=== PATIENT | male | born 1960 | race Caucasian/White ===

== ENCOUNTER 2020-03-06 14:24 | Outpatient (CLI) | payer BC, SELFPAY ==
--- NOTE | ~2020-03-06 | XR_ITS ---
XR knee RT 3V 03/06/2020 14:40 Indication: Right knee pain Procedure: 3 views right knee Comparison: 09/11/2015 Findings: No fracture, subluxation or dislocation. Small joint effusion. There is mild osteoarthritis of the right knee. No foreign bodies. Impression: 1: Mild osteoarthritis of the right knee. 2: Small joint effusion. 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 Impression: 1: Mild osteoarthritis of the right knee. 2: Small joint effusion.
== END 2020-03-06 14:25 | disposition home or self-care (01) ==
PROVIDERS: PCP Family Medicine; Visit Provider Nurse Practitioner Family
DX: M25.569 Pain in unspecified knee (principal); M17.11 Unilateral primary osteoarthritis, right knee; M25.461 Effusion, right knee
CPT/HCPCS: 73562

== ENCOUNTER 2020-03-24 13:30 | Outpatient (CLI) | payer BC, SELFPAY ==
--- NOTE | ~2020-03-24 | MR_ITS ---
EXAMINATION: MR knee RT wo con DATE: 03/24/2020 14:27 INDICATION: Right knee pain TECHNIQUE: Magnetic resonance imaging (MRI) of the right knee was performed without intravenous contr ast. Sequences included coronal PD-weighted FSE, coronal PD-weighted FS FSE, sagittal T2-weighted FS E, sagittal PD-weighted FS FSE and axial PD weighted fat saturated FSE. COMPARISON: Right knee radiographs dated 03/16/2020 FINDINGS: Medial compartment: Complex tear of the body and posterior horn of the medial meniscus with increased signal intensity te ar planes contacting the inferior articular surface at the couple locations along the posterior horn with small radial tear resulting in truncation of the free edge at the lateral side of the posterior horn. Medial extrusion of the meniscal body the peripheral portion of which is subluxed to the inferi or gutter with diffuse amorphous increased signal of a significant portion of the meniscal tissue at the mid body likely representing secondary degenerative tearing. Diffuse partial thickness cartilage loss with chondral surface regularity along the anterior to central weightbearing medial femoral cond yle. More severe cartilage loss in place approaching full-thickness with underlying subarticular bubba a along the medial aspect of the medial tibial plateau. Small marginal osteophytes are present. Lateral compartment: Lateral meniscus is normal. 8 x 4 mm region of linear increased signal at the bone chondral interface at the central weightbearing lateral femoral condyle likely representing blisterlike chondral [place]. There is partial thickness chondral fissuring without degenerative subarticular changes at th e posterior aspect of the lateral tibial plateau underlying the posterior horn of the meniscus. Patellofemoral compartment: Partial-thickness chondral fissuring involving less than 50% the cartilage thickness at the lateral p atellar facet. And at the inferior aspect of the medial facet. Trochlear cartilage appears relatively preserved. Ligaments and tendons: Posterior cruciate ligament is normal. The anterior cruciate ligament demonstrates a normal angle rel ative to Blumenstaat's line. It appears thickened with increased intrasubstance signal surrounding in tact appearing linear fibers with a celery stalk appearance. There are multiple intrasubstance gang lion cysts, the largest bulging from the femoral side of the ligament one of which forms an approxima tely 13 x 10 x 9 mm erosion at the posterior superior femoral footplate of the ligament. There are fe w smaller ganglion cysts protruding anteriorly from the tibial insertion of the ligament. The medial collateral ligament and fibular collateral ligament complex are normal. The extensor mechanism is nor mal. The visualized medial and lateral hamstring tendons as well as the iliotibial band are normal. Fluid: Physiologic amount of fluid in the joint space. No loose osteochondral bodies identified. Osseous/other: No fracture or pathologic marrow replacing process. IMPRESSION: 1. Complex medial meniscal tear. 2. Tricompartmental osteoarthritis, moderate severity with high-grade chondral malacia in the medial compartment and mild with regions of moderate grade chondromalacia in the lateral and patellofemoral compartments. 3. Prominent mucoid degeneration of the anterior cruciate ligament without definitive tear and with m ultiple ganglion cysts one of which erodes deep to the femoral footplate. Correlate with physical exa m to assess for degree of any residual functional integrity. 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
== END 2020-03-24 13:31 | disposition home or self-care (01) ==
LOC: ANHIMG 13:39
PROVIDERS: PCP Family Medicine; Visit Provider Family Medicine
DX: G89.29 Other chronic pain (principal); M25.561 Pain in right knee; S83.231A Complex tear of medial meniscus, current injury, right knee, initial encounter; M17.11 Unilateral primary osteoarthritis, right knee; M94.261 Chondromalacia, right knee; M67.461 Ganglion, right knee
CPT/HCPCS: 73721

== ENCOUNTER 2020-06-29 09:47 | Outpatient (CLI) | payer BC, SELFPAY ==
--- NOTE | ~2020-06-29 | XR_ITS ---
EXAMINATION: XR knee LT 2V DATE: 06/29/2020 10:08 INDICATION: Left knee pain. TECHNIQUE: 3 views of left knee were obtained. COMPARISON: None. FINDINGS: Bone alignment is normal. No fracture. There is mild tricompartmental osteoarthritis. There is a small knee joint effusion. IMPRESSION: 1. Mild left knee osteoarthritis. 2. Small left knee joint effusion. 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
== END 2020-06-29 09:48 | disposition home or self-care (01) ==
PROVIDERS: PCP Family Medicine; Visit Provider Physician Assistant Medical
DX: G89.29 Other chronic pain (principal); M25.562 Pain in left knee; M17.12 Unilateral primary osteoarthritis, left knee; M25.462 Effusion, left knee
CPT/HCPCS: 73560

== ENCOUNTER 2021-08-07 13:04 | Outpatient (CLI) | payer BC, SELFPAY ==
--- NOTE | ~2021-08-07 | XR_ITS ---
EXAMINATION: XR chest 2V 08/07/2021 13:21 INDICATION: Cough PROCEDURE: 2 view chest COMPARISON: 04/18/2011 FINDINGS: The lungs are clear. The cardiomediastinal silhouette is within normal limits. There are no pleural effusions. There is no pneumothorax suspected. IMPRESSION: 1: NO ACUTE CARDIOPULMONARY DISEASE. 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
== END 2021-08-07 13:05 | disposition home or self-care (01) ==
PROVIDERS: PCP Family Medicine; Visit Provider Nurse Practitioner Family
DX: R05.9 Cough, unspecified (principal); J21.0 Acute bronchiolitis due to respiratory syncytial virus
CPT/HCPCS: 71046

== ENCOUNTER 2021-09-06 12:53 | Outpatient (CLI) | payer BC, SELFPAY | END 2021-09-06 12:54 | disposition home or self-care (01) | LOC: ANHAUDIO 12:55 | PROVIDERS: PCP Family Medicine; Visit Provider Otolaryngology | DX: H91.93 Unspecified hearing loss, bilateral (principal); H69.83 Other specified disorders of Eustachian tube, bilateral | CPT/HCPCS: 92557; 92567 ==

== ENCOUNTER 2023-12-30 10:42 | Outpatient (CLI) | payer BC, SELFPAY ==
--- NOTE | ~2023-12-30 | CT_ITS ---
CT Scan of the Chest without Contrast: Clinical Indication: Lung cancer screening, tobacco use Technique: Contiguous sections were acquired throughout the chest without intravenous contrast. Dose reduction technique was used on this scan by utilizing automated exposure control and iterative recon struction technique. The dose-length product (DLP) was 155.74 mGy-cm. Findings: There is no evidence of any significant mediastinal, hilar or axillary lymphadenopathy. There are mil d atherosclerotic calcifications of the aorta and coronary arteries. Calcified right hilar lymph node s are present. There is no evidence of pleural or pericardial effusion. Calcified right lower lobe granuloma present. There is linear scarring at the lingula. Images through the upper abdomen reveal no abnormalities. Impression: Lung RADS 2: Benign appearance. 12 month follow-up screening CT advised. Reviewed, dictated and finalized at [facility]. Impression: Lung RADS 2: Benign appearance. 12 month follow-up screening CT advised.
== END 2023-12-30 10:43 | disposition home or self-care (01) ==
PROVIDERS: PCP Registered Nurse; Visit Provider Registered Nurse
DX: Z12.2 Encounter for screening for malignant neoplasm of respiratory organs (principal); F17.210 Nicotine dependence, cigarettes, uncomplicated
CPT/HCPCS: 71271

== ENCOUNTER 2024-09-21 23:50 | Emergency (ER) | payer BC, SELFPAY ==
[2024-09-21 23:55] VITALS: BP 177/83; PULSE 85; RESP 18; TEMP 36.2; O2SAT 100
--- NOTE | 2024-09-22 01:20 | PC.NURSE ---
pt and approached triage desk stating that pt was able to have a BM while in the waiting room so they were going to head home. Pt and advised to be seen at the nearest ER if they believe it is necessary.
--- OUTSIDE RECORDS SUMMARY | 2024-09-29 02:52 | XMS_ITS | Encounter Summary ---
Author Organization [facility] - [facility] Address [address] [place] [address]. [place], [place] [id number] [place] [id number] Care Team Providers Care Surgical Garment Assembly Supervisor Name Role Phone Ruth Child Primary Care Provider [phone] Reason for Referral * (Routine) - New Request Specialty Diagnoses / Procedures Referred By Yumi sandoval Referred To Contact Procedures LACERATION REPAIR Juni Javier MD [address] [place] [address] Phone: tel: fax: Referral ID Status Reason Start Date Expiration Date V isits Requested Visits Authorized [id number] New Request 01/10/2024 01/09/2025 1 1 Reason for Visit * Reason Comments Laceration Encounter Details Date Type Department Care Team (Late st Contact Info) Description 01/09/2024 12:42 PM CDT - 01/09/2024 1:56 PM CDT Emergency [facility] Emergency Room [address] [place] [address] Juni Javier MD [address] [place] [id number] Laceration Discharge Disposition: Home or Self Care (Routine Discharge) Social History Tobacco Use Types Packs/Day Years Used Date Smoking Tobacco: Every Day Cigarettes 1 35 Smokeless 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C (98.2 ??F) 01/09/2024 1:50 PM CD T Respiratory Rate 18 01/09/2024 1:50 PM CDT Oxygen Saturation 94% 01/09/2024 1:50 PM CDT Inhaled Oxygen Concentration - - Weight 96.6 kg (213 lb) 01/09/2024 12:40 PM CDT Height 182.9 cm (6') 01/09/2024 12:40 PM CDT Body Mass Index 28.89 01/09/2024 12:40 PM CDT documented in this encounter Discharge Instructions * Attachments The following attachments cannot be sent through Care Everywhere. * Laceration Repair With Stitches ED (Vietnamese) documented in this encounter Medications at Time of Discharge glipiZIDE (GLUCOTROL) 5 MG tabletIndications:Ty pe 2 diabetes mellitus with hyperglycemia, without long-term current use of insulin ([facility] HHS/HCC),Uncontrolle d type 2 diabetes mellitus with hyperglycemia ([facility] H[facility]/HCC) Take 1 tablet (5 mg total) by mouth 2 (two) times daily before meals. 60 tablet 5 11/18/2023 4 JARDIANCE 25 MG tabletIndications:Un controlled type 2 diabetes mellitus with hyperglycemia ([facility] H[facility]/HCC) Take 1 tablet (25 mg total) by mouth daily. 90 tablet 3 07/24/2023 4 levothyroxine (SYNTHROID) 25 MCG tabletIndications:Ac quired hypothyroidism Take 1 tablet (25 mcg total) by mouth every morning. 90 tablet 3 07/24/2023 4 lisinopril (PRINIVIL) 10 MG tabletIndications:Ty pe 2 diabetes mellitus with hyperglycemia, without long-term current use of insulin ([facility] H[facility]/HCC),Uncontrolle d type 2 diabetes mellitus with hyperglycemia ([facility] H[facility]/HCC),Primary hypertension Take 1 tablet (10 mg total) by mouth daily. 30 tablet 5 11/18/2023 4 meloxicam (MOBIC) 15 MG tabletIndications:Ch ronic pain of both knees Take 1 tablet (15 mg total) by mouth daily. BID Pt states that he is taking once a day 90 tablet 1 07/24/2023 4 metFORMIN (GLUCOPHAGE) 1000 MG tabletIndications:Un controlled type 2 diabetes mellitus with hyperglycemia ([facility] H[facility]/HCC) Take 1 tablet (1,000 mg total) by mouth 2 (two) times daily with meals. Once in the morning and once in the evening. 180 tablet 3 07/24/2023 4 rosuvastatin (CRESTOR) 20 MG tabletIndications:Mi xed hyperlipidemia Patient to take #2 20mg tablets (40mg total daily) by mouth 11/25/2023 4 Semaglutide (RYBELSUS) 3 MG TabIndications:Diabe cordelia Mellitus Take 3 mg by mouth daily. Indications: Diabetes 30 tablet 11 07/24/2023 4 documented as of this encounter ED Notes * Juni Javier MD - 01/09/2024 12:47 PM CDTAssociated Order(s): Lac Repair Chief Complaint Chief Complaint Patient presents with Laceration History of Present Illness 63-year-old male presents with laceration of the left pinky finger. Patient reports that he was using a chainsaw when the blade bounced upward and caught the side of his pinky finger. There was immediate bleeding and he applied pressure. He is still able to fully extend and flex his finger. No numbness or tingling. No exposed bone. Last tetanus shot about 10 years ago. Not on anticoagulants. Medical History ALLERGIES: Review of patient's allergies indicates: No Known Allergies MEDICATIONS: Prior to Admission medications Medication Sig Start Date End Date Taking? Authorizing Provider glipiZIDE (GLUCOTROL) 5 MG tablet Take 1 tablet (5 mg total) by mouth 2 (two) times daily before meals. 11/18/23 JOSE Gross JARDIANCE 25 MG tablet Take 1 tablet (25 mg total) by mouth daily. 07/24/23 JOSE Gross levothyroxine (SYNTHROID) 25 MCG tablet Take 1 tablet (25 mcg total) by mouth every morning. 07/24/23 JOSE Gross lisinopril (PRINIVIL) 10 MG tablet Take 1 tablet (10 mg total) by mouth daily. 11/18/23 JOSE Gross meloxicam (MOBIC) 15 MG tablet Take 1 tablet (15 mg total) by mouth daily. BID Pt states that he is taking once a day Patient taking differently: Take 1 tablet (15 mg total) by mouth daily. 07/24/23 JOSE Gross metFORMIN (GLUCOPHAGE) 1000 MG tablet Take 1 tablet (1,000 mg total) by mouth 2 (two) times daily with meals. Once in the morning and once in the evening. 07/24/23 JOSE Gross rosuvastatin (CRESTOR) 20 MG tablet Patient to take #2 20mg tablets (40mg total daily) by mouth 11/25/23 JOSE Gross Semaglutide (RYBELSUS) 3 MG Tab Take 3 mg by mouth daily. Indications: Diabetes 07/24/23 JOSE Gross PAST MEDICAL HISTORY: Past Medical History: Diagnosis Date BMI 29.0-29.9,adult 08/19/2022 Cigarette nicotine dependence without complication 08/19/2022 Diabetes mellitus ([facility]) High cholesterol Hypertension Primary hypertension 08/19/2022 Type 2 diabetes mellitus with hyperglycemia, without long-term current use of insulin ([facility]) 08/19/2022 PAST SURGICAL HISTORY: Past Surgical History: Procedure Laterality Date ACNE CYST REMOVAL FAMILY HISTORY: Family History Problem Relation Name Age of Onset Hypertension Mother Cancer Father kidney cancer No Known Problems Daughter No Known Problems Daughter Diabetes Maternal Grandmother SOCIAL HISTORY: Social History Tobacco Use Smoking status: Every Day Current packs/day: 1.00 Average packs/day: 1 pack/day for 35.0 years (35.0 ttl pk-yrs) Types: Cigarettes Smokeless tobacco: Never Tobacco 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 Vaping Use Vaping status: Never Used Substance Use Topics Alcohol use: Yes Comment: once every 3 months Drug use: Never Review of Systems Review of Systems Pertinent ROS per HPI Physical Exam Filed Vitals: 01/09/24 1240 01/09/24 1350 BP: (!) 183/110 (!) 159/88 Pulse: 68 74 Resp: 18 18 Temp: 98.4 ??F (36.9 ??C) 98.2 ??F (36.8 ??C) TempSrc: Temporal Temporal SpO2: 96% 94% Weight: 96.6 kg (213 lb) Height: 1.829 m (6') Physical Exam General: well developed, well nourished, resting comfortably in bed, no acute distress HEENT: moist mucous membranes, nares normal, lids/conjunctiva normal Resp: non-labored breathing on RA, speaks in full sentences CV: well perfused GI: non-distended Extr: no gross edema bilaterally Msk: no joint swelling or gross deformity, ROM grossly normal Skin: Wide laceration with skin avulsion to the lateral aspect of the fifth digit of the left hand just distal to the MCP joint. Normal strength and range of motion with flexion and extension of the fifth digit. Brisk cap refill distal to the injury. Sensation fully intact. Neuro: A&Ox3, no gross neurologic deficits Diagnostic Studies / Procedures ELECTROCARDIOGRAMS: No results found for this visit on 01/09/24. LABORATORY STUDIES: No results found for this visit on 01/09/24. IMAGING STUDIES No orders to display Lac Repair Date/Time: 01/10/2024 5:08 PM Performed by: Juni Javier MD Authorized by: Juni Javier MD Consent: Consent obtained: Verbal Consent given by: Patient Risks discussed: Infection, pain, poor cosmetic result, poor wound healing, nerve damage, tendon damage and vascular damage Anesthesia: Anesthesia method: Local infiltration Local anesthetic: Lidocaine 1% w/o epi Laceration details: Location: Finger Finger location: L small finger Length (cm): 3.5 Pre-procedure details: Preparation: Patient was prepped and draped in usual sterile fashion Exploration: Imaging outcome: foreign body not noted Wound exploration: entire depth of wound visualized Wound extent: areolar tissue violated Wound extent: no nerve damage noted and no tendon damage noted Contaminated: yes Treatment: Area cleansed with: Chlorhexidine Amount of cleaning: Extensive Irrigation solution: Sterile saline Irrigation method: Pressure wash Visualized foreign bodies/material removed: no Debridement: Minimal Undermining: Minimal Layers/structures repaired: Deep subcutaneous Deep subcutaneous: Suture size: 4-0 Suture material: Vicryl Suture technique: Simple interrupted Number of sutures: 2 Skin repair: Repair method: Sutures Suture size: 3-0 Suture material: Nylon Suture technique: Horizontal mattress Number of sutures: 3 Approximation: Approximation: Close Repair type: Repair type: Intermediate Post-procedure details: Dressing: Antibiotic ointment, non-adherent dressing and splint for protection Procedure completion: Tolerated well, no immediate complications ED Course / Medical Decision Making Medical Decision Making 63-year-old male presents with avulsion and laceration to the left small finger following chainsaw accident. On exam, sensation as well as active flexion and extension motor function is fully intact,and there is brisk cap refill at the tip of the digit. Wound exploration under direct visualizationrevealed no retained FB. Wound irrigation and laceration repair were performed as discussed above. He received tetanus prophylaxis. Following closure, laceration was covered with bacitracin, nonadherent dressing, and a digital splint was applied. Repeat neurovascular exam was unchanged. Wound care instructions were discussed. We discussed signs of symptoms of infection including worsening pain, swelling, expanding skin redness, purulent drainage, and fever. Patient confirmed understanding. He is to return to his primary care provider, urgent care or to this ED in 7 days for suture removal. Discharged to home with home care instructions, follow-up instructions, and strict return precautions. Clinical Impression Laceration of left little finger without foreign body without damage to nail, initial encounter (Primary) Disposition: Discharge Juni Javier MD 01/10/24 1721 * Ruth Piper RN - 01/09/2024 12:42 PM CDT Patient comes to ER with complaints of a laceration to left pinky finger. He was working with the chainsaw and cut finger. Denies numbness and tingling to the finger documented in this encounter Plan of Treatment Not on file documented as of this encounter Procedures Procedure Name Priority Date/Time Associated Diagnosis Comments LACERATION REPAIR Routine 01/10/2024 5:0 8 PM CDT documented in this encounter Results * Lac Repair (01/10/2024 5:08 PM CDT) Narrative Juni Javier MD - 01/10/2024 5:08 PM CDT Juni Javier MD ? 01/10/2024 ??5:21 PM Lac Repair Date/Time: 01/10/2024 5:08 PM Performed by: Juni Javier MD Authorized by: Juni Javier MD ?? Consent: ??Consent obtained: ??Verbal ??Consent given by: ??Patient ??Risks discussed: ??Infection, pain, poor cosmetic result, poor wound healing, nerve damage, tendon damage and vascular damage Anesthesia: ??Anesthesia method: ??Local infiltration ??Local anesthetic: ??Lidocaine 1% w/o epi Laceration details: ??Location: ??Finger ??Finger location: ??L small finger ??Length (cm): ??3.5 Pre-procedure details: ??Preparation: ??Patient was prepped and draped in usual sterile fashion Exploration: ??Imaging outcome: foreign body not noted ?Wound exploration: entire depth of wound visualized ?Wound extent: areolar tissue violated ?Wound extent: no nerve damage noted and no tendon damage noted ?Contaminated: yes ?? Treatment: ??Area cleansed with: ??Chlorhexidine ??Amount of cleaning: ??Extensive ??Irrigation solution: ??Sterile saline ??Irrigation method: ??Pressure wash ??Visualized foreign bodies/material removed: no ?Debridement: ??Minimal ??Undermining: ??Minimal ??Layers/structures repaired: ??Deep subcutaneous Deep subcutaneous: ??Suture size: ??4-0 ??Suture material: ??Vicryl ??Suture technique: ??Simple interrupted ??Number of sutures: ??2 Skin repair: ??Repair method: ??Sutures ??Suture size: ??3-0 ??Suture material: ??Nylon ??Suture technique: ??Horizontal mattress ??Number of sutures: ??3 Approximation: ??Approximation: ??Close Repair type: ??Repair type: ??Intermediate Post-procedure details: ??Dressing: ??Antibiotic ointment, non-adherent dressing and splint for protection ??Procedure completion: ??Tolerated well, no immediate complications Juni Javier MD PROCEDURE/MINOR AVALOS RGICAL ORDERABLES Final Result documented in this encounter Visit Diagnoses Diagnosis Laceration of left little finger without foreign body without damage to nail, initial encounter- Primary documented in this encounter Administered Medications Inactive Administered Medications - up to 3 most recent administrations Medication Order MAR Action Action Date Dose Rate Site bacitracin ointment Topical, Once, 1 dose, On 01/09/24 at 1345 Given 01/09/2024 1:44 PM CDT lidocaine (PF) (XYLOCAINE) 1 % injection 10 mL 10 mL, Subcutaneous, Once, 1 dose, On 01/09/24 at 1300 Given by Other 01/09/2024 1:01 PM CDT 10 mLs Other documented in this encounter Active and Recently Administered Medications Times are shown in CDT. Scheduled Medication Order 01/07/2024 01/08/2024 01/09/2024 bacitracin ointment (COMPLETED) Topical, Once, 1 dose, On 01/09/24 at 1345 1344 (Given - Provid er: Ruth Piper RN) lidocaine (PF) (XYLOCAINE) 1 % injection 10 mL (COMPLETED) 10 mL, Subcutaneous, Once, 1 dose, On 01/09/24 at 1300 1301 (Given by Other - Provider: Ruth Piper RN - Comment: Left pinky; given by provider) documented in this encounter Additional Health Concerns Assessment Noted Time PHQ-9 Depression Total Score: 0 11/13/19 23 11:12 AM SURGICAL ASSISTANT CERTIFIED documented as of this encounter Care Teams Surgical Garment Assembly Supervisor Relationship Specialty Start Date End Date Ruth Child APNP [address] [place] [id number] PCP - General NURSE PRACTITIONER 08/19/22 documented as of this encounter
--- OUTSIDE RECORDS SUMMARY | 2024-09-29 02:52 | XMS_ITS | Encounter Summary ---
Author Organization [facility] - [facility] Address [address] [place] [address]. 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
--- OUTSIDE RECORDS SUMMARY | 2024-09-29 02:52 | XMS_ITS | Encounter Summary ---
Author Organization [facility] Address [address] [place] [address]. [place], [place] [id number] [place] [address] Care Team Providers Care Livestock Showman Name Role Phone Ruth Child Primary Care Provider [phone] Reason for Referral * (Routine) - New Request Specialty Diagnoses / Procedures Referred By Yumi sandoval Referred To Contact Diagnoses Visit for suture removal Procedures Suture Removal Ruth Child APNP [address] [place] [address] Phone: tel: fax: Referral ID Status Reason Start Date Expiration Date V isits Requested Visits Authorized [id number] New Request 01/20/2024 01/19/2025 1 1 Reason for Visit * Reason Comments Suture Removal Encounter Details Date Type Department Care Team (Late st Contact Info) Description 01/20/2024 9:00 AM CDT Office Visit [facility] Family & Internal Medicine [facility] [address] [place] [address] Ruth Child APNP [address] [place] [address] Suture Removal Social History Tobacco Use Types Packs/Day Years Used Date Smoking Tobacco: Every Day Cigarettes 1 35 Smokeless Tobacco: Never Comments:Provider to adolescent counselor Alcohol Use Standard Drinks/Week Comments Yes [...] Sign Reading Time Taken Comments Blood Pressure 138/68 01/20/2024 9:49 AM CDT Pulse 77 01/20/2024 9:03 AM CDT Temperature 37 ??C (98.6 ??F) 01/20/2024 9:03 AM CDT Respiratory Rate 16 01/20/2024 9:03 AM CDT Oxygen Saturation 93% 01/20/2024 9:03 AM CDT Inhaled Oxygen Concentration - - Weight 97.3 kg (214 lb 8 oz) 01/20/2024 9:03 AM CDT Height 182.9 cm (6') 01/20/2024 9:03 AM CDT Body Mass Index 29.09 01/20/2024 9:03 AM CDT documented in this encounter Patient Instructions * Attachments The following attachments cannot be sent through Care Everywhere. * Quitting smoking (Amharic) documented in this encounter Progress Notes * JOSE Gross - 01/20/2024 9:00 AM CDTAssociated Order(s): Suture Removal Post-Procedure Diagnose(s): Visit for suture removal Images from the original note were not included. [facility] FAMILY AND INTERNAL MEDICINE OFFICE VISIT Reason for Visit: Suture Removal History of Present Illness: 63 yo male here today for suture removal and diabetes follow up. Suture removal -patient here for suture removal. Patient had an accident involving a chainsaw 11 days ago. Sought care at [facility]. 2 deep subcutaneous sutures placed 3 more superficial sutures placed. Tetanus received. Patient has not noted any signs and symptoms of infection. Neurovascular check intact. T2DM - HGB A1C checked today and found to be a little improved at 9.3, from 12.9 2 months ago. At that visit we did discuss some changes he would like to make and glipizide 5 mg BID (as this was the only med he would agree to) was started. ROS: Review of Systems Constitutional: Negative for chills and fever. Respiratory: Negative for cough and shortness of breath. Cardiovascular: Negative for chest pain and palpitations. Gastrointestinal: Negative for abdominal pain, diarrhea, nausea and vomiting. Neurological: Negative for dizziness and headaches. Medications: Current Outpatient Medications: glipiZIDE (GLUCOTROL) 5 MG tablet, Take 2 tablets twice daily, Disp: 360 tablet, Rfl: 3 JARDIANCE 25 MG tablet, Take 1 tablet (25 mg total) by mouth daily., Disp: 90 tablet, Rfl: 3 levothyroxine (SYNTHROID) 25 MCG tablet, Take 1 tablet (25 mcg total) by mouth every morning., Disp: 90 tablet, Rfl: 3 lisinopril (PRINIVIL) 10 MG tablet, Take 1 tablet (10 mg total) by mouth daily., Disp: 30 tablet, Rfl: 5 meloxicam (MOBIC) 15 MG tablet, take 1 tablet by mouth daily, Disp: 90 tablet, Rfl: 1 metFORMIN (GLUCOPHAGE) 1000 MG tablet, Take 1 tablet (1,000 mg total) by mouth 2 (two) times daily with meals. Once in the morning and once in the evening., Disp: 180 tablet, Rfl: 3 rosuvastatin (CRESTOR) 20 MG tablet, Patient to take #2 20mg tablets (40mg total daily) by mouth, Disp: , Rfl: Allergies: Review of patient's allergies indicates: No Known Allergies Medical History: Past Medical History: Diagnosis Date BMI 29.0-29.9,adult 08/19/2022 Cigarette nicotine dependence without complication 08/19/2022 Diabetes mellitus ([facility]) High cholesterol Hypertension Primary hypertension 08/19/2022 Type 2 diabetes mellitus with hyperglycemia, without long-term current use of insulin ([facility]) 08/19/2022 Surgical History: Past Surgical History: Procedure Laterality Date ACNE CYST REMOVAL Social History: Social History Socioeconomic History Marital status: Tobacco Use Smoking status: Every Day Current packs/day: 1.00 Average packs/day: 1 pack/day for 35.0 years (35.0 ttl pk-yrs) Types: Cigarettes Smokeless tobacco: Never Tobacco comments: Provider to adolescent counselor Vaping Use Vaping status: Never Used Substance and Sexual Activity Alcohol use: Yes Comment: once every 3 months Drug use: Never Family History: Family History Problem Relation Name Age of Onset Hypertension Mother Cancer Father kidney cancer No Known Problems Daughter No Known Problems Daughter Diabetes Maternal Grandmother PE: Physical Exam Vitals and nursing note reviewed. HENT: Head: Normocephalic and atraumatic. Eyes: General: No scleral icterus. Conjunctiva/sclera: Conjunctivae normal. Neck: Trachea: No tracheal deviation. Cardiovascular: Rate and Rhythm: Normal rate and regular rhythm. Heart sounds: Normal heart sounds. Pulmonary: Effort: Pulmonary effort is normal. No respiratory distress. Breath sounds: Normal breath sounds. No stridor. No wheezing. Musculoskeletal: General: No deformity. Normal range of motion. Cervical back: Normal range of motion and neck supple. Skin: General: Skin is warm and dry. Findings: No erythema. Comments: Neurovascular check intact. Wound edges of left pinky finger as approximated as possible.No signs of infection noted. Patient able to move left pinky finger. Sensation intact. Neurological: Mental Status: He is alert and oriented to person, place, and time. Gait: Gait is intact. Psychiatric: Mood and Affect: Mood and affect normal. Suture Removal Date/Time: 01/20/2024 9:38 AM Performed by: JOSE Gross Authorized by: JOSE Gross Body area: upper extremity Location details: left small finger Wound Appearance: clean Sutures Removed: 3 Post-removal: dressing applied, Steri-Strips applied and antibiotic ointment applied Patient tolerance: patient tolerated the procedure well with no immediate complications Filed Vitals: 01/20/24 0903 BP: (!) 146/66 Pulse: 77 Resp: 16 Temp: 98.6 ??F (37 ??C) TempSrc: Skin SpO2: 93% Weight: 97.3 kg (214 lb 8 oz) Height: 1.829 m (6') Labs: Labs Reviewed Diagnoses/Impression: 1. Uncontrolled type 2 diabetes mellitus with hyperglycemia ([facility]) HEMOGLOBIN, GLYCOSYLATED COLLECT.CAPILLARY (FNGR,HEEL,EAR) glipiZIDE (GLUCOTROL) 5 MG tablet 2. Type 2 diabetes mellitus with hyperglycemia, without long-term current use of insulin ([facility]) glipiZIDE (GLUCOTROL) 5 MG tablet 3. Visit for suture removal Recommendations and Plan: 1. Uncontrolled type 2 diabetes mellitus with hyperglycemia ([facility]) - HEMOGLOBIN, GLYCOSYLATED - COLLECT.CAPILLARY (FNGR,HEEL,EAR) - glipiZIDE (GLUCOTROL) 5 MG tablet; Take 2 tablets twice daily Dispense: 360 tablet; Refill: 3 Hemoglobin A1c checked today and found to be better, but still elevated at 9.3. Will adjust meds--cautioned on symptomatic lows. Would like to see pt back in office in 6 weeks. 2. Type 2 diabetes mellitus with hyperglycemia, without long-term current use of insulin ([facility] HHS/HCC) - glipiZIDE (GLUCOTROL) 5 MG tablet; Take 2 tablets twice daily Dispense: 360 tablet; Refill: 3 3. Visit for suture removal 3 superficial sutures removed. Steri-Strips and dressing applied. Patient is aware of signs and symptoms of infection, let us know if develops any days Orders Placed This Encounter COLLECT.CAPILLARY (FNGR,HEEL,EAR) Suture Removal HEMOGLOBIN, GLYCOSYLATED glipiZIDE (GLUCOTROL) 5 MG tablet Cannot display discharge medications since this is not an admission. PCP: JOSE Gross 01/20/2024 documented in this encounter Plan of Treatment Not on file documented as of this encounter Procedures Procedure Name Priority Date/Time Associated Diagnosis Comments SUTURE REMOVAL Routine 01/20/2024 9:38 AM CDT Visit for suture removal COLLECT.CAPILLARY (FNGR,HEEL,EAR) Routine 01/20/2024 9:00 AM CDT Uncontrolled type 2 diabetes mellitus with hyperglycemia ([facility] HHS/HCC) HEMOGLOBIN, GLYCOSYLATED Routine 01/20/2024 Uncontrolled type 2 diabetes mellitus with hyperglycemia ([facility] HHS/HCC) documented in this encounter Results * SUTURE REMOVAL (01/20/2024 9:38 AM CDT) Narrative Ruth Child APNP - 01/20/2024 9:38 AM CDT JOSE Gross ? 01/20/2024 ??9:47 AM Suture Removal Date/Time: 01/20/2024 9:38 AM Performed by: JOSE Gross Authorized by: JOSE Gross ??Body area: upper extremity Location details: left small finger Wound Appearance: clean Sutures Removed: 3 Post-removal: dressing applied, Steri-Strips applied and antibiotic ointment applied Patient tolerance: patient tolerated the procedure well with no immediate complications Ruth GARCIA PROCEDURE/MINOR SURGICAL OR DERABLES Final Result * HEMOGLOBIN, GLYCOSYLATED (01/20/2024) HGB A1C 9.3 % [facility] 01/20/2024 Ruth GARCIA LABORATORY Final Resul t -[facility] [address] [place] [address], documented in this encounter Visit Diagnoses Diagnosis Uncontrolled type 2 diabetes mellitus with hyperglycemia ([facility])- Primary Type 2 diabetes mellitus with hyperglycemia, without long-term current use of insulin ([facility]) Visit for suture removal Encounter for removal of sutures documented in this encounter Additional Health Concerns Assessment Noted Time PHQ-9 Depression Total Score: 0 11/13/19 23 11:12 AM MEDICAL RECORD CONSULTANT documented as of this encounter Care Teams Livestock Showman Relationship Specialty Start Date End Date Ruth Child APNP [address] [place] [address] PCP - General NURSE PRACTITIONER 08/19/22 documented as of this encounter
--- OUTSIDE RECORDS SUMMARY | 2024-09-29 02:52 | XMS_ITS | Encounter Summary ---
Author Organization [facility] Address [address] [place] [address]. [place], [place] [address] [place] [address] Care Team Providers Care Nailer Hand Name Role Phone Ruth Child Primary Care Provider [phone] Reason for Referral * Consultation (Routine) - Authorized Specialty Diagnoses / Procedures Referred By Yumi sandoval Referred To Contact NEPHROLOGY Diagnoses Decreased renal function Procedures OFFICE/OUTPATIENT NEW LOW MDM 30-44 MINUTES OFFICE/OUTPT VISIT,NEW,LEVL IV OFFICE/OUTPT VISIT,NEW,LEVL V OFFICE/OUTPT VISIT,EST,LEVL III OFFICE/OUTPT VISIT,EST,LEVL IV OFFICE/OUTPT VISIT,EST,LEVL V Ruth Child APNP [address] [place] [address] Phone: tel: fax: Tati Cooney MD [address] [place] [address] Phone: tel: fax: Referral ID Status Reason Start Date Expiration Date Visits Requested Visits Authorized [id number] Authorized Specialty Services 11/25/2023 12/25/2024 100 100 CUTTER APPRENTICE * Imaging (Routine) - Closed Specialty Diagnoses / Procedures Referred By Yumi sandoval Referred To Contact RADIOLOGY Diagnoses Cigarette nicotine dependence without complication Procedures CT LUNG SCREENING Ruth Child APNP [address] [place] [address] Phone: tel: fax: Referral ID Status Reason Start Date Expiration Date Visits Re quested Visits Authorized [id number] Closed 12/01/2023 01/29/2024 1 1 CUTTER APPRENTICE Reason for Visit * Reason Onset Date Comments Other 11/20/2023 Encounter Details Date Type Department Care Team (Late st Contact Info) Description 11/20/2023 Telephone [facility] Family & Internal Medicine [facility] [address] [place] [id number] Ruth Child APNP [address] [place], [place] [phone] Other Social History Tobacco Use Types Packs/Day Years Used Date Smoking Tobacco: Every Day Cigarettes 1 35 Smokeless Tobacco: Never Comments:Provider to financial health counselor Alcohol Use Standard Drinks/Week Comments Yes [...] on file documented as of this encounter Progress Notes * Kemi Hartley RN - 11/25/2023 11:13 AM CST Patient's notified and verbalized understanding. Patient also needed a new referral to a information management officer. His last referral was canceled. Opportunity given for all questions to be answered, no further needs voiced at this time. LL-11/25/23 CUTTER APPRENTICE * JOSE Gross - 11/24/2023 12:[address] lung screening ordered CUTTER APPRENTICE * Kemi Hartley RN - 11/20/2023 1:34 PM CST ----- Message from JOSE Gross sent at 11/19/2023 8:24 PM DIE CUTTER APPRENTICE ----- Renal function worsening. Lisinopril was increased to 10 mg at his last visit with me. He is to continue Jardiance. Make appt with information management officer. Avoid NSAIDS. Increase water intake Lipids elevated---let's increase his rosuvastatin to 40 mg---would like to see his LDL closer to 70and his is 104 CUTTER APPRENTICE * Kemi Hartley RN - 11/20/2023 1:26 PM CST Called and spoke with patient . Explained medication. Patient is also wondering about a CT lungscreening and if he still needs it? LL-11/20/23 CUTTER APPRENTICE * Manuela Schulte - 11/20/2023 9:21 AM CST Pt would like to speak with someone about tests that he is suppose to have. Please give him a call. CUTTER APPRENTICE documented in this encounter Plan of Treatment Scheduled Orders Name Type Priority Associated Diagnoses Orde r Schedule CT LUNG SCREENING CT Routine Cigarette nicotine dependence without complication Expected: 11/24/2023, Expires: 11/24/2024 Scheduled Referrals Name Type Priority Associated Diagnoses Orde r Schedule Ambulatory referral to Nephrology (OTHER) Referral Routine Decreased renal function Ordered: 11/25/2023 documented as of this encounter Visit Diagnoses Diagnosis Cigarette nicotine dependence without complication- Primary Tobacco use disorder Decreased renal function Unspecified disorder of kidney and ureter documented in this encounter Additional Health Concerns Assessment Noted Time PHQ-9 Depression Total Score: 0 11/13/19 11:12 AM DIE CUTTER APPRENTICE documented as of this encounter Care Teams Nailer Hand Relationship Specialty Start Date End Date Ruth Child APNP [address] [place] [phone] PCP - General NURSE PRACTITIONER 08/19/22 documented as of this encounter
--- OUTSIDE RECORDS SUMMARY | 2024-09-29 02:52 | XMS_ITS | Encounter Summary ---
Author Organization [facility] Address [address] [place] [address]. [place], [place] [phone] [place] [id number] Care Team Providers Care Brigadier Name Role Phone Ruth Child Primary Care Provider [phone] Encounter Details Date Type Department Care Team (Latest Contact Info) Description 07/24/2023 Travel Social History Tobacco Use Types Packs/Day Years Used Date Smoking Tobacco: Every Day Cigarettes 1 35 Smokeless Tobacco: Never Comments:Provider to estate planning counselor Alcohol Use Standard Drinks/Week Comments Yes 0 (1 standard drink = 0.6 oz pur e alcohol) once every 3 months PHQ-2 Answer Date Recorded Patient Health Questionnaire-2 Score 0 11/13/2022 Sex and Gender Information Value Date Recorded [...] Total Score: 0 11/13/19 23 11:12 AM [employer] PRODUCT CONSULTANT documented as of this encounter Care Teams Brigadier Relationship Specialty Start Date End Date Ruth Child APNP [address] [place] [address] PCP - General NURSE PRACTITIONER 08/19/22 documented as of this encounter
--- OUTSIDE RECORDS SUMMARY | 2024-09-29 02:52 | XMS_ITS | Encounter Summary ---
Author Organization [facility] Address [address] [place] [address]. [place], [place] [address] [place] [address] Care Team Providers Care Otolaryngology Nurse Name Role Phone Ruth Child Primary Care Provider [phone] Encounter Details Date Type Department Care Team (Late st Contact Info) Description 11/13/2023 1:20 PM ELECTROMEDICAL EQUIPMENT TECHNICIAN Laboratory Only [facility] Family & Internal Medicine [address] [place] [address] Ruth Child APNP [facility] [place] [address] Social History Tobacco Use Types Packs/Day Years Used Date Smoking Tobacco: Every Day Cigarettes 1 35 Smokeless Tobacco: Never Comments:Provider to grief counselor Alcohol Use Standard Drinks/Week Comments Yes [...] Procedure Name Priority Date/Time Associated Diagnosis Comments COLLECTION VENOUS BLOOD VENIPUNCTURE Routine 11/13/2023 1:43 PM ELECTROMEDICAL EQUIPMENT TECHNICIAN Uncontrolled type 2 diabetes mellitus with hyperglycemia (CMS/HCC HHS/HCC) Acquired hypothyroidism Prostate cancer screening Primary hypertension Mixed hyperlipidemia PROSTATE SPECIFIC ANTIGEN,SCREENING Routine 11/13/2023 1:43 PM ELECTROMEDICAL EQUIPMENT TECHNICIAN Prostate cancer screening COMPREHENSIVE METABOLIC PANEL Routine 11/13/2023 1:43 PM ELECTROMEDICAL EQUIPMENT TECHNICIAN Primary hypertension LIPID PANEL Routine 11/13/2023 1:43 PM ELECTROMEDICAL EQUIPMENT TECHNICIAN Mixed hyperlipidemia CBC W/DIFF AUTOMATED Routine 11/13/2023 1:43 PM ELECTROMEDICAL EQUIPMENT TECHNICIAN Uncontrolled type 2 diabetes mellitus with hyperglycemia (CMS/HCC HHS/HCC) THYROXINE, FREE (FT4) Routine 11/13/2023 1:43 PM ELECTROMEDICAL EQUIPMENT TECHNICIAN Acquired hypothyroidism THYROID STIM HORMONE TSH Routine 11/13/2023 1:43 PM ELECTROMEDICAL EQUIPMENT TECHNICIAN Acquired hypothyroidism documented in this encounter Results * (ABNORMAL) LIPID PANEL (11/13/2023 1:43 PM ELECTROMEDICAL EQUIPMENT TECHNICIAN) CHOLESTEROL 216(H) <200 MG/DL 11/13/2023 8:00 PM [facility] TRIGLYCERIDES 340(H) <150 MG/DL 11/13/2023 8:00 PM [facility] HDL 44 >40 MG/DL 11/13/2023 8:00 PM [facility] LDL-C 104(H) <100 MG/DL 11/13/2023 8:00 PM [facility] VLDL CALCULATION 68(H) 5 - 28 MG/DL 11/13/2023 8:00 PM [facility] CHOL/HDL RATIO 4.9(H) 0.0 - 4.0 11/13/2023 8:00 PM [facility] LDL/HDL 2.4(H) 0.41 - 2.13 11/13/2023 8:00 PM [facility] NON HDL CHOLESTEROL 172(H) <140 MG/DL 11/13/2023 8:00 PM [facility] 11/13/2023 1:43 PM ELECTROMEDICAL EQUIPMENT TECHNICIAN Ruth H Danyell APNP LABORATORY Final Resul t [facility] [place] [address] [place] [address], * (ABNORMAL) COMPREHENSIVE METABOLIC PANEL (11/13/2023 1:43 PM ELECTROMEDICAL EQUIPMENT TECHNICIAN) SODIUM S/P/B 135(L) 136 - 145 MMOL/L 11/13/2023 8:00 PM [facility] POTASSIUM S/P/B 4.8 3.5 - 5.1 MMOL/L 11/13/2023 8:00 PM [facility] CHLORIDE S/P/B 100 98 - 107 MMOL/L 11/13/2023 8:00 PM [facility] CO2 26.9 21 - 32 MMOL/L 11/13/2023 8:00 PM [facility] GLUCOSE 197(H) 70 - 99 MG/DL 11/13/2023 8:00 PM [facility] BUN 28(H) 7 - 18 MG/DL 11/13/2023 8:00 PM [facility] CREATININE S/P/B 1.51(H) 0.70 - 1.30 MG/DL 11/13/2023 8:00 PM [facility] CALCIUM S/P/B 9.7 8.4 - 10.5 MG/DL 11/13/2023 8:00 PM [facility] BILIRUBIN TOTAL S/P/B 0.5 0.2 - 1.0 MG/DL 11/13/2023 8:00 PM [facility] ALKALINE PHOSPHATASE S/P/B 79 45 - 115 U/L 11/13/2023 8:00 PM [facility] AST 23 15 - 37 U/L 11/13/2023 8:00 PM [facility] ALT 49 16 - 63 U/L 11/13/2023 8:00 PM [facility] TOTAL PROTEIN S/P/B 6.5 6.4 - 8.2 G/DL 11/13/2023 8:00 PM [facility] ALBUMIN S/P/B 3.5 3.4 - 5.0 G/DL 11/13/2023 8:00 PM [facility] ANION GAP 8.1 5 - 15 MMOL/L 11/13/2023 8:00 PM [facility] Comment:REFERENCE RANGE NOT ESTABLISHED OSMOLALITY (CALC) 291 MOSM/KG 024 8:00 PM [facility] Comment:REFERENCE RANGE NOT ESTABLISHED GFR ESTIMATE 52(L) >90 ML/MIN/1. 73 M2 11/13/2023 8:00 PM [facility] GFR NOTES GFR REFERENCE S: 11/13/2023 8:00 PM [facility] [place] Comment: THE ESTIMATED GFR IS CALCULATED USING THE 2020 CKD-EPI EQUATION. THE FOLLOWING CATEGORIES FOR GRADING RENAL FUNCTION ARE RECOMMENDED BY THE INTERNATIONAL SOCIETY OF NEPHROLOGY (KDIGO 2012 CLINICAL PRACTICE GUIDELINE). G1,NORMAL OR HIGH: >89 ml/min/1.73 m2 G2,MILDLY DECREASED: 60-89 ml/min/1.73 m2 G3A,MILDLY TO MODERATELY DECREASED: 45-59 ml/min/1.73 m2 G3B,MODERATELY TO SEVERELY DECREASED: 30-44 ml/min/1.73 m2 G4,SEVERELY DECREASED: 15-29 ml/min/1.73 m2 G5,KIDNEY FAILURE: <15 ml/min/1.73 m2 11/13/2023 1:43 PM ELECTROMEDICAL EQUIPMENT TECHNICIAN us Ruth GARCIA LABORATORY Final Resul t [facility] [address] [facility] [place] [address], [place] [phone] * PROSTATE SPECIFIC ANTIGEN,SCREENING (11/13/2023 1:43 PM ELECTROMEDICAL EQUIPMENT TECHNICIAN) PSA 0.42 <4.00 NG/ML 11/13/2023 8:17 PM ELECTROMEDICAL EQUIPMENT TECHNICIAN [facility] Comment: ASSAY PERFORMED BY [employer] IMMUNOASSAY METHODOLOGY USING SIEMENS DIMENSION REAGENT. PATIENT RESULTS DETERMINED BY ASSAYS FROM DIFFERENT MANUFACTURERS AND/OR BY DIFFERENT METHODS MAY NOT BE COMPARABLE. 11/13/2023 1:43 PM ELECTROMEDICAL EQUIPMENT TECHNICIAN Ruth GARCIA LABORATORY Final Resul t Performing Organization Address City/[facility]/ZIP Co de Phone Number [address] [address], [place] [phone] * THYROID STIM HORMONE, TSH (11/13/2023 1:43 PM ELECTROMEDICAL EQUIPMENT TECHNICIAN) TSH 3.084 0.358 - 3.740 uIU/ML 11/13/2023 8:00 PM ELECTROMEDICAL EQUIPMENT TECHNICIAN [facility] 11/13/2023 1:43 PM ELECTROMEDICAL EQUIPMENT TECHNICIAN Ruth GARCIA LABORATORY Final Resul t Performing Organization Address [facility] Co de Phone Number [address] [address], [place] [phone] * THYROXINE, FREE (FT4) (11/13/2023 1:43 PM ELECTROMEDICAL EQUIPMENT TECHNICIAN) FREE T4 0.99 0.76 - 1.46 NG/DL 11/13/2023 8:00 PM ELECTROMEDICAL EQUIPMENT TECHNICIAN [facility] 11/13/2023 1:43 PM ELECTROMEDICAL EQUIPMENT TECHNICIAN Ruth GARCIA LABORATORY Final Resul t Performing Organization Address City/[facility] Co de Phone Number [address] [address], * (ABNORMAL) CBC W/DIFF AUTOMATED (11/13/2023 1:43 PM ELECTROMEDICAL EQUIPMENT TECHNICIAN) WBC 7.01 4.00 - 10.80 x10'3/uL 11/13/2023 7:39 PM [facility] RBC 5.77 4.50 - 6.10 x10'6/uL 11/13/2023 7:39 PM [facility] HGB 17.0 13.0 - 18.0 G/DL 11/13/2023 7:39 PM [facility] HCT 49.3 37.0 - 52.0 % 11/13/2023 7:39 PM [facility] MCV 85.4 78.0 - 100.0 FL 11/13/2023 7:39 PM [facility] MCH 29.5 27.0 - 31.0 PG 11/13/2023 7:39 PM [facility] MCHC 34.5 33.0 - 36.0 G/DL 11/13/2023 7:39 PM [facility] RDW 12.2 11.5 - 14.5 % 11/13/2023 7:39 PM [facility] PLT 214 150 - 350 x10'3/uL 11/13/2023 7:39 PM [facility] MPV 10.6(H) 7.4 - 10.4 FL 11/13/2023 7:39 PM [facility] DIFFERENTIAL TYPE AUTOMATED DIFFERENTIAL 11/13/2023 7:39 PM [facility] NEUTROPHILS % 67.4 % 11/13/2023 7:39 PM [facility] LYMPHOCYTES % 23.3 % 11/13/2023 7:39 PM [facility] MONOCYTES % 5.7 % 11/13/2023 7:39 PM [facility] EOSINOPHILS % 2.9 % 11/13/2023 7:39 PM [facility] BASOPHILS % 0.6 % 11/13/2023 7:39 PM ELECTROMEDICAL EQUIPMENT TECHNICIAN [facility] IMMATURE GRANS % 0.1 % 11/13/2023 7:39 PM ELECTROMEDICAL EQUIPMENT TECHNICIAN [facility] ABS. NEUTROPHILS 4.73 1.60 - 8.30 x10'3/uL 11/13/2023 7:39 PM ELECTROMEDICAL EQUIPMENT TECHNICIAN [facility] ABS. LYMPHOCYTES 1.63 0.80 - 4.70 x10'3/uL 11/13/2023 7:39 PM ELECTROMEDICAL EQUIPMENT TECHNICIAN [facility] ABS. MONOCYTES 0.40 0.00 - 1.50 x10'3/uL 11/13/2023 7:39 PM ELECTROMEDICAL EQUIPMENT TECHNICIAN [facility] ABS. EOSINOPHILS 0.20 0.00 - 0.40 x10'3/uL 11/13/2023 7:39 PM ELECTROMEDICAL EQUIPMENT TECHNICIAN [facility] ABS. BASOPHILS 0.04 0.00 - 0.20 x10'3/uL 11/13/2023 7:39 PM ELECTROMEDICAL EQUIPMENT TECHNICIAN [facility] ABS. IMMATURE GRANULOCYTES 0.01 0.00 - 0.03 x10'3/uL 11/13/2023 7:39 PM ELECTROMEDICAL EQUIPMENT TECHNICIAN [facility] 11/13/2023 1:43 PM ELECTROMEDICAL EQUIPMENT TECHNICIAN us Ruth GARCIA LABORATORY Final Resul t [facility] [address] [place] [address], [place] [phone] documented in this encounter Visit Diagnoses Diagnosis Uncontrolled type 2 diabetes mellitus with hyperglycemia (CMS/HCC HHS/HCC) Acquired hypothyroidism Unspecified hypothyroidism Prostate cancer screening Special screening for malignant neoplasm of prostate Primary hypertension Unspecified essential hypertension Mixed hyperlipidemia documented in this encounter Additional Health Concerns Assessment Noted Time PHQ-9 Depression Total Score: 0 11/13/19 23 11:12 AM ELECTROMEDICAL EQUIPMENT TECHNICIAN documented as of this encounter Care Teams Otolaryngology Nurse Relationship Specialty Start Date End Date Ruth Child APNP [address] [place] [address] PCP - General NURSE PRACTITIONER 08/19/22 documented as of this encounter
--- OUTSIDE RECORDS SUMMARY | 2024-09-29 02:52 | XMS_ITS | Encounter Summary ---
Author Organization [facility] Address [address] [place] [address]. [place], [place] [address] [place] [address] Care Team Providers Care Underwriting Service Representative Name Role Phone Ruth Child Primary Care Provider [phone] Reason for Visit * Reason Onset Date Comments Earache 10/13/2023 Encounter Details Date Type Department Care Team (Late st Contact Info) Description 10/13/2023 Telephone [facility] Medical Group Family & Internal Medicine [facility] [address] [place] [address] Ruth Child APNP [address], [place] [id number] Earache Social History Tobacco Use Types Packs/Day Years Used Date Smoking Tobacco: Every Day Cigarettes 1 35 Smokeless Tobacco: Never Comments:Provider to clinical mental health counselor Alcohol Use Standard Drinks/Week Comments [...] as of this encounter Progress Notes * Jenise Negron MA - 10/13/2023 9:21 AM CST Spoke with pt's regarding an appointment. She states he is sleeping currently, works nights, and can't come in for an appointment. I offered 11am today, and volunteered several available times tomorrow. Pt's states she will have him call office when he wakes up. NERS * Adriana Kolb - 10/13/2023 9:05 AM CST The patient has the following symptom(s): earache Symptom(s) Started: 2 days OTC Medications tried: no Have you been seen with-in the past 30 days for these same symptoms? If so, where? Home Covid test: Call back #: [phone] Allergies: No Known Allergies Pharmacy: [facility] NERS documented in this encounter Plan of Treatment Not on file documented as of this encounter Visit Diagnoses Not on filedocumented in this encounter Additional Health Concerns Assessment Noted Time PHQ-9 Depression Total Score: 0 11/13/19 23 11:12 AM CLEANERS documented as of this encounter Care Teams Underwriting Service Representative Relationship Specialty Start Date End Date Ruth Child APNP [address] [place] [address] PCP - General NURSE PRACTITIONER 08/19/22 documented as of this encounter
--- OUTSIDE RECORDS SUMMARY | 2024-09-29 02:52 | XMS_ITS | Clinical Summary ---
Author Organization [facility] Address [address] [place] [address]. [place], [place] [address] [place] [address] Care Team Providers Care Director Of Anesthesia Services Name Role Phone Jigar Child Primary Care Provider [phone] Allergies No known active allergies Medications glipiZIDE (GLUCOTROL) 5 MG tabletIndications: Uncontrolled type 2 diabetes mellitus with hyperglycemia (CMS/HCC HHS/HCC),Type 2 diabetes mellitus with hyperglycemia, without long-term current use of insulin (CMS/HCC HHS/HCC) Take 2 tablets twice daily 360 tablet 3 01/20/20 24 Active rosuvastatin (CRESTOR) 20 MG tabletIndications: Mixed hyperlipidemia Take 2 tablets (40 mg total) by mouth nightly at bedtime. 180 tablet 1 02/16/20 24 Active lisinopril (PRINIVIL) 10 MG tabletIndications: Type 2 diabetes mellitus with hyperglycemia, without long-term current use of insulin (CMS/HCC HHS/HCC),Uncontrol led type 2 diabetes mellitus with hyperglycemia (CMS/HCC HHS/HCC),Primary hypertension TAKE 1 TABLET(10 MG) BY MOUTH DAILY 90 tablet 1 06/22/20 24 Active levothyroxine (SYNTHROID) 25 MCG tabletIndications: Acquired hypothyroidism TAKE 1 TABLET(25 MCG) BY MOUTH EVERY MORNING 30 tablet 08/23/20 24 Active metFORMIN (GLUCOPHAGE) 1000 MG tabletIndications: Uncontrolled type 2 diabetes mellitus with hyperglycemia (CMS/HCC HHS/HCC) TAKE 1 TABLET BY MOUTH TWICE DAILY WITH MEALS 30 tablet 08/23/20 24 Active JARDIANCE 25 MG tabletIndications: Uncontrolled type 2 diabetes mellitus with hyperglycemia (CMS/HCC HHS/HCC) TAKE 1 TABLET(25 MG) BY MOUTH DAILY 30 tablet 08/23/20 Active meloxicam (MOBIC) 15 MG tabletIndications: Chronic pain of both knees TAKE 1 TABLET BY MOUTH DAILY 90 tablet 1 09/27/20 Active meloxicam (MOBIC) 15 MG tabletIndications: Chronic pain of both knees take 1 tablet by mouth daily 90 tablet 1 01/18/20 24 024 Discontinued Active Problems Problem Noted Date Diagnosed Date Microalbuminuria 12/12/2022 Type 2 diabetes mellitus wit h hyperglycemia, without long-term current use of insulin ([facility]) 08/19/2022 Mixed hyperlipidemia 08/19/2022 Primary hypertension 08/19/2022 Acquired hypothyroidism 08/19/2022 Cigarette nicotine dependence without complicati on 08/19/2022 BMI 29.0-29.9,adult 08/19/2022 Immunizations Name Administration Dates Next Due Tdap (Boostrix) 01/09/2024 Family History Medical History Relation Comments No Known Problems Daughter 1 No Known Problems Daughter 2 Cancer Father kidney cancer Diabetes Maternal Grandmother Hypertension Mother Relation Status Comments Brother 1 Alive Brother 2 Alive Brother 3 Daughter 1 Alive Daughter 2 Alive Father Maternal Grandfather Maternal Grandmother Mother Paternal Grandfather Paternal Grandmother Sister 1 Alive Sister 2 Alive Social History Tobacco Use Types Packs/Day Years Used Date Smoking Tobacco: Every Day Cigarettes 1 35 Smokeless Tobacco: Never Comments:Provider to probation counselor Alcohol Use Standard Drinks/Week Comments Yes 0 (1 standard drink = 0.6 oz pur e alcohol) once every 3 months PHQ-2 Answer Date Recorded Patient Health Questionnaire-2 Score 0 11/18/2023 Sex and Gender Information Value Date Recorded Sex Assigned at Not on file Legal Sex Male 1:04 PM CDT Gender Identity Not on file Sexual Orientation Not on file Last Filed Vital Signs Vital Sign Reading [...] Mass Index 29.09 01/20/2024 9:03 AM CDT Plan of Treatment Health Maintenance Due Date Last Done Comments Colorectal Cancer Screening Colonoscopy (10 Years) 1961 Kidney Health Evaluation 1961 Annual Physical 1964 Pneumococcal Vaccine: Pediatrics (0 to 5 Years) and At-Risk Patients (6 to 64 Years) (1 of 2 - PCV) 1967 Diabetes: Retinopathy Eye Exam 1979 Zoster Vaccines (1 of 2) 2011 Lung Cancer Screening 10/01/2023 10/01/2022 Hemoglobin A1C 04/20/2024 01/20/2024, 10/30, 07/24/2023, Additional history exists COVID-19 Vaccine ( season) 2024 03/28/2021, 03/07/2021 Influenza Adult (#1) 2024 Lipid Panel 11/13/2024 11/13/2023, 11/27, 08/19/2022 DTaP, Tdap and Td Vaccines (2 - Td or Tdap) 01/08/2034 01/09/2024 RSV Immunization or 60+ Years (1 - 1-dose 75+ series) 2036 Hepatitis C Completed 12/22/2022 Meningococcal Vaccine Aged Out No nolvia bret eligible based on patient's age to complete this topic RSV Immunizations Under 20 Months Aged Out No longer eligible based on patient's age to complete this topic Procedures Procedure Name Priority Date/Time Associated Diagnosis Comments HEMOGLOBIN, GLYCOSYLATED Routine 01/20/2024 Uncontrolled type 2 diabetes mellitus with hyperglycemia (CMS/HCC HHS/HCC) LIPID PANEL Routine 11/13/2023 1:43 PM ALTERNATIVE FINANCING SPECIALIST Mixed hyperlipidemia HEPATITIS C ANTIBODY Routine 12/22/2022 8:28 AM CDT Need for hepatitis C screening test CT LUNG SCREENING Routine 10/01/2022 8:3 5 AM ALTERNATIVE FINANCING SPECIALIST Cigarette nicotine dependence without complication from Last 3 Months or Most Recently Relevant to Health Maintenance Results * HEMOGLOBIN, GLYCOSYLATED (01/20/2024) HGB A1C 9.3 % [facility] 01/20/2024 Jigar GARCIA LABORATORY Final Resul t Performing Organization Address [facility] Co de Phone Number [facility] [address] [place] [address], * (ABNORMAL) LIPID PANEL (11/13/2023 1:43 PM ALTERNATIVE FINANCING SPECIALIST) CHOLESTEROL 216(H) <200 MG/DL 11/13/2023 8:00 PM ALTERNATIVE FINANCING SPECIALIST [facility] TRIGLYCERIDES 340(H) <150 MG/DL 11/13/2023 8:00 PM ALTERNATIVE FINANCING SPECIALIST [facility] HDL 44 >40 MG/DL 11/13/2023 8:00 PM ALTERNATIVE FINANCING SPECIALIST [facility] LDL-C 104(H) <100 MG/DL 11/13/2023 8:00 PM ALTERNATIVE FINANCING SPECIALIST [facility] VLDL CALCULATION 68(H) 5 - 28 MG/DL 11/13/2023 8:00 PM ALTERNATIVE FINANCING SPECIALIST [facility] CHOL/HDL RATIO 4.9(H) 0.0 - 4.0 11/13/2023 8:00 PM ALTERNATIVE FINANCING SPECIALIST [facility] LDL/HDL 2.4(H) 0.41 - 2.13 11/13/2023 8:00 PM ALTERNATIVE FINANCING SPECIALIST [facility] NON HDL CHOLESTEROL 172(H) <140 MG/DL 11/13/2023 8:00 PM ALTERNATIVE FINANCING SPECIALIST [facility] 11/13/2023 1:43 PM ALTERNATIVE FINANCING SPECIALIST Jigar GARCIA LABORATORY Final Resul t Performing Organization Address [facility]/ZIP Co de Phone Number [facility] [address] [place] [address], [place] [phone] * HEPATITIS C ANTIBODY ([facility]) (12/22/2022 8:28 AM CDT) HEPATITIS C AB NON-REACTI VE NON-REACT MILE 12/22/2022 10:31 PM CDT [facility] Comment: ANTIBODIES TO HCV NOT DETECTED. DOES NOT EXCLUDE THE POSSIBILITY OF EXPOSURE TO HCV. 12/22/2022 8:28 AM CDT us Jigar GARCIA LABORATORY Final Resul t [facility] [address] [place] [address], [place] [phone] * CT LUNG SCREENING (10/01/2022 8:35 AM ALTERNATIVE FINANCING SPECIALIST) Anatomical Region Laterality Modality Chest Computed Tomogra phy 10/02/2022 3:36 PM ALTERNATIVE FINANCING SPECIALIST Impressions 10/02/2022 3:41 PM ALTERNATIVE FINANCING SPECIALIST IMPRESSION: 1. ??Lung-RADS Category 2: Benign appearance or behavior. ??Nodules with a very low likelihood of becoming a clinically active cancer due to size or lack of growth. 2. LUNG-RADS category S: Negative, no new/unknown potentially significant incidental findings requiring urgent additional evaluation. 3. Other incidental findings as above. RECOMMENDATIONS: Follow-up LDCT Chest in 12 months (on or around 10/01/2023). Thank you for choosing the [facility]'s Lung Screening Program. Referred By: JIGAR CHILD Interpreted By: Raymond Richards MD, 10/02/2022 3:36 PM Narrative 10/02/2022 3:41 PM ALTERNATIVE FINANCING SPECIALIST EXAM: LUNG SCREENING LOW-DOSE CT THORAX WITHOUT CONTRAST DATE: 10/01/2022 HISTORY: Asymptomatic patient meeting NCCN high-risk criteria for lung screening. COMPARISON: None TECHNIQUE: Noncontrast, helical, low-dose CT (LDCT) chest per standard departmental protocol. Automated exposure control was utilized for dose reduction. FINDINGS: Lung Screening Specific (LUNG-RADS): Nodule ID: 1 Segment/lobe: Right upper lobe Type:Solid Axial image: 102 Status: Baseline Average diameter: 4 mm Lung-RADS category: 2 Nodule ID: 2 Segment/lobe: Right lower lobe Type:Solid Axial image: 128 Status: Baseline Average diameter: 4 mm Lung-RADS category: 2 Potentially Significant Incidentals (LUNG-RADS category S): None. Pulmonary Incidentals: Calcified granulomas. Other Incidentals: Atherosclerosis. ??Gynecomastia. ??Atherosclerosis. Procedure Note Raymond Richards MD - 10/02/2022 EXAM: LUNG SCREENING LOW-DOSE CT THORAX WITHOUT CONTRAST DATE: 10/01/2022 HISTORY: Asymptomatic patient meeting NCCN high-risk criteria for lungscreening. COMPARISON: None TECHNIQUE: Noncontrast, helical, low-dose CT (LDCT) chest per standarddepartmental protocol. Automated exposure control was utilized for dosereduction. FINDINGS: Lung Screening Specific (LUNG-RADS): Nodule ID: 1 Segment/lobe: Right upper lobe Type:Solid Axial image: 102 Status: Baseline Average diameter: 4 mm Lung-RADS category: 2 Nodule ID: 2 Segment/lobe: Right lower lobe Type:Solid Axial image: 128 Status: Baseline Average diameter: 4 mm Lung-RADS category: 2 Potentially Significant Incidentals (LUNG-RADS category S): None. Pulmonary Incidentals: Calcified granulomas. Other Incidentals: Atherosclerosis. Gynecomastia. Atherosclerosis. IMPRESSION: 1. Lung-RADS Category 2: Benign appearance or behavior. Nodules with denise low likelihood of becoming a clinically active cancer due to size orlack of growth. 2. LUNG-RADS category S: Negative, no new/unknown potentially significantincidental findings requiring urgent additional evaluation. 3. Other incidental findings as above. RECOMMENDATIONS: Follow-up LDCT Chest in 12 months (on or around10/01/2023). Thank you for choosing the [facility]'s Lung ScreeningProgram. Referred By: JGIAR H JAYLYN Interpreted By: Raymond Richards MD, 10/02/2022 3:[address] Final Resul t from Last 3 Months or Most Recently Relevant to Health Maintenance Insurance [facility] Care Teams Director Of Anesthesia Services Relationship Specialty Start Date End Date Jigar Child APNP [address] [place] [address] PCP - General NURSE PRACTITIONER 08/19/22
--- OUTSIDE RECORDS SUMMARY | 2024-09-29 02:52 | XMS_ITS | Encounter Summary ---
Author Organization [facility] Address [address] [place] [address]. [place], [place] [address] [place] [address] Care Team Providers Care Coiler Name Role Phone Ruth Child Primary Care Provider [phone] Reason for Visit * Reason Comments CT (SCAN) Encounter Details Date Type Department Care Team (Latest Contact Info) Description 12/30/2023 Scan [facility] Scanned, Doc Med Group CT (SCAN) Social History Tobacco Use Types Packs/Day Years Used Date Smoking Tobacco: Every Day Cigarettes 1 35 Smokeless Tobacco: Never Comments:Provider to field counsel Alcohol Use Standard Drinks/Week Comments Yes [...] Procedure Name Priority Date/Time Associated Diagnosis Comments CT GENERIC 12/30/2023 documented in this encounter Results * CT GENERIC (12/30/2023) Anatomical Region Laterality Modality Other 12/30/2023 us Doc Med [facility] Scanned SCANNING Final Resu lt documented in this encounter Visit Diagnoses Not on filedocumented in this encounter Additional Health Concerns Assessment Noted Time PHQ-9 Depression Total Score: 0 11/13/19 23 11:12 AM BENEFIT SPECIALIST documented as of this encounter Care Teams Coiler Relationship Specialty Start Date End Date Ruth Child APNP [facility] [place] [address] PCP - General NURSE PRACTITIONER 08/19/22 documented as of this encounter
--- OUTSIDE RECORDS SUMMARY | 2024-09-29 02:52 | XMS_ITS | Encounter Summary ---
Author Organization [facility] - [facility] Address [address] [place] [address]. [place], [place] [address] [place] [phone] Care Team Providers Care Assessment Coordinator Name Role Phone Ruth Child Primary Care Provider +1- [phone] Encounter Details Date Type Department Care Team (Latest Contact Info) Description 01/20/2024 Travel Social History Tobacco Use Types Packs/Day Years Used Date Smoking Tobacco: Every Day Cigarettes 1 35 Smokeless Tobacco: Never Comments:Provider to certified credit counselor Alcohol Use Standard Drinks/Week Comments Yes [...] Total Score: 0 11/13/19 23 11:12 AM SIGN DESIGNER documented as of this encounter Care Teams Assessment Coordinator Relationship Specialty Start Date End Date Ruth Child APNP [address] [place] [address] PCP - General NURSE PRACTITIONER 08/19/22 documented as of this encounter
--- OUTSIDE RECORDS SUMMARY | 2024-09-29 02:52 | XMS_ITS | Encounter Summary ---
Author Organization [facility] - [facility] Address [address] [place] [address]. [place], [place] [address] [place] [address] Care Team Providers Care Natural Science Curator Name Role Phone Ruth Child Primary Care Provider +1- [phone] Encounter Details Date Type Department Care Team (Latest Contact Info) Description 11/13/2023 Travel Social History Tobacco Use Types Packs/Day Years Used Date Smoking Tobacco: Every Day Cigarettes 1 35 Smokeless Tobacco: Never Comments:Provider to counselor marriage and family Alcohol Use Standard Drinks/Week Comments Yes 0 [...] Total Score: 0 11/13/19 23 11:12 AM SYSTEMS DESIGN ENGINEER documented as of this encounter Care Teams Natural Science Curator Relationship Specialty Start Date End Date Ruth Child APNP [address] [place] [address] PCP - General NURSE PRACTITIONER 08/19/22 documented as of this encounter
--- OUTSIDE RECORDS SUMMARY | 2024-09-29 02:52 | XMS_ITS | Encounter Summary ---
Author Organization [facility] Address [address] [place] [address]. [place], [place] [address] [place] [address] Care Team Providers Care Music Therapy Specialist Name Role Phone Ruth Child Primary Care Provider [phone]- [phone] Reason for Visit * Reason Onset Date Comments CT Results 01/15/[address] 12/30/23 Encounter Details Date Type Department Care Team (Late st Contact Info) Description 01/15/2024 Telephone [facility] Family & Internal Medicine [facility] [address] [place] [address] Ruth Child APNP [address] [place] [address] CT Results (Chest CT 12/30/23) Social History Tobacco Use Types Packs/Day Years Used Date Smoking Tobacco: Every Day Cigarettes 1 35 Smokeless Tobacco: Never Comments:Provider to admissions counselor Alcohol Use Standard Drinks/Week Comments Yes [...] Progress Notes * Jenise Negron MA - 01/15/2024 12:56 PM CDT Pt v/u of results. CT Chest WO Contrast: Benign appearance. 12 month follow-up screening CT advised. documented in this encounter Plan of Treatment Not on file documented as of this encounter Visit Diagnoses Not on filedocumented in this encounter Additional Health Concerns Assessment Noted Time PHQ-9 Depression Total Score: 0 11/13/19 23 11:12 AM PASTRY SUPERVISOR documented as of this encounter Care Teams Music Therapy Specialist Relationship Specialty Start Date End Date Ruth Child APNP [address] [place] [address] PCP - General NURSE PRACTITIONER 08/19/22 documented as of this encounter
--- OUTSIDE RECORDS SUMMARY | 2024-09-29 02:52 | XMS_ITS | Encounter Summary ---
Author Organization [facility] Address [address] [place] [address]. [place], [place] [address] [place] [address] Care Team Providers Care Motor Coach Chauffeur Name Role Phone Ruth Child Primary Care Provider [phone] Reason for Visit * Reason Onset Date Comments Medication Problem 05/12/2024 Glipizide Encounter Details Date Type Department Care Team (Late st Contact Info) Description 05/12/2024 Telephone [facility] Medical Group Family & Internal Medicine [facility] [address] [place] [address] Ruth Child APNP [address] [place] [address] Medication Problem (Glipizide) Social History Tobacco Use Types Packs/Day Years Used Date Smoking Tobacco: Every Day Cigarettes 1 35 Smokeless Tobacco: Never Comments:Provider to careers counsellor Alcohol Use Standard Drinks/Week Comments Yes 0 [...] as of this encounter Progress Notes * Andra Charles MA - 05/12/2024 10:24 AM CDT Patient called in stating patient has only been taking Glipizide 1 tablet twice daily and realized the instructions say to take 2 tablets twice daily before meals. Verified instructions and stated that the patient should be taking2 tablets twice daily. Will have patient start taking medicationcorrectly. landy Ennis documented in this encounter Plan of Treatment Not on file documented as of this encounter Visit Diagnoses Not on filedocumented in this encounter Additional Health Concerns Assessment Noted Time PHQ-9 Depression Total Score: 0 11/13/19 23 11:12 AM CHIN STRAP CUTTER documented as of this encounter Care Teams Motor Coach Chauffeur Relationship Specialty Start Date End Date Ruth Child APNP [address] [place] [address] PCP - General NURSE PRACTITIONER 08/19/22 documented as of this encounter
--- OUTSIDE RECORDS SUMMARY | 2024-09-29 02:52 | XMS_ITS | Encounter Summary ---
Author Organization [facility] Address [address] [place] [address]. [place], [place] [address] [place] [address] Care Team Providers Care Slice Plug Cutter Operator Helper Name Role Phone Jigar Child Primary Care Provider [phone] Reason for Visit * Reason Comments Diabetes Hypertension Hyperlipidemia Encounter Details Date Type Department Care Team (Latest Contact Info) Description 11/18/2023 9:20 AM NEUROSURGERY RESEARCH DIRECTOR Office Visit [facility] Family & Internal Medicine [place] [id number] [place] [address] Jigar Child APNP [facility] [place], [place] [id number] Diabetes; Hypertension; Hyperlipidemia Social History Tobacco Use Types Packs/Day Years Used Date Smoking Tobacco: Every Day Cigarettes 1 35 Smokeless Tobacco: Never Tobacco Cessation:Ready to Q uit: Yes; Counseling Given: Yes Comments:Provider to preparole counseling aide Alcohol Use Standard Drinks/Week Comments Yes 0 [...] Sign Reading Time Taken Comments Blood Pressure 136/64 11/18/2023 9:23 AM NEUROSURGERY RESEARCH DIRECTOR Pulse 72 11/18/2023 9:23 AM NEUROSURGERY RESEARCH DIRECTOR Temperature 36.8 ??C (98.3 ??F) 11/18/2023 9:23 AM CS T Respiratory Rate 16 11/18/2023 9:23 AM NEUROSURGERY RESEARCH DIRECTOR Oxygen Saturation 96% 11/18/2023 9:23 AM NEUROSURGERY RESEARCH DIRECTOR Inhaled Oxygen Concentration - - Weight 96.8 kg (213 lb 4.8 oz) 11/18/2023 9:23 A M NEUROSURGERY RESEARCH DIRECTOR Height 182.9 cm (6') 11/18/2023 9:23 AM NEUROSURGERY RESEARCH DIRECTOR Body Mass Index 28.93 11/18/2023 9:23 AM NEUROSURGERY RESEARCH DIRECTOR documented in this encounter Patient Instructions * Attachments The following attachments cannot be sent through Care Everywhere. * Quitting smoking (Palestinian) documented in this encounter Progress Notes * JOSE Gross - 11/18/2023 9:20 AM CST Images from the original note were not included. [facility] FAMILY AND INTERNAL MEDICINE OFFICE VISIT Reason for Visit: Diabetes, Hypertension, and Hyperlipidemia History of Present Illness: 63 yo male here today to follow up on his chronic health conditions and lab review. HTN - BP OK. He is currently on lisinopril 5 mg once daily. Tolerates well, no bothersome side effects. T2DM - currently on metformin and jardiance. Rybelsus has been sent over at 2 different visits, buthe never started taking. Does not routinely monitor his glucose at home--states meter battery .HGB A1C was done in 06/2023 and found to be quite elevated at 10.0. He admits to not eating a diabetic diet---eating a lot of bread and pasta. Not always a healthy diet. He has lost some weight. Hemoglobin A1C checked today and found to be worse at 12.9. He is drinking diet soda and sweet tea. HLD - takes rosuvastatin 20 mg, tolerates well, No myalgias. Lipids reviewed today. Microalbuminuria - nephrology referral placed in 11/2022--pt states he had an appt, but had to cancel and never rescheduled. We discussed the need to reschedule in 06/2023. He states he did not make an appt to see his supervisor carton and can supply. He has some right posterior rib pain that started a few months ago. He denies any previous trauma or injury. No CP or SOB. He notes he feels a lump on his lower posterior ribs and it hurts to lie on that side. He is due for his routine CT lung cancer screening and is agreeable to have this done. ROS: Review of Systems Constitutional: Negative for chills and fever. Respiratory: Negative for cough and shortness of breath. Cardiovascular: Negative for chest pain and palpitations. Gastrointestinal: Negative for abdominal pain, diarrhea, nausea and vomiting. Neurological: Negative for dizziness and headaches. Medications: Current Outpatient Medications: glipiZIDE (GLUCOTROL) 5 MG tablet, Take 1 tablet (5 mg total) by mouth 2 (two) times daily before meals., Disp: 60 tablet, Rfl: 5 JARDIANCE 25 MG tablet, Take 1 tablet (25 mg total) by mouth daily., Disp: 90 tablet, Rfl: 3 levothyroxine (SYNTHROID) 25 MCG tablet, Take 1 tablet (25 mcg total) by mouth every morning., Disp: 90 tablet, Rfl: 3 lisinopril (PRINIVIL) 10 MG tablet, Take 1 tablet (10 mg total) by mouth daily., Disp: 30 tablet, Rfl: 5 meloxicam (MOBIC) 15 MG tablet, Take 1 tablet (15 mg total) by mouth daily. BID Pt states that he is taking once a day (Patient taking differently: Take 1 tablet (15 mg total) by mouth daily.), Disp:90 tablet, Rfl: 1 metFORMIN (GLUCOPHAGE) 1000 MG tablet, Take 1 tablet (1,000 mg total) by mouth 2 (two) times daily with meals. Once in the morning and once in the evening., Disp: 180 tablet, Rfl: 3 rosuvastatin (CRESTOR) 20 MG tablet, Take 1 tablet (20 mg total) by mouth daily., Disp: 90 tablet, Rfl: 3 Semaglutide (RYBELSUS) 3 MG Tab, Take 3 mg by mouth daily. Indications: Diabetes, Disp: 30 tablet, Rfl: 11 Allergies: Review of patient's allergies indicates: No Known Allergies Medical History: Past Medical History: Diagnosis Date BMI 29.0-29.9,adult 08/19/2022 Cigarette nicotine dependence without complication 08/19/2022 Diabetes mellitus (HHS/HCC) ([facility]) High cholesterol Hypertension Primary hypertension 08/19/2022 Type 2 diabetes mellitus with hyperglycemia, without long-term current use of insulin (HHS/HCC) ([facility]) 08/19/2022 Surgical History: Past Surgical History: Procedure Laterality Date ACNE CYST REMOVAL Social History: Social History Socioeconomic History Marital status: Tobacco Use Smoking status: Every Day Packs/day: 1.00 Years: 35.00 Additional pack years: 0.00 Total pack years: 35.00 Types: Cigarettes Smokeless tobacco: Never Tobacco comments: Provider to preparole counseling aide Vaping Use Vaping Use: Never used Substance and Sexual Activity Alcohol use: Yes Comment: once every 3 months Drug use: Never Family History: Family History Problem Relation Name Age of Onset Hypertension Mother Cancer Father kidney cancer No Known Problems Daughter No Known Problems Daughter Diabetes Maternal Grandmother PE: Physical Exam Vitals and nursing note reviewed. HENT: Head: Normocephalic and atraumatic. Right Ear: Tympanic membrane normal. Left Ear: Tympanic membrane normal. Eyes: General: No scleral icterus. Conjunctiva/sclera: Conjunctivae normal. Neck: Trachea: No tracheal deviation. Cardiovascular: Rate and Rhythm: Normal rate and regular rhythm. Heart sounds: Normal heart sounds. No murmur heard. Pulmonary: Effort: Pulmonary effort is normal. No respiratory distress. Breath sounds: Normal breath sounds. No stridor. No wheezing. Abdominal: General: Bowel sounds are normal. There is no distension. Palpations: Abdomen is soft. There is no mass. Tenderness: There is no abdominal tenderness. There is no guarding or rebound. Musculoskeletal: General: No deformity. Normal range of motion. Cervical back: Normal range of motion and neck supple. Skin: General: Skin is warm and dry. Findings: No erythema. Comments: He does have a small palpable lump to his right lower ribs. Notes is not tender to touch today. Neurological: Mental Status: He is alert and oriented to person, place, and time. Gait: Gait is intact. Psychiatric: Mood and Affect: Mood and affect normal. Filed Vitals: 11/18/23 0923 BP: 136/64 Pulse: 72 Resp: 16 Temp: 98.3 ??F (36.8 ??C) TempSrc: Skin SpO2: 96% Weight: 96.8 kg (213 lb 4.8 oz) Height: 1.829 m (6') Labs: Labs Reviewed Diagnoses/Impression: 1. Type 2 diabetes mellitus with hyperglycemia, without long-term current use of insulin (HHS/HCC) ([facility]/HCC) glipiZIDE (GLUCOTROL) 5 MG tablet lisinopril (PRINIVIL) 10 MG tablet 2. Uncontrolled type 2 diabetes mellitus with hyperglycemia (HHS/HCC) ([facility]) HEMOGLOBIN, GLYCOSYLATED COLLECT.CAPILLARY (FNGR,HEEL,EAR) glipiZIDE (GLUCOTROL) 5 MG tablet lisinopril (PRINIVIL) 10 MG tablet 3. Mixed hyperlipidemia Chronic 4. Primary hypertension Chronic lisinopril (PRINIVIL) 10 MG tablet 5. Microalbuminuria 6. Rib pain on right side XR RIBS RT+PA CHEST Recommendations and Plan: 1. Type 2 diabetes mellitus with hyperglycemia, without long-term current use of insulin (HHS/HCC) ([facility]) - glipiZIDE (GLUCOTROL) 5 MG tablet; Take 1 tablet (5 mg total) by mouth 2 (two) times daily beforemeals. Dispense: 60 tablet; Refill: 5 - lisinopril (PRINIVIL) 10 MG tablet; Take 1 tablet (10 mg total) by mouth daily. Dispense: 30 tablet; Refill: 5 2. Uncontrolled type 2 diabetes mellitus with hyperglycemia (HHS/HCC) ([facility]) - HEMOGLOBIN, GLYCOSYLATED - COLLECT.CAPILLARY (FNGR,HEEL,EAR) - glipiZIDE (GLUCOTROL) 5 MG tablet; Take 1 tablet (5 mg total) by mouth 2 (two) times daily beforemeals. Dispense: 60 tablet; Refill: 5 - lisinopril (PRINIVIL) 10 MG tablet; Take 1 tablet (10 mg total) by mouth daily. Dispense: 30 tablet; Refill: 5 Hemoglobin A1c much worse today at 12.9. Patient states he has not been following a diabetic diet and did not start the Rybelsus as was ordered. I discussed with patient the short-term and long-term effects of uncontrolled diabetes. I suggested that he start on a low-dose basal insulin which she dec lined. Offered GLP class, again which she also declined. Will start on a low- dose sulfonylurea which I discussed with patient this would not necessarily be my first choice. Patient states he does notwant to start on any injections. He verbalized understanding of the problems that uncontrolled diabetes can cause. Would like to see patient back in 6 weeks for follow-up. 3. Mixed hyperlipidemia Stable. Continue meds Will recheck lipids in about 3 to 6 months. Would like to see his LDL closer to 70. 4. Primary hypertension - lisinopril (PRINIVIL) 10 MG tablet; Take 1 tablet (10 mg total) by mouth daily. Dispense: 30 tablet; Refill: 5 Lisinopril increased from 5 mg to 10 mg once daily 5. Microalbuminuria Patient states that he will call and schedule with nephrology as has been referred. 6. Rib pain on right side - XR RIBS RT+PA CHEST; Future More plan after x-ray results. 7. Nicotine dependence CT lung screening ordered Shared decision making Smoking cessation counseling provided Orders Placed This Encounter COLLECT.CAPILLARY (FNGR,HEEL,EAR) XR RIBS RT+PA CHEST HEMOGLOBIN, GLYCOSYLATED glipiZIDE (GLUCOTROL) 5 MG tablet lisinopril (PRINIVIL) 10 MG tablet Cannot display discharge medications since this is not an admission. PCP: JOSE Gross 11/18/2023 OSURGERY RESEARCH DIRECTOR OSURGERY RESEARCH DIRECTOR OSURGERY RESEARCH DIRECTOR OSURGERY RESEARCH DIRECTOR OSURGERY RESEARCH DIRECTOR documented in this encounter Plan of Treatment Not on file documented as of this encounter Procedures Procedure Name Priority Date/Time Associated Diagnosis Comments COLLECT.CAPILLARY (FNGR,HEEL,EAR) Routine 11/18/2023 9:10 AM NEUROSURGERY RESEARCH DIRECTOR Uncontrolled type 2 diabetes mellitus with hyperglycemia ([facility] HHS/HCC) HEMOGLOBIN, GLYCOSYLATED Routine 11/18/2023 Uncontrolled type 2 diabetes mellitus with hyperglycemia ([facility]) documented in this encounter Results * XR RIBS RT+PA CHEST (11/20/2023 11:04 AM NEUROSURGERY RESEARCH DIRECTOR) Anatomical Region Laterality Modality Chest Radiographic Teresa ging 11/20/2023 11:1 6 AM NEUROSURGERY RESEARCH DIRECTOR Impressions 11/20/2023 11:19 AM NEUROSURGERY RESEARCH DIRECTOR IMPRESSION: 1. No radiographic evidence of active chest disease. 2. No evidence of fracture or focal bone abnormality right ribs. Ordered By: JIGAR CHILD Interpreted By: Herson Pak MD, 11/20/2023 11:16 AM Narrative 11/20/2023 11:19 AM NEUROSURGERY RESEARCH DIRECTOR Examination: XR RIBS RT+PA CHEST Exam time: 11/20/2023 10:53 AM Clinical history: Posterior right rib pain Comparison: No prior exam Technique: Upright PA chest. AP and oblique views right ribs. Findings: Cardiac silhouette and pulmonary vasculature are within normal limits. Lungs appear clear. No evidence of pleural reaction or effusion. Pulmonary interstitium appears at the upper limits of normal. No evidence of fracture or focal bone abnormality right ribs. No findings suggestive of right rib destructive changes or periosteal reactions. Procedure Note Herson Pak MD - 11/20/2023 Examination: XR RIBS RT+PA CHEST Exam time: 11/20/2023 10:53 AM Clinical history: Posterior right rib pain Comparison: No prior exam Technique: Upright PA chest. AP and oblique views right ribs. Findings: Cardiac silhouette and pulmonary vasculature are within normallimits. Lungs appear clear. No evidence of pleural reaction or effusion.Pulmonary interstitium appears at the upper limits of normal. No evidence of fracture or focal bone abnormality right ribs. No findingssuggestive of right rib destructive changes or periosteal reactions. IMPRESSION: 1. No radiographic evidence of active chest disease. 2. No evidence of fracture or focal bone abnormality right ribs. Ordered By: JIGAR CHILD Interpreted By: Herson Pak MD, 11/20/2023 11:16 AM [facility] Final Resul t * HEMOGLOBIN, GLYCOSYLATED (11/18/2023) HGB A1C 12.9 % [facility] 11/18/2023 [facility] Final Resul t [facility] [address] [place] [address], documented in this encounter Visit Diagnoses Diagnosis Type 2 diabetes mellitus with hyperglycemia, without long-term current use of insulin ([facility])- Primary Uncontrolled type 2 diabetes mellitus with hyperglycemia ([facility]) Mixed hyperlipidemia Primary hypertension Unspecified essential hypertension Microalbuminuria Proteinuria Rib pain on right side Chest pain, unspecified documented in this encounter Additional Health Concerns Assessment Noted Time PHQ-9 Depression Total Score: 0 11/13/19 23 11:12 AM NEUROSURGERY RESEARCH DIRECTOR documented as of this encounter Care Teams Slice Plug Cutter Operator Helper Relationship Specialty Start Date End Date Jigar Child APNP [facility] [place] [id number] PCP - General NURSE PRACTITIONER 08/19/22 documented as of this encounter
--- OUTSIDE RECORDS SUMMARY | 2024-09-29 02:52 | XMS_ITS | Encounter Summary ---
Author Organization [facility] Address [address] [place] [address]. [place], [place] [address] [place] [address] Care Team Providers Care Intelligence Applications Name Role Phone Ruth Child Primary Care Provider [phone]- [phone] Encounter Details Date Type Department Care Team (Latest Contact Info) Description 11/18/2023 Travel Social History Tobacco Use Types Packs/Day Years Used Date Smoking Tobacco: Every Day Cigarettes 1 35 Smokeless Tobacco: Never Comments:Provider to staff counsel Alcohol Use Standard Drinks/Week Comments Yes [...] Total Score: 0 11/13/19 23 11:12 AM LENS EXAMINER documented as of this encounter Care Teams Intelligence Applications Relationship Specialty Start Date End Date Ruth Child APNP [address] [place] [address] PCP - General NURSE PRACTITIONER 08/19/22 documented as of this encounter
--- OUTSIDE RECORDS SUMMARY | 2024-09-29 02:52 | XMS_ITS | Encounter Summary ---
Author Organization [facility] - [facility] Address [address] [place] [address]. [place], [place] [address] [place] [address] Care Team Providers Care Airborne Mission Systems Superintendent Name Role Phone Ruth Child Primary Care Provider [phone]- [phone] Encounter Details Date Type Department Care Team (Latest Contact Info) Description 01/09/2024 Travel Social History Tobacco Use Types Packs/Day Years Used Date Smoking Tobacco: Every Day Cigarettes 1 35 Smokeless Tobacco: Never Comments:Provider to pet adoption counselor Alcohol Use Standard Drinks/Week Comments Yes [...] Total Score: 0 11/13/19 23 11:12 AM DIRECTOR GLOBAL SALES documented as of this encounter Care Teams Airborne [employer] Systems Superintendent Relationship Specialty Start Date End Date Ruth Child APNP [address] [place] [phone] PCP - General NURSE PRACTITIONER 08/19/22 documented as of this encounter
--- OUTSIDE RECORDS SUMMARY | 2024-09-29 02:52 | XMS_ITS | Encounter Summary ---
Author Organization [facility] Address [address] [place] [address]. [place], [place] [address] [place] [address] Care Team Providers Care Fbi Special Agent Name Role Phone Ruth Child Primary Care Provider [phone] Reason for Visit * Reason Onset Date Comments Results 11/25/2023 Xray results Encounter Details Date Type Department Care Team (Late st Contact Info) Description 11/25/2023 Telephone [facility] Family & Internal Medicine [place] [address] [place] [address] Ruth Child APNP [facility] [place] [address] Results (Xray results) Social History Tobacco Use Types Packs/Day Years [...] as of this encounter Progress Notes * Jaron Hunter MA - 11/25/2023 11:29 AM CSTAddended by: JARON HUNTER on: 11/25/2023 11:29 AM Modules accepted: Orders FIC ROUTING ENGINEER * Jaron Hunter MA - 11/25/2023 11:02 AM CST 11-25-23: Patient -demetris returned call. Informed and understands results. Patient was present for call in back ground. stated was supposed to have a lung and kidney screen. Explained lungs were seen on xray and were clear. Kidney screen was performed through blood work done on 11-13-23. Informed patient had spoke with HARJEET Mcmullen regarding results and was supposed to increase lisinopril 10mgas discussed at last office visit with Ruth, continue jardiance and make a appt with Appliance Repair Technician,avoid NSAIDS, increase water intake. Was also to increase rosuvastatin 20 40mg. stated didn't know about that. Was referred 2022 to wildlife enforcement major and never went. Call sent to HARJEET Mcmullen to discussresults again. landy Pennington FIC ROUTING ENGINEER * Jaron Hunter MA - 11/25/2023 10:46 AM CST ----- Message from JOSE Gross sent at 11/24/2023 4:47 PM TRAFFIC ROUTING ENGINEER ----- IMPRESSION: 1. No radiographic evidence of active chest disease. 2. No evidence of fracture or focal bone abnormality right ribs. 11-25-23: called patient left voice mail. Waiting for return call landy pennington FIC ROUTING ENGINEER FIC ROUTING ENGINEER documented in this encounter Plan of Treatment Not on file documented as of this encounter Visit Diagnoses Diagnosis Mixed hyperlipidemia documented in this encounter Additional Health Concerns Assessment Noted Time PHQ-9 Depression Total Score: 0 11/13/19 23 11:12 AM TRAFFIC ROUTING ENGINEER documented as of this encounter Care Teams Fbi Special Agent Relationship Specialty Start Date End Date Ruth Child APNP [address] [place] [address] PCP - General NURSE PRACTITIONER 08/19/22 documented as of this encounter
--- OUTSIDE RECORDS SUMMARY | 2024-09-29 02:53 | XMS_ITS | Encounter Summary ---
Author Organization [facility] Address [address] [place] [address]. [place] [address] [place] [address] Care Team Providers Care Maintenance Supervisor 2Nd Shift Name Role Phone Ruth Child Primary Care Provider [phone] Reason for Referral * Consultation (Routine) - Closed Specialty Diagnoses / Procedures Referred By Yumi t Referred To Contact NEPHROLOGY Diagnoses Microalbuminuria Procedures OFFICE/OUTPT VISIT,NEW,LEVL III OFFICE/OUTPT VISIT,NEW,LEVL IV OFFICE/OUTPT VISIT,NEW,LEVL V OFFICE/OUTPT VISIT,EST,LEVL III OFFICE/OUTPT VISIT,EST,LEVL IV OFFICE/OUTPT VISIT,EST,LEVL V Ruth Child APNP [address] [place] [address] Phone: tel: fax: Tati Cooney MD [address] [place] [address] Phone: tel: fax: Referral ID Status Reason Start Date Expiration Date V isits Requested Visits Authorized [id number] Closed Specialty Services 12/12/2022 01/13/2024 99 99 Reason for Visit * Reason Onset Date Comments Lab Order 12/09/2022 Encounter Details Date Type Department Care Team (Late st Contact Info) Description 12/09/2022 Telephone [facility] Family & Internal Medicine - [place] [address] [place] [phone] Ruth Child APNP [address] [place] [address] Lab Order Social History Tobacco Use Types Packs/Day Years Used Date Smoking Tobacco: Every Day Cigarettes 1 35 Smokeless Tobacco: Never 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 No / Unsure 12/08/2022 9:40 AM CDT documented as of this encounter Progress Notes * Alicia Lozano MA - 12/12/2022 1:47 PM CDT Patient's Myrtle and answered phone. She is HIPAA authorized, informed and v/u of information. Referral ordered and hepatitis C screening added to upcoming labs. Patient's informed Dr. Cooney office will contact patient for appointment. * JOSE Gross - 12/10/2022 3:05 PM CDT Marco Antonio carlos, admit nephrology. I would like for patient to see a software engineer sales regarding his kidney function. * Elissa Graham MA - 12/09/2022 3:06 PM CDT Patient notified and has never seen a urologist or had Hep C Screening * JOSE Gross - 12/09/2022 11:23 AM CDT Let pt know labs ordered I noticed his microalbumin was elevated. I have ordered to have this repeated. I need for him to see a urologist. Has he ever had a Hep C screen? If not--we need to order this , too. documented in this encounter Plan of Treatment Scheduled Referrals Name Type Priority Associated Diagnoses Orde r Schedule Ambulatory referral to Nephrology ( [place]) Referral Routine Microalbuminuria Ordered: 12/12/2022 documented as of this encounter Results * HEPATITIS C ANTIBODY ([facility] ONLY) (12/22/2022 8:28 AM CDT) [facility] HEPATITIS C AB NON-REACTI VE NON-REACT MILE 12/22/2022 10:31 PM CDT [facility] Comment: ANTIBODIES TO HCV NOT DETECTED. DOES NOT EXCLUDE THE POSSIBILITY OF EXPOSURE TO HCV. 12/22/2022 8:28 AM CDT us Ruth GARCIA LABORATORY Final Resul t [facility] [address] [place] [address], [id number] * (ABNORMAL) ALBUMIN URINE RANDOM (12/22/2022 8:28 AM CDT) Pathologist [facility] MICROALBUMIN (U) >850.0(H) <20 MG/L 12/23/19 3:17 PM CDT [facility] CREATININE RANDOM (U) 108.8 MG/DL 12/22/2022 3:17 PM CDT [facility] ALBUMIN/CREAT RATIO UNABLE TO CALCULATE <30 MG/G 12/22/2022 3:17 PM CDT [facility] URINE SPECIMEN / Unknown 12/22/2022 8:28 AM CDT Ruth GARCIA URINE ORDERABLES Final Resu lt Performing Organization Address City/[facility]/ZIP Co de Phone Number [facility] [place] [place] [address], [place] [phone] * (ABNORMAL) HEMOGLOBIN, GLYCOSYLATED (12/22/2022 8:28 AM CDT) HGB A1C 10.0(H) 4.5 - 6.2 % 12/22/2022 2:45 PM CDT [facility] ESTIMATED AVG GLUCOSE 240(H) 74 - 106 MG/DL 12/22/2022 2:45 PM CDT [facility] 12/22/2022 8:28 AM CDT Ruth GARCIA LABORATORY Final Resul t Performing Organization Address [facility] de Phone Number [address] [place] [address], [place] [phone] * (ABNORMAL) COMPREHENSIVE METABOLIC PANEL (12/22/2022 8:28 AM CDT) SODIUM S/P/B 134(L) 136 - 145 MMOL/L 12/22/2022 3:07 PM CDT [facility] POTASSIUM S/P/B 5.0 3.5 - 5.1 MMOL/L 12/22/2022 3:07 PM CDT [facility] CHLORIDE S/P/B 100 98 - 107 MMOL/L 12/22/2022 3:07 PM CDT [facility] CO2 24.2 21 - 32 MMOL/L 12/22/2022 3:07 PM CDT [facility] GLUCOSE 163(H) 70 - 99 MG/DL 12/22/2022 3:07 PM CDT [facility] BUN 37(H) 7 - 18 MG/DL 12/22/2022 3:07 PM [facility] CREATININE S/P/B 1.39(H) 0.70 - 1.30 MG/DL 12/22/2022 3:07 PM [facility] CALCIUM S/P/B 8.8 8.4 - 10.5 MG/DL 12/22/2022 3:07 PM [facility] BILIRUBIN TOTAL S/P/B 0.5 0.2 - 1.0 MG/DL 12/22/2022 3:07 PM T [facility] ALKALINE PHOSPHATASE S/P/B 78 45 - 115 U/L 12/22/2022 3:07 PM [facility] AST 31 15 - 37 U/L 12/22/2022 3:07 PM T [facility] ALT 56 16 - 63 U/L 12/22/2022 3:07 PM [facility] TOTAL PROTEIN S/P/B 6.8 6.4 - 8.2 G/DL 12/22/2022 3:07 PM [facility] ALBUMIN S/P/B 3.8 3.4 - 5.0 G/DL 12/22/2022 3:07 PM [facility] ANION GAP 9.8 5 - 15 MMOL/L 12/22/2022 3:07 PM [facility] Comment:REFERENCE RANGE NOT ESTABLISHED OSMOLALITY (CALC) 290 MOSM/KG 023 3:07 PM T [facility] Comment:REFERENCE RANGE NOT ESTABLISHED GFR ESTIMATE 58(L) >90 ML/MIN/1. 73 M2 12/22/2022 3:07 PM [facility] GFR NOTES GFR REFERENCE S: 12/22/2022 3:07 PM [facility] Comment: THE ESTIMATED GFR IS CALCULATED USING [...] ml/min/1.73 m2 G5,KIDNEY FAILURE: <15 ml/min/1.73 m2 12/22/2022 8:28 AM CDT us Ruth GARCIA LABORATORY Final Resul t [facility] [address] [place] [address], [place] [phone] * (ABNORMAL) URINALYSIS WI REFLEX TO CULTURE (12/22/2022 8:28 AM CDT) COLOR (U) YELLOW 12/22/2022 2:29 PM CDT [facility] TRANSPARENCY CLEAR CLEAR 12/22/2022 2:29 PM CDT [facility] SPECIFIC GRAVITY (U) 1.025 1.003 - 1.040 12/22/2022 2:29 PM CDT [facility] U PH 5.5 5.0 - 9.0 12/22/2022 2:29 PM CDT [facility] PROTEIN (U) 2+(A) NEGATIVE 12/22/2022 2:29 PM CDT [facility] URINE GLUCOSE 3+(A) NEGATIVE 12/22/2022 2:29 PM CDT [facility] KETONES MG/DL (U) NEGATIVE NEGATIVE 12/22/2022 2:29 PM CDT [facility] BILIRUBIN (U) NEGATIVE NEGATIVE 12/22/2022 2:29 PM CDT [facility] BLOOD (U) TRACE(A) NEGATIVE 12/22/2022 2:29 PM CDT [facility] UROBILINOGEN 0.2 0.0 - 2.0 EU/DL 12/22/2022 2:29 PM CDT [facility] NITRITES NEGATIVE NEGATIVE 12/22/2022 2:29 PM CDT [facility] LEUKOCYTES (U) NEGATIVE NEGATIVE 12/22/2022 2:29 PM CDT [facility] REFLEX URINE CULTURE: CULTURE IS NOT INDICATED 12/22/2022 2:29 PM CDT [facility] RBC/HPF 0-3 0 - 3 /HPF 12/22/2022 2:29 PM CDT [facility] WBC/HPF 0-3 0 - 3 /HPF 12/22/2022 2:29 PM CDT [facility] EPI/HPF 0-3 /HPF 12/22/2022 2:29 PM CDT [facility] BACTERIA (U) TRACE(A) NONE SEEN 12/22/2022 2:29 PM CDT [facility] URINE SPECIMEN OBTAINED BY CLEAN CATCH PROCEDURE / Unknown 12/22/2022 8:28 AM CDT us Ruth GARCIA URINE ORDERABLES Final Resu lt [facility] [address] [place] [address], * (ABNORMAL) LIPID PANEL (12/22/2022 8:28 AM CDT) CHOLESTEROL 209(H) <200 MG/DL 12/22/2022 3:07 PM CDT [facility] TRIGLYCERIDES 371(H) <150 MG/DL 12/22/2022 3:07 PM CDT [facility] HDL 39(L) >40 MG/DL 12/22/2022 3:07 PM CDT [facility] LDL-C 96 <100 MG/DL 12/22/2022 3:07 PM CDT [facility] VLDL CALCULATION 74(H) 5 - 28 MG/DL 12/22/2022 3:07 PM CDT [facility] CHOL/HDL RATIO 5.4(H) 0.0 - 4.0 12/22/2022 3:07 PM CDT [facility] LDL/HDL 2.5(H) 0.41 - 2.13 12/22/2022 3:07 PM CDT [facility] NON HDL CHOLESTEROL 170(H) <140 MG/DL 12/22/2022 3:07 PM CDT [facility] 12/22/2022 8:28 AM CDT Ruth GARCIA LABORATORY Final Resul t [facility] [address] [place] [address], documented in this encounter Visit Diagnoses Diagnosis Mixed hyperlipidemia- Primary Primary hypertension Unspecified essential hypertension Type 2 diabetes mellitus with hyperglycemia, without long-term current use of insulin (CMS/HCC HHS/HCC) Microalbuminuria Proteinuria Need for hepatitis C screening test Special screening examination for other specified viral diseases documented in this encounter Additional Health Concerns Assessment Noted Time PHQ-9 Depression Total Score: 0 11/13/19 23 11:12 AM CASINO CAGE CASHIER documented as of this encounter Care Teams Maintenance Supervisor 2Nd Shift Relationship Specialty Start Date End Date Ruth Child APNP [address] [place] [address] PCP - General NURSE PRACTITIONER 08/19/22 documented as of this encounter
--- OUTSIDE RECORDS SUMMARY | 2024-09-29 02:53 | XMS_ITS | Encounter Summary ---
Author Organization [facility] Address [address] [place] [address]. [place], [place] [id number] [place] [address] Care Team Providers Care Upholstery Repairer Name Role Phone Ruth Child Primary Care Provider [phone] Reason for Visit * Reason Onset Date Comments Other 11/18/2022 Encounter Details Date Type Department Care Team (Late st Contact Info) Description 11/18/2022 Telephone [facility] Family & Internal Medicine [facility] [address] [place] [address] Ruth Child APNP [address] [place] [address] Other Social History Tobacco Use Types Packs/Day Years Used Date Smoking Tobacco: Every Day Cigarettes 1 35 Smokeless Tobacco: Never Alcohol Use Standard Drinks/Week Comments Yes 0 [...] suspected to have Coronavirus/COVID-19? No / Unsure 11/13/2022 9:59 AM FRAUD PREVENTION ANALYST documented as of this encounter Progress Notes * Alla Ortiz MA - 11/21/2022 1:14 PM CST informed that Kemi is working on this and it will be fixed and faxed by Thursday D PREVENTION ANALYST * Saba Maher MA - 11/18/2022 1:30 PM CST This paperwork has been faxed already. Ruth already completed this paperwork. This X RAY NURSE called Myrtle to see what else they were needing. Left message to please call us back. BB 11/18/2022 D PREVENTION ANALYST * Manuela Schulte - 11/18/2022 8:57 AM CST called to speak with Ruth about the papers that need to be filled out for his job restrictions. Please give her a call back. D PREVENTION ANALYST documented in this encounter Plan of Treatment Not on file documented as of this encounter Visit Diagnoses Not on filedocumented in this encounter Additional Health Concerns Assessment Noted Time PHQ-9 Depression Total Score: 0 11/13/19 23 11:12 AM FRAUD PREVENTION ANALYST documented as of this encounter Care Teams Upholstery Repairer Relationship Specialty Start Date End Date Ruth Child APNP [address] [place] [address] PCP - General NURSE PRACTITIONER 08/19/22 documented as of this encounter
--- OUTSIDE RECORDS SUMMARY | 2024-09-29 02:53 | XMS_ITS | Encounter Summary ---
Author Organization [facility] Address [address] [place] [address]. [place], [place] [address] [place] [address] Care Team Providers Care Programming Director Name Role Phone Jigar Child Primary Care Provider [phone] Reason for Referral * Imaging (Routine) - Closed Specialty Diagnoses / Procedures Referred By Yumi t Referred To Contact RADIOLOGY Diagnoses Cigarette nicotine dependence without complication Procedures CT LUNG SCREENING Jigar Child APNP [address] [place] [address] Phone: tel: fax: Referral ID Status Reason Start Date Expiration Date Visits Re quested Visits Authorized [id number] Closed 08/25/2022 08/25/2023 1 1 ING AND JOINING SUPERVISOR Reason for Visit * Reason Comments Hypertension Diabetes Encounter Details Date Type Department Care Team (Late st Contact Info) Description 08/19/2022 8:20 AM BURLING AND JOINING SUPERVISOR Office Visit [facility] Family & Internal Medicine [facility] [address] [place] [address] Jigar Child APNP [address] [place] [address] Hypertension; Diabetes Social History Tobacco Use Types Packs/Day Years Used Date Smoking Tobacco: Every Day Cigarettes 1 35 Smokeless Tobacco: Never Tobacco Cessation:Ready to Q uit: Yes; Counseling Given: Yes Alcohol Use Standard Drinks/Week Comments Yes 0 (1 standard drink = 0.6 oz pur e alcohol) once every 3 months Sex and Gender Information Value Date Recorded Sex Assigned at Not on file Legal Sex Male 1:04 PM CDT Gender Identity Not on file Sexual Orientation Not on file COVID-19 Exposure Response Date Recorded In the last 10 days, have yo u been in contact with someone who was confirmed or suspected to have Coronavirus/COVID-19? No / Unsure 08/19/2022 8:00 AM BURLING AND JOINING SUPERVISOR documented as of this encounter Last Filed Vital Signs Vital Sign Reading Time Taken Comments Blood Pressure 127/76 08/19/2022 8:36 AM BURLING AND JOINING SUPERVISOR Pulse 74 08/19/2022 8:36 AM BURLING AND JOINING SUPERVISOR Temperature 36.7 ??C (98 ??F) 08/19/2022 8:36 AM BURLING AND JOINING SUPERVISOR Respiratory Rate 12 08/19/2022 8:36 AM BURLING AND JOINING SUPERVISOR Oxygen Saturation 97% 08/19/2022 8:36 AM BURLING AND JOINING SUPERVISOR Inhaled Oxygen Concentration - - Weight 97.1 kg (214 lb) 08/19/2022 8:36 AM BURLING AND JOINING SUPERVISOR Height 182.9 cm (6') 08/19/2022 8:36 AM BURLING AND JOINING SUPERVISOR Body Mass Index 29.02 08/19/2022 8:36 AM BURLING AND JOINING SUPERVISOR documented in this encounter Progress Notes * JOSE Gross - 08/19/2022 8:20 AM CST Images from the original note were not included. [facility]ILY [facility]NAL [facility]ICINE OFFICE VISIT Reason for Visit: Hypertension and Diabetes History of Present Illness: 62 yo male here today, accompanied by his who is also a pt of mine, to establish care as a newpt. He is a one PPD smoker, rarely drinks alcohol and denies any illicit drug use. Chronic health conditions: HTN - BP well controlled. He is currently on lisinopril 5 mg once daily. Tolerates well, no bothersome side effects. T2DM - currently on metformin and jardiance. Unsure of last HGB A1C. Does not routinely monitor hisglucose at home. HLD - takss rosuvastatin, tolerates well, No myalgias. Hypothyroidism - currently on levothyroxine 25 mcg once daily. Denies any overt hypo or hyper thyroid symptoms. Current every day smoker - one PPD smoker, not interested in quitting at this time. Shared decisionmaking regarding LDCT--pt agreeable to have done. Labs - due and can order today. Immunizations - declines flu shot this year. Due for Prevnar 20--out at office today. Colon cancer screening - pt states done at [facility] at age 61. He has a complaint today of sinus pain and pressure and discolored nasal drainage for 10+ days. Would like treatment. Has currently been treating with OTC meds. He has some ongoing issues with skin cysts/boils. He has been told in the past these are due to ingrown hairs. He states antibiotics are often needed for treatment. ROS: Review of Systems Constitutional: Negative for chills and fever. HENT: Negative for congestion. Eyes: Negative for blurred vision and double vision. Respiratory: Negative for cough and shortness of breath. Cardiovascular: Negative for chest pain and palpitations. Gastrointestinal: Negative for abdominal pain and vomiting. Genitourinary: Negative for dysuria and urgency. Skin: Negative for itching and rash. Neurological: Negative for dizziness and headaches. Psychiatric/Behavioral: Negative for depression. The patient is not nervous/anxious. Medications: Current Outpatient Medications: ??? amoxicillin-clavulanate (AUGMENTIN) 875-125 MG tablet, Take 1 tablet (875 mg total) by mouth 2 (two) times daily for 10 days., Disp: 20 tablet, Rfl: 0 ??? JARDIANCE 25 MG tablet, daily., Disp: , Rfl: ??? levothyroxine (SYNTHROID) 25 MCG tablet, every morning., Disp: , Rfl: ??? lisinopril (PRINIVIL) 5 MG tablet, Take 1 tablet (5 mg total) by mouth daily., Disp: 90 tablet,Rfl: 3 ??? meloxicam (MOBIC) 15 MG tablet, daily., Disp: , Rfl: ??? metFORMIN (GLUCOPHAGE) 1000 MG tablet, see administration instructions. Once in the morning andonce in the evening., Disp: , Rfl: ??? rosuvastatin (CRESTOR) 20 MG tablet, Take 20 mg by mouth nightly at bedtime., Disp: , Rfl: Allergies: No Known Allergies Medical History: Past Medical History: Diagnosis Date ??? BMI 29.0-29.9,adult 08/19/2022 ??? Cigarette nicotine dependence without complication 08/19/2022 ??? Diabetes mellitus (CMS/HCC) ??? High cholesterol ??? Hypertension ??? Primary hypertension 08/19/2022 ??? Type 2 diabetes mellitus with hyperglycemia, without long-term current use of insulin ([facility])08/19/2022 Surgical History: Past Surgical History: Procedure Laterality Date ??? ACNE CYST REMOVAL Social History: Social History Socioeconomic History ??? Marital status: Tobacco Use ??? Smoking status: Every Day Packs/day: 1.00 Years: 35.00 Pack years: 35.00 Types: Cigarettes ??? Smokeless tobacco: Never Vaping Use ??? Vaping Use: Never used Substance and Sexual Activity ??? Alcohol use: Yes Comment: once every 3 months Family History: Family History Problem Relation Name Age of Onset ??? Hypertension Mother ??? Cancer Father kidney cancer ??? No Known Problems Daughter ??? No Known Problems Daughter ??? Diabetes Maternal Grandmother PE: Physical Exam Vitals [...] is warm and dry. Findings: No erythema. Neurological: Mental Status: He is alert and oriented to person, place, and time. Gait: Gait is intact. Psychiatric: Mood and Affect: Mood and affect normal. Filed Vitals: 08/19/22 0836 BP: 127/76 Pulse: 74 Resp: 12 Temp: 98 ??F (36.7 ??C) SpO2: 97% Weight: 97.1 kg (214 lb) Height: 6' (1.829 m) Labs: Labs Reviewed Diagnoses/Impression: 1. Mixed hyperlipidemia Chronic LIPID PANEL CK (CPK) 2. Type 2 diabetes mellitus with hyperglycemia, without long-term current use of insulin ([facility]) Chronic URINALYSIS WI REFLEX TO CULTURE URIC ACID BLOOD COMPREHENSIVE METABOLIC PANEL HEMOGLOBIN, GLYCOSYLATED ALBUMIN URINE RANDOM lisinopril (PRINIVIL) 5 MG tablet 3. Primary hypertension Chronic URINALYSIS WI REFLEX TO CULTURE URIC ACID BLOOD COMPREHENSIVE METABOLIC PANEL lisinopril (PRINIVIL) 5 MG tablet 4. Acquired hypothyroidism Chronic THYROID STIM HORMONE, TSH THYROXINE, FREE (FT4) 5. Cigarette nicotine dependence without complication Chronic CT LUNG SCREENING 6. BMI 29.0-29.9,adult Chronic CBC W/DIFF AUTOMATED LIPID PANEL URINALYSIS WI REFLEX TO CULTURE URIC ACID BLOOD COMPREHENSIVE METABOLIC PANEL HEMOGLOBIN, GLYCOSYLATED ALBUMIN URINE RANDOM CK (CPK) PROSTATE SPECIFIC ANTIGEN,SCREENING THYROID STIM HORMONE, TSH THYROXINE, FREE (FT4) VENIPUNC ARM DRAW 7. Acute non-recurrent maxillary sinusitis amoxicillin-clavulanate (AUGMENTIN) 875-125 MG tablet Recommendations and Plan: 1. Mixed hyperlipidemia - LIPID PANEL; Future - CK (CPK); Future - CK (CPK) - LIPID PANEL Stable. Continue meds. 2. Type 2 diabetes mellitus with hyperglycemia, without long-term current use of insulin ([facility]) - URINALYSIS WI REFLEX TO CULTURE; Future - URIC ACID BLOOD; Future - COMPREHENSIVE METABOLIC PANEL; Future - HEMOGLOBIN, GLYCOSYLATED; Future - ALBUMIN URINE RANDOM; Future - ALBUMIN URINE RANDOM - HEMOGLOBIN, GLYCOSYLATED - COMPREHENSIVE METABOLIC PANEL - URIC ACID BLOOD - URINALYSIS WI REFLEX TO CULTURE - lisinopril (PRINIVIL) 5 MG tablet; Take 1 tablet (5 mg total) by mouth daily. Dispense: 90 tablet; Refill: 3 He will continue meds at ordered for now. Plan to check labs to include HGB A1C. More plan after results 3. Primary hypertension - URINALYSIS WI REFLEX TO CULTURE; Future - URIC ACID BLOOD; Future - COMPREHENSIVE METABOLIC PANEL; Future - COMPREHENSIVE METABOLIC PANEL - URIC ACID BLOOD - URINALYSIS WI REFLEX TO CULTURE - lisinopril (PRINIVIL) 5 MG tablet; Take 1 tablet (5 mg total) by mouth daily. Dispense: 90 tablet; Refill: 3 Stable. Continue meds 4. Acquired hypothyroidism - THYROID STIM HORMONE, TSH; Future - THYROXINE, FREE (FT4); Future - THYROXINE, FREE (FT4) - THYROID STIM HORMONE, TSH Stable. Continue meds 5. Cigarette nicotine dependence without complication - CT LUNG SCREENING; Future Shared decision making. Smoking cessation counseling performed for at least 3 minutes today. 6. BMI 29.0-29.9,adult - CBC W/DIFF AUTOMATED; Future - LIPID PANEL; Future - URINALYSIS WI REFLEX TO CULTURE; Future - URIC ACID BLOOD; Future - COMPREHENSIVE METABOLIC PANEL; Future - HEMOGLOBIN, GLYCOSYLATED; Future - ALBUMIN URINE RANDOM; Future - CK (CPK); Future - PROSTATE SPECIFIC ANTIGEN,SCREENING; Future - THYROID STIM HORMONE, TSH; Future - THYROXINE, FREE (FT4); Future - VENIPUNC ARM DRAW - THYROXINE, FREE (FT4) - THYROID STIM HORMONE, TSH - PROSTATE SPECIFIC ANTIGEN,SCREENING - CK (CPK) - ALBUMIN URINE RANDOM - HEMOGLOBIN, GLYCOSYLATED - COMPREHENSIVE METABOLIC PANEL - URIC ACID BLOOD - URINALYSIS WI REFLEX TO CULTURE - LIPID PANEL - CBC W/DIFF AUTOMATED 7. Acute non-recurrent maxillary sinusitis - amoxicillin-clavulanate (AUGMENTIN) 875-125 MG tablet; Take 1 tablet (875 mg total) by mouth 2 (two) times daily for 10 days. Dispense: 20 tablet; Refill: 0 He will let me know if there is no improvement in symptoms Orders Placed This Encounter ??? VENIPUNC ARM DRAW ??? CBC W/DIFF AUTOMATED ??? LIPID PANEL ??? URINALYSIS WI REFLEX TO CULTURE ??? URIC ACID BLOOD ??? COMPREHENSIVE METABOLIC PANEL ??? HEMOGLOBIN, GLYCOSYLATED ??? ALBUMIN URINE RANDOM ??? CK (CPK) ??? PROSTATE SPECIFIC ANTIGEN,SCREENING ??? THYROID STIM HORMONE, TSH ??? THYROXINE, FREE (FT4) ??? CT LUNG SCREENING ??? metFORMIN (GLUCOPHAGE) 1000 MG tablet ??? DISCONTD: rosuvastatin (CRESTOR) 10 MG tablet ??? DISCONTD: lisinopril (PRINIVIL) 5 MG tablet ??? levothyroxine (SYNTHROID) 25 MCG tablet ??? JARDIANCE 25 MG tablet ??? meloxicam (MOBIC) 15 MG tablet ??? rosuvastatin (CRESTOR) 20 MG tablet ??? amoxicillin-clavulanate (AUGMENTIN) 875-125 MG tablet ??? lisinopril (PRINIVIL) 5 MG tablet Cannot display discharge medications since this is not an admission. PCP: JOSE Gross 08/25/2022 ING AND JOINING SUPERVISOR documented in this encounter Plan of Treatment Not on file documented as of this encounter Procedures Procedure Name Priority Date/Time Associated Diagnosis Comments URINALYSIS WI REFLEX TO CULTURE Routine 08/19/2022 5:12 PM BURLING AND JOINING SUPERVISOR Type 2 diabetes mellitus with hyperglycemia, without long-term current use of insulin ([facility]) Primary hypertension BMI 29.0-29.9,adult HEMOGLOBIN, GLYCOSYLATED Routine 08/19/2022 5:12 PM BURLING AND JOINING SUPERVISOR Type 2 diabetes mellitus with hyperglycemia, without long-term current use of insulin ([facility]) BMI 29.0-29.9,adult PROSTATE SPECIFIC ANTIGEN,SCREENING Routine 08/19/2022 5:12 PM BURLING AND JOINING SUPERVISOR BMI 29.0-29.9,adult ALBUMIN URINE RANDOM W/CREATININE Routine 08/19/2022 5:12 PM BURLING AND JOINING SUPERVISOR Type 2 diabetes mellitus with hyperglycemia, without long-term current use of insulin ([facility]) BMI 29.0-29.9,adult COMPREHENSIVE METABOLIC PANEL Routine 08/19/2022 5:12 PM BURLING AND JOINING SUPERVISOR Type 2 diabetes mellitus with hyperglycemia, without long-term current use of insulin ([facility]) Primary hypertension BMI 29.0-29.9,adult LIPID PANEL Routine 08/19/2022 5:12 PM BURLING AND JOINING SUPERVISOR Mixed hyperlipidemia BMI 29.0-29.9,adult CBC W/DIFF AUTOMATED Routine 08/19/2022 5:12 PM BURLING AND JOINING SUPERVISOR BMI 29.0-29.9,adult THYROXINE, FREE (FT4) Routine 08/19/2022 5:12 PM BURLING AND JOINING SUPERVISOR Acquired hypothyroidism BMI 29.0-29.9,adult THYROID STIM HORMONE TSH Routine 08/19/2022 5:12 PM BURLING AND JOINING SUPERVISOR Acquired hypothyroidism BMI 29.0-29.9,adult CK (CPK) Routine 08/19/2022 5:12 PM BURLING AND JOINING SUPERVISOR Mixed hyperlipidemia BMI 29.0-29.9,adult URIC ACID BLOOD Routine 08/19/2022 5:12 PM BURLING AND JOINING SUPERVISOR Type 2 diabetes mellitus with hyperglycemia, without long-term current use of insulin ([facility] HHS/HCC) Primary hypertension BMI 29.0-29.9,adult COLLECTION VENOUS BLOOD VENIPUNCTURE Routine 08/19/2022 9:09 AM BURLING AND JOINING SUPERVISOR BMI 29.0-29.9,adult documented in this encounter Results * CT LUNG SCREENING (10/01/2022 8:35 AM BURLING AND JOINING SUPERVISOR) Anatomical Region Laterality Modality Chest Computed Tomogra phy 10/02/2022 3:36 PM BURLING AND JOINING SUPERVISOR Impressions 10/02/2022 3:41 PM BURLING AND JOINING SUPERVISOR IMPRESSION: 1. ??Lung-RADS Category 2: Benign appearance [...] around 10/01/2023). Thank you for choosing the [facility]'s Lung Screening Program. Referred By: JIGAR CHILD Interpreted By: Raymond Richards MD, 10/02/2022 3:36 PM Narrative 10/02/2022 3:41 PM BURLING AND JOINING SUPERVISOR EXAM: LUNG SCREENING LOW-DOSE CT THORAX WITHOUT [...] or around10/01/2023). Thank you for choosing the [facility]'s Lung ScreeningProgram. Referred By: JIGAR CHILD Interpreted By: Raymond Richards MD, 10/02/2022 3:36 PM us Jigar GARCIA CT Final Resul t * THYROXINE, FREE (FT4) (08/19/2022 5:12 PM BURLING AND JOINING SUPERVISOR) FREE T4 1.12 0.76 - 1.46 NG/DL 08/19/2022 9:55 PM BURLING AND JOINING SUPERVISOR [facility] 08/19/2022 5:12 PM BURLING AND JOINING SUPERVISOR Jigar [facility] Final Resul t Performing Organization Address City/[facility] Co de Phone Number [facility] [address] [place] [address], [place] [phone] * THYROID STIM HORMONE, TSH (08/19/2022 5:12 PM BURLING AND JOINING SUPERVISOR) TSH 2.370 0.358 - 3.740 uIU/ML 08/19/2022 9:55 PM BURLING AND JOINING SUPERVISOR [facility] 08/19/2022 5:12 PM BURLING AND JOINING SUPERVISOR Jigar Danyell [facility] Final Resul t Performing Organization Address [facility] [[email or web address]] de Phone Number [address] [address], [place] [phone] * PROSTATE SPECIFIC ANTIGEN,SCREENING (08/19/2022 5:12 PM BURLING AND JOINING SUPERVISOR) PSA 0.44 <4.00 NG/ML 08/19/2022 8:48 PM BURLING AND JOINING SUPERVISOR [facility] Comment: ASSAY PERFORMED BY [employer] IMMUNOASSAY METHODOLOGY USING SIEMENS DIMENSION REAGENT. PATIENT RESULTS DETERMINED BY ASSAYS FROM DIFFERENT MANUFACTURERS AND/OR BY DIFFERENT METHODS MAY NOT BE COMPARABLE. 08/19/2022 5:12 PM BURLING AND JOINING SUPERVISOR Jigar [facility] Final Resul t Performing Organization Address [facility] [[email or web address]] de Phone Number [facility] [address] [place] [address], * CK (CPK) (08/19/2022 5:12 PM BURLING AND JOINING SUPERVISOR) Pathologist [facility] CPK 179 39 - 308 U/L 08/19/2022 8:50 PM BURLING AND JOINING SUPERVISOR [facility] 08/19/2022 5:12 PM BURLING AND JOINING SUPERVISOR Jigar [facility] Final Resul t Performing Organization Address [facility] Co de Phone Number [facility] [address] [place] [address], * (ABNORMAL) ALBUMIN URINE RANDOM (08/19/2022 5:12 PM BURLING AND JOINING SUPERVISOR) [facility] MICROALBUMIN (U) >850.0(H) <20 MG/L 08/19/20 8:51 PM BURLING AND JOINING SUPERVISOR [facility] CREATININE RANDOM (U) 113.0 MG/DL 08/19/2022 8:51 PM BURLING AND JOINING SUPERVISOR [facility] MICROALB/CREAT UNABLE TO CALCULATE <30 MG/G 08/19/2022 8:51 PM BURLING AND JOINING SUPERVISOR [facility] URINE SPECIMEN / Unknown 08/19/2022 5:12 PM BURLING AND JOINING SUPERVISOR Jigar GARCIA URINE ORDERABLES Final Resu lt Performing Organization Address [facility] Co de Phone Number [facility] [address] [place] [address], * (ABNORMAL) HEMOGLOBIN, GLYCOSYLATED (08/19/2022 5:12 PM BURLING AND JOINING SUPERVISOR) Pathologist [facility] HGB A1C 8.8(H) 4.5 - 6.2 % 08/19/2022 9:31 PM BURLING AND JOINING SUPERVISOR [facility] ESTIMATED AVG GLUCOSE 206(H) 74 - 106 MG/DL 08/19/2022 9:31 PM BURLING AND JOINING SUPERVISOR [facility] 08/19/2022 5:12 PM BURLING AND JOINING SUPERVISOR Jigar [facility] Final Resul t -[facility] [address] [place] [address], * (ABNORMAL) COMPREHENSIVE METABOLIC PANEL (08/19/2022 5:12 PM BURLING AND JOINING SUPERVISOR) SODIUM S/P/B 140 136 - 145 MMOL/L 08/19/2022 9:55 PM BURLING AND JOINING SUPERVISOR [facility] POTASSIUM S/P/B 4.7 3.5 - 5.1 MMOL/L 08/19/2022 9:55 PM BURLING AND JOINING SUPERVISOR [facility] CHLORIDE S/P/B 106 98 - 107 MMOL/L 08/19/2022 9:55 PM BURLING AND JOINING SUPERVISOR [facility] CO2 24.1 21 - 32 MMOL/L 08/19/2022 9:55 PM BURLING AND JOINING SUPERVISOR [facility] GLUCOSE 168(H) 70 - 99 MG/DL 08/19/2022 9:55 PM BURLING AND JOINING SUPERVISOR [facility] BUN 24(H) 7 - 18 MG/DL 08/19/2022 9:55 PM BURLING AND JOINING SUPERVISOR [facility] CREATININE S/P/B 1.24 0.70 - 1.30 MG/DL 08/19/2022 9:55 PM BURLING AND JOINING SUPERVISOR [facility] CALCIUM S/P/B 8.9 8.4 - 10.5 MG/DL 08/19/2022 9:55 PM BURLING AND JOINING SUPERVISOR [facility] BILIRUBIN TOTAL S/P/B 0.5 0.2 - 1.0 MG/DL 08/19/2022 9:55 PM BURLING AND JOINING SUPERVISOR [facility] ALKALINE PHOSPHATASE S/P/B 67 45 - 115 U/L 08/19/2022 9:55 PM BURLING AND JOINING SUPERVISOR [facility] AST 32 15 - 37 U/L 08/19/2022 9:55 PM BURLING AND JOINING SUPERVISOR [facility] ALT 41 16 - 63 U/L 08/19/2022 9:55 PM BURLING AND JOINING SUPERVISOR [facility] TOTAL PROTEIN S/P/B 6.4 6.4 - 8.2 G/DL 08/19/2022 9:55 PM BURLING AND JOINING SUPERVISOR [facility] ALBUMIN S/P/B 3.6 3.4 - 5.0 G/DL 08/19/2022 9:55 PM BURLING AND JOINING SUPERVISOR [facility] ANION GAP 9.9 5 - 15 MMOL/L 08/19/2022 9:55 PM BURLING AND JOINING SUPERVISOR [facility] Comment:REFERENCE RANGE NOT ESTABLISHED OSMOLALITY (CALC) 298 MOSM/KG 022 9:55 PM [facility] Comment:REFERENCE RANGE NOT ESTABLISHED GFR ESTIMATE 66(L) >90 ML/MIN/1. 73 M2 08/19/2022 9:55 PM BURLING AND JOINING SUPERVISOR [facility] GFR NOTES GFR REFERENCE S: 08/19/2022 9:55 PM BURLING AND JOINING SUPERVISOR [facility] Comment: THE ESTIMATED GFR IS CALCULATED [...] ml/min/1.73 m2 G5,KIDNEY FAILURE: <15 ml/min/1.73 m2 08/19/2022 5:12 PM BURLING AND JOINING SUPERVISOR us Jigar [facility] Final Resul t [facility] [address] [place] [address], * URIC ACID BLOOD (08/19/2022 5:12 PM BURLING AND JOINING SUPERVISOR) URIC ACID 6.8 3.5 - 7.2 MG/DL 08/19/2022 9:31 PM BURLING AND JOINING SUPERVISOR [facility] 08/19/2022 5:12 PM BURLING AND JOINING SUPERVISOR Jigar [facility] Final Resul t [facility] [address] [place] [address], * (ABNORMAL) URINALYSIS WI REFLEX TO CULTURE (08/19/2022 5:12 PM BURLING AND JOINING SUPERVISOR) COLOR (U) YELLOW 08/19/2022 8:25 PM BURLING AND JOINING SUPERVISOR [facility] TRANSPARENCY CLEAR CLEAR 08/19/2022 8:25 PM BURLING AND JOINING SUPERVISOR [facility] SPECIFIC GRAVITY (U) >1.030 1.003 - 1.040 08/19/2022 8:25 PM BURLING AND JOINING SUPERVISOR [facility] U PH 5.5 5.0 - 9.0 08/19/2022 8:25 PM BURLING AND JOINING SUPERVISOR [facility] PROTEIN (U) 3+(A) NEGATIVE 08/19/2022 8:25 PM BURLING AND JOINING SUPERVISOR [facility] URINE GLUCOSE 3+(A) NEGATIVE 08/19/2022 8:25 PM BURLING AND JOINING SUPERVISOR [facility] KETONES MG/DL (U) NEGATIVE NEGATIVE 08/19/2022 8:25 PM BURLING AND JOINING SUPERVISOR [facility] BILIRUBIN (U) NEGATIVE NEGATIVE 08/19/2022 8:25 PM BURLING AND JOINING SUPERVISOR [facility] BLOOD (U) 1+(A) NEGATIVE 08/19/2022 8:25 PM BURLING AND JOINING SUPERVISOR [facility] UROBILINOGEN 0.2 0.0 - 2.0 EU/DL 08/19/2022 8:25 PM BURLING AND JOINING SUPERVISOR [facility] NITRITES NEGATIVE NEGATIVE 08/19/2022 8:25 PM BURLING AND JOINING SUPERVISOR [facility] LEUKOCYTES (U) NEGATIVE NEGATIVE 08/19/2022 8:25 PM BURLING AND JOINING SUPERVISOR [facility] REFLEX URINE CULTURE: CULTURE IS NOT INDICATED 08/19/2022 8:25 PM BURLING AND JOINING SUPERVISOR [facility] RBC/HPF 0-3 0 - 3 /HPF 08/19/2022 8:25 PM BURLING AND JOINING SUPERVISOR [facility] WBC/HPF 0-3 0 - 3 /HPF 08/19/2022 8:25 PM BURLING AND JOINING SUPERVISOR [facility] EPI/HPF 0-3 /HPF 08/19/2022 8:25 PM BURLING AND JOINING SUPERVISOR [facility] BACTERIA (U) NONE SEEN NONE SEEN 08/19/2022 8:25 PM BURLING AND JOINING SUPERVISOR [facility] URINE SPECIMEN OBTAINED BY CLEAN CATCH PROCEDURE / Unknown 08/19/2022 5:12 PM BURLING AND JOINING SUPERVISOR us Jigar GARCIA URINE ORDERABLES Final Resu lt [facility] [address] [place] [address], * (ABNORMAL) LIPID PANEL (08/19/2022 5:12 PM BURLING AND JOINING SUPERVISOR) CHOLESTEROL 216(H) <200 MG/DL 08/19/2022 9:55 PM BURLING AND JOINING SUPERVISOR [facility] TRIGLYCERIDES 179(H) <150 MG/DL 08/19/2022 9:55 PM BURLING AND JOINING SUPERVISOR [facility] HDL 47 >40 MG/DL 08/19/2022 9:55 PM BURLING AND JOINING SUPERVISOR [facility] LDL-C 133(H) <100 MG/DL 08/19/2022 9:55 PM BURLING AND JOINING SUPERVISOR [facility] VLDL CALCULATION 36(H) 5 - 28 MG/DL 08/19/2022 9:55 PM BURLING AND JOINING SUPERVISOR [facility] CHOL/HDL RATIO 4.6(H) 0.0 - 4.0 08/19/2022 9:55 PM BURLING AND JOINING SUPERVISOR [facility] LDL/HDL 2.8(H) 0.41 - 2.13 08/19/2022 9:55 PM BURLING AND JOINING SUPERVISOR [facility] NON HDL CHOLESTEROL 169(H) <140 MG/DL 08/19/2022 9:55 PM BURLING AND JOINING SUPERVISOR [facility] 08/19/2022 5:12 PM BURLING AND JOINING SUPERVISOR Jigar [facility] Final Resul t [facility] [address] [place] [address], * (ABNORMAL) CBC W/DIFF AUTOMATED (08/19/2022 5:12 PM BURLING AND JOINING SUPERVISOR) WBC 6.8 4.0 - 10.8 x10'3/uL 08/19/2022 8:09 PM [facility] RBC 5.24 4.50 - 6.10 x10'6/uL 08/19/2022 8:09 PM [facility] HGB 15.9 13.0 - 18.0 G/DL 08/19/2022 8:09 PM [employer]ING SUPER[employer] [facility] HCT 47.0 37.0 - 52.0 % 08/19/2022 8:09 PM [employer]PER[employer] [facility] MCV 89.7 78.0 - 100.0 FL 08/19/2022 8:09 PM [employer]PER[employer] [facility] MCH 30.3 27.0 - 31.0 PG 08/19/2022 8:09 PM [facility] MCHC 33.8 33.0 - 36.0 G/DL 08/19/2022 8:09 PM [facility] RDW 13.2 11.5 - 14.5 % 08/19/2022 8:09 PM [facility] PLT 219 150 - 350 x10'3/uL 08/19/2022 8:09 PM [facility] [facility] MPV 10.7(H) 7.4 - 10.4 [place] 08/19/2022 8:09 PM [facility] DIFFERENTIAL TYPE AUTOMATED DIFFERENTIAL 08/19/2022 8:09 PM [facility] NEUTROPHILS % 68.2 % 08/19/2022 8:09 PM [facility] LYMPHOCYTES % 21.2 % 08/19/2022 8:09 PM [facility] MONOCYTES % 5.6 % 08/19/2022 8:09 PM [facility] EOSINOPHILS % 4.0 % 08/19/2022 8:09 PM [facility] BASOPHILS % 1.0 % 08/19/2022 8:09 PM [facility] IMMATURE GRANS % 0.0 % 08/19/2022 8:09 PM [facility] ABS. NEUTROPHILS 4.62 1.60 - 8.30 x10'3/uL 08/19/2022 8:09 PM [facility] ABS. LYMPHOCYTES 1.44 0.80 - 4.70 x10'3/uL 08/19/2022 8:09 PM [facility] ABS. MONOCYTES 0.38 0.00 - 1.50 x10'3/uL 08/19/2022 8:09 PM [facility] ABS. EOSINOPHILS 0.27 0.00 - 0.40 x10'3/uL 08/19/2022 8:09 PM [facility] ABS. BASOPHILS 0.07 0.00 - 0.20 x10'3/uL 08/19/2022 8:09 PM [facility] ABS. 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 J[facility]ar [facility] Final Resul t [facility] [address] [facility] [place] [place] [address], documented in this encounter Visit Diagnoses Diagnosis Mixed hyperlipidemia- Primary Type 2 diabetes mellitus with hyperglycemia, without long-term current use of insulin ([facility]) Primary hypertension Unspecified essential hypertension Acquired hypothyroidism Unspecified hypothyroidism Cigarette nicotine dependence without complication Tobacco use disorder BMI 29.0-29.9,adult Body Mass Index 29.0-29.9, adult Acute non-recurrent maxillary sinusitis Cigarette nicotine dependence without complication Tobacco use disorder documented in this encounter Care Teams Programming Director Relationship Specialty Start Date End Date Jigar Child APNP [facility] [place] [address] PCP - General NURSE PRACTITIONER 08/19/22 documented as of this encounter
--- OUTSIDE RECORDS SUMMARY | 2024-09-29 02:53 | XMS_ITS | Encounter Summary ---
Author Organization [facility] Address [address] [place] [address]. [place], [place] [address] [place] [address] Care Team Providers Care Credit Analysis Manager Name Role Phone Jigar Child Primary Care Provider [phone] Reason for Referral * Imaging (Routine) - Closed Specialty Diagnoses / Procedures Referred By Contac t Referred To Contact RADIOLOGY Diagnoses Cigarette nicotine dependence without complication Procedures CT LUNG SCREENING Jigar Child APNP [address] [place] [address] Phone: tel: fax: Referral ID Status Reason Start Date Expiration Date Visits Re quested Visits Authorized [id number] Closed 08/25/2022 08/25/2023 1 1 SIONS TESTING TECHNICIAN Reason for Visit * Imaging (Routine) - Closed Specialty Diagnoses / Procedures Referred By Contac t Referred To Contact RADIOLOGY Diagnoses Cigarette nicotine dependence without complication Procedures CT LUNG SCREENING Jigar Child APNP [address] [place] [address] Phone: tel: fax: Referral ID Status Reason Start Date Expiration Date Visits Re quested Visits Authorized [id number] Closed 08/25/2022 08/25/2023 1 1 Encounter Details Date Type Department Care Team (Latest Contact Info) Description 10/01/2022 8:24 AM EMISSIONS TESTING TECHNICIAN - 10/01/2022 11:59 PM EMISSIONS TESTING TECHNICIAN Hospital Encounter [facility] [place] [address] Jigar Child APNP [address] [place] [address] Discharge Disposition: Home or Self Care (Routine [...] suspected to have Coronavirus/COVID-19? No / Unsure 10/01/2022 8:21 AM EMISSIONS TESTING TECHNICIAN documented as of this encounter Medications at Time of Discharge JARDIANCE 25 MG tablet daily. 2 07/24/20 levothyroxine (SYNTHROID) 25 MCG tablet every morning. 2 07/24/20 23 lisinopril (PRINIVIL) 5 MG tabletIndications :Type 2 diabetes mellitus with hyperglycemia, without long-term current use of insulin ([facility]/HCC),Primary hypertension Take 1 tablet (5 mg total) by mouth daily. 90 tablet 3 2 07/24/20 23 meloxicam (MOBIC) 15 MG tablet daily. BID Pt states that he is taking once a day 2 07/24/20 metFORMIN (GLUCOPHAGE) 1000 MG tablet see administration instructions. Once in the morning and once in the evening. 2 07/24/20 rosuvastatin (CRESTOR) 20 MG tablet Take 1 tablet (20 mg total) by mouth nightly at bedtime. 07/17/20 documented as of this encounter Plan of Treatment Not on file documented as of this encounter Procedures Procedure Name Priority Date/Time Associated Diagnosis Comments CT LUNG SCREENING Routine 10/01/2022 8:3 5 AM EMISSIONS TESTING TECHNICIAN Cigarette nicotine dependence without complication documented in this encounter Results * CT LUNG SCREENING (10/01/2022 8:35 AM EMISSIONS TESTING TECHNICIAN) Anatomical Region Laterality Modality Chest Computed Tomogra phy 10/02/2022 3:36 PM EMISSIONS TESTING TECHNICIAN Impressions 10/02/2022 3:41 PM EMISSIONS TESTING TECHNICIAN IMPRESSION: 1. ??Lung-RADS Category 2: Benign appearance [...] around 10/01/2023). Thank you for choosing the [facility] Lung Screening [facility]. Referred By: JIGAR CHILD Interpreted By: Raymond Richards MD, 10/02/2022 3:36 PM Narrative 10/02/2022 3:41 PM EMISSIONS TESTING TECHNICIAN EXAM: LUNG SCREENING LOW-DOSE CT THORAX WITHOUT [...] or around10/01/2023). Thank you for choosing the [facility] Screening[facility]. Referred By: JIGAR CHILD Interpreted By: Raymond Richards MD, 10/02/2022 3:36 PM us Jigar GARCIA CT Final Resul t documented in this encounter Visit Diagnoses Diagnosis Cigarette nicotine dependence without complication Tobacco use disorder documented in this encounter Care Teams Credit Analysis Manager Relationship Specialty Start Date End Date Jigar Child APNP [facility] [place] [address] PCP - General NURSE PRACTITIONER 08/19/22 documented as of this encounter
--- OUTSIDE RECORDS SUMMARY | 2024-09-29 02:53 | XMS_ITS | Encounter Summary ---
Author Organization [facility] Address [address] [place] [address]. [place], [place] [address] [place] [address] Care Team Providers Care Production Operations Engineer Name Role Phone Jigar Child Primary Care Provider [phone] Reason for Visit * Reason Onset Date Comments Medication Request 07/16/2023 Encounter Details Date Type Department Care Team (Late st Contact Info) Description 07/16/2023 Telephone [facility] Family & Internal Medicine [facility] [address] [place] [address] Jigar Child APNP [address], [place] [id number] Medication Request Social History Tobacco Use Types Packs/Day Years Used Date Smoking Tobacco: Every Day Cigarettes 1 35 Smokeless Tobacco: Never Comments:Provider to skilled nursing facility counselor Alcohol Use Standard Drinks/Week Comments Yes [...] as of this encounter Progress Notes * Elissa Graham MA - 07/17/2023 2:03 PM CDT Refill request received from Pharmacy Last visit with JIGAR CHILD in FAMILY PRACTICE was on: 12/08/2022 in [facility] No future appointments. [id number] - [place], [place] - [address] [facility] [address] [facility] [address] Current Outpatient Medications: JARDIANCE 25 MG tablet, daily., Disp: , Rfl: levothyroxine (SYNTHROID) 25 MCG tablet, every morning., Disp: , Rfl: lisinopril (PRINIVIL) 5 MG tablet, Take 1 tablet (5 mg total) by mouth daily., Disp: 90 tablet, Rfl: 3 meloxicam (MOBIC) 15 MG tablet, daily. BID Pt states that he is taking once a day, Disp: , Rfl: metFORMIN (GLUCOPHAGE) 1000 MG tablet, see administration instructions. Once in the morning and once in the evening., Disp: , Rfl: rosuvastatin (CRESTOR) 20 MG tablet, Take 1 tablet (20 mg total) by mouth nightly at bedtime., Disp: , Rfl: Semaglutide (RYBELSUS) 3 MG Tab, Take 1 tablet by mouth daily. (Patient not taking: Reported on 12/08/2022), Disp: 30 tablet, Rfl: 1 * Marlyn Freitas - 07/16/2023 9:10 AM CDT Refill request received from Patient Medication: rosuvastatin (CRESTOR) 20 MG tablet Pharmacy: [facility] [address] [place], [place] Last visit with JIGAR CHILD in FAMILY PRACTICE was on: 12/08/2022 in [facility] No future appointments. documented in this encounter Plan of Treatment Not on file documented as of this encounter Visit Diagnoses Diagnosis Mixed hyperlipidemia- Primary documented in this encounter Additional Health Concerns Assessment Noted Time PHQ-9 Depression Total Score: 0 11/13/19 23 11:12 AM RAILROAD CONSTRUCTION DIRECTOR documented as of this encounter Care Teams Production Operations Engineer Relationship Specialty Start Date End Date Jigar Child APNP [address] [place] [address] PCP - General NURSE PRACTITIONER 08/19/22 documented as of this encounter
--- OUTSIDE RECORDS SUMMARY | 2024-09-29 02:53 | XMS_ITS | Encounter Summary ---
Author Organization [facility] Address [address] [place] [address]. [place], [place] [id number] [place] [address] Care Team Providers Care Spine Specialist Name Role Phone Ruth Child Primary Care Provider [phone] Encounter Details Date Type Department Care Team (Latest Contact Info) Description 12/24/2021 Scan [facility] Scanned, Doc Med Group Social History Tobacco Use Types Packs/Day Years Used Date Smoking Tobacco: Never Assessed Sex and Gender Information Value Date Recorded Sex Assigned at Not on file Legal Sex Male 1:04 PM CDT Gender Identity Not on file Sexual Orientation Not on file COVID-19 Exposure Response Date Recorded In the last 10 days, have yo u been in contact with someone who was confirmed or suspected to have Coronavirus/COVID-19? No / Unsure 08/19/2022 8:00 AM CARE TRANSITION COORDINATOR documented as of this encounter Plan of Treatment Not on file documented as of this encounter Visit Diagnoses Not on filedocumented in this encounter Care Teams Spine Specialist Relationship Specialty Start Date End Date Ruth Child APNP [address] [place] [address] PCP - General NURSE PRACTITIONER 08/19/22 documented as of this encounter
--- OUTSIDE RECORDS SUMMARY | 2024-09-29 02:53 | XMS_ITS | Encounter Summary ---
Author Organization [facility] Address [address] [place] [address]. [place], [place] [address] [place] [address] Care Team Providers Care Ebd Teacher Name Role Phone Ruth Child Primary Care Provider [phone] Reason for Visit * Reason Onset Date Comments Results 12/24/2022 Encounter Details Date Type Department Care Team (Late st Contact Info) Description 12/24/2022 Telephone [facility] Medical [facility] Family & Internal Medicine [place] [address] [place] [address] Ruth Child APNP [address] [place] [address] Results Social History Tobacco Use Types Packs/Day Years Used Date Smoking Tobacco: Every Day Cigarettes 1 35 Smokeless Tobacco: Never Comments:Provider to nutrition counselor Alcohol Use Standard Drinks/Week Comments Yes [...] suspected to have Coronavirus/COVID-19? No / Unsure 12/22/2022 8:18 AM CDT documented as of this encounter Progress Notes * Michele Sims MA - 12/24/2022 8:46 AM CDT Telephoned pt. To discuss lab results, no answer left message on VM to contact office to discuss. Pt. Needs to be scheduled for appointment to discuss medication regimen for diabetes. * Michele Sims MA - 12/24/2022 8:45 AM CDT ----- Message from JOSE Gross sent at 12/23/2022 5:53 PM CDT ----- Urine microalbumin elevated--he needs to see a operations management professionals: Dx diabetic nephropathy Is he taking his lisinopril as ordered? He needs to increase his water intake. Lipids elevated---is he taking his rosuvastatin as ordered? HGB A1C elevated at 10.0---he needs to follow up as we need to discuss a new or changed medication regimen. documented in this encounter Plan of Treatment Not on file documented as of this encounter Visit Diagnoses Not on filedocumented in this encounter Additional Health Concerns Assessment Noted Time PHQ-9 Depression Total Score: 0 11/13/19 23 11:12 AM ARTIST AND REPERTOIRE MANAGER documented as of this encounter Care Teams Ebd Teacher Relationship Specialty Start Date End Date Ruth Child APNP [address] [place] [address] PCP - General NURSE PRACTITIONER 08/19/22 documented as of this encounter
--- OUTSIDE RECORDS SUMMARY | 2024-09-29 02:53 | XMS_ITS | Encounter Summary ---
Author Organization [facility] Address [address] [place] [address]. [place], [place] [id number] [place] [address] Care Team Providers Care Frame Catcher Name Role Phone Ruth Child Primary Care Provider [phone] Reason for Visit * Reason Comments Hyperlipidemia Hypertension Diabetes Encounter Details Date Type Department Care Team (Late st Contact Info) Description 07/24/2023 9:00 AM CDT Office Visit [facility] Family & Internal Medicine [address] [place] [address] Ruth Child APNP [facility] [place], [place] [id number] Hyperlipidemia; Hypertension; Diabetes Social History Tobacco Use Types Packs/Day Years Used Date Smoking Tobacco: Every Day Cigarettes 1 35 Smokeless Tobacco: Never Tobacco Cessation:Ready to Q uit: No; Counseling Given: Yes Comments:Provider to financial aid counselor Alcohol Use Standard Drinks/Week Comments Yes [...] Sign Reading Time Taken Comments Blood Pressure 126/68 07/24/2023 9:12 AM CDT Pulse 71 07/24/2023 9:12 AM CDT Temperature 36.2 ??C (97.1 ??F) 07/24/2023 9:12 AM CD T Respiratory Rate 16 07/24/2023 9:12 AM CDT Oxygen Saturation 96% 07/24/2023 9:12 AM CDT Inhaled Oxygen Concentration - - Weight 98 kg (216 lb 1.6 oz) 07/24/2023 9:12 AM CDT Height 182.9 cm (6') 07/24/2023 9:12 AM CDT Body Mass Index 29.31 07/24/2023 9:12 AM CDT documented in this encounter Progress Notes * JOSE Gross - 07/24/2023 9:00 AM CDT Images from the original note were not included. [facility] INTERNAL [facility]ICINE OFFICE VISIT Reason for Visit: Hyperlipidemia, Hypertension, and Diabetes History of Present Illness: Pt here today to follow up on his chronic health conditions. HTN - BP well controlled. He is currently on lisinopril 5 mg once daily. Tolerates well, no bothersome side effects. T2DM - currently on metformin and jardiance. Unsure of last HGB A1C. Does not routinely monitor hisglucose at home--states lost meter. HGB A1C was done in 11/2012 and found to be quite elevated at 10.0. Attempts were made to contact--but pt never followed up. He was prescribed Rybelsus, a new med,but never started taking--can't really give me a reason. He admits to not eating a diabetic diet---eating a lot of candy. HLD - takss rosuvastatin 20 mg, tolerates well, No myalgias. Will order to have lipids rechecked. Microalbuminuria - nephrology referral placed ni 11/2022--pt states he had an appt, but had to cancel and never rescheduled. ROS: Review of Systems Constitutional: Negative for chills and fever. Respiratory: Negative for cough and shortness of breath. Cardiovascular: Negative for chest pain and palpitations. Gastrointestinal: Negative for abdominal pain, diarrhea, nausea and vomiting. Neurological: Negative for dizziness and headaches. Medications: Current Outpatient Medications: JARDIANCE 25 MG tablet, Take 1 tablet (25 mg total) by mouth daily., Disp: 90 tablet, Rfl: 3 levothyroxine (SYNTHROID) 25 MCG tablet, Take 1 tablet (25 mcg total) by mouth every morning., Disp: 90 tablet, Rfl: 3 lisinopril (PRINIVIL) 5 MG tablet, Take 1 tablet (5 mg total) by mouth daily., Disp: 90 tablet, Rfl: 3 meloxicam (MOBIC) 15 MG tablet, Take 1 tablet (15 mg total) by mouth daily. BID Pt states that he is taking once a day, Disp: 90 tablet, Rfl: 1 metFORMIN (GLUCOPHAGE) [...] nicotine dependence without complication 08/19/2022 Diabetes mellitus ([facility]/HCC) ([facility]) High cholesterol Hypertension Primary hypertension 08/19/2022 Type 2 diabetes mellitus with hyperglycemia, without long-term current use of insulin ([facility]) ([facility]) 08/19/2022 Surgical History: Past Surgical History: Procedure Laterality Date ACNE CYST REMOVAL Social History: Social History Socioeconomic History Marital status: Tobacco Use Smoking status: Every Day Packs/day: 1.00 Years: 35.00 Pack years: 35.00 Types: Cigarettes Smokeless tobacco: Never Tobacco comments: Provider to financial aid counselor Vaping Use Vaping Use: Never used Substance and Sexual Activity Alcohol use: Yes Comment: once every 3 months Drug use: Never Family History: Family History Problem Relation Name Age of Onset Hypertension Mother Cancer Father kidney cancer No Known Problems Daughter No Known Problems Daughter Diabetes Maternal Grandmother PE: Physical Exam Vitals and nursing note reviewed. HENT: Head: Normocephalic and atraumatic. Mouth/Throat: Mouth: Mucous membranes are moist. Pharynx: No posterior oropharyngeal erythema. Eyes: General: No scleral icterus. Conjunctiva/sclera: Conjunctivae [...] Affect: Mood and affect normal. Filed Vitals: 07/24/23 0912 BP: 126/68 Pulse: 71 Resp: 16 Temp: 97.1 ??F (36.2 ??C) TempSrc: Skin SpO2: 96% Weight: 98 kg (216 lb 1.6 oz) Height: 1.829 m (6') Labs: Labs Reviewed Diagnoses/Impression: 1. Uncontrolled type 2 diabetes mellitus with hyperglycemia ([facility]/HCC) ([facility]) HEMOGLOBIN, GLYCOSYLATED COLLECT.CAPILLARY (FNGR,HEEL,EAR) CBC W/DIFF AUTOMATED Semaglutide (RYBELSUS) 3 MG Tab metFORMIN (GLUCOPHAGE) 1000 MG tablet JARDIANCE 25 MG tablet 2. Mixed hyperlipidemia Chronic LIPID PANEL rosuvastatin (CRESTOR) 20 MG tablet 3. Primary hypertension Chronic COMPREHENSIVE METABOLIC PANEL lisinopril (PRINIVIL) 5 MG tablet 4. Acquired hypothyroidism Chronic THYROID STIM HORMONE, TSH THYROXINE, FREE (FT4) levothyroxine (SYNTHROID) 25 MCG tablet 5. Microalbuminuria 6. Prostate cancer screening PROSTATE SPECIFIC ANTIGEN,SCREENING 7. Cigarette nicotine dependence without complication Chronic 8. Type 2 diabetes mellitus with hyperglycemia, without long-term current use of insulin (HHS/HCC) ([facility]) Chronic lisinopril (PRINIVIL) 5 MG tablet 9. Chronic pain of both knees meloxicam (MOBIC) 15 MG tablet Recommendations and Plan: 1. Uncontrolled type 2 diabetes mellitus with hyperglycemia (HHS/HCC) ([facility]) - HEMOGLOBIN, GLYCOSYLATED - COLLECT.CAPILLARY (FNGR,HEEL,EAR) - CBC W/DIFF AUTOMATED; Future - Semaglutide (RYBELSUS) 3 MG Tab; Take 3 mg by mouth daily. Indications: Diabetes Dispense: 30 tablet; Refill: 11 - metFORMIN (GLUCOPHAGE) 1000 MG tablet; Take 1 tablet (1,000 mg total) by mouth 2 (two) times daily with meals. Once in the morning and once in the evening. Dispense: 180 tablet; Refill: 3 - JARDIANCE 25 MG tablet; Take 1 tablet (25 mg total) by mouth daily. Dispense: 90 tablet; Refill: 3 Hemoglobin A1c checked today and found to be quite elevated at 10.2. Patient is not surprised stating he has not been following a diabetic diet. He is agreeable to start another medication however somewhat reluctant as he just does not like taking pills he says. Offered to send over a new glucometer which he declines. Patient agreeable to start a new medication. We will try Rybelsus again and he i s to let me know if this medication is not affordable. We discussed that there would be other options that may be more appropriate such as insulin. Patient declines. Would like to see patient back in3 months for follow-up 2. Mixed hyperlipidemia - LIPID PANEL; Future - rosuvastatin (CRESTOR) 20 MG tablet; Take 1 tablet (20 mg total) by mouth daily. Dispense: 90 tablet; Refill: 3 We will continue rosuvastatin at 20 mg. Plan to have lipids rechecked 3. Primary hypertension - COMPREHENSIVE METABOLIC PANEL; Future - lisinopril (PRINIVIL) 5 MG tablet; Take 1 tablet (5 mg total) by mouth daily. Dispense: 90 tablet; Refill: 3 Stable. Continue meds 4. Acquired hypothyroidism - THYROID STIM HORMONE, TSH; Future - THYROXINE, FREE (FT4); Future - levothyroxine (SYNTHROID) 25 MCG tablet; Take 1 tablet (25 mcg total) by mouth every morning. Dispense: 90 tablet; Refill: 3 Stable. Continue meds 5. Microalbuminuria Patient will schedule with nephrology again. 6. Prostate cancer screening - PROSTATE SPECIFIC ANTIGEN,SCREENING; Future 7. Cigarette nicotine dependence without complication Smoking cessation counseling performed today for at least 3 minutes 8. Type 2 diabetes mellitus with hyperglycemia, without long-term current use of insulin (HHS/HCC) ([facility]/HCC) - lisinopril (PRINIVIL) 5 MG tablet; Take 1 tablet (5 mg total) by mouth daily. Dispense: 90 tablet; Refill: 3 9. Chronic pain of both knees - meloxicam (MOBIC) 15 MG tablet; Take 1 tablet (15 mg total) by mouth daily. BID Pt states that he is taking once a day Dispense: 90 tablet; Refill: 1 I personally spent a total of 45 minutes on the day of the encounter. This includes [id number] and ccn-[id number]-ln-face time I provided on the day of the encounter & excludes time spent performing separately reportable services. Orders Placed This Encounter COLLECT.CAPILLARY (FNGR,HEEL,EAR) HEMOGLOBIN, GLYCOSYLATED LIPID PANEL COMPREHENSIVE METABOLIC PANEL PROSTATE SPECIFIC ANTIGEN,SCREENING THYROID STIM HORMONE, TSH THYROXINE, FREE (FT4) CBC W/DIFF AUTOMATED DISCONTD: rosuvastatin (CRESTOR) 20 MG tablet Semaglutide (RYBELSUS) 3 MG Tab rosuvastatin (CRESTOR) 20 MG tablet metFORMIN (GLUCOPHAGE) 1000 MG tablet meloxicam (MOBIC) 15 MG tablet lisinopril (PRINIVIL) 5 MG tablet levothyroxine (SYNTHROID) 25 MCG tablet JARDIANCE 25 MG tablet Cannot display discharge medications since this is not an admission. PCP: JOSE Gross 07/24/2023 documented in this encounter Plan of Treatment Not on file documented as of this encounter Procedures Procedure Name Priority Date/Time Associated Diagnosis Comments COLLECT.CAPILLARY (FNGR,HEEL,EAR) Routine 07/24/2023 9:11 AM CDT Uncontrolled type 2 diabetes mellitus with hyperglycemia ([facility] HHS/HCC) HEMOGLOBIN, GLYCOSYLATED Routine 07/24/2023 Uncontrolled type 2 diabetes mellitus with hyperglycemia ([facility] HHS/HCC) documented in this encounter Results * (ABNORMAL) CBC W/DIFF AUTOMATED (11/13/2023 1:43 PM REPTILE FARMER) WBC 7.01 4.00 - 10.80 x10'3/uL 11/13/2023 7:39 PM [facility] RBC 5.77 4.50 - 6.10 x10'6/uL 11/13/2023 7:39 PM REPTILE FARMER [facility] HGB 17.0 13.0 - 18.0 G/DL 11/13/2023 7:39 PM [facility] HCT 49.3 37.0 - 52.0 % 11/13/2023 7:39 PM [facility] MCV 85.4 78.0 - 100.0 FL 11/13/2023 7:39 PM [facility] MCH 29.5 27.0 - 31.0 PG 11/13/2023 7:39 PM [facility] MCHC 34.5 33.0 - 36.0 G/DL 11/13/2023 7:39 PM [facility] RDW 12.2 11.5 - 14.5 % 11/13/2023 7:39 PM [facility] PLT 214 150 - 350 x10'3/uL 11/13/2023 7:39 PM [facility] MPV 10.6(H) 7.4 - 10.4 FL 11/13/2023 7:39 PM [facility] DIFFERENTIAL TYPE AUTOMATED DIFFERENTIAL 11/13/2023 7:39 PM [facility] NEUTROPHILS % 67.4 % 11/13/2023 7:39 PM [facility] LYMPHOCYTES % 23.3 % 11/13/2023 7:39 PM [facility] MONOCYTES % 5.7 % 11/13/2023 7:39 PM [facility] EOSINOPHILS % 2.9 % 11/13/2023 7:39 PM [facility] BASOPHILS % 0.6 % 11/13/2023 7:39 PM [facility] IMMATURE GRANS % 0.1 % 11/13/2023 7:39 PM [facility] ABS. NEUTROPHILS 4.73 1.60 - 8.30 x10'3/uL 11/13/2023 7:39 PM [facility] ABS. LYMPHOCYTES 1.63 0.80 - 4.70 x10'3/uL 11/13/2023 7:39 PM REPTILE FARMER [facility] ABS. MONOCYTES 0.40 0.00 - 1.50 x10'3/uL 11/13/2023 7:39 PM REPTILE FARMER [facility] ABS. EOSINOPHILS 0.20 0.00 - 0.40 x10'3/uL 11/13/2023 7:39 PM REPTILE FARMER [facility] ABS. BASOPHILS 0.04 0.00 - 0.20 x10'3/uL 11/13/2023 7:39 PM REPTILE FARMER [facility] ABS. IMMATURE GRANULOCYTES 0.01 0.00 - 0.03 x10'3/uL 11/13/2023 7:39 PM REPTILE FARMER [facility] 11/13/2023 1:43 PM REPTILE FARMER Ruth [facility] Final Resul t Performing Organization Address City/[facility]/ZIP Co de Phone Number [address] [address], * THYROXINE, FREE (FT4) (11/13/2023 1:43 PM REPTILE FARMER) FREE T4 0.99 0.76 - 1.46 NG/DL 11/13/2023 8:00 PM REPTILE FARMER [facility] 11/13/2023 1:43 PM REPTILE FARMER Ruth [facility] Final Resul t [address] [address], [place] [phone] * THYROID STIM HORMONE, TSH (11/13/2023 1:43 PM REPTILE FARMER) TSH 3.084 0.358 - 3.740 uIU/ML 11/13/2023 8:00 PM REPTILE FARMER [facility] 11/13/2023 1:43 PM REPTILE FARMER Ruth Danyell [facility] Final Resul t Performing Organization Address [facility] Co de Phone Number [facility] [address] [place] [address], [place] [phone] * PROSTATE SPECIFIC ANTIGEN,SCREENING (11/13/2023 1:43 PM REPTILE FARMER) PSA 0.42 <4.00 NG/ML 11/13/2023 8:17 PM REPTILE FARMER [facility] Comment: ASSAY PERFORMED BY [employer] USING [employer]. PATIENT RESULTS DETERMINED BY ASSAYS FROM DIFFERENT MANUFACTURERS AND/OR BY DIFFERENT METHODS MAY NOT BE COMPARABLE. 11/13/2023 1:43 PM REPTILE FARMER Ruth [facility] Final Resul t Performing Organization Address [facility] Co de Phone Number [address] [place] [address], [place] [phone] * (ABNORMAL) COMPREHENSIVE METABOLIC PANEL (11/13/2023 1:43 PM REPTILE FARMER) SODIUM S/P/B 135(L) 136 - 145 MMOL/L 11/13/2023 8:00 PM REPTILE FARMER [facility] POTASSIUM S/P/B 4.8 3.5 - 5.1 MMOL/L 11/13/2023 8:00 PM REPTILE FARMER [facility] CHLORIDE S/P/B 100 98 - 107 MMOL/L 11/13/2023 8:00 PM REPTILE FARMER [facility] CO2 26.9 21 - 32 MMOL/L 11/13/2023 8:00 PM REPTILE FARMER [facility] GLUCOSE 197(H) 70 - 99 MG/DL 11/13/2023 8:00 PM [facility] BUN 28(H) 7 - 18 MG/DL 11/13/2023 8:00 PM [facility] CREATININE S/P/B 1.51(H) 0.70 - 1.30 MG/DL 11/13/2023 8:00 PM [facility] CALCIUM S/P/B 9.7 8.4 - 10.5 MG/DL 11/13/2023 8:00 PM [facility] BILIRUBIN TOTAL S/P/B 0.5 0.2 - 1.0 MG/DL 11/13/2023 8:00 PM [facility] ALKALINE PHOSPHATASE S/P/B 79 45 - 115 U/L 11/13/2023 8:00 PM [facility] AST 23 15 - 37 U/L 11/13/2023 8:00 PM [facility] ALT 49 16 - 63 U/L 11/13/2023 8:00 PM [facility] TOTAL PROTEIN S/P/B 6.5 6.4 - 8.2 G/DL 11/13/2023 8:00 PM [facility] ALBUMIN S/P/B 3.5 3.4 - 5.0 G/DL 11/13/2023 8:00 PM [facility] ANION GAP 8.1 5 - 15 MMOL/L 11/13/2023 8:00 PM [facility] Comment:REFERENCE RANGE NOT ESTABLISHED OSMOLALITY (CALC) 291 MOSM/KG 024 8:00 PM [facility] Comment:REFERENCE RANGE NOT ESTABLISHED GFR ESTIMATE 52(L) >90 ML/MIN/1. 73 M2 11/13/2023 8:00 PM [facility] GFR NOTES GFR REFERENCE S: 11/13/2023 8:00 PM [facility] Comment: THE ESTIMATED GFR IS CALCULATED USING [...] FAILURE: <15 ml/min/1.73 m2 11/13/2023 1:43 PM REPTILE FARMER us Ruth [facility] Final Resul t [facility] [address] [place] [address], * (ABNORMAL) LIPID PANEL (11/13/2023 1:43 PM REPTILE FARMER) CHOLESTEROL 216(H) <200 MG/DL 11/13/2023 8:00 PM REPTILE FARMER [facility] TRIGLYCERIDES 340(H) <150 MG/DL 11/13/2023 8:00 PM [facility] HDL 44 >40 MG/DL 11/13/2023 8:00 PM REPTILE FARMER [facility] LDL-C 104(H) <100 MG/DL 11/13/2023 8:00 PM REPTILE FARMER [facility] VLDL CALCULATION 68(H) 5 - 28 MG/DL 11/13/2023 8:00 PM REPTILE FARMER [facility] CHOL/HDL RATIO 4.9(H) 0.0 - 4.0 11/13/2023 8:00 PM [facility] LDL/HDL 2.4(H) 0.41 - 2.13 11/13/2023 8:00 PM [facility] NON HDL CHOLESTEROL 172(H) <140 MG/DL 11/13/2023 8:00 PM REPTILE FARMER [facility] 11/13/2023 1:43 PM REPTILE FARMER Ruth [facility] Final Resul t Performing Organization Address City/[facility] Co de Phone Number [facility] [place] [address] [facility] [place] [place] [address], * HEMOGLOBIN, GLYCOSYLATED (07/24/2023) HGB A1C 10.2 % [facility] 07/24/2023 Ruth [facility] Final Resul t Performing Organization Address [facility] Co de Phone Number [facility] [address] [place] [address], documented in this encounter Visit Diagnoses Diagnosis Uncontrolled type 2 diabetes mellitus with hyperglycemia ([facility] HHS/HCC)- Primary Mixed hyperlipidemia Primary hypertension Unspecified essential hypertension Acquired hypothyroidism Unspecified hypothyroidism Microalbuminuria Proteinuria Prostate cancer screening Special screening for malignant neoplasm of prostate Cigarette nicotine dependence without complication Tobacco use disorder Type 2 diabetes mellitus with hyperglycemia, without long-term current use of insulin ([facility] HHS/HCC) Chronic pain of both knees documented in this encounter Additional Health Concerns Assessment Noted Time PHQ-9 Depression Total Score: 0 11/13/19 23 11:12 AM REPTILE FARMER documented as of this encounter Care Teams Frame Catcher Relationship Specialty Start Date End Date Ruth Child APNP [address] [place] [id number] PCP - General NURSE PRACTITIONER 08/19/22 documented as of this encounter
--- OUTSIDE RECORDS SUMMARY | 2024-09-29 02:53 | XMS_ITS | Encounter Summary ---
Author Organization [facility] Address [address] [place] [address]. [place], [place] [address] [place] [address] Care Team Providers Care Postal Support Employee Name Role Phone Ruth Child Primary Care Provider [phone] Encounter Details Date Type Department Care Team (Late st Contact Info) Description 12/22/2022 8:20 AM CDT Laboratory Only [facility] Medical Group Family & Internal Medicine [address] [place] [address] Ruth Child APNP [facility] [place] [address] Social History Tobacco Use Types Packs/Day Years Used Date Smoking Tobacco: Every Day Cigarettes 1 35 Smokeless Tobacco: Never Comments:Provider to executive assistant to general counsel Alcohol Use Standard Drinks/Week Comments Yes [...] AM CDT documented as of this encounter Plan of Treatment Not on file documented as of this encounter Procedures Procedure Name Priority Date/Time Associated Diagnosis Comments COLLECTION VENOUS BLOOD VENIPUNCTURE Routine 12/22/2022 8:29 AM CDT Need for hepatitis C screening test Mixed hyperlipidemia Primary hypertension Type 2 diabetes mellitus with hyperglycemia, without long-term current use of insulin ([facility] HHS/HCC) URINALYSIS WI REFLEX TO CULTURE Routine 12/22/2022 8:28 AM CDT Primary hypertension HEMOGLOBIN, GLYCOSYLATED Routine 12/22/2022 8:28 AM CDT Type 2 diabetes mellitus with hyperglycemia, without long-term current use of insulin ([facility] HHS/HCC) ALBUMIN URINE RANDOM W/CREATININE Routine 12/22/2022 8:28 AM CDT Type 2 diabetes mellitus with hyperglycemia, without long-term current use of insulin ([facility] HHS/HCC) COMPREHENSIVE METABOLIC PANEL Routine 12/22/2022 8:28 AM CDT Mixed hyperlipidemia Primary hypertension Type 2 diabetes mellitus with hyperglycemia, without long-term current use of insulin ([facility] HHS/HCC) LIPID PANEL Routine 12/22/2022 8:28 AM CDT Mixed hyperlipidemia HEPATITIS C ANTIBODY Routine 12/22/2022 8:28 AM CDT Need for hepatitis C screening test documented in this encounter Results * (ABNORMAL) ALBUMIN URINE RANDOM (12/22/2022 8:28 AM CDT) MICROALBUMIN (U) >850.0(H) <20 MG/L 12/23/19 3:17 PM CDT [facility] CREATININE RANDOM (U) 108.8 MG/DL 12/22/2022 3:17 PM CDT [facility] ALBUMIN/CREAT RATIO UNABLE TO CALCULATE <30 MG/G 12/22/2022 3:17 PM CDT [facility] URINE SPECIMEN / Unknown 12/22/2022 8:28 AM CDT us Ruth GARCIA URINE ORDERABLES Final Resu lt [facility] [address] [place] [address], * (ABNORMAL) HEMOGLOBIN, GLYCOSYLATED (12/22/2022 8:28 AM CDT) [facility] HGB A1C 10.0(H) 4.5 - 6.2 % 12/22/2022 2:45 PM CDT [facility] ESTIMATED AVG GLUCOSE 240(H) 74 - 106 MG/DL 12/22/2022 2:45 PM CDT [facility] 12/22/2022 8:28 AM CDT Ruth GARCIA LABORATORY Final Resul t [id number] [place] [address], * (ABNORMAL) COMPREHENSIVE METABOLIC PANEL (12/22/2022 8:28 AM CDT) [facility] SODIUM S/P/B 134(L) 136 - 145 MMOL/L 12/22/2022 3:07 PM CDT [facility] POTASSIUM S/P/B 5.0 3.5 - 5.1 MMOL/L 12/22/2022 3:07 PM CDT [facility] CHLORIDE S/P/B 100 98 - 107 MMOL/L 12/22/2022 3:07 PM CDT [facility] CO2 24.2 21 - 32 MMOL/L 12/22/2022 3:07 PM CDT [facility] GLUCOSE 163(H) 70 - 99 MG/DL 12/22/2022 3:07 PM CDT [facility] BUN 37(H) 7 - 18 MG/DL 12/22/2022 3:07 PM CDT [facility] CREATININE S/P/B 1.39(H) 0.70 - 1.30 MG/DL 12/22/2022 3:07 PM T [facility] CALCIUM S/P/B 8.8 8.4 - 10.5 MG/DL 12/22/2022 3:07 PM [facility] BILIRUBIN TOTAL S/P/B 0.5 0.2 - 1.0 MG/DL 12/22/2022 3:07 PM T [facility] ALKALINE PHOSPHATASE S/P/B 78 45 - 115 U/L 12/22/2022 3:07 PM T [facility] AST 31 15 - 37 U/L 12/22/2022 3:07 PM T [facility] ALT 56 16 - 63 U/L 12/22/2022 3:07 PM [facility] TOTAL PROTEIN S/P/B 6.8 6.4 - 8.2 G/DL 12/22/2022 3:07 PM [facility] ALBUMIN S/P/B 3.8 3.4 - 5.0 G/DL 12/22/2022 3:07 PM T [facility] ANION GAP 9.8 5 - 15 MMOL/L 12/22/2022 3:07 PM [facility] Comment:REFERENCE RANGE NOT ESTABLISHED OSMOLALITY (CALC) 290 MOSM/KG 023 3:07 PM T [facility] Comment:REFERENCE RANGE NOT ESTABLISHED GFR ESTIMATE 58(L) >90 ML/MIN/1. 73 M2 12/22/2022 3:07 PM T [facility] GFR NOTES GFR REFERENCE S: 12/22/2022 3:07 PM T [facility] Comment: THE ESTIMATED GFR IS CALCULATED [...] <15 ml/min/1.73 m2 12/22/2022 8:28 AM CDT Ruth GARCIA LABORATORY Final Resul t [facility] [address] [place] [address], * (ABNORMAL) URINALYSIS WI REFLEX TO CULTURE (12/22/2022 8:28 AM CDT) COLOR (U) YELLOW 12/22/2022 2:29 PM CDT [facility] TRANSPARENCY CLEAR CLEAR 12/22/2022 2:29 PM CDT [facility] SPECIFIC GRAVITY (U) 1.025 1.003 - 1.040 12/22/2022 2:29 PM CDT [facility] U PH 5.5 5.0 - 9.0 12/22/2022 2:29 PM CDT [facility] PROTEIN (U) 2+(A) NEGATIVE 12/22/2022 2:29 PM CDT [facility] URINE GLUCOSE 3+(A) NEGATIVE 12/22/2022 2:29 PM CDT [facility] KETONES MG/DL (U) NEGATIVE NEGATIVE 12/22/2022 2:29 PM CDT [facility] BILIRUBIN (U) NEGATIVE NEGATIVE 12/22/2022 2:29 PM CDT [facility] BLOOD (U) TRACE(A) NEGATIVE 12/22/2022 2:29 PM CDT [facility] UROBILINOGEN 0.2 0.0 - 2.0 EU/DL 12/22/2022 2:29 PM CDT [facility] NITRITES NEGATIVE NEGATIVE 12/22/2022 2:29 PM CDT [facility] LEUKOCYTES (U) NEGATIVE NEGATIVE 12/22/2022 2:29 PM CDT [facility] REFLEX URINE CULTURE: CULTURE IS NOT INDICATED 12/22/2022 2:29 PM CDT [facility] RBC/HPF 0-3 0 - 3 /HPF 12/22/2022 2:29 PM CDT [facility] WBC/HPF 0-3 0 - 3 /HPF 12/22/2022 2:29 PM CDT [facility] EPI/HPF 0-3 /HPF 12/22/2022 2:29 PM CDT [facility] BACTERIA (U) TRACE(A) NONE SEEN 12/22/2022 2:29 PM CDT [facility] URINE SPECIMEN OBTAINED BY CLEAN CATCH PROCEDURE / Unknown 12/22/2022 8:28 AM CDT us Ruth GARCIA URINE ORDERABLES Final Resu lt [facility] [address] [place] [address], * (ABNORMAL) LIPID PANEL (12/22/2022 8:28 AM CDT) CHOLESTEROL 209(H) <200 MG/DL 12/22/2022 3:07 PM CDT [facility] TRIGLYCERIDES 371(H) <150 MG/DL 12/22/2022 3:07 PM CDT [facility] HDL 39(L) >40 MG/DL 12/22/2022 3:07 PM CDT [facility] LDL-C 96 <100 MG/DL 12/22/2022 3:07 PM CDT [facility] VLDL CALCULATION 74(H) 5 - 28 MG/DL 12/22/2022 3:07 PM CDT [facility] CHOL/HDL RATIO 5.4(H) 0.0 - 4.0 12/22/2022 3:07 PM CDT [facility] LDL/HDL 2.5(H) 0.41 - 2.13 12/22/2022 3:07 PM CDT [facility] NON HDL CHOLESTEROL 170(H) <140 MG/DL 12/22/2022 3:07 PM CDT [facility] 12/22/2022 8:28 AM CDT Ruth GARCIA LABORATORY Final Resul t Performing Organization Address [facility] de Phone Number [facility] [address] [place] [address], [place] [phone] * HEPATITIS C ANTIBODY ([facility] ONLY) (12/22/2022 8:28 AM CDT) HEPATITIS C AB NON-REACTI VE NON-REACT MILE 12/22/2022 10:31 PM CDT [facility] Comment: ANTIBODIES TO HCV NOT DETECTED. DOES NOT EXCLUDE THE POSSIBILITY OF EXPOSURE TO HCV. 12/22/2022 8:28 AM CDT Ruth GARCIA LABORATORY Final Resul t Performing Organization Address City/[facility] Co de Phone Number [facility] [address] [place] [address], [place] [phone] documented in this encounter Visit Diagnoses Diagnosis Need for hepatitis C screening test Special screening examination for other specified viral diseases Mixed hyperlipidemia Primary hypertension Unspecified essential hypertension Type 2 diabetes mellitus with hyperglycemia, without long-term current use of insulin (CMS/HCC HHS/HCC) documented in this encounter Additional Health Concerns Assessment Noted Time PHQ-9 Depression Total Score: 0 02/16/20 23 11:12 AM INSTRUMENT INSPECTOR documented as of this encounter Care Teams Postal Support Employee Relationship Specialty Start Date End Date Ruth Child APNP [address] [place] [address] PCP - General NURSE PRACTITIONER 08/19/22 documented as of this encounter
--- OUTSIDE RECORDS SUMMARY | 2024-09-29 02:53 | XMS_ITS | Encounter Summary ---
Author Organization [facility] Address [address] [place] [address]. [place], [place] [address] [place] [address] Care Team Providers Care Clinical Lab Technologist Name Role Phone Ruth Child Primary Care Provider [phone]- [phone] Reason for Visit * Reason Onset Date Comments Forms 12/02/2022 Encounter Details Date Type Department Care Team (Late st Contact Info) Description 12/02/2022 Telephone [facility] Medical Group Family & Internal Medicine [phone] [place] [address] Ruth Child APNP [address] [place], [place] [id number] Forms Social History Tobacco Use Types Packs/Day Years [...] Coronavirus/COVID-19? No / Unsure 11/13/2022 9:59 AM INTERPRETER FOR THE DEAF documented as of this encounter Progress Notes * Kenisha Freitas - 12/02/2022 10:11 AM CST Pt and on the phone calling about the paperwork for [employer]. She said his work is pretty strict about hos the forms have to be completed.They scheduled appt for 12/08 and are having forms faxed over for that visit. They would like us to hild on to them until appt and will help us fill them out while in office. [employer]PRETER [employer] documented in this encounter Plan of Treatment Not on file documented as of this encounter Visit Diagnoses Not on filedocumented in this encounter Additional Health Concerns Assessment Noted Time PHQ-9 Depression Total Score: 0 11/13/19 23 11:12 AM INTERPRETER FOR [employer]AF documented as of this encounter Care Teams Clinical Lab Technologist Relationship Specialty Start Date End Date Ruth Child APNP [address] [place] [address] PCP - General NURSE PRACTITIONER 08/19/22 documented as of this encounter
--- OUTSIDE RECORDS SUMMARY | 2024-09-29 02:53 | XMS_ITS | Encounter Summary ---
Author Organization [facility] Address [address] [place] [address]. [place], [place] [address] [place] [address] Care Team Providers Care Textile Scrap Salvager Name Role Phone Ruth Child Primary Care Provider +1- [phone] Reason for Visit * Reason Onset Date Comments Other 11/14/2022 Encounter Details Date Type Department Care Team (Late st Contact Info) Description 11/14/2022 Telephone [facility] Medical Group Family & Internal Medicine [facility] [address] [place] [address] Ruth Child APNP [address] [place] [address] Other Social History Tobacco Use [...] Coronavirus/COVID-19? No / Unsure 11/13/2022 9:59 AM DIRECTOR OF PRIMARY CARE documented as of this encounter Progress Notes * Saba Maher MA - 11/17/2022 9:34 AM CST Paper has been faxed. BB 11/17/2022 CTOR OF PRIMARY CARE * JOSE Gross - 11/14/2022 3:48 PM CST done CTOR OF PRIMARY CARE * Saba Maher MA - 11/14/2022 3:29 PM CST Pt had an appt 11/13/2022. Ruth is already aware and she will fill out questions. BB 11/14/2022 CTOR OF PRIMARY CARE * Manuela Schulte - 11/14/2022 8:24 AM CST Kriss @ [employer], his employer, wanting verification on his work restrictions. The form that was sent does not have a lot of information they are needing. [phone]. CTOR OF PRIMARY CARE documented in this encounter Plan of Treatment Not on file documented as of this encounter Visit Diagnoses Not on filedocumented in this encounter Additional Health Concerns Assessment Noted Time PHQ-9 Depression Total Score: 0 11/13/19 23 11:12 AM DIRECTOR OF PRIMARY CARE documented as of this encounter Care Teams Textile Scrap Salvager Relationship Specialty Start Date End Date Ruth Child APNP [address] [place] [address] PCP - General NURSE PRACTITIONER 08/19/22 documented as of this encounter
--- OUTSIDE RECORDS SUMMARY | 2024-09-29 02:53 | XMS_ITS | Encounter Summary ---
Author Organization [facility] Address [address] [place] [address]. [place], [place] [address] [place] [address] Care Team Providers Care Optimization Engineer Name Role Phone Ruth Child Primary Care Provider [phone]- [phone] Reason for Visit * Reason Comments Physical Ct results Encounter Details Date Type Department Care Team (Late st Contact Info) Description 10/07/2022 9:40 AM CARTON WAXING MACHINE OPERATOR Office Visit [facility] Medical Group Family & Internal Medicine [address] [place] [address] Ruth Child APNP [address] [place], [place] [phone] Physical (Ct results ) Social History Tobacco Use Types Packs/Day Years [...] suspected to have Coronavirus/COVID-19? No / Unsure 10/07/2022 9:24 AM CARTON WAXING MACHINE OPERATOR documented as of this encounter Last Filed Vital Signs Vital Sign Reading Time Taken Comments Blood Pressure 130/70 10/07/2022 10:18 AM CARTON WAXING MACHINE OPERATOR Pulse 62 10/07/2022 9:38 AM CARTON WAXING MACHINE OPERATOR Temperature 36.3 ??C (97.4 ??F) 10/07/2022 9:38 AM CS T Respiratory Rate 14 10/07/2022 9:38 AM CARTON WAXING MACHINE OPERATOR Oxygen Saturation 97% 10/07/2022 9:38 AM CARTON WAXING MACHINE OPERATOR Inhaled Oxygen Concentration - - Weight 98.9 kg (218 lb) 10/07/2022 9:38 AM CARTON WAXING MACHINE OPERATOR Height 182.9 cm (6') 10/07/2022 9:38 AM CARTON WAXING MACHINE OPERATOR Body Mass Index 29.57 10/07/2022 9:38 AM CARTON WAXING MACHINE OPERATOR documented in this encounter Progress Notes * JOSE Gross - 10/07/2022 9:40 AM CST Images from the original note were not included. [facility] FAMILY AND INTERNAL MEDICINE OFFICE VISIT Reason for Visit: Physical (Ct results ) History of Present Illness: 62-year-old male presents today to follow-up on his recent CT lung screening and lab work. In regards to his labs, he has lipids to include LDL and triglycerides were both found to be elevated. He is currently on rosuvastatin 40 mg once daily. He tolerates the medication well with no bothersome side effects. His HGB A1C was elevated at 8.8. He is currently on Jardiance 25 mg and metformin 1000 mg twice daily. He tolerates both of these medications well with no bothersome side effects. In regards to his diet he states I do not really eat that much however he did not necessarily specify avoiding sweets and carbohydrates. He has never been to diabetic education. He does state he has lost some weight since the holidays however since his last visit with me in July he has gained 4 pounds. We discussed treatment options today to include GLP-1 class versus intense diet and exercise. Patient opted to try GLP-1 however wishes to try Rybelsus as does not want any injections. We reviewed his recent CT lung screening which was stable. 2 identified nodules, stable in appearance. Incidental finding atherosclerosis, patient already on statin. Will initiate 81 mg aspirin once daily. Would like to find some old imaging for comparison as well. ROS: Review of Systems Constitutional: Negative for chills and fever. Respiratory: Negative for cough and shortness of breath. Cardiovascular: Negative for chest pain and palpitations. Gastrointestinal: Negative for abdominal pain, diarrhea, nausea and vomiting. Musculoskeletal: Negative for myalgias. Neurological: Negative for dizziness and headaches. Medications: Current Outpatient Medications: ??? JARDIANCE 25 MG tablet, daily., Disp: , Rfl: ??? levothyroxine (SYNTHROID) 25 MCG tablet, every morning., Disp: , Rfl: ??? lisinopril (PRINIVIL) 5 MG tablet, Take 1 tablet (5 mg total) by mouth daily., Disp: 90 tablet,Rfl: 3 ??? meloxicam (MOBIC) 15 MG tablet, daily. BID, Disp: , Rfl: ??? metFORMIN (GLUCOPHAGE) 1000 MG tablet, see administration instructions. Once in the morning andonce in the evening., Disp: , Rfl: ??? rosuvastatin (CRESTOR) 20 MG tablet, Take 20 mg by mouth nightly at bedtime., Disp: , Rfl: ??? Semaglutide (RYBELSUS) 3 MG Tab, Take 1 tablet by mouth daily., Disp: 30 tablet, Rfl: 1 Allergies: No Known Allergies Medical History: Past Medical History: Diagnosis Date ??? BMI 29.0-29.9,adult 08/19/2022 ??? Cigarette nicotine dependence without complication 08/19/2022 ??? Diabetes mellitus (CMS/HCC) ??? High cholesterol ??? Hypertension ??? Primary hypertension 08/19/2022 ??? Type 2 diabetes mellitus with hyperglycemia, without long-term current use of insulin (CMS/HCC)08/19/2022 Surgical History: Past Surgical History: Procedure Laterality [...] Affect: Mood and affect normal. Filed Vitals: 10/07/22 0938 10/07/22 1018 BP: (!) 141/78 130/70 Pulse: 62 Resp: 14 Temp: 97.4 ??F (36.3 ??C) SpO2: 97% Weight: 98.9 kg (218 lb) Height: 6' (1.829 m) Labs: Labs Reviewed Diagnoses/Impression: 1. Type 2 diabetes mellitus with hyperglycemia, without long-term current use of insulin (CMS/[facility]) Chronic Semaglutide (RYBELSUS) 3 MG Tab 2. Mixed hyperlipidemia Chronic 3. Primary hypertension Chronic Recommendations and Plan: 1. Type 2 diabetes mellitus with hyperglycemia, without long-term current use of insulin (CMS/[facility]) - Semaglutide (RYBELSUS) 3 MG Tab; Take 1 tablet by mouth daily. Dispense: 30 tablet; Refill: 1 Basic diabetic dietary education discussed today. Patient opted to start Rybelsus. Discussed risk, benefits and side effects. Would like to see patient back in the next couple of months for hemoglobin A1c recheck. We can adjust medications at that time if needed. 2. Mixed hyperlipidemia He will continue rosuvastatin 40 mg as ordered for now. I want him to work harder on his heart healthy/low-cholesterol diet with plans to recheck his lipids in 3 months. We discussed an LDL goal of 70. 3. Primary hypertension Blood pressure elevated initially, improved upon recheck. He will continue meds as ordered for now. Orders Placed This Encounter ??? Semaglutide (RYBELSUS) 3 MG Tab Cannot display discharge medications since this is not an admission. PCP: JOSE Gross 10/07/2022 ON WAXING MACHINE OPERATOR documented in this encounter Plan of Treatment Not on file documented as of this encounter Visit Diagnoses Diagnosis Type 2 diabetes mellitus with hyperglycemia, without long-term current use of insulin ([facility])- Primary Mixed hyperlipidemia Primary hypertension Unspecified essential hypertension documented in this encounter Care Teams Optimization Engineer Relationship Specialty Start Date End Date Ruth Child APNP [address] [place] [address] PCP - General NURSE PRACTITIONER 08/19/22 documented as of this encounter
--- OUTSIDE RECORDS SUMMARY | 2024-09-29 02:53 | XMS_ITS | Encounter Summary ---
Author Organization [facility] - [facility] Address [address] [place] [address]. [place], [place] [address] [place] [address] Care Team Providers Care Cotton Factor Name Role Phone Ruth Child Primary Care Provider [phone]- [phone] Encounter Details Date Type Department Care Team (Latest Contact Info) Description 11/18/2021 Scan [facility] SRVCS Scanned, Doc [...] Coronavirus/COVID-19? No / Unsure 08/19/2022 8:00 AM DOUBLE BOTTOM DRIVER documented as of this encounter Plan of Treatment Not on file documented as of this encounter Visit Diagnoses Not on filedocumented in this encounter Care Teams Cotton Factor Relationship Specialty Start Date End Date Ruth Child APNP [address] [place] [address] PCP - General NURSE PRACTITIONER 08/19/22 documented as of this encounter
--- OUTSIDE RECORDS SUMMARY | 2024-09-29 02:53 | XMS_ITS | Encounter Summary ---
Author Organization [facility] Address [address] [place] [address]. [place], [place] [phone] [place] [address] Care Team Providers Care Inspector Tool Name Role Phone Ruth Child Primary Care Provider [phone]- [phone] Encounter Details Date Type Department Care Team (Latest Contact Info) Description 08/19/2022 Travel Social History Tobacco Use Types Packs/Day [...] Coronavirus/COVID-19? No / Unsure 08/19/2022 8:00 AM ONLINE TRADER documented as of this encounter Plan of Treatment Not on file documented as of this encounter Visit Diagnoses Not on filedocumented in this encounter Care Teams Inspector Tool Relationship Specialty Start Date End Date Ruth Child APNP [address] [place] [address] PCP - General NURSE PRACTITIONER 08/19/22 documented as of this encounter
--- OUTSIDE RECORDS SUMMARY | 2024-09-29 02:53 | XMS_ITS | Encounter Summary ---
Author Organization [facility] Address [address] [place] [address]. [place], [place] [address] [place] [address] Care Team Providers Care Melter Operator Name Role Phone Ruth Child Charlene GARCIA Primary Care Provider [phone] Reason for Visit * Reason Comments CT (SCAN) Encounter Details Date Type Department Care Team (Latest Contact Info) Description 10/01/2022 Scan [facility] SRVCS Scanned, Doc [...] Coronavirus/COVID-19? No / Unsure 11/13/2022 9:59 AM COPYING MACHINE MECHANIC documented as of this encounter Plan of Treatment Not on file documented as of this encounter Procedures Procedure Name Priority Date/Time Associated Diagnosis Comments CT GENERIC 10/01/2022 documented in this encounter Results * CT GENERIC (10/01/2022) Anatomical Region Laterality Modality Other 10/01/2022 us Doc Med [facility] Scanned SCANNING Final Resu lt documented in this encounter Visit Diagnoses Not on filedocumented in this encounter Care Teams Melter Operator Relationship Specialty Start Date End Date Ruth Child APNP [address] [place], [place] [id number] PCP - General NURSE PRACTITIONER 08/19/22 documented as of this encounter
--- OUTSIDE RECORDS SUMMARY | 2024-09-29 02:53 | XMS_ITS | Encounter Summary ---
Author Organization [facility] - [facility] / [facility] Address [address] [place] [address]. [place], [place] [address] [place] [address] Care Team Providers Care Perl Programmer Name Role Phone Ruth Child Primary Care Provider [phone]- [phone] Encounter Details Date Type Department Care Team (Latest Contact Info) Description 10/01/2022 Travel Social History Tobacco Use Types Packs/Day [...] Coronavirus/COVID-19? No / Unsure 10/01/2022 8:21 AM LEATHER CARTRIDGE BELT MAKER documented as of this encounter Plan of Treatment Not on file documented as of this encounter Visit Diagnoses Not on filedocumented in this encounter Care Teams Perl Programmer Relationship Specialty Start Date End Date Ruth Child APNP [address] [place] [address] PCP - General NURSE PRACTITIONER 08/19/22 documented as of this encounter
--- OUTSIDE RECORDS SUMMARY | 2024-09-29 02:53 | XMS_ITS | Encounter Summary ---
Author Organization [facility] Address [address] [place] [address]. [place], [place] [id number] [place] [address] Care Team Providers Care Test Kitchen Home Economist Name Role Phone Ruth Child Primary Care Provider +1- [phone] Reason for Visit * Reason Comments Follow Up Finger pain Encounter Details Date Type Department Care Team (Late st Contact Info) Description 12/08/2022 9:40 AM CDT Office Visit [facility] Family & Internal Medicine [id number] [place] [address] Ruth Child APNP [facility] [place], [place] [id number] Follow Up; Finger pain Social History Tobacco Use Types Packs/Day Years Used Date Smoking Tobacco: Every Day Cigarettes 1 35 Smokeless Tobacco: Never Tobacco Cessation:Ready to Q uit: No; Counseling Given: Yes Comments:Provider to breastfeeding peer counselor Alcohol Use Standard Drinks/Week Comments Yes [...] AM CDT documented as of this encounter Last Filed Vital Signs Vital Sign Reading Time Taken Comments Blood Pressure 136/62 12/08/2022 10:46 AM CDT Pulse 85 12/08/2022 9:47 AM CDT Temperature 36.7 ??C (98 ??F) 12/08/2022 9:47 AM CDT Respiratory Rate 16 12/08/2022 9:47 AM CDT Oxygen Saturation 98% 12/08/2022 9:47 AM CDT Inhaled Oxygen Concentration - - Weight 96.9 kg (213 lb 9.6 oz) 12/08/2022 9:47 A M CDT Height 182.9 cm (6') 12/08/2022 9:47 AM CDT Body Mass Index 28.97 12/08/2022 9:47 AM CDT documented in this encounter Progress Notes * JOSE Gross - 12/08/2022 9:40 AM CDT Images from the original note were not included. [facility] FAMILY AND INTERNAL MEDICINE OFFICE VISIT Reason for Visit: Follow Up and Finger pain History of Present Illness: 62 yo male here today to follow up on some paperwork and with c/o some left middle finger pain and swelling. Paperwork - pt is requesting some paperwork be completed for FMLA. He has a torn meniscus in his knee and finds it difficult at times to work long hours and prolonged standing can be difficult. Left middle finger - pt states he pulled a piece of copper out of lateral side of his right middle finger/fingernail. He states over the last few days, his finger has started to swell and become painful. He has not really treated at home with anything. He denies any fever or chills. She is requesting an order for his Shingrix vaccination. ROS: Review of Systems Constitutional: Negative for chills, fever and malaise/fatigue. Respiratory: Negative for cough and shortness of breath. Cardiovascular: Negative for chest pain and palpitations. Gastrointestinal: Negative for abdominal pain, diarrhea, nausea and vomiting. Musculoskeletal: Positive for joint pain. Neurological: Negative for dizziness and headaches. Medications: Current Outpatient Medications: ??? JARDIANCE 25 MG tablet, daily., Disp: , Rfl: ??? levothyroxine (SYNTHROID) 25 MCG tablet, every morning., Disp: , Rfl: ??? lisinopril (PRINIVIL) 5 MG tablet, Take 1 tablet (5 mg total) by mouth daily., Disp: 90 tablet, Rfl: 3 ??? meloxicam (MOBIC) 15 MG tablet, daily. BID Pt states that he is taking once a day, Disp: , Rfl: ??? metFORMIN (GLUCOPHAGE) 1000 MG tablet, see administration instructions. Once in the morning andonce in the evening., Disp: , Rfl: ??? rosuvastatin (CRESTOR) 20 MG tablet, Take 1 tablet (20 mg total) by mouth nightly at bedtime., Disp: , Rfl: ??? sulfamethoxazole-trimethoprim (BACTRIM DS) 800-160 MG tablet, Take 1 tablet by mouth 2 (two) times daily for 10 days., Disp: 20 tablet, Rfl: 0 ??? Semaglutide (RYBELSUS) 3 MG Tab, Take 1 tablet by mouth daily. (Patient not taking: Reported on12/08/2022), Disp: 30 tablet, Rfl: 1 Allergies: No [...] 35.00 Types: Cigarettes ??? Smokeless tobacco: Never ??? Tobacco comments: Provider to breastfeeding peer counselor Vaping Use ??? Vaping Use: Never used [...] warm and dry. Findings: No erythema. Comments: Right middle finger --on lateral side of fingernail---erythematous, swollen. No drainage noted. No streaking up finger or hand noted Neurological: Mental Status: He is alert and oriented to person, place, and time. Gait: Gait is intact. Psychiatric: Mood and Affect: Mood and affect normal. Filed Vitals: 12/08/22 0947 12/08/22 1046 BP: (!) 156/72 136/62 Pulse: 85 Resp: 16 Temp: 98 ??F (36.7 ??C) SpO2: 98% Weight: 96.9 kg (213 lb 9.6 oz) Height: 6' (1.829 m) Labs: Labs Reviewed Diagnoses/Impression: 1. Finger infection sulfamethoxazole-trimethoprim (BACTRIM DS) 800-160 MG tablet 2. Need for shingles vaccine zoster vaccine (SHINGRIX) (SHINGRIX) injection DISCONTINUED: zoster vaccine (SHINGRIX) (SHINGRIX) injection DISCONTINUED: zoster vaccine (SHINGRIX) (SHINGRIX) injection DISCONTINUED: zoster vaccine (SHINGRIX) (SHINGRIX) injection 3. Chronic pain of right knee Recommendations and Plan: 1. Finger infection - sulfamethoxazole-trimethoprim (BACTRIM DS) 800-160 MG tablet; Take 1 tablet by mouth 2 (two) times daily for 10 days. Dispense: 20 tablet; Refill: 0 We discussed home treatment and antibiotics sent over. If no improvement in finger in the next few days, he is to let me know. 2. Need for shingles vaccine - zoster vaccine (SHINGRIX) (SHINGRIX) injection; Inject 0.5 mLs into the muscle once for 1 dose. Dispense: 1 each; Refill: 0 3. Chronic pain of right knee We walked through some of the paperwork that ts required per pt's place of employment to accommodate his chronic knee pain. I personally spent a total of 35 minutes on the day of the encounter. This includes knou-fw-eigp and llp-bjvr-pi-face time I provided on the day of the encounter & excludes time spent performing separately reportable services. Orders Placed This Encounter ??? DISCONTD: zoster vaccine (SHINGRIX) (SHINGRIX) injection ??? sulfamethoxazole-trimethoprim (BACTRIM DS) 800-160 MG tablet ??? DISCONTD: zoster vaccine (SHINGRIX) (SHINGRIX) injection ??? DISCONTD: zoster vaccine (SHINGRIX) (SHINGRIX) injection ??? zoster vaccine (SHINGRIX) (SHINGRIX) injection Cannot display discharge medications since this is not an admission. PCP: JOSE Gross 12/09/2022 documented in this encounter Plan of Treatment Not on file documented as of this encounter Visit Diagnoses Diagnosis Finger infection- Primary Unspecified local infection of skin and subcutaneous tissue Need for shingles vaccine Need for prophylactic vaccination and inoculation against other viral diseases Chronic pain of right knee documented in this encounter Additional Health Concerns Assessment Noted Time PHQ-9 Depression Total Score: 0 11/13/19 23 11:12 AM DIETARY AID documented as of this encounter Care Teams Test Kitchen Home Economist Relationship Specialty Start Date End Date Ruth Child APNP [address] [place] [address] PCP - General NURSE PRACTITIONER 08/19/22 documented as of this encounter
--- OUTSIDE RECORDS SUMMARY | 2024-09-29 02:53 | XMS_ITS | Encounter Summary ---
Author Organization [facility] Address [address] [place] [address]. [place], [place] [address] [place] [address] Care Team Providers Care Freight Booker Name Role Phone Ruth Child Primary Care Provider +1- [phone] Reason for Visit * Reason Onset Date Comments Annual PSA 09/09/2022 Encounter Details Date Type Department Care Team (Late st Contact Info) Description 09/09/2022 Telephone [facility] Medical Group Family & Internal Medicine [facility] [address] [place] [address] Ruth Child APNP [address] [place] [address] Annual PSA Social History Tobacco Use Types Packs/Day Years [...] Coronavirus/COVID-19? No / Unsure 08/19/2022 8:00 AM BOX SEALING MACHINE CATCHER documented as of this encounter Progress Notes * Saba Maher MA - 09/10/2022 4:34 PM CST Per provider OK to change DX to prostate cancer screening. BB 09/10/2022 SEALING MACHINE CATCHER SEALING MACHINE CATCHER * JOSE Gross - 09/09/2022 11:55 AM CST yes SEALING MACHINE CATCHER * Saba Maher MA - 09/09/2022 11:06 AM CST OK to change? (note below) Change diagnosis to prostate cancer screening This message was sent from the coding team. BB 09/09/2022 SEALING MACHINE CATCHER * Saba Maher MA - 09/09/2022 11:06 AM CST Change diagnosis to prostate cancer screening ----- Message ----- From: Selene Osorio MA Sent: 09/03/2022 ?? 9:16 AM BOX SEALING MACHINE CATCHER To: JOSE Gross Subject: FW: MR Coding Query ? Please advise on what other code could be used for PSA. ----- Message ----- From: Rosa Galan Sent: 09/01/2022 ?? 6:14 PM BOX SEALING MACHINE CATCHER To: Ruth Griffin Nurse Subject: MR Coding Query ? The PSA testing was ordered with a diagnosis, Z68.29 = BMI 20.0 - 29.9. Please provide a diagnosis that advises of the reason for this testing having been ordered. Thank you, Rosa Galan, FIRE EQUIPMENT OPERATOR, COS Remote Manager Of Compensation SEALING MACHINE CATCHER documented in this encounter Plan of Treatment Not on file documented as of this encounter Visit Diagnoses Not on filedocumented in this encounter Care Teams Freight Booker Relationship Specialty Start Date End Date Ruth Child APNP [address] [place] [address] PCP - General NURSE PRACTITIONER 08/19/22 documented as of this encounter
--- OUTSIDE RECORDS SUMMARY | 2024-09-29 02:53 | XMS_ITS | Encounter Summary ---
Author Organization [facility] Address [address] [place] [address]. [place], [place] [address] [place] [address] Care Team Providers Care Instrumentation Supervisor Name Role Phone Jigar Child Primary Care Provider +1- [phone] Reason for Visit * Reason Onset Date Comments Medication Question 07/20/2023 Encounter Details Date Type Department Care Team (Late st Contact Info) Description 07/20/2023 Telephone [facility] Medical Group Family & Internal Medicine [facility] [address] [place] [address] Jigar Child APNP [address] [place] [address] Medication Question Social History Tobacco Use Types Packs/Day Years Used Date Smoking Tobacco: Every Day Cigarettes 1 35 Smokeless Tobacco: Never Comments:Provider to automobile club travel counselor Alcohol Use Standard Drinks/Week Comments Yes [...] as of this encounter Progress Notes * JOSE Gross - 07/20/2023 4:15 PM CDTAddended by: JIGAR CHILD on: 07/20/2023 04:15 PM Modules accepted: Orders * Tayler Cabello MA - 07/20/2023 3:47 PM CDTAddended by: TAYLER CABELLO on: 07/20/2023 03:47 PM Modules accepted: Orders * Tayler Cabello MA - 07/20/2023 3:39 PM CDT Spoke to pt's . She said she was unaware of any message left. She states when he was last seen you told him to continue his meds until he ran out of fills from previous PCP so he's been taking Crestor 10mg from their office. He states all the providers that have prescribed all work at his PRIORp's office. On 07/16/23 someone here approved him having a 30 day supply but of Crestor 20mg which he has not been on. Then on 07/17/23 it looks like another request was denied. She states she will make an appointment in the morning as he works nights, and wants to know if they have can #30 of Crestor 10mg to get to appt that she will make in AM. I informed her I was not sure if 20mg dose was sent because provider wanted it to be increased or if that's just because that's the request from the pharmacy. Pt's also state they no long use the pharmacy the Crestor was sent to. * JOSE Gross - 07/20/2023 3:06 PM CDT Pt was left message in 11/2022 that he needs to see me to review his labs. Is he seeing another provider such as a granite polisher machine? Or is he seeing another PCP? Either way he needs to be seen * Meggan Martinez - 07/20/2023 11:50 AM CDT Fili's called in questioning if he's supposed to be on 10 mg of rosuvastatin or 20 mg. He wasprescribed 10 mg by a different provider in April. documented in this encounter Plan of Treatment Not on file documented as of this encounter Visit Diagnoses Diagnosis Mixed hyperlipidemia documented in this encounter Additional Health Concerns Assessment Noted Time PHQ-9 Depression Total Score: 0 11/13/19 11:12 AM PRIVATE PILOT documented as of this encounter Care Teams Instrumentation Supervisor Relationship Specialty Start Date End Date Jigar Child APNP [address] [place] [address] PCP - General NURSE PRACTITIONER 08/19/22 documented as of this encounter
--- OUTSIDE RECORDS SUMMARY | 2024-09-29 02:53 | XMS_ITS | Encounter Summary ---
Author Organization [facility] Address [address] [place] [address]. [place], [place] [address] [place] [address] Care Team Providers Care Stock Analyst Name Role Phone Ruth Child Primary Care Provider +1- [phone] Encounter Details Date Type Department Care Team (Latest Contact Info) Description 11/13/2022 Travel Social History Tobacco Use Types Packs/Day [...] Coronavirus/COVID-19? No / Unsure 11/13/2022 9:59 AM QUALITY REP documented as of this encounter Plan of Treatment Not on file documented as of this encounter Visit Diagnoses Not on filedocumented in this encounter Additional Health Concerns Assessment Noted Time PHQ-9 Depression Total Score: 0 11/13/19 23 11:12 AM QUALITY REP documented as of this encounter Care Teams Stock Analyst Relationship Specialty Start Date End Date Ruth Child APNP [address] [place] [address] PCP - General NURSE PRACTITIONER 08/19/22 documented as of this encounter
--- OUTSIDE RECORDS SUMMARY | 2024-09-29 02:53 | XMS_ITS | Encounter Summary ---
Author Organization [facility] Address [address] [place] [address]. [place], [place] [address] [place] [address] Care Team Providers Care Food Tester Name Role Phone Ruth Child Primary Care Provider +1- [phone] Encounter Details Date Type Department Care Team (Latest Contact Info) Description 12/08/2022 Travel Social History Tobacco Use Types Packs/Day Years Used Date Smoking Tobacco: Every Day Cigarettes 1 35 Smokeless Tobacco: Never Comments:Provider to genetic counselor Alcohol Use Standard Drinks/Week Comments Yes [...] Total Score: 0 11/13/19 23 11:12 AM EMBEDDED FIRMWARE DEVELOPER documented as of this encounter Care Teams Food Tester Relationship Specialty Start Date End Date Ruth Child APNP [address] [place] [address] PCP - General NURSE PRACTITIONER 08/19/22 documented as of this encounter
--- OUTSIDE RECORDS SUMMARY | 2024-09-29 02:53 | XMS_ITS | Encounter Summary ---
Author Organization [facility] Address [address] [place] [address]. [place], [place] [address] [place] [address] Care Team Providers Care Fur Trapper Name Role Phone Ruth Child Primary Care Provider +1- [phone] Reason for Visit * Reason Comments Knee Pain Encounter Details Date Type Department Care Team (Late st Contact Info) Description 11/13/2022 10:20 AM SENIOR PROCUREMENT SPECIALIST Office Visit [facility] Medical Group Family & Internal Medicine [id number] [place] [address] Ruth Child APNP [address] [place], [place] [phone] Knee Pain Social History Tobacco Use Types Packs/Day Years [...] Coronavirus/COVID-19? No / Unsure 11/13/2022 9:59 AM SENIOR PROCUREMENT SPECIALIST documented as of this encounter Last Filed Vital Signs Vital Sign Reading Time Taken Comments Blood Pressure 132/76 11/13/2022 10:22 AM SENIOR PROCUREMENT SPECIALIST Pulse 78 11/13/2022 10:22 AM SENIOR PROCUREMENT SPECIALIST Temperature 36.3 ??C (97.3 ??F) 11/13/2022 10:[address] Respiratory Rate 12 11/13/2022 10:22 AM SENIOR PROCUREMENT SPECIALIST Oxygen Saturation 98% 11/13/2022 10:22 AM SENIOR PROCUREMENT SPECIALIST Inhaled Oxygen Concentration - - Weight 98.4 kg (217 lb) 11/13/2022 10:22 AM SENIOR PROCUREMENT SPECIALIST Height 182.9 cm (6') 11/13/2022 10:22 AM SENIOR PROCUREMENT SPECIALIST Body Mass Index 29.43 11/13/2022 10:22 AM SENIOR PROCUREMENT SPECIALIST documented in this encounter Progress Notes * Ruth Chang Danyell, JOSE - 11/13/2022 10:20 AM CST Images from the original note were not included. [facility] FAMILY AND INTERNAL MEDICINE OFFICE VISIT Reason for Visit: Knee Pain History of Present Illness: 62 yo male presents today with ongoing chronic knee pain. He states he was diagnosed with a torn meniscus in 2019 after his large dog ran into him, causing him to hyperextend his knee. He did see an orthopedist but elected not to have surgery. He states he did see PT for treatment though. He is requesting some work accommodations to include no stair climbing and the ability to be able to sit for a couple of minutes and rest his knee every hour. Paperwork completed today. Pain is located in medial side of right knee. ROS: Review of Systems Constitutional: Negative for chills and fever. HENT: Negative for congestion. Respiratory: Negative for cough and shortness of breath. Cardiovascular: Negative for chest pain and palpitations. Musculoskeletal: Positive for joint pain. Neurological: Negative [...] sounds. No stridor. No wheezing. Musculoskeletal: General: Tenderness present. No swelling or deformity. Normal range of motion. Cervical back: Normal range of motion and neck supple. Comments: Some mild tenderness with palpation lf right medial knee. No anterior or computer mechanic drawer signs and no varus or valgus stress signs. No swelling, bruising or redness noted. NV check intact. Skin: General: Skin is warm and dry. Findings: No erythema. Neurological: Mental Status: He is alert and oriented to person, place, and time. Gait: Gait is intact. Psychiatric: Mood and Affect: Mood and affect normal. Filed Vitals: 11/13/22 1022 BP: 132/76 Pulse: 78 Resp: 12 Temp: 97.3 ??F (36.3 ??C) SpO2: 98% Weight: 98.4 kg (217 lb) Height: 6' (1.829 m) Labs: Labs Reviewed Diagnoses/Impression: 1. Chronic pain of right knee Recommendations and Plan: 1. Chronic pain of right knee Paperwork completed today. We will continue to monitor symptoms and if they change or worsen, will let me know or follow up with orthopedics. I personally spent a total of 25 minutes on the day of the encounter. This includes ihma-np-cuih and bbg-qyeu-iy-face time I provided on the day of the encounter & excludes time spent performing separately reportable services. No orders of the defined types were placed in this encounter. Cannot display discharge medications since this is not an admission. PCP: JOSE Gross 11/13/2022 OR PROCUREMENT SPECIALIST documented in this encounter Plan of Treatment Not on file documented as of this encounter Visit Diagnoses Diagnosis Chronic pain of right knee- Primary documented in this encounter Additional Health Concerns Assessment Noted Time PHQ-9 Depression Total Score: 0 11/13/19 11:12 AM SENIOR PROCUREMENT SPECIALIST documented as of this encounter Care Teams Fur Trapper Relationship Specialty Start Date End Date Ruth Child APNP [address] [place] [address] PCP - General NURSE PRACTITIONER 08/19/22 documented as of this encounter
--- OUTSIDE RECORDS SUMMARY | 2024-09-29 02:53 | XMS_ITS | Encounter Summary ---
Author Organization [facility] Address [address] [place] [address]. [place], [place] [address] [place] [address] Care Team Providers Care Metallographic Technician Name Role Phone Ruth Child Primary Care Provider +1 [phone] Encounter Details Date Type Department Care Team (Latest Contact Info) Description 12/08/2022 Scan [facility] INFO [facility] Scanned, Doc Med Group Social History Tobacco Use Types Packs/Day Years Used Date Smoking Tobacco: Every Day Cigarettes 1 35 Smokeless Tobacco: Never Comments:Provider to gambling counsellor Alcohol Use Standard Drinks/Week Comments Yes [...] Total Score: 0 11/13/19 23 11:12 AM MORTGAGE COUNSELOR documented as of this encounter Care Teams Metallographic Technician Relationship Specialty Start Date End Date Ruth Child APNP [address] [place] [address] PCP - General NURSE PRACTITIONER 08/19/22 documented as of this encounter
--- OUTSIDE RECORDS SUMMARY | 2024-09-29 02:53 | XMS_ITS | Encounter Summary ---
Author Organization [facility] Address [address] [place] [address]. [place], [place] [address] [place] [address] Care Team Providers Care Brake Liner Name Role Phone Ruth Child Primary Care Provider +1- [phone] Encounter Details Date Type Department Care Team (Latest Contact Info) Description 10/07/2022 Travel Social History Tobacco Use Types Packs/Day [...] Coronavirus/COVID-19? No / Unsure 10/07/2022 9:24 AM COTTON WEIGHER OPERATOR documented as of this encounter Plan of Treatment Not on file documented as of this encounter Visit Diagnoses Not on filedocumented in this encounter Care Teams Brake Liner Relationship Specialty Start Date End Date Ruth Child APNP [address] [place] [address] PCP - General NURSE PRACTITIONER 08/19/22 documented as of this encounter
--- OUTSIDE RECORDS SUMMARY | 2024-09-29 02:53 | XMS_ITS | Encounter Summary ---
Author Organization [facility] Address [address] [place] [address]. [place], [place] [id number] [place] [address] Care Team Providers Care Subcontract Manager Name Role Phone Ruth Child Primary Care Provider [phone] Reason for Visit * Reason Comments Image (SCAN) Encounter Details Date Type Department Care Team (Latest Contact Info) Description 08/07/2021 Scan [facility] INFO [facility] Scanned, Doc Med Group Image (SCAN) Social History Tobacco Use Types Packs/Day [...] Coronavirus/COVID-19? No / Unsure 08/19/2022 8:00 AM CLINICAL SECRETARY documented as of this encounter Plan of Treatment Not on file documented as of this encounter Procedures Procedure Name Priority Date/Time Associated Diagnosis Comments IMAGE GENERIC 08/07/2021 documented in this encounter Results * IMAGE GENERIC (08/07/2021) Anatomical Region Laterality Modality Other 08/07/2021 us Doc Med Group Scanned SCANNING Final Resu lt documented in this encounter Visit Diagnoses Not on filedocumented in this encounter Care Teams Subcontract Manager Relationship Specialty Start Date End Date Ruth Child APNP [address] [place] [address] PCP - General NURSE PRACTITIONER 08/19/22 documented as of this encounter
--- OUTSIDE RECORDS SUMMARY | 2024-09-29 02:53 | XMS_ITS | Encounter Summary ---
Author Organization [facility] Address [address] [place] [address]. [place], [place] [address] [place] [address] Care Team Providers Care Italian Teacher Name Role Phone Ruth Child Primary Care Provider +1- [phone] Reason for Visit * Reason Onset Date Comments Results 10/06/2022 Encounter Details Date Type Department Care Team (Late st Contact Info) Description 10/06/2022 Telephone [facility] Family [facility] Internal Medicine [facility] [address] [place] [address] Ruth Child APNP [address] [place] [address] Results Social History Tobacco Use [...] Coronavirus/COVID-19? No / Unsure 10/07/2022 9:24 AM RESERVATIONS SPECIALIST documented as of this encounter Progress Notes * Elissa Graham MA - 10/10/2022 8:17 AM CST Patient notified and v/u RVATIONS SPECIALIST * Saba Maher MA - 10/09/2022 3:01 PM CST Letter sent. BB 10/09/2022 RVATIONS SPECIALIST * Saba Maher MA - 10/09/2022 2:54 PM CST Left message to please call the office. BB 10/09/2022 RVATIONS SPECIALIST * Saba Maher MA - 10/08/2022 1:55 PM CST Left message to please call the office. BB 10/08/2022 RVATIONS SPECIALIST * Elissa Graham MA - 10/06/2022 5:17 PM CST lmtc 10/06/22 RVATIONS SPECIALIST * Elissa Graham MA - 10/06/2022 5:17 PM CST ----- Message from JOSE Gross sent at 10/06/2022 11:53 AM RESERVATIONS SPECIALIST ----- Lung-RADS Category 2: Benign appearance or behavior. Nodules with a very low likelihood of becominga clinically active cancer due to size or lack of growth. 2. LUNG-RADS category S: Negative, no new/unknown potentially significant incidental findings requiring urgent additional evaluation. Repeat in one year. RVATIONS SPECIALIST documented in this encounter Plan of Treatment Not on file documented as of this encounter Visit Diagnoses Not on filedocumented in this encounter Care Teams Italian Teacher Relationship Specialty Start Date End Date Ruth Child APNP [address] [place], [place] [phone] PCP - General NURSE PRACTITIONER 08/19/22 documented as of this encounter
--- OUTSIDE RECORDS SUMMARY | 2024-09-29 02:53 | XMS_ITS | Encounter Summary ---
Author Organization [facility] Address [address] [place] [address]. [place], [place] [address] [place] [address] Care Team Providers Care Business Office Technology Instructor Name Role Phone Ruth Child Primary Care Provider +1 [phone] Encounter Details Date Type Department Care Team (Latest Contact Info) Description 11/13/2022 Scan [facility] HE[facility] INFO SRVCS Scanned, Doc [...] Coronavirus/COVID-19? No / Unsure 11/13/2022 9:[address] ENG[address]ERING TECHNICIAN documented as of this encounter Plan of Treatment Not on file documented as of this encounter Visit Diagnoses Not on filedocumented in this encounter Additional Health Concerns Assessment Noted Time PHQ-9 Depression Total Score: 0 11/13/19 23 11:[address] ENG[address]ERING TECHNICIAN documented as of this encounter Care Teams Business Office Technology Instructor Relationship Specialty Start Date End Date Ruth Child APNP [address] [place] [address] PCP - General NURSE PRACTITIONER 08/19/22 documented as of this encounter
--- OUTSIDE RECORDS SUMMARY | 2024-09-29 02:53 | XMS_ITS | Encounter Summary ---
Author Organization [facility] Address [address] [place] [address]. [place], [place] [address] [place] [address] Care Team Providers Care Industrial Truck Driver Name Role Phone Ruth Child Primary Care Provider +1- [phone] Encounter Details Date Type Department Care Team (Latest Contact Info) Description 12/22/2022 - 12/22/2022 11:59 PM CDT Hospital Encounter [facility] [address] [place] [address] Ruth Child APNP [facility] [place] [address] Discharge Disposition: Home or Self Care (Routine Discharge) Social History Tobacco Use Types Packs/Day Years Used Date Smoking Tobacco: Every Day Cigarettes 1 35 Smokeless Tobacco: Never Comments:Provider to addiction treatment counselor Alcohol Use Standard Drinks/Week Comments Yes [...] AM CDT documented as of this encounter Medications at Time of Discharge JARDIANCE 25 MG tablet daily. 2 07/24/20 23 levothyroxine (SYNTHROID) 25 MCG tablet every morning. 2 07/24/20 lisinopril (PRINIVIL) 5 MG tabletIndications :Type 2 diabetes mellitus with hyperglycemia, without long-term current use of insulin ([facility] HHS/HCC),Primary hypertension Take 1 tablet (5 mg total) by mouth daily. 90 tablet 3 2 07/24/20 meloxicam (MOBIC) 15 MG tablet daily. BID Pt states that he is taking once a day 2 07/24/20 metFORMIN (GLUCOPHAGE) 1000 MG tablet see administration instructions. Once in the morning and once in the evening. 2 07/24/20 rosuvastatin (CRESTOR) 20 MG tablet Take 1 tablet (20 mg total) by mouth nightly at bedtime. 07/17/20 Semaglutide (RYBELSUS) 3 MG TabIndications:Ty pe 2 diabetes mellitus with hyperglycemia, without long-term current use of insulin ([facility] HHS/HCC) Take 1 tablet by mouth daily. 30 tablet 1 3 07/24/20 documented as of this encounter Plan of Treatment Not on file documented as of this encounter Visit Diagnoses Not on filedocumented in this encounter Additional Health Concerns Assessment Noted Time PHQ-9 Depression Total Score: 0 11/13/19 11:12 AM CUSTOMER AGENT documented as of this encounter Care Teams Industrial Truck Driver Relationship Specialty Start Date End Date Ruth Child APNP [address] [place] [address] PCP - General NURSE PRACTITIONER 08/19/22 documented as of this encounter
--- OUTSIDE RECORDS SUMMARY | 2024-09-29 02:53 | XMS_ITS | Encounter Summary ---
Author Organization [facility] Address [address] [place] [address]. [place], [place] [address] [place] [address] Care Team Providers Care Certified Novell Administrator Name Role Phone Ruth Child Primary Care Provider +1- [phone] Encounter Details Date Type Department Care Team (Latest Contact Info) Description 12/09/2021 Scan [facility] HE[facility] INFO SRVCS Scanned, Doc [...] Coronavirus/COVID-19? No / Unsure 08/19/2022 8:00 AM INSPECTOR GOVERNMENT PROPERTY documented as of this encounter Plan of Treatment Not on file documented as of this encounter Visit Diagnoses Not on filedocumented in this encounter Care Teams Certified Novell Administrator Relationship Specialty Start Date End Date Ruth Child APNP [address] [place] [address] PCP - General NURSE PRACTITIONER 08/19/22 documented as of this encounter
--- OUTSIDE RECORDS SUMMARY | 2024-09-29 02:53 | XMS_ITS | Encounter Summary ---
Author Organization [facility] Address [address] [place] [address]. [place], [place] [address] [place] [address] Care Team Providers Care Rod Pointer Name Role Phone Ruth Child Primary Care Provider +1- [phone] Encounter Details Date Type Department Care Team (Latest Contact Info) Description 12/22/2022 Travel Social History Tobacco Use Types Packs/Day Years Used Date Smoking Tobacco: Every Day Cigarettes 1 35 Smokeless Tobacco: Never Comments:Provider to employment counselor Alcohol Use Standard Drinks/Week Comments Yes [...] Score: 0 11/13/19 23 11:12 AM MEDICAL BILLING MANAGER documented as of this encounter Care Teams Rod Pointer Relationship Specialty Start Date End Date Ruth Child APNP [address] [place] [address] PCP - General NURSE PRACTITIONER 08/19/22 documented as of this encounter
--- OUTSIDE RECORDS SUMMARY | 2024-09-29 02:53 | XMS_ITS | Encounter Summary ---
Author Organization [facility] Address [address] [place] [address]. [place], [place] [address] [place] [address] Care Team Providers Care Senior Integration Developer Name Role Phone Ruth Child Primary Care Provider +1- [phone] Reason for Visit * Reason Onset Date Comments Results 08/27/2022 Encounter Details Date Type Department Care Team (Late st Contact Info) Description 08/27/2022 Telephone [facility] Family & Internal Medicine [facility] [address] [place] [address] Ruth Child APNP [address] [place] [address] Results Social History Tobacco Use [...] Coronavirus/COVID-19? No / Unsure 08/19/2022 8:00 AM GREEN CHAIN OFFBEARER documented as of this encounter Progress Notes * Saba Maher MA - 08/27/2022 3:17 PM CST Left message to please call the office. BB 08/27/2022 N CHAIN OFFBEARER * Saba Maher MA - 08/27/2022 3:15 PM CST ----- Message from JOSE Gross sent at 08/23/2022 6:33 PM GREEN CHAIN OFFBEARER ----- Have him to follow up to discuss as we will need to add some meds and/or make med changes. N CHAIN OFFBEARER documented in this encounter Plan of Treatment Not on file documented as of this encounter Visit Diagnoses Not on filedocumented in this encounter Care Teams Senior Integration Developer Relationship Specialty Start Date End Date Ruth Child APNP [address] [place] [address] PCP - General NURSE PRACTITIONER 08/19/22 documented as of this encounter
--- OUTSIDE RECORDS SUMMARY | 2024-09-29 02:53 | XMS_ITS | Encounter Summary ---
Author Organization [facility] Address [address] [place] [address]. [place], [place] [address] [place] [address] Care Team Providers Care Electrical Accessories I Assembler Name Role Phone Ruth Child Primary Care Provider +1- [phone] Encounter Details Date Type Department Care Team (Latest Contact Info) Description 11/05/2022 Scan [facility] HE[facility] INFO SRVCS Scanned, Doc [...] Coronavirus/COVID-19? No / Unsure 11/13/2022 9:59 AM COIL FINISHER documented as of this encounter Plan of Treatment Not on file documented as of this encounter Visit Diagnoses Not on filedocumented in this encounter Care Teams Electrical Accessories I Assembler Relationship Specialty Start Date End Date Ruth Child APNP [address] [place] [address] PCP - General NURSE PRACTITIONER 08/19/22 documented as of this encounter
--- OUTSIDE RECORDS SUMMARY | 2024-09-29 02:54 | XMS_ITS | Encounter Summary ---
Author Organization [facility] Address [address] [place] [address]. [place], [place] [address] [place] [address] Care Team Providers Care Investment Consultant Name Role Phone Ruth Child Primary Care Provider +1- [phone] Encounter Details Date Type Department Care Team (Latest Contact Info) Description 07/03/2020 Scan [facility] HE[facility] INFO SRVCS Scanned, Doc [...] Coronavirus/COVID-19? No / Unsure 08/19/2022 8:00 AM MATTRESS FILLING MACHINE TENDER documented as of this encounter Plan of Treatment Not on file documented as of this encounter Visit Diagnoses Not on filedocumented in this encounter Care Teams Investment Consultant Relationship Specialty Start Date End Date Ruth Child APNP [address] [place] [address] PCP - General NURSE PRACTITIONER 08/19/22 documented as of this encounter
--- OUTSIDE RECORDS SUMMARY | 2024-09-29 02:54 | XMS_ITS | Encounter Summary ---
Author Organization [facility] Address [address] [place] [address]. [place], [place] [address] [place] [address] Care Team Providers Care Beer Merchant Name Role Phone Ruth Child Primary Care Provider +1- [phone] Encounter Details Date Type Department Care Team (Latest Contact Info) Description 08/23/2019 Scan [facility] HEALTH INFO SRVCS Scanned, Doc [...] Coronavirus/COVID-19? No / Unsure 08/19/2022 8:00 AM HYDROGRAPHY TEACHER documented as of this encounter Plan of Treatment Not on file documented as of this encounter Visit Diagnoses Not on filedocumented in this encounter Care Teams Beer Merchant Relationship Specialty Start Date End Date Ruth Child APNP [address] [place] [address] PCP - General NURSE PRACTITIONER 08/19/22 documented as of this encounter
--- OUTSIDE RECORDS SUMMARY | 2024-09-29 02:54 | XMS_ITS | Encounter Summary ---
Author Organization [facility] Address [address] [place] [address]. [place], [place] [address] [place] [address] Care Team Providers Care Insulation Mechanic Name Role Phone Ruth Child Primary Care Provider +1- [phone] Reason for Visit * Reason Comments MRI (SCAN) Encounter Details Date Type Department Care Team (Latest Contact Info) Description 03/24/2020 Scan [facility] HE[facility] INFO SRVCS Scanned, Doc Med Group MRI (SCAN) Social History Tobacco Use Types Packs/Day [...] Coronavirus/COVID-19? No / Unsure 08/19/2022 8:00 AM WAREHOUSE ASSOCIATE DRIVER documented as of this encounter Plan of Treatment Not on file documented as of this encounter Procedures Procedure Name Priority Date/Time Associated Diagnosis Comments MRI GENERIC 03/24/2020 documented in this encounter Results * MRI GENERIC (03/24/2020) Anatomical Region Laterality Modality Other 03/24/2020 us Doc Med Group Scanned SCANNING Final Resu lt documented in this encounter Visit Diagnoses Not on filedocumented in this encounter Care Teams Insulation Mechanic Relationship Specialty Start Date End Date Ruth Child APNP [address] [place] [address] PCP - General NURSE PRACTITIONER 08/19/22 documented as of this encounter
--- OUTSIDE RECORDS SUMMARY | 2024-09-29 02:54 | XMS_ITS | Encounter Summary ---
Author Organization [facility] Address [address] [place] [address]. [place], [place] [address] [place] [address] Care Team Providers Care Work And Family Life Consultant Name Role Phone Ruth Child Primary Care Provider +1- [phone] Reason for Visit * Reason Comments Image (SCAN) Encounter Details Date Type Department Care Team (Latest Contact Info) Description 06/29/2020 Scan [facility] HEALTH INFO SRVCS Scanned, Doc [...] Coronavirus/COVID-19? No / Unsure 08/19/2022 8:00 AM BOAT BUFFER PLASTIC documented as of this encounter Plan of Treatment Not on file documented as of this encounter Procedures Procedure Name Priority Date/Time Associated Diagnosis Comments IMAGE GENERIC 06/29/2020 documented in this encounter Results * IMAGE GENERIC (06/29/2020) Anatomical Region Laterality Modality Other 06/29/2020 us Doc Med Group Scanned SCANNING Final Resu lt documented in this encounter Visit Diagnoses Not on filedocumented in this encounter Care Teams Work And Family Life Consultant Relationship Specialty Start Date End Date Ruth Child APNP [address] [place] [address] PCP - General NURSE PRACTITIONER 08/19/22 documented as of this encounter
--- OUTSIDE RECORDS SUMMARY | 2024-09-29 02:54 | XMS_ITS | Encounter Summary ---
Author Organization [facility] Address [address] [place] [address]. [place], [place] [address] [place] [address] Care Team Providers Care Furniture Reproducer Name Role Phone Ruth Child Primary Care Provider +1- [phone] Reason for Visit * Reason Comments Lab (SCAN) Encounter Details Date Type Department Care Team (Latest Contact Info) Description 12/22/2016 Scan HEALTH INFO SRVCS Scanned, Doc Med Group Lab (SCAN) Social History Tobacco Use Types Packs/Day [...] Coronavirus/COVID-19? No / Unsure 08/19/2022 8:00 AM TOLL LINE MECHANIC documented as of this encounter Plan of Treatment Not on file documented as of this encounter Procedures Procedure Name Priority Date/Time Associated Diagnosis Comments OUTSIDE LAB (SCAN ORDER) 12/22/2016 documented in this encounter Results * OUTSIDE LAB (SCAN) (12/22/2016) 12/22/2016 us Doc Med Group Scanned SCANNING Final Resu lt documented in this encounter Visit Diagnoses Not on filedocumented in this encounter Care Teams Furniture Reproducer Relationship Specialty Start Date End Date Ruth Child APNP [address] [place] [address] PCP - General NURSE PRACTITIONER 08/19/22 documented as of this encounter
--- OUTSIDE RECORDS SUMMARY | 2024-09-29 02:54 | XMS_ITS | Encounter Summary ---
Author Organization [facility] Address [address] [place] [address]. [place], [place] [address] [place] [address] Care Team Providers Care Slot Tag Inserter Name Role Phone Ruth Child Primary Care Provider +1- [phone] Reason for Visit * Reason Comments Lab (SCAN) Encounter Details Date Type Department Care Team (Latest Contact Info) Description 05/09/2019 Scan HEALTH INFO SRVCS Scanned, Doc Med [...] Coronavirus/COVID-19? No / Unsure 08/19/2022 8:00 AM VALVE FITTER documented as of this encounter Plan of Treatment Not on file documented as of this encounter Procedures Procedure Name Priority Date/Time Associated Diagnosis Comments OUTSIDE LAB (SCAN ORDER) 05/09/2019 documented in this encounter Results * OUTSIDE LAB (SCAN) (05/09/2019) 05/09/2019 us Doc Med Group Scanned SCANNING Final Resu lt documented in this encounter Visit Diagnoses Not on filedocumented in this encounter Care Teams Slot Tag Inserter Relationship Specialty Start Date End Date Ruth Child APNP [address] [place] [address] PCP - General NURSE PRACTITIONER 08/19/22 documented as of this encounter
--- OUTSIDE RECORDS SUMMARY | 2024-09-29 02:54 | XMS_ITS | Encounter Summary ---
Author Organization [facility] Address [address] [place] [address]. [place], [place] [address] [place] [address] Care Team Providers Care International Guest Coordinator Name Role Phone Danyell Ruth Charlene GARCIA Primary Care Provider +1 [phone] Reason for Visit * Reason Comments Lab (SCAN) Encounter Details Date Type Department Care Team (Latest Contact Info) Description 04/28/2019 Scan [facility] HEALTH INFO SRVCS Scanned, Doc [...] Coronavirus/COVID-19? No / Unsure 08/19/2022 8:00 AM TWINE WINDER documented as of this encounter Plan of Treatment Not on file documented as of this encounter Procedures Procedure Name Priority Date/Time Associated Diagnosis Comments OUTSIDE LAB (SCAN ORDER) 04/28/2019 OUTSIDE LAB (SCAN ORDER) 04/28/2019 documented in this encounter Results * OUTSIDE LAB (SCAN) (04/28/2019) 04/28/2019 us Doc Med Group Scanned SCANNING Final Resu lt * OUTSIDE LAB (SCAN) (04/28/2019) 04/28/2019 us Doc Med Group Scanned SCANNING Final Resu lt documented in this encounter Visit Diagnoses Not on filedocumented in this encounter Care Teams International Guest Coordinator Relationship Specialty Start Date End Date Ruth Child APNP [address] [place] [address] PCP - General NURSE PRACTITIONER 08/19/22 documented as of this encounter
--- OUTSIDE RECORDS SUMMARY | 2024-09-29 02:54 | XMS_ITS | Encounter Summary ---
Author Organization [facility] Address [address] [place] [address]. [place], [place] [address] [place] [address] Care Team Providers Care Window Installer Name Role Phone Ruth Child Primary Care Provider +1- [phone] Reason for Visit * Reason Comments Lab (SCAN) Encounter Details Date Type Department Care Team (Latest Contact Info) Description 04/27/2020 Scan [facility] HEALTH INFO SRVCS Scanned, Doc [...] Coronavirus/COVID-19? No / Unsure 08/19/2022 8:00 AM COLD ROLLER documented as of this encounter Plan of Treatment Not on file documented as of this encounter Procedures Procedure Name Priority Date/Time Associated Diagnosis Comments OUTSIDE LAB (SCAN ORDER) 04/27/2020 documented in this encounter Results * OUTSIDE LAB (SCAN) (04/27/2020) 04/27/2020 us Doc Med Group Scanned SCANNING Final Resu lt documented in this encounter Visit Diagnoses Not on filedocumented in this encounter Care Teams Window Installer Relationship Specialty Start Date End Date Ruth Child APNP [address] [place] [address] PCP - General NURSE PRACTITIONER 08/19/22 documented as of this encounter
--- OUTSIDE RECORDS SUMMARY | 2024-09-29 02:54 | XMS_ITS | Encounter Summary ---
Author Organization [facility] Address [address] [place] [address]. [place], [place] [address] [place] [address] Care Team Providers Care Lumber Estimator Name Role Phone Ruth Child Primary Care Provider +1- [phone] Encounter Details Date Type Department Care Team (Latest Contact Info) Description 01/16/2021 Scan [facility] HEALTH INFO SRVCS Scanned, Doc [...] Coronavirus/COVID-19? No / Unsure 08/19/2022 8:00 AM WATER SERVER documented as of this encounter Plan of Treatment Not on file documented as of this encounter Visit Diagnoses Not on filedocumented in this encounter Care Teams Lumber Estimator Relationship Specialty Start Date End Date Ruth Child APNP [address] [place] [address] PCP - General NURSE PRACTITIONER 08/19/22 documented as of this encounter
--- OUTSIDE RECORDS SUMMARY | 2024-09-29 02:54 | XMS_ITS | Encounter Summary ---
Author Organization [facility] Address [address] [place] [address]. [place], [place] [address] [place] [address] Care Team Providers Care Pedicurist Name Role Phone Ruth Child Primary Care Provider +1- [phone] Reason for Visit * Reason Comments Lab (SCAN) Encounter Details Date Type Department Care Team (Latest Contact Info) Description 05/08/2012 Scan HEALTH INFO SRVCS Scanned, Doc Med [...] Coronavirus/COVID-19? No / Unsure 08/19/2022 8:00 AM NETWORK CONSULTANT documented as of this encounter Plan of Treatment Not on file documented as of this encounter Procedures Procedure Name Priority Date/Time Associated Diagnosis Comments OUTSIDE LAB (SCAN ORDER) 05/08/2012 documented in this encounter Results * OUTSIDE LAB (SCAN) (05/08/2012) 05/08/2012 us Doc Med Group Scanned SCANNING Final Resu lt documented in this encounter Visit Diagnoses Not on filedocumented in this encounter Care Teams Pedicurist Relationship Specialty Start Date End Date Ruth Child APNP [address] [place] [address] PCP - General NURSE PRACTITIONER 08/19/22 documented as of this encounter
--- OUTSIDE RECORDS SUMMARY | 2024-09-29 02:54 | XMS_ITS | Encounter Summary ---
Author Organization [facility] Address [address] [place] [address]. [place], [place] [address] [place] [address] Care Team Providers Care Flight Engineer Instructor Name Role Phone Ruth Child Primary Care Provider +1- [phone] Reason for Visit * Reason Comments Lab (SCAN) Encounter Details Date Type Department Care Team (Latest Contact Info) Description 10/07/2017 Scan HEALTH INFO SRVCS Scanned, Doc Med [...] Coronavirus/COVID-19? No / Unsure 08/19/2022 8:00 AM SUPERVISOR INSPECTION documented as of this encounter Plan of Treatment Not on file documented as of this encounter Procedures Procedure Name Priority Date/Time Associated Diagnosis Comments OUTSIDE LAB (SCAN ORDER) 10/07/2017 documented in this encounter Results * OUTSIDE LAB (SCAN) (10/07/2017) 10/07/2017 us Doc Med Group Scanned SCANNING Final Resu lt documented in this encounter Visit Diagnoses Not on filedocumented in this encounter Care Teams Flight Engineer Instructor Relationship Specialty Start Date End Date Ruth Child APNP [address] [place] [address] PCP - General NURSE PRACTITIONER 08/19/22 documented as of this encounter
--- OUTSIDE RECORDS SUMMARY | 2024-09-29 02:54 | XMS_ITS | Encounter Summary ---
Author Organization [facility] System Address [address] [place] [address]. [place], [place] [address] [place] [address] Care Team Providers Care Remote Computer Terminal Operator Name Role Phone Ruth Child Primary Care Provider +1- [phone] Reason for Visit * Reason Comments Lab (SCAN) Encounter Details Date Type Department Care Team (Latest Contact Info) Description 12/30/2011 Scan HEALTH INFO SRVCS Scanned, Doc Med [...] Coronavirus/COVID-19? No / Unsure 08/19/2022 8:00 AM CONFERENCE INTERPRETER documented as of this encounter Plan of Treatment Not on file documented as of this encounter Procedures Procedure Name Priority Date/Time Associated Diagnosis Comments OUTSIDE LAB (SCAN ORDER) 12/30/2011 documented in this encounter Results * OUTSIDE LAB (SCAN) (12/30/2011) 12/30/2011 us Doc Med Group Scanned SCANNING Final Resu lt documented in this encounter Visit Diagnoses Not on filedocumented in this encounter Care Teams Remote Computer Terminal Operator Relationship Specialty Start Date End Date Ruth Child APNP [address] [place] [address] PCP - General NURSE PRACTITIONER 08/19/22 documented as of this encounter
--- OUTSIDE RECORDS SUMMARY | 2024-09-29 02:54 | XMS_ITS | Encounter Summary ---
Author Organization [facility] - [facility] System Address [address] [place] [address]. [place], [place] [address] [place] [address] Care Team Providers Care Assistant Controller Name Role Phone Ruth Child Primary Care Provider +1- [phone] Encounter Details Date Type Department Care Team (Latest Contact Info) Description 06/26/2020 Scan MG HEALTH INFO SRVCS Scanned, Doc [...] Coronavirus/COVID-19? No / Unsure 08/19/2022 8:00 AM RESEARCH ANIMAL FACILITY SUPERVISOR documented as of this encounter Plan of Treatment Not on file documented as of this encounter Visit Diagnoses Not on filedocumented in this encounter Care Teams Assistant Controller Relationship Specialty Start Date End Date Ruth Child APNP [address] [place] [address] PCP - General NURSE PRACTITIONER 08/19/22 documented as of this encounter
--- OUTSIDE RECORDS SUMMARY | 2024-09-29 02:54 | XMS_ITS | Encounter Summary ---
Author Organization [facility] System Address [address] [place] [address]. [place], [place] [address] [place] [address] Care Team Providers Care Continuous Crusher Operator Name Role Phone Ruth Child Primary Care Provider +1 [phone] Reason for Visit * Reason Comments Image (SCAN) Encounter Details Date Type Department Care Team (Latest Contact Info) Description 03/06/2020 Scan MG HEALTH INFO SRVCS Scanned, Doc [...] Coronavirus/COVID-19? No / Unsure 08/19/2022 8:00 AM DROP FORGER HELPER documented as of this encounter Plan of Treatment Not on file documented as of this encounter Procedures Procedure Name Priority Date/Time Associated Diagnosis Comments IMAGE GENERIC 03/06/2020 documented in this encounter Results * IMAGE GENERIC (03/06/2020) Anatomical Region Laterality Modality Other 03/06/2020 us Doc Med Group Scanned SCANNING Final Resu lt documented in this encounter Visit Diagnoses Not on filedocumented in this encounter Care Teams Continuous Crusher Operator Relationship Specialty Start Date End Date Ruth Child APNP [address] [place] [address] PCP - General NURSE PRACTITIONER 08/19/22 documented as of this encounter
--- OUTSIDE RECORDS SUMMARY | 2024-09-29 02:54 | XMS_ITS | Encounter Summary ---
Author Organization [facility] - [facility] Address [address] [place] [address]. [place], [place] [address] [place] [address] Care Team Providers Care Electrical Equipment Assembler Name Role Phone Ruth Child Primary Care Provider +1- [phone] Encounter Details Date Type Department Care Team (Latest Contact Info) Description 2021 Scan MG HEALTH INFO SRVCS Scanned, Doc [...] Coronavirus/COVID-19? No / Unsure 08/19/2022 8:00 AM WASTEWATER OPERATOR documented as of this encounter Plan of Treatment Not on file documented as of this encounter Visit Diagnoses Not on filedocumented in this encounter Care Teams Electrical Equipment Assembler Relationship Specialty Start Date End Date Ruth Child APNP [address] [place] [address] PCP - General NURSE PRACTITIONER 08/19/22 documented as of this encounter
--- OUTSIDE RECORDS SUMMARY | 2024-09-29 02:54 | XMS_ITS | Encounter Summary ---
Author Organization [facility] System Address [address] [place] [address]. [place], [place] [address] [place] [address] Care Team Providers Care Business Analyst Manager Name Role Phone Ruth Child Primary Care Provider +1- [phone] Reason for Visit * Reason Comments Lab (SCAN) Encounter Details Date Type Department Care Team (Latest Contact Info) Description 11/25/2019 Scan HEALTH INFO SRVCS Scanned, Doc Med [...] Coronavirus/COVID-19? No / Unsure 08/19/2022 8:00 AM PUBLIC ADDRESS SYSTEM OPERATOR documented as of this encounter Plan of Treatment Not on file documented as of this encounter Procedures Procedure Name Priority Date/Time Associated Diagnosis Comments OUTSIDE LAB (SCAN ORDER) 11/25/2019 documented in this encounter Results * OUTSIDE LAB (SCAN) (11/25/2019) 11/25/2019 us Doc Med Group Scanned SCANNING Final Resu lt documented in this encounter Visit Diagnoses Not on filedocumented in this encounter Care Teams Business Analyst Manager Relationship Specialty Start Date End Date Ruth Child APNP [address] [place] [address] PCP - General NURSE PRACTITIONER 08/19/22 documented as of this encounter
--- OUTSIDE RECORDS SUMMARY | 2024-09-29 02:54 | XMS_ITS | Encounter Summary ---
Author Organization [facility] Address [address] [place] [address]. [place], [place] [address] [place] [address] Care Team Providers Care Topographical Surveyor Name Role Phone Ruth Child Primary Care Provider +1 [phone] Reason for Visit * Reason Comments Lab (SCAN) Encounter Details Date Type Department Care Team (Latest Contact Info) Description 05/20/2021 Scan HEALTH INFO SRVCS Scanned, Doc Med [...] Coronavirus/COVID-19? No / Unsure 08/19/2022 8:00 AM GENERAL OFFICE WORKER documented as of this encounter Plan of Treatment Not on file documented as of this encounter Procedures Procedure Name Priority Date/Time Associated Diagnosis Comments OUTSIDE LAB (SCAN ORDER) 05/20/2021 documented in this encounter Results * OUTSIDE LAB (SCAN) (05/20/2021) 05/20/2021 us Doc Med Group Scanned SCANNING Final Resu lt documented in this encounter Visit Diagnoses Not on filedocumented in this encounter Care Teams Topographical Surveyor Relationship Specialty Start Date End Date Ruth Child APNP [address] [place] [address] PCP - General NURSE PRACTITIONER 08/19/22 documented as of this encounter
--- OUTSIDE RECORDS SUMMARY | 2024-09-29 02:54 | XMS_ITS | Encounter Summary ---
Author Organization [facility] - [facility] Address [address] [place] [address]. [place], [place] [address] [place] [address] Care Team Providers Care Cps Team Lead Name Role Phone Ruth Child Primary Care Provider +1- [phone] Encounter Details Date Type Department Care Team (Latest Contact Info) Description 10/16/2014 Scan MG HEALTH INFO SRVCS Scanned, Doc [...] Coronavirus/COVID-19? No / Unsure 08/19/2022 8:00 AM EDI ANALYST documented as of this encounter Plan of Treatment Not on file documented as of this encounter Visit Diagnoses Not on filedocumented in this encounter Care Teams Cps Team Lead Relationship Specialty Start Date End Date Ruth Child APNP [address] [place] [address] PCP - General NURSE PRACTITIONER 08/19/22 documented as of this encounter
--- OUTSIDE RECORDS SUMMARY | 2024-09-29 02:54 | XMS_ITS | Encounter Summary ---
Author Organization [facility] - [facility] Address [address] [place] [address]. [place], [place] [address] [place] [address] Care Team Providers Care Solid Center Winder Name Role Phone Ruth Child Primary Care Provider +1- [phone] Encounter Details Date Type Department Care Team (Latest Contact Info) Description 05/17/2019 Scan MG HEALTH INFO SRVCS Scanned, Doc [...] Coronavirus/COVID-19? No / Unsure 08/19/2022 8:00 AM PINION POLISHER documented as of this encounter Plan of Treatment Not on file documented as of this encounter Visit Diagnoses Not on filedocumented in this encounter Care Teams Solid Center Winder Relationship Specialty Start Date End Date Ruth Child APNP [address] [place] [address] PCP - General NURSE PRACTITIONER 08/19/22 documented as of this encounter
--- OUTSIDE RECORDS SUMMARY | 2024-09-29 02:54 | XMS_ITS | Encounter Summary ---
Author Organization [facility] Address [address] [place] [address]. [place], [place] [address] [place] [address] Care Team Providers Care Conduit Bender Name Role Phone Ruth Child Primary Care Provider +1 [phone] Reason for Visit * Reason Comments Lab (SCAN) Encounter Details Date Type Department Care Team (Latest Contact Info) Description 08/15/2019 Scan HEALTH INFO SRVCS Scanned, Doc Med [...] Coronavirus/COVID-19? No / Unsure 08/19/2022 8:00 AM YARN REWINDER documented as of this encounter Plan of Treatment Not on file documented as of this encounter Procedures Procedure Name Priority Date/Time Associated Diagnosis Comments OUTSIDE LAB (SCAN ORDER) 08/15/2019 documented in this encounter Results * OUTSIDE LAB (SCAN) (08/15/2019) 08/15/2019 us Doc Med Group Scanned SCANNING Final Resu lt documented in this encounter Visit Diagnoses Not on filedocumented in this encounter Care Teams Conduit Bender Relationship Specialty Start Date End Date Ruth Child APNP [address] [place] [address] PCP - General NURSE PRACTITIONER 08/19/22 documented as of this encounter
--- OUTSIDE RECORDS SUMMARY | 2024-09-29 02:54 | XMS_ITS | Encounter Summary ---
Author Organization [facility] Address [address] [place] [address]. [place], [place] [address] [place] [address] Care Team Providers Care Gas Systems Worker Name Role Phone Ruth Child Primary Care Provider +1- [phone] Reason for Visit * Reason Comments Lab (SCAN) Encounter Details Date Type Department Care Team (Latest Contact Info) Description 11/07/2014 Scan HEALTH INFO SRVCS Scanned, Doc Med [...] Coronavirus/COVID-19? No / Unsure 08/19/2022 8:00 AM BRAID CUTTER documented as of this encounter Plan of Treatment Not on file documented as of this encounter Procedures Procedure Name Priority Date/Time Associated Diagnosis Comments OUTSIDE LAB (SCAN ORDER) 11/07/2014 documented in this encounter Results * OUTSIDE LAB (SCAN) (11/07/2014) 11/07/2014 us Doc Med Group Scanned SCANNING Final Resu lt documented in this encounter Visit Diagnoses Not on filedocumented in this encounter Care Teams Gas Systems Worker Relationship Specialty Start Date End Date Ruth Child APNP [address] [place] [address] PCP - General NURSE PRACTITIONER 08/19/22 documented as of this encounter
--- OUTSIDE RECORDS SUMMARY | 2024-09-29 02:54 | XMS_ITS | Encounter Summary ---
Author Organization [facility] - [facility] Address [address] [place] [address]. [place], [place] [address] [place] [address] Care Team Providers Care Manager Software Name Role Phone Ruth Child Primary Care Provider +1- [phone] Encounter Details Date Type Department Care Team (Latest Contact Info) Description 02/04/2017 Scan MG HEALTH INFO SRVCS Scanned, Doc [...] Coronavirus/COVID-19? No / Unsure 08/19/2022 8:00 AM CLEAN ROOM OPERATOR documented as of this encounter Plan of Treatment Not on file documented as of this encounter Visit Diagnoses Not on filedocumented in this encounter Care Teams Manager Software Relationship Specialty Start Date End Date Ruth Child APNP [address] [place] [address] PCP - General NURSE PRACTITIONER 08/19/22 documented as of this encounter
--- OUTSIDE RECORDS SUMMARY | 2024-09-29 02:54 | XMS_ITS | Encounter Summary ---
Author Organization [facility] Address [address] [place] [address]. [place], [place] [address] [place] [address] Care Team Providers Care Slice Cutting Machine Operator Name Role Phone Ruth Child Primary Care Provider +1- [phone] Reason for Visit * Reason Comments Lab (SCAN) Encounter Details Date Type Department Care Team (Latest Contact Info) Description 03/16/2017 Scan HEALTH INFO SRVCS Scanned, Doc Med [...] Coronavirus/COVID-19? No / Unsure 08/19/2022 8:00 AM FIELD SUPERVISOR documented as of this encounter Plan of Treatment Not on file documented as of this encounter Procedures Procedure Name Priority Date/Time Associated Diagnosis Comments OUTSIDE LAB (SCAN ORDER) 03/16/2017 documented in this encounter Results * OUTSIDE LAB (SCAN) (03/16/2017) 03/16/2017 us Doc Med Group Scanned SCANNING Final Resu lt documented in this encounter Visit Diagnoses Not on filedocumented in this encounter Care Teams Slice Cutting Machine Operator Relationship Specialty Start Date End Date Ruth Child APNP [address] [place] [address] PCP - General NURSE PRACTITIONER 08/19/22 documented as of this encounter
--- OUTSIDE RECORDS SUMMARY | 2024-09-29 02:54 | XMS_ITS | Encounter Summary ---
Author Organization [facility] - [facility] Address [address] [place] [address]. [place], [place] [address] [place] [address] Care Team Providers Care Cognos Developer Name Role Phone Ruth Child Primary Care Provider +1- [phone] Encounter Details Date Type Department Care Team (Latest Contact Info) Description 04/13/2019 Scan MG HEALTH INFO SRVCS Scanned, Doc [...] Coronavirus/COVID-19? No / Unsure 08/19/2022 8:00 AM TIE INSPECTOR documented as of this encounter Plan of Treatment Not on file documented as of this encounter Visit Diagnoses Not on filedocumented in this encounter Care Teams Cognos Developer Relationship Specialty Start Date End Date Ruth Child APNP [address] [place] [address] PCP - General NURSE PRACTITIONER 08/19/22 documented as of this encounter
--- OUTSIDE RECORDS SUMMARY | 2024-09-29 02:54 | XMS_ITS | Encounter Summary ---
Author Organization [facility] - [facility] Address [address] [place] [address]. [place], [place] [address] [place] [address] Care Team Providers Care Poiser Name Role Phone Ruth Child Primary Care Provider +1- [phone] Encounter Details Date Type Department Care Team (Latest Contact Info) Description 03/17/2017 Scan MG HEALTH INFO SRVCS Scanned, Doc [...] Coronavirus/COVID-19? No / Unsure 08/19/2022 8:00 AM BUSINESS REPORTING DEVELOPER documented as of this encounter Plan of Treatment Not on file documented as of this encounter Visit Diagnoses Not on filedocumented in this encounter Care Teams Poiser Relationship Specialty Start Date End Date Ruth Child APNP [address] [place] [address] PCP - General NURSE PRACTITIONER 08/19/22 documented as of this encounter
--- OUTSIDE RECORDS SUMMARY | 2024-09-29 02:54 | XMS_ITS | Encounter Summary ---
Author Organization [facility] Address [address] [place] [address]. [place], [place] [address] [place] [address] Care Team Providers Care Interstate Planner Name Role Phone Danyell Ruth Charlene GARCIA Primary Care Provider +1 [phone] Reason for Visit * Reason Comments Lab (SCAN) Encounter Details Date Type Department Care Team (Latest Contact Info) Description 11/04/2011 Scan MG HEALTH INFO SRVCS Scanned, Doc [...] Coronavirus/COVID-19? No / Unsure 08/19/2022 8:00 AM PREVENTION RN documented as of this encounter Plan of Treatment Not on file documented as of this encounter Procedures Procedure Name Priority Date/Time Associated Diagnosis Comments OUTSIDE LAB (SCAN ORDER) 11/04/2011 OUTSIDE LAB (SCAN ORDER) 11/04/2011 OUTSIDE LAB (SCAN ORDER) 11/04/2011 documented in this encounter Results * OUTSIDE LAB (SCAN) (11/04/2011) 11/04/2011 us Doc Med Group Scanned SCANNING Final Resu lt * OUTSIDE LAB (SCAN) (11/04/2011) 11/04/2011 us Doc Med Group Scanned SCANNING Final Resu lt * OUTSIDE LAB (SCAN) (11/04/2011) 11/04/2011 us Doc Med Group Scanned SCANNING Final Resu lt documented in this encounter Visit Diagnoses Not on filedocumented in this encounter Care Teams Interstate Planner Relationship Specialty Start Date End Date Ruth Child APNP [address] [place] [address] PCP - General NURSE PRACTITIONER 08/19/22 documented as of this encounter
--- OUTSIDE RECORDS SUMMARY | 2024-09-29 02:54 | XMS_ITS | Encounter Summary ---
Author Organization [facility] Address [address] [place] [address]. [place], [place] [address] [place] [address] Care Team Providers Care Production Or Plant Engineer Name Role Phone Ruth Child Primary Care Provider +1- [phone] Reason for Visit * Reason Comments Image (SCAN) Encounter Details Date Type Department Care Team (Latest Contact Info) Description 09/12/2015 Scan HEALTH INFO SRVCS Scanned, Doc Med [...] Coronavirus/COVID-19? No / Unsure 08/19/2022 8:00 AM KLYSTROM TUBE TESTER documented as of this encounter Plan of Treatment Not on file documented as of this encounter Procedures Procedure Name Priority Date/Time Associated Diagnosis Comments IMAGE GENERIC 09/12/2015 documented in this encounter Results * IMAGE GENERIC (09/12/2015) Anatomical Region Laterality Modality Other 09/12/2015 us Doc Med Group Scanned SCANNING Final Resu lt documented in this encounter Visit Diagnoses Not on filedocumented in this encounter Care Teams Production Or Plant Engineer Relationship Specialty Start Date End Date Ruth Child APNP [address] [place] [address] PCP - General NURSE PRACTITIONER 08/19/22 documented as of this encounter
--- OUTSIDE RECORDS SUMMARY | 2024-09-29 02:54 | XMS_ITS | Encounter Summary ---
Author Organization [facility] - [facility] Address [address] [place] [address]. [place], [place] [address] [place] [address] Care Team Providers Care Ear Muff Assembler Name Role Phone Ruth Child Primary Care Provider +1- [phone] Encounter Details Date Type Department Care Team (Latest Contact Info) Description 09/10/2015 Scan MG HEALTH INFO SRVCS Scanned, Doc [...] Coronavirus/COVID-19? No / Unsure 08/19/2022 8:00 AM MOISTURE METER READER documented as of this encounter Plan of Treatment Not on file documented as of this encounter Visit Diagnoses Not on filedocumented in this encounter Care Teams Ear Muff Assembler Relationship Specialty Start Date End Date Ruth Child APNP [address] [place] [address] PCP - General NURSE PRACTITIONER 08/19/22 documented as of this encounter
--- OUTSIDE RECORDS SUMMARY | 2024-09-29 02:54 | XMS_ITS | Encounter Summary ---
Author Organization [facility] - [facility] System Address [address] [place] [address]. [place], [place] [address] [place] [address] Care Team Providers Care Brushing Machine Operator Name Role Phone Ruth Child Primary Care Provider +1- [phone] Encounter Details Date Type Department Care Team (Latest Contact Info) Description 11/27/2016 Scan MG HEALTH INFO SRVCS Scanned, Doc [...] No / Unsure 08/19/2022 8:00 AM FIELD UNDERWRITER documented as of this encounter Plan of Treatment Not on file documented as of this encounter Visit Diagnoses Not on filedocumented in this encounter Care Teams Brushing Machine Operator Relationship Specialty Start Date End Date Ruth Child APNP [address] [place] [address] PCP - General NURSE PRACTITIONER 08/19/22 documented as of this encounter
--- OUTSIDE RECORDS SUMMARY | 2024-09-29 02:54 | XMS_ITS | Encounter Summary ---
Author Organization [facility] - [facility] Address [address] [place] [address]. [place], [place] [address] [place] [address] Care Team Providers Care Greenkeeper Name Role Phone Ruth Child Primary Care Provider +1- [phone] Encounter Details Date Type Department Care Team (Latest Contact Info) Description 05/09/2013 Scan MG HEALTH INFO SRVCS Scanned, Doc [...] Coronavirus/COVID-19? No / Unsure 08/19/2022 8:00 AM SENIOR MEDICAL BILLING SPECIALIST documented as of this encounter Plan of Treatment Not on file documented as of this encounter Visit Diagnoses Not on filedocumented in this encounter Care Teams Greenkeeper Relationship Specialty Start Date End Date Ruth Child APNP [address] [place] [address] PCP - General NURSE PRACTITIONER 08/19/22 documented as of this encounter
--- OUTSIDE RECORDS SUMMARY | 2024-09-29 02:54 | XMS_ITS | Encounter Summary ---
Author Organization [facility] Address [address] [place] [address]. [place], [place] [address] [place] [address] Care Team Providers Care Correction Officer Name Role Phone Ruth Child Charlene GARCIA Primary Care Provider +1 [phone] Reason for Visit * Reason Comments Lab (SCAN) Encounter Details Date Type Department Care Team (Latest Contact Info) Description 02/25/2014 Scan MG HEALTH INFO SRVCS Scanned, Doc [...] No / Unsure 08/19/2022 8:00 AM INSPECTOR AIDE documented as of this encounter Plan of Treatment Not on file documented as of this encounter Procedures Procedure Name Priority Date/Time Associated Diagnosis Comments OUTSIDE LAB (SCAN ORDER) 02/25/2014 OUTSIDE LAB (SCAN ORDER) 02/25/2014 documented in this encounter Results * OUTSIDE LAB (SCAN) (02/25/2014) 02/25/2014 us Doc Med Group Scanned SCANNING Final Resu lt * OUTSIDE LAB (SCAN) (02/25/2014) 02/25/2014 us Doc Med Group Scanned SCANNING Final Resu lt documented in this encounter Visit Diagnoses Not on filedocumented in this encounter Care Teams Correction Officer Relationship Specialty Start Date End Date Ruth Child APNP [address] [place] [address] PCP - General NURSE PRACTITIONER 08/19/22 documented as of this encounter
--- OUTSIDE RECORDS SUMMARY | 2024-09-29 02:58 | XMS_ITS | Continuity of Care Document ---
Author Organization [facility] Address [address] [place] [address] [address] [place] [address] Phone Care Team Providers Care Scientist Engineer Name Role Phone Shiraz Young Unavailable Unavailable Procedures Procedure Date Visual Field Examination(s) Eye Exam, New Patient Advance Directives Directive Yes / No Effective Date File Name No Information Encounters Encounter Description Practice Location Reason(s) For Visit Diagnoses Date Provider Providers Copied on Encounter [facility], [address] [place] [address] [address], [place], [place], [id number], tel:[phone] [place] [address] No Information 9 Krishnasjil Boothehil. [address] [place] [address], [facility], [place]. tel:[phone] Referring Provider: Shiraz Young, [address] [place] [address], [facility]. tel:[phone] [facility], [address] [place] [address] [address], [place], [place], [id number], tel:[phone] [facility] No Information 200 9 Krishnasamy Shiraz. [address] [place] [address], [facility], [place]. tel:[phone] Referring Provider: Isidoro Rivera MD F, [address] [employer] [place], [address]. tel:[phone] Family History Family Member Type Diagnosis Age At Onset No Information Payers Payer name Insurance type Covered green party ID Authoriza tion(s) [place] [id number] Social History Type Description Quantity Date Captured Comments Sex Male Smoking Status No Information Chief Complaint And Reason For Visit No Information Reason For Referral Reason For Referral No Information History Of Present Illness Encounter Date Complaint History Of Prese nt Illness No Information Functional Status Date Functional Assessmen t No Information Instructions Date Instruction Additional Infor mation No Information Assessments Type Assessment Date No Information Patient Care Teams Name Effective Dates (start - stop) Status Members No Information
--- OUTSIDE RECORDS SUMMARY | 2024-09-29 02:58 | XMS_ITS | Encounter Summary ---
Author Organization [facility] Address [address] [place] [address] Care Team Providers Care Lining Presser Name Role Phone No, Physician Primary Care Provider [phone] Reason for Visit * Reason Comments COVID-19 EVALUATION Encounter Details Date Type Department Care Team (Late st Contact Info) Description 08/02/2021 7:50 PM CDT - 08/02/2021 8:07 PM CDT Emergency [address] [address] Viral syndrome (Primary Dx); Encounter for laboratory testing for COVID-19 virus Discharge Disposition: Discharge to home or self care Social History Tobacco Use Types Packs/Day Years Used Date Smoking Tobacco: Never Assessed Sex and Gender Information Value Date Recorded Sex Assigned at Not on file Legal Sex Male 1:55 AM RV DETAILER Gender Identity Not on file Sexual Orientation Not on file documented as of this encounter Last Filed Vital Signs Vital Sign Reading Time Taken Comments Blood Pressure 155/84 08/02/2021 7:36 PM CDT Pulse 87 08/02/2021 7:36 PM CDT Temperature 36.8 ??C (98.2 ??F) 08/02/2021 7:36 PM CD T Respiratory Rate 18 08/02/2021 7:36 PM CDT Oxygen Saturation 94% 08/02/2021 7:36 PM CDT Inhaled Oxygen Concentration - - Weight 98.4 kg (216 lb 14.9 oz) 08/02/2021 7:36 PM CDT Height 182.9 cm (6') 08/02/2021 7:36 PM CDT Body Mass Index 29.42 08/02/2021 7:36 PM CDT documented in this encounter Discharge Instructions * Discharge Instructions* Hung Hdez PA - 08/02/2021 7:44 PM CDT Return to ER immediately for any new or worsening symptoms. Follow-up as recommended is mandatory. You MUST follow up for further evaluation of all incidental abnormal radiographic and laboratory findings. Have your physician obtain records from this visit and address all the incidental abnormal findings. This may include final results of lab testing, cultures, final x-ray reports which may not have been available during the time of the visit. * Attachments The following attachments cannot be sent through Care Everywhere. * Viral Syndrome (AfterCare(R) Instructions(ER/ED)) (Gabonese) documented in this encounter Medications at Time of Discharge benzonatate (TESSALON) 100 mg capsuleIndicatio ns:Cough Take 1 capsule (100 mg total) by mouth every 8 (eight) hours 21 capsule 08/02/2021 fluticasone propionate (FLONASE) 50 mcg/actuation nasal spray Administer 1 spray into each nostril daily 16 g 08/02/2021 methylPREDNISolo ne (MEDROL DOSEPACK) 4 mg Dosepack Take as directed on package 1 packet 08/02/2021 1 documented as of this encounter Ordered Prescriptions Prescription Sig Dispense Quantity Refills Last Filled Start Date End Date benzonatate (TESSALON) 100 mg capsuleIndications :Cough Take 1 capsule (100 mg total) by mouth every 8 (eight) hours 21 capsule 08/02/2021 fluticasone propionate (FLONASE) 50 mcg/actuation nasal spray Administer 1 spray into each nostril daily 16 g 08/02/2021 methylPREDNISolone (MEDROL DOSEPACK) 4 mg Dosepack Take as directed on package 1 packet 08/02/2021 1 documented in this encounter Discharge Disposition Disposition Code Departure Means Destination Discharge to home or self care documented in this encounter ED Notes * Pat Camacho RN - 08/02/2021 7:39 PM CDT Pt states the he tested neg for covid but then lost his sense of smell and taste today. Other symptoms began last week, cough, fever. * Hung Hdez PA - 08/02/2021 7:39 PM CDT HPI Chief Complaint Patient presents with ??? COVID-19 EVALUATION HPI 3:40 PM Juan Miguel Ambrosio is a 61 y.o. male presenting to the ED c/o low-grade fever, cough, nasal congestion, and bilateral ear pain. Patient states he was tested for COVID-19 at 3:00 p.m. today whichwas negative. Patient developed loss of taste and smell following his test. He is requesting another COVID-19 test. Patient History: No past medical history on file. No past surgical history on file. No family history on file. Social History Tobacco Use ??? Smoking status: Not on file ??? Smokeless tobacco: Not on file Substance Use Topics ??? Alcohol use: Not on file ??? Drug use: Not on file No current facility-administered medications for this encounter. Current Outpatient Medications: ??? benzonatate (TESSALON) 100 mg capsule ??? fluticasone propionate (FLONASE) 50 mcg/actuation nasal spray ??? methylPREDNISolone (MEDROL DOSEPACK) 4 mg Dosepack Review of Systems Review of Systems Constitutional: Positive for fever. HENT: Positive for congestion and ear pain. Eyes: Negative. Respiratory: Positive for cough. Cardiovascular: Negative. Gastrointestinal: Negative. Genitourinary: Negative. Musculoskeletal: Negative. Skin: Negative. Neurological: Negative. Psychiatric/Behavioral: Negative. All systems reviewed and are neg or non contributory for this patients presentation today other than as stated in the HPI . Physical Exam ED Triage Vitals [08/02/211935] Temp Pulse Resp BP SpO2 36.8 ??C (98.2 ??F) 87 18 155/84 94 % Temp src Heart Rate Source Patient Position BP Location FiO2 (%) Oral Monitor Sitting Right arm -- Physical Exam Vitals and nursing note reviewed. Constitutional: Appearance: Normal appearance. HENT: Head: Normocephalic and atraumatic. Right Ear: Ear canal and external ear normal. A middle ear effusion is present. Tympanic membrane is not injected or erythematous. Left Ear: Ear canal and external ear normal. A middle ear effusion is present. Tympanic membrane isnot injected or erythematous. Nose: Congestion present. Eyes: Conjunctiva/sclera: Conjunctivae normal. Cardiovascular: Rate and Rhythm: Normal rate and regular rhythm. Pulses: Normal pulses. Heart sounds: Normal heart sounds. Pulmonary: Effort: Pulmonary effort is normal. Breath sounds: Normal breath sounds. Musculoskeletal: General: Normal range of motion. Cervical back: Neck supple. Skin: General: Skin is warm and dry. Neurological: Mental Status: He is alert and oriented to person, place, and time. Psychiatric: Mood and Affect: Mood normal. Behavior: Behavior normal. Procedures [facility] Labs Reviewed INFLUENZA A/B, RSV, AND COVID-19 PCR - Abnormal Result Value COVID-19 RNA Negative Influenza A RNA Negative Influenza B RNA Negative RSV RNA Positive (*) Narrative: Is the Patient experiencing symptoms consistent with COVID?->Yes Date of Symptom Onset->07/26/21 Reason for testing?->Symptomatic (not immunocompromised) Is the patient hospitalized?->No Is the patient admitted to an ICU?->No Is this the first COVID-19 test for this patient?->No Does the patient currently work in a healthcare facility with direct patient contact?->Unknown Is the patient a resident of a congregate care or living setting?->Unknown Known exposure to confirmed or suspected COVID-19 case?->No No orders to display BP 155/84 (BP Location: Right arm, Patient Position: Sitting) Pulse 87 Temp 36.8 ??C (98.2 ??F)(Oral) Resp 18 Ht 182.9 cm (6') Wt 98.4 kg (216 lb 14.9 oz) SpO2 94% BMI 29.42 kg/m?? [facility] ED Course as of 08/06/21 1540 Time: 08/02 1941 Comment: Patient in no distress. Vital signs normal. Patient not wanting to wait for results. He was instructed to follow-up with my chart. Strict ER return precautions were discussed. All questions were addressed. By: Hung Hdez PA This examination was transcribed using the [employer] voice recognition system without human timber deadener. In an effort to expedite patient care, this report has not been adjusted for typographical, grammatical, and syntax by a trained medical pathologist. Clinical Impression: Viral syndrome Encounter for laboratory testing for COVID-19 virus Hung Hdez PA 08/06/21 1540 Cosigned by Sona Payne DO at 08/07/2021 8:55 PM RV DETAILER DETAILER DETAILER documented in this encounter Plan of Treatment Not on file documented as of this encounter Procedures Procedure Name Priority Date/Time Associated Diagnosis Comments INFLUENZA A/B, RSV, AND COVID-19 PCR Routine 08/02/2021 7:46 PM CDT documented in this encounter Results * (ABNORMAL) Influenza A/B, RSV, and COVID-19 PCR Nasopharyngeal (08/02/2021 7:46 PM CDT) COVID-19 RNA Negative Negative [facility] Comment: Interpretive data: Synonyms for this test include: PCR and NAAT . ??This test is performed using the [employer] Xpert Xpress assay. This is a real-time RT-PCR test intended for the qualitative detection of nucleic acid from the SARS-CoV-2. This assay has been reviewed by the FDA for Emergency Use Authorization (EUA). The performance characteristics have been verified by the performing laboratory. Results must be considered in the clinical context and a negative result does not rule out infection. Interpretive data last revised November 01, 2020. Influenza A RNA Negative Negative [facility] Influenza B RNA Negative Negative [facility] RSV RNA Positive(A) Negative [facility] Comment: Interpretive data: This test is performed using the [employer] Xpert Assay. This is a multiplex, real- time reverse transcriptase PCR assay that detects influenza A, influenza B, and respiratory syncytial virus RNA. This assay has been cleared by the [place] Food and Drug Administration, and its performance characteristics have been verified by the performing laboratory. ?? Interpretive data last revised 2020. Nasopharyngeal 08/02/2021 7: 46 PM CDT 08/02/2021 7:55 PM CDT Narrative [facility] - 08/02/2021 8:45 PM CDT Is the Patient experiencing symptoms consistent with COVID?->Yes Date of Symptom Onset->07/26/21 Reason for testing?->Symptomatic (not immunocompromised) Is the patient hospitalized?->No Is the patient admitted to an ICU?->No Is this the first COVID-19 test for this patient?->No Does the patient currently work in a healthcare facility with direct patient contact?->Unknown Is the patient a resident of a congregate care or living setting?->Unknown Known exposure to confirmed or suspected COVID-19 case?->No [facility] MICROBIOLOGY - GENERAL O RDERABLES Final Result [facility] [id number] [facility] Department [place] [address] documented in this encounter Visit Diagnoses Diagnosis Viral syndrome- Primary Unspecified viral infection, in conditions classified elsewhere and of unspecified site Encounter for laboratory testing for COVID-19 virus documented in this encounter Additional Health Concerns Infection Onset Date Last Indicated Resolved Time COVID: Suspected 08/02/2021 08/02/2021 08/02/2021 8:46 PM CDT documented as of this encounter Care Teams Lining Presser Relationship Specialty Start Date End Date No, Physician PCP - General 08/02/21 documented as of this encounter
--- OUTSIDE RECORDS SUMMARY | 2024-09-29 02:58 | XMS_ITS | Continuity of Care Document ---
Author Organization [facility] Address [address] [place] [address] Phone Care Team Providers Care Full Service Supervisor Name Role Phone Chucky Larson MD Unavailable Unavailable Procedures Procedure Date Work/medical disability examination JAIRO X-ray exam of shoulder, complete 2009 X-ray exam of elbow, complete 0 Prolonged serv, w/o contact, 1st hr Advance Directives Directive Yes / No Effective Date File Name No Information Encounters Encounter Description Practice Location Reason(s) For Visit Diagnoses Date Provider Providers Copied on Encounter Work/medical disability examination [facility] [employer] [place], [address], [id number], [place] tel:[phone] [facility] [employer] [facility] No Information 0 Marsha Locke. [address] [address], [place], [place], [id number] , [place]. tel:[phone] Family History Family Member Type Diagnosis Age At Onset No Information Payers Payer name Insurance type Covered constitution party ID Authoriza tilamin(s) Marely [id number] Social History Type Description Quantity Date Captured [...]
--- OUTSIDE RECORDS SUMMARY | 2024-09-29 02:58 | XMS_ITS | Encounter Summary ---
Author Organization [facility] Healthcare Address [address] [place] [address] Care Team Providers Care Steam Hand Name Role Phone Unavailable Primary Care Provider Unavailabl e Encounter Details Date Type Department Care Team (Latest Contact Info) Description 07/11/2017 9:09 PM CDT - 07/16/2017 3:27 PM CDT Hospital Encounter [facility] Herbert Payne MD [address] [place] [id number] Type 2 diabetes mellitus with other specified complication (CMS/HCC); Other osteomyelitis, ankle and foot (CMS/HCC); Essential (primary) hypertension; Non-pressure chronic ulcer of other part of right foot with unspecified severity (CMS/HCC); Cellulitis of toe of right foot; Type 2 diabetes mellitus with foot ulcer (CODE) (CMS/HCC); 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); Hyperlipidemia; Cigarette nicotine dependence, uncomplicated; USP current use of oral hypoglycemic drug; Other terminal carman (current) drug therapy Social History Tobacco Use Types Packs/Day Years Used Date Smoking Tobacco: Never Assessed Sex and Gender Information Value Date Recorded Sex Assigned at Not on file Legal Sex Male 1:55 AM RN IMMUNOLOGY Gender Identity Not on file Sexual Orientation Not on file documented as of this encounter Last Filed Vital Signs Vital Sign Reading Time Taken Comments Blood Pressure 126/76 07/12/2017 11:13 AM CDT Pulse 64 07/12/2017 11:13 AM CDT Temperature 36.6 ??C (97.9 ??F) 07/12/2017 11:13 AM C DT Respiratory Rate - - Oxygen Saturation 97% 07/12/2017 11:13 AM CDT Inhaled Oxygen Concentration - - Weight 97.1 kg (214 lb 1 oz) 07/12/2017 11:13 AM CDT Height 182.9 cm (6') 07/12/2017 11:13 AM CDT Body Mass Index 29.03 07/12/2017 11:13 AM CDT documented in this encounter Plan of Treatment Not on file documented as of this encounter Procedures Procedure Name Priority Date/Time Associated Diagnosis Comments BASIC METABOLIC PANEL Routine 07/16/2017 6:36 AM CDT CBC WITH AUTO DIFFERENTIAL Routine 07/16/2017 6:35 AM CDT CBC WITH AUTO DIFFERENTIAL Routine 07/15/2017 7:38 AM CDT BASIC METABOLIC PANEL Routine 07/15/2017 7:38 AM CDT SCAN - PATHOLOGY 07/15/2017 12:0 0 AM CDT ELECTROLYTE PANEL Routine 07/14/2017 9:0 8 AM CDT PROCEDURE - RESULT 07/14/2017 12 :00 AM CDT CBC WITH AUTO DIFFERENTIAL Routine 07/13/2017 7:33 AM CDT CHOLESTEROL, LDL, DIRECT Routine 07/13/2017 7:33 AM CDT HEMOGLOBIN A1C Routine 07/13/2017 7:33 AM CDT LIPID PANEL Routine 07/13/2017 7:33 AM CDT BASIC METABOLIC PANEL Routine 07/13/2017 7:33 AM CDT MICROBIOLOGY SPECIMEN REPORT (CONVERTED) Routine 07/12/2017 9:12 AM CDT MRI LOWER EXT NON-JOINT RIGHT Routine 07/12/2017 12:00 AM CDT MICROBIOLOGY SPECIMEN REPORT (CONVERTED) Routine 07/11/2017 7:05 PM CDT LACTATE Routine 07/11/2017 7:05 PM CDT MICROBIOLOGY SPECIMEN REPORT (CONVERTED) Routine 07/11/2017 6:59 PM CDT CBC WITH AUTO DIFFERENTIAL Routine 07/11/2017 6:59 PM CDT COMPREHENSIVE METABOLIC PANEL Routine 07/11/2017 6:59 PM CDT XR TOE 2ND DIGIT RIGHT Routine 7 12:00 AM CDT documented in this encounter Results * (ABNORMAL) Basic metabolic panel (07/16/2017 6:36 AM CDT) Sodium 136 135 - 145 mmol/L 07/16/2017 7:54 AM [employer] [facility] HISTORICAL RESULTS Potassium 4.6 3.3 - 5.1 mmol/L 07/16/2017 7:54 AM [employer] [facility] HISTORICAL RESULTS Chloride 98 96 - 108 mmol/L 07/16/2017 7:54 AM T [facility] HISTORICAL RESULTS Carbon Dioxide 28 22 - 32 mmol/L 07/16/2017 7:54 AM [employer] [facility] HISTORICAL RESULTS Anion Gap 10 7 - 16 07/16/2017 7:54 AM [employer] [facility] HISTORICAL RESULTS Glucose 136(H) 70 - 100 mg/dL 07/16/2017 7:54 AM T [facility] [employer] [facility] HISTORICAL RESULTS BUN 23(H) 6 - 20 mg/dL 07/16/2017 7:54 AM [employer] [facility] HISTORICAL RESULTS Creatinine 1.1 0.5 - 1.3 mg/dL 07/16/2017 7:54 AM T [facility] HISTORICAL RESULTS Comment: NOTE: Estimated GFR (Cockroft-Gault) will NOT be calculated unless patient Height and Weight were entered. Also, Kidney Disease Stage (GFR) and Estimated GFR (Cockroft-Gault) will NOT be calculated if Creatinine result is <0.2. Kidney Disease Stage 74 mL/MIN 07/16/2017 7:54 AM [employer] [facility] HISTORICAL RESULTS Comment: NOTE; ??The GFR is an estimated value using the creatinine, sex, age, and race of the patient. THE Estimated Kidney Disease GFR is validated for AGES 18-70 YEARS STAGE ?mL/Min ?DESCRIPTION ??1 ?90 mL/min or more ?Normal or elevated GFR ??2 ? 60-89 mL/min ?Mildly decreased GFR ??3 ? 30-59 mL/min ?Moderately decreased GFR ??4 ? 15-29 mL/min ?Severely decreased GFR ??5 ? <15 mL/min ? Kidney failure or on dialysis @ Est GFR (Cockcroft-G) 91 ml/MIN 07/16/2017 7:54 AM T [facility] HISTORICAL RESULTS Comment: Estimated GFR(Cockroft-Gault)is used to calculate patient medication dosage Calcium 9.0 8.6 - 10.0 mg/dL 07/16/2017 7:54 AM T [facility] HISTORICAL RESULTS 07/16/2017 6:36 AM CDT 07/16/2017 7:27 AM CDT us Marlyn Escobar MD LAB BLOOD ORDERABLES Fin al Result [facility] [employer] HISTORICAL RESULTS * CBC with auto differential (07/16/2017 6:35 AM CDT) WBC 9.3 4.6 - 10.2 x10 3/ul 07/16/2017 7:31 AM CDT [facility] HISTORICAL RESULTS RBC 5.24 4.11 - 5.71 x10 6/ul 07/16/2017 7:31 AM T [facility] [employer] HISTORICAL RESULTS Hemoglobin 15.8 13.0 - 17.0 g/dl 07/16/2017 7:31 AM T [facility] HISTORICAL RESULTS Hct 45.9 38.2 - 48.5 % MCV 87.6 80.0 - 97.0 fl MCH 30.2 27.0 - 31.2 pg MCHC 34.4 31.8 - 35.4 g/dl 07/16/2017 7:31 AM [facility] HISTORICAL RESULTS RDW 12.2 11.6 - 14.8 % 07/16/2017 7:31 AM [facility] HISTORICAL RESULTS Plt Count 242 124 - 400 x10 3/ul 07/16/2017 7:31 AM [facility] HISTORICAL RESULTS MPV 10.0 7.4 - 10.4 fl 07/16/2017 7:31 AM [facility] HISTORICAL RESULTS Neut % 67.9 37.0 - 85.0 % 07/16/2017 7:31 AM [facility] HISTORICAL RESULTS Immature Gran % 0.4 0.0 - 3.0 % 07/16/2017 7:31 AM [facility] HISTORICAL RESULTS Lymph % 23.2 5.0 - 45.0 % 07/16/2017 7:31 AM [facility] HISTORICAL RESULTS Chelan % 6.0 3.0 - 15.0 % 07/16/2017 7:31 AM [facility] HISTORICAL RESULTS Eos % 2.1 0.0 - 7.0 % 07/16/2017 7:31 AM [facility] HISTORICAL RESULTS Baso % 0.4 0.0 - 2.0 % 07/16/2017 7:31 AM [facility] HISTORICAL RESULTS Absolute Neuts (auto) 6.3 1.7 - 8.7 x10 3/ul 07/16/2017 7:31 AM [facility] HISTORICAL RESULTS Immature Gran # 0.0 0.0 - 0.3 x10 3/ul 07/16/2017 7:31 AM [facility] HISTORICAL RESULTS Absolute Lymphs (auto) 2.2 0.2 - 4.6 x10 3/ul 07/16/2017 7:31 AM [facility] [employer] [facility] HISTORICAL RESULTS Absolute Monos (auto) 0.6 0.1 - 1.5 x10 3/ul 07/16/2017 7:31 AM CDT [facility] HISTORICAL RESULTS Absolute Eos (auto) 0.2 0.0 - 0.7 x10 3/ul 07/16/2017 7:31 AM CDT [facility] HISTORICAL RESULTS Absolute Basos (auto) 0.0 0.0 - 0.2 x10 3/ul 07/16/2017 7:31 AM CDT [facility] HISTORICAL RESULTS Nucleat RBC Rel Count 0.0 0 - 3 #/100WBC 07/16/2017 7:31 AM CDT [facility] HISTORICAL RESULTS Absolute Nucleated RBC 0.00 x10 3/ul 07/16/2017 7:31 AM CDT [facility] Absolute Neutrophils 6300 200 - 8000 /ul 07/16/2017 7:31 AM T [facility] HISTORICAL RESULTS 07/16/2017 6:35 AM CDT 07/16/2017 7:27 AM CDT Marlyn Escobar MD LAB BLOOD ORDERABLES Fin al Result [facility] HISTORICAL RESULTS * (ABNORMAL) CBC with auto differential (07/15/2017 7:38 AM CDT) Pathologist [facility] WBC 9.4 4.6 - 10.2 x10 3/ul 07/15/2017 8:32 AM T [facility] HISTORICAL RESULTS Comment:Results Reviewed RBC 4.92 4.11 - 5.71 x10 6/ul 07/15/2017 8:30 AM T [facility] HISTORICAL RESULTS Hemoglobin 14.8 13.0 - 17.0 g/dl 07/15/2017 8:30 AM CDT [facility] HISTORICAL RESULTS Hct 41.7 38.2 - 48.5 % 07/15/2017 8:30 AM CDT [facility] HISTORICAL RESULTS MCV 84.8 80.0 - 97.0 fl 07/15/2017 8:30 AM CDT [facility] HISTORICAL RESULTS MCH 30.1 27.0 - 31.2 pg 07/15/2017 8:30 AM T [facility] HISTORICAL RESULTS MCHC 35.5(H) 31.8 - 35.4 g/dl RDW 12.3 11.6 - 14.8 % Plt Count 204 124 - 400 x10 3/ul MPV 9.8 7.4 - 10.4 fl 07/15/2017 8:30 AM [facility] HISTORICAL RESULTS Neut % 69.4 37.0 - 85.0 % Immature Gran % 0.3 0.0 - 3.0 % 07/15/2017 8:30 AM [facility] HISTORICAL RESULTS Lymph % 21.1 5.0 - 45.0 % 07/15/2017 8:30 AM [facility] HISTORICAL RESULTS Chelan % 6.8 3.0 - 15.0 % 07/15/2017 8:30 AM [facility] HISTORICAL RESULTS Eos % 1.9 0.0 - 7.0 % 07/15/2017 8:30 AM [facility] HISTORICAL RESULTS Baso % 0.5 0.0 - 2.0 % 07/15/2017 8:30 AM [facility] HISTORICAL RESULTS Absolute Neuts (auto) 6.5 1.7 - 8.7 x10 3/ul Immature Gran # 0.0 0.0 - 0.3 x10 3/ul 07/15/2017 8:30 AM [facility] HISTORICAL RESULTS Absolute Lymphs (auto) 2.0 0.2 - 4.6 x10 3/ul 07/15/2017 8:30 AM [facility] HISTORICAL RESULTS Absolute Monos (auto) 0.6 0.1 - 1.5 x10 3/ul 07/15/2017 8:30 AM [facility] HISTORICAL RESULTS Absolute Eos (auto) 0.2 0.0 - 0.7 x10 3/ul 07/15/2017 8:30 AM [facility] HISTORICAL RESULTS Absolute Basos (auto) 0.1 0.0 - 0.2 x10 3/ul 07/15/2017 8:30 AM T [facility] HISTORICAL RESULTS Nucleat RBC Rel Count 0.0 0 - 3 #/100WBC 07/15/2017 8:30 AM T [facility] HISTORICAL RESULTS Absolute Nucleated RBC 0.00 x10 3/ul 07/15/2017 8:30 AM T [facility] HISTORICAL RESULTS Absolute Neutrophils 6500 200 - 8000 /ul 07/15/2017 8:30 AM T [facility] HISTORICAL RESULTS 07/15/2017 7:38 AM CDT 07/15/2017 8:13 AM CDT us Feroz Venegas MD LAB BLOOD ORDERABLES Final Result [facility] HISTORICAL RESULTS * (ABNORMAL) Basic metabolic panel (07/15/2017 7:38 AM CDT) Sodium 135 135 - 145 mmol/L Potassium 4.8 3.3 - 5.1 mmol/L Comment: MODERATELY HEMOLYZED: Hemolysis interferes with the above test. Chloride 98 96 - 108 mmol/L Carbon Dioxide 29 22 - 32 mmol/L Anion Gap 8 7 - 16 Glucose 120(H) 70 - 100 mg/dL BUN 20 6 - 20 mg/dL Creatinine 1.0 0.5 - 1.3 mg/dL Comment: NOTE: Estimated GFR (Cockroft-Gault) will NOT be calculated unless patient Height and Weight were entered. Also, Kidney Disease Stage (GFR) and Estimated GFR (Cockroft-Gault) will NOT be calculated if Creatinine result is <0.2. Kidney Disease Stage 82 mL/MIN 07/15/2017 8:45 AM CDT [facility] HISTORICAL RESULTS Comment: NOTE; ??The GFR is an estimated value using the creatinine, sex, age, and race of the patient. THE Estimated Kidney Disease GFR is validated for AGES 18-70 YEARS STAGE ?mL/Min ?DESCRIPTION ??1 ?90 mL/min or more ?Normal or elevated GFR ??2 ? 60-89 mL/min ?Mildly decreased GFR ??3 ? 30-59 mL/min ?Moderately decreased GFR ??4 ? 15-29 mL/min ?Severely decreased GFR ??5 ? <15 mL/min ? Kidney failure or on dialysis @ Est GFR (Cockcroft-G) 100 ml/MIN 07/15/2017 8:45 AM CDT [facility] HISTORICAL RESULTS Comment: Estimated GFR(Cockroft-Gault)is used to calculate patient medication dosage Calcium 8.8 8.6 - 10.0 mg/dL 07/15/2017 8:45 AM CDT [facility] HISTORICAL RESULTS 07/15/2017 7:38 AM CDT 07/15/2017 8:13 AM CDT us Feroz Venegas MD LAB BLOOD ORDERABLES Final Result [facility] HISTORICAL RESULTS * SCAN - PATHOLOGY (07/15/2017 12:00 AM CDT) Narrative 07/15/2017 12:00 AM CDT Ordered by an unspecified provider. us Historical Provider Final Res ult * Electrolyte panel (07/14/2017 9:08 AM CDT) Pathologist [facility] Sodium 137 135 - 145 mmol/L 07/14/2017 10:27 AM CDT [facility] HISTORICAL RESULTS Potassium 4.2 3.3 - 5.1 mmol/L 07/14/2017 10:27 AM CDT [facility] HISTORICAL RESULTS Chloride 98 96 - 108 mmol/L 07/14/2017 10:27 AM CDT [facility] HISTORICAL RESULTS Carbon Dioxide 27 22 - 32 mmol/L 07/14/2017 10:27 AM CDT [facility] HISTORICAL RESULTS Anion Gap 12 7 - 16 07/14/2017 10:27 AM CDT [facility] HISTORICAL RESULTS 07/14/2017 9:08 AM CDT 07/14/2017 10:01 AM CDT Chucky Serna MD LAB BLOOD ORDERABLES Final Result [facility] HISTORICAL RESULTS * PROCEDURE - RESULT (07/14/2017 12:00 AM CDT) Narrative 07/14/2017 12:00 AM CDT Ordered by an unspecified provider. us Historical Provider Final Res ult * Cholesterol, LDL, direct (07/13/2017 7:33 AM CDT) [facility] LDL Cholesterol Measurd 92 0 - 99 mg/dL 07/13/2017 8:58 AM CDT [facility] HISTORICAL RESULTS Comment: Reference Ranges: Optimal ?0 - 99 ??mg/dL Near Optimal/Above Optimal ?? 100-129 mg/dL Borderline High ?130-159 mg/dL High ? 160-189 mg/dL Very High ? >=190 ??mg/dL 07/13/2017 7:33 AM CDT 07/13/2017 7:43 AM CDT Marlyn Escobar MD LAB BLOOD ORDERABLES Fin al Result Performing Organization Address [facility] de Phone Number [facility] HISTORICAL RESULTS * (ABNORMAL) Lipid panel (07/13/2017 7:33 AM CDT) Triglycerides 279(H) 0 - 199 mg/dL 07/13/2017 8:09 AM T [facility] HISTORICAL RESULTS Comment: LDL (measured) to follow due to Triglycerides >250 mg/dL 12 hr pc highly recommended for Triglyceride Cholesterol 161 0 - 199 mg/dL 07/13/2017 8:09 AM T [facility] HISTORICAL RESULTS Comment: Borderline: ??200-239 High Risk: ?? >239 HDL Cholesterol 31(L) 40 - 60 mg/dL 07/13/2017 8:09 AM T [facility] HISTORICAL RESULTS Comment: Major Risk ?< 40 mg/dL Moderate Risk ?40-60 mg/dL Negative Risk ?? > 60 mg/dL Cholesterol/HDL Ratio 5.2 07/13/2017 8:09 AM T [facility] HISTORICAL RESULTS Comment: Cholesterol / HDL Ratio 3.5:1 or less is desirable. Cholesterol / HDL Ratio greater than 5:1 is considered higher risk for developing heart disease. 07/13/2017 7:33 AM CDT 07/13/2017 7:43 AM CDT Marlyn Escobar MD LAB BLOOD ORDERABLES Fin al Result Performing Organization Address [facility] de Phone Number [facility] HISTORICAL RESULTS * CBC with auto differential (07/13/2017 7:33 AM CDT) WBC 7.2 4.6 - 10.2 x10 3/ul 07/13/2017 7:48 AM T [facility] HISTORICAL RESULTS RBC 5.15 4.11 - 5.71 x10 6/ul 07/13/2017 7:48 AM T [facility] HISTORICAL RESULTS Hemoglobin 15.5 13.0 - 17.0 g/dl 07/13/2017 7:48 AM CDT [facility] HISTORICAL RESULTS Hct 44.4 38.2 - 48.5 % 07/13/2017 7:48 AM CDT [facility] HISTORICAL RESULTS MCV 86.2 80.0 - 97.0 fl MCH 30.1 27.0 - 31.2 pg MCHC 34.9 31.8 - 35.4 g/dl 07/13/2017 7:48 AM CDT [facility] HISTORICAL RESULTS RDW 12.6 11.6 - 14.8 % 07/13/2017 7:48 AM CDT [facility] HISTORICAL RESULTS Plt Count 188 124 - 400 x10 3/ul 07/13/2017 7:48 AM CDT [facility] HISTORICAL RESULTS MPV 10.0 7.4 - 10.4 fl 07/13/2017 7:48 AM CDT [facility] [employer] [facility] HISTORICAL RESULTS Neut % 65.5 37.0 - 85.0 % 07/13/2017 7:48 AM CDT [facility] HISTORICAL RESULTS Immature Gran % 0.3 0.0 - 3.0 % 07/13/2017 7:48 AM CDT [facility] HISTORICAL RESULTS Lymph % 23.1 5.0 - 45.0 % 07/13/2017 7:48 AM CDT [facility] HISTORICAL RESULTS Chelan % 7.3 3.0 - 15.0 % 07/13/2017 7:48 AM CDT [facility] HISTORICAL RESULTS Eos % 3.1 0.0 - 7.0 % 07/13/2017 7:48 AM CDT [facility] [employer] [facility] HISTORICAL RESULTS Baso % 0.7 0.0 - 2.0 % 07/13/2017 7:48 AM CDT [facility] [employer] [facility] HISTORICAL RESULTS Absolute Neuts (auto) 4.7 1.7 - 8.7 x10 3/ul 07/13/2017 7:48 AM CDT [facility] [employer] [facility] HISTORICAL RESULTS Immature Gran # 0.0 0.0 - 0.3 x10 3/ul 07/13/2017 7:48 AM CDT [facility] [employer] [facility] HISTORICAL RESULTS Absolute Lymphs (auto) 1.7 0.2 - 4.6 x10 3/ul 07/13/2017 7:48 AM CDT [facility] HISTORICAL RESULTS Absolute Monos (auto) 0.5 0.1 - 1.5 x10 3/ul 07/13/2017 7:48 AM CDT [facility] HISTORICAL RESULTS Absolute Eos (auto) 0.2 0.0 - 0.7 x10 3/ul 07/13/2017 7:48 AM CDT [facility] HISTORICAL RESULTS Absolute Basos (auto) 0.1 0.0 - 0.2 x10 3/ul 07/13/2017 7:48 AM CDT [facility] HISTORICAL RESULTS Nucleat RBC Rel Count 0.0 0 - 3 #/100WBC 07/13/2017 7:48 AM T [facility] HISTORICAL RESULTS Absolute Nucleated RBC 0.00 x10 3/ul 07/13/2017 7:48 AM T [facility] HISTORICAL RESULTS Absolute Neutrophils 4700 200 - 8000 /ul 07/13/2017 7:48 AM T [facility] HISTORICAL RESULTS 07/13/2017 7:33 AM CDT 07/13/2017 7:43 AM CDT us Marlyn Escobar MD LAB BLOOD ORDERABLES Fin al Result [facility] HISTORICAL RESULTS * (ABNORMAL) Basic metabolic panel (07/13/2017 7:33 AM CDT) Sodium 133(L) 135 - 145 mmol/L 07/13/2017 8:09 AM T [facility] HISTORICAL RESULTS Potassium 4.3 3.3 - 5.1 mmol/L 07/13/2017 8:09 AM T [facility] HISTORICAL RESULTS Chloride 98 96 - 108 mmol/L 07/13/2017 8:09 AM T [facility] HISTORICAL RESULTS Carbon Dioxide 26 22 - 32 mmol/L 07/13/2017 8:09 AM T [facility] HISTORICAL RESULTS Anion Gap 9 7 - 16 07/13/2017 8:09 AM T [facility] HISTORICAL RESULTS Glucose 126(H) 70 - 100 mg/dL 07/13/2017 8:09 AM T [facility] HISTORICAL RESULTS BUN 24(H) 6 - 20 mg/dL Creatinine 1.0 0.5 - 1.3 mg/dL Comment: NOTE: Estimated GFR (Cockroft-Gault) will NOT be calculated unless patient Height and Weight were entered. Also, Kidney Disease Stage (GFR) and Estimated GFR (Cockroft-Gault) will NOT be calculated if Creatinine result is <0.2. Kidney Disease Stage 82 mL/MIN Comment: NOTE; ??The GFR is an estimated value using the creatinine, sex, age, and race of the patient. THE Estimated Kidney Disease GFR is validated for AGES 18-70 YEARS STAGE ?mL/Min ?DESCRIPTION ??1 ?90 mL/min or more ?Normal or elevated GFR ??2 ? 60-89 mL/min ?Mildly decreased GFR ??3 ? 30-59 mL/min ?Moderately decreased GFR ??4 ? 15-29 mL/min ?Severely decreased GFR ??5 ? <15 mL/min ? Kidney failure or on dialysis @ Est GFR (Cockcroft-G) 100 ml/MIN Comment: Estimated GFR(Cockroft-Gault)is used to calculate patient medication dosage Calcium 9.2 8.6 - 10.0 mg/dL 07/13/2017 7:33 AM CDT 07/13/2017 7:43 AM CDT Marlyn Escobar MD LAB BLOOD ORDERABLES Fin al Result Performing Organization Address [facility] Co de Phone Number [facility] HISTORICAL RESULTS * (ABNORMAL) Hemoglobin A1c (07/13/2017 7:33 AM CDT) [facility] Signature Hemoglobin A1c % 7.0(H) 4.8 - 5.9 % 07/13/2017 8:03 AM CDT [facility] HISTORICAL RESULTS Comment: [place] [employer] recommends that the goal of therapy should be an A1C hemoglobin of <7%. Reevaluate the treatment regimen in patients with an A1C >8%. 07/13/2017 7:33 AM CDT 07/13/2017 7:43 AM CDT Marlyn Escobar MD LAB BLOOD ORDERABLES Barry abdi Result Performing Organization Address [facility] Co de Phone Number [facility] HISTORICAL RESULTS * Microbiology Specimen Report (Converted) (07/12/2017 9:12 AM CDT) 07/12/2017 9:12 AM CDT 07/12/2017 9:19 AM CDT Narrative [facility] HISTORICAL RESULTS - 07/12/2017 9:12 AM CDT Microbiology Specimen Report (Converted) SPECIMEN [id number] ?? COLLECTED: 2017-07-12 09:12:00 levar ?? REQ#: [id number] REQUESTING DR: Feroz Venegas MD ?? SOURCE: TOE R 2ND ?? SP DESC: SWAB COMMENT: Collected By levar ?? --- PROCEDURE --- ?--- RESULT --- ?? GRAM STAIN ??(Final) ??- ??Performed at [facility] ?* MANY GRAM POSITIVE COCCI ?* MANY RBC ?* MANY WBC ?* RARE GRAM POSITIVE BACILLI CULTURE WOUND ??(Final) ??- ??Performed at [facility] ?? * Organism 1 - ESCHERICHIA COLI [E COLI] ?* LIGHT GROWTH ?* SEE SUSCEPTIBILITY REPORT BELOW ?? * Organism 2 - STREPTOCOCCUS GROUP B [STREP GR B] ?* LIGHT GROWTH ? Group B Streptococci are universally susceptibile to ? ampicillin, penicillin, cefazolin, and vancomycin. Routine ? susceptibility testing is not performed. Treatment failure ? with clindamycin exists. Use of cefazolin in non-severe ? penicllin allergies or vancomycin in severe penicillin ? allergies is recommended. ? [E COLI] ? M.I.C. ?RX AMOXICILLIN/CLAVULANIC ACID ?4 ? S AMPICILLIN ? >=32 ?R AMPICILLIN/SULBACTAM ? 4 ? S CEFAZOLIN ?<=4 ? S CEFEPIME ? <=1 ? S CEFTRIAXONE ?<=1 ? S CIPROFLOXACIN ?>=4 ? R ERTAPENEM ?<=0.5 ? S GENTAMICIN ? <=1 ? S IMIPENEM ? <=0.25 ?S LEVOFLOXACIN ? >=8 ? R PIPERACILLIN/TAZOBACTAM ?<=4 ? S TRIMETHOPRIM/SULFAMETHOXAZOLE ??<=20 ?S TOBRAMYCIN ? <=1 ? S ??S=Susceptible ?? I=Intermediate ?? S=Resistant ??SDD=Susceptible Dose Dependent ?? N/R=No Report ?[facility] =[facility] - [facility] ? [address] ? [place] [address] ? Antonio Lucas MD Procedure Note 12/18/2018 Microbiology Specimen Report (Converted) SPECIMEN [id number] COLLECTED: 2017-07-12 09:12:00 levar REQ#:[id number] REQUESTING DR: Feroz Venegas MD SOURCE: TOE R 2ND SP DESC: SWAB COMMENT: Collected By levar --- PROCEDURE --- --- RESULT --- GRAM STAIN (Final) - Performed at [facility] * MANY GRAM POSITIVE COCCI * MANY RBC * MANY WBC * RARE GRAM POSITIVE BACILLI CULTURE WOUND (Final) - Performed at [facility] * Organism 1 - ESCHERICHIA COLI [E COLI] * LIGHT GROWTH * SEE SUSCEPTIBILITY REPORT BELOW * Organism 2 - STREPTOCOCCUS GROUP B [STREP GR B] * LIGHT GROWTH Group B Streptococci are universally susceptibile to ampicillin, penicillin, cefazolin, and vancomycin. Routine susceptibility testing is not performed. Treatment failure with clindamycin exists. Use of cefazolin in non-severe penicllin allergies or vancomycin in severe penicillin allergies is recommended. [E COLI] M.I.C. RX AMOXICILLIN/CLAVULANIC ACID 4 S AMPICILLIN >=32 R AMPICILLIN/SULBACTAM 4 S CEFAZOLIN <=4 S CEFEPIME <=1 S CEFTRIAXONE <=1 S CIPROFLOXACIN >=4 R ERTAPENEM <=0.5 S GENTAMICIN <=1 S IMIPENEM <=0.25 S LEVOFLOXACIN >=8 R PIPERACILLIN/TAZOBACTAM <=4 S TRIMETHOPRIM/SULFAMETHOXAZOLE <=20 S TOBRAMYCIN <=1 S S=Susceptible I=Intermediate S=Resistant SDD=Susceptible Dose Dependent N/R=No Report HALIMA =Beta Lactamase - [address] [address] Antonio Lucas MD Feroz Venegas MD LAB BLOOD ORDERABLES Final Result [facility] HISTORICAL RESULTS * MRI Lower Ext Non-Joint Right (07/12/2017 12:00 AM CDT) Anatomical Region Laterality Modality Body N/A Magnetic Resonan ce 07/12/2017 Impressions 07/12/2017 2:45 PM CDT ?? 1. ??There is skin irregularity of the distal dorsal aspect of the second toe indicative of the area of debridement described in the history and/or ulceration. ??There is surrounding inflammatory change/cellulitis extending circumferentially about the second toe extending proximally tapering along the proximal phalanx. 2. ??No underlying abscess. 3. ??There is osteomyelitis of the distal phalanx of the right second toe. 4. ??Minimal tenosynovitis flexor tendon at the level of the PIP joint of the second toe. 5. ??There is more diffuse myositis of the intrinsic musculature of the forefoot. THIS IS AN ELECTRONICALLY VERIFIED REPORT 07/12/2017 2:42 PM: ??Chucky Tolentino M.D. ?? Chucky Tolentino M.D. MJ:ailyn 02:42 PM 02:42 PM [facility] [EOD] Narrative 07/12/2017 2:45 PM CDT EXAMINATION: ??MRI right forefoot without IV contrast. HISTORY: ??Pain and swelling right second toe with worsening symptoms since July 10, 2017. ??Debridement was performed this morning. COMPARISON: ??X-rays 07/11/2017. TECHNIQUE: ??Multiplanar MRI images of the right forefoot were obtained without IV contrast. FINDINGS: ??There is abnormal irregular decreased T1 and increased T2 signal seen along the distal dorsal aspect of the second toe. ??Skin irregularity suggests ulceration/focus of debridement as described in the history today. ?? No underlying focal fluid collection to suggest a deeper abscess. ??There is surrounding inflammatory change of the soft tissues more prominent about the dorsal surface, but extending circumferentially about the distal aspect of the second toe tapering towards the more proximal aspect of the proximal phalanx. There is abnormal decreased T1 and increased T2 signal of the distal phalanx indicating osteomyelitis of the distal phalanx of the second toe. ??There is no evidence of osteomyelitis of the remainder of the phalanges of the second toe. Minimal tenosynovitis of the flexor tendon to the second toe at the level of the PIP joint.The remainder of the forefoot demonstrates normal marrow signal with no other evidence of osteomyelitis. ??There is mild osteoarthritis of the first MTP joint. there is diffuse increased T2 signal seen of the intrinsic musculature of the forefoot indicating myositis. ??No focal fluid collection otherwise. ??The flexor and extensor tendons are otherwise intact. Procedure Note Provider, MD aNsra - 02/12/2021 EXAMINATION: MRI right forefoot without IV contrast. HISTORY: Pain and swelling right second toe with worsening symptoms since July 10, 2017. Debridement was performed this morning. COMPARISON: X-rays 07/11/2017. TECHNIQUE: Multiplanar MRI images of the right forefoot were obtainedwithout IV contrast. FINDINGS: There is abnormal irregular decreased T1 and increased H0mgxlqm seen along the distal dorsal aspect of the second toe. Skin irregularity suggests ulceration/focus of debridement as described in the historytoday. No underlying focal fluid collection to suggest a deeper abscess. Thereis surrounding inflammatory change of the soft tissues more prominent aboutthe dorsal surface, but extending circumferentially about the distal aspect ofthe second toe tapering towards the more proximal aspect of the proximalphalanx. There is abnormal decreased T1 and increased T2 signal of the distalphalanx indicating osteomyelitis of the distal phalanx of the second toe. Thereis no evidence of osteomyelitis of the remainder of the phalanges of the secondtoe. Minimal tenosynovitis of the flexor tendon to the second toe at the levelof the PIP joint.The remainder of the forefoot demonstrates normal marrowsignal with no other evidence of osteomyelitis. 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 there is diffuse increased T2 signal seen of the intrinsic musculature ofthe forefoot indicating myositis. No focal fluid collection otherwise. The flexor and extensor tendons are otherwise intact. IMPRESSION: 1. There is skin irregularity of the distal dorsal aspect of the secondtoe indicative of the area of debridement described in the history and/or ulceration. There is surrounding inflammatory change/cellulitis extending circumferentially about the second toe extending proximally tapering alongthe proximal phalanx. 2. No underlying abscess. 3. There is osteomyelitis of the distal phalanx of the right secondtoe. 4. Minimal tenosynovitis flexor tendon at the level of the PIP joint ofthe second toe. 5. There is more diffuse myositis of the intrinsic musculature of the forefoot. THIS IS AN ELECTRONICALLY VERIFIED REPORT 07/12/2017 2:42 PM: Chucky Tolentino M.D. Chucky Tolentino M.D. MJ:ailyn 02:42 PM 02:42 PM [facility] [EOD] Chucky Akbar IM MRI PROCEDURES Nolvia l Result * Microbiology Specimen Report (Converted) (07/11/2017 7:05 PM CDT) 07/11/2017 7:05 PM CDT 07/11/2017 7:10 PM CDT Narrative [facility] HISTORICAL RESULTS - 07/11/2017 7:05 PM CDT Microbiology Specimen Report (Converted) SPECIMEN [id number] ?? COLLECTED: 2017-07-11 19:05:00 [id number] ?? REQ#: [id number] REQUESTING DR: Kerry Avila NP ?? SOURCE: BLOOD ?? SP DESC: --- PROCEDURE --- ?--- RESULT --- ?? CULTURE BLOOD ADULT (SET OF 2) ??(Final) ??- ??Performed at [facility] ?* NO GROWTH DAY 5 - [facility] ? [address] [place] [address] ? [place] [address] ? Antonio Lucas MD Procedure Note 12/18/2018 Microbiology Specimen Report (Converted) SPECIMEN [id number] COLLECTED: 2017-07-11 19:05:00 [id number] REQ#:[id number] REQUESTING DR: Kerry Avila NP SOURCE: BLOOD SP DESC: --- PROCEDURE --- --- RESULT --- CULTURE BLOOD ADULT (SET OF 2) (Final) - Performed at [facility] * NO GROWTH DAY 5 [place] [address] Antonio Lucas MD us Kerry Avila NP LAB BLOOD ORDERABLES Final Resu lt [facility] HISTORICAL RESULTS * Lactate (07/11/2017 7:05 PM CDT) [facility] L-Lactate 1.3 mmol/L 07/11/2017 8:10 PM CDT [facility] HISTORICAL RESULTS Comment:Lactate Reference Ra nge: 0.5 - 2.2 mmol/L 07/11/2017 7:05 PM CDT 07/11/2017 7:10 PM CDT Narrative [facility] HISTORICAL RESULTS - 07/11/2017 8:10 PM CDT us Kerry Avila NP LAB BLOOD ORDERABLES Final Resu lt Performing Organization Address [facility]/ZIP Co de Phone Number [facility] HISTORICAL RESULTS * Microbiology Specimen Report (Converted) (07/11/2017 6:59 PM CDT) 07/11/2017 6:59 PM CDT 07/11/2017 7:10 PM CDT Narrative [facility] HISTORICAL RESULTS - 07/11/2017 6:59 PM CDT Microbiology Specimen Report (Converted) SPECIMEN [id number] ?? COLLECTED: 2017-07-11 18:59:00 [id number] ?? REQ#: [id number] REQUESTING DR: Kerry Avila NP ?? SOURCE: BLOOD ?? SP DESC: --- PROCEDURE --- ?--- RESULT --- ?? CULTURE BLOOD ADULT (SET OF 2) ??(Final) ??- ??Performed at [facility] ?* NO GROWTH DAY 5 - [facility] ? [address] ? [place] [address] ? Antonio Lucas MD Procedure Note 12/18/2018 Microbiology Specimen Report (Converted) SPECIMEN [id number] COLLECTED: 2017-07-11 18:59:00 [id number] REQ#:[id number] REQUESTING DR: Kerry Avila NP SOURCE: BLOOD SP DESC: --- PROCEDURE --- --- RESULT --- CULTURE BLOOD ADULT (SET OF 2) (Final) - Performed at [facility] * NO GROWTH DAY 5 - [facility] [address] [place] [address] Antonio Lucas MD us Kerry Avila NP LAB BLOOD ORDERABLES Final Resu lt Performing Organization Address City/[facility]/ZIP Co de Phone Number [facility] HISTORICAL RESULTS * (ABNORMAL) Comprehensive metabolic panel (07/11/2017 6:59 PM CDT) Sodium 136 135 - 145 mmol/L Potassium 4.4 3.3 - 5.1 mmol/L Chloride 96 96 - 108 mmol/L Carbon Dioxide 27 22 - 32 mmol/L Anion Gap 13 7 - 16 Glucose 135(H) 70 - 100 mg/dL BUN 25(H) 6 - 20 mg/dL Creatinine 1.1 0.5 - 1.3 mg/dL Comment: NOTE: Estimated GFR (Cockroft-Gault) will NOT be calculated unless patient Height and Weight were entered. Also, Kidney Disease Stage (GFR) and Estimated GFR (Cockroft-Gault) will NOT be calculated if Creatinine result is <0.2. Kidney Disease Stage 74 mL/MIN Comment: NOTE; ??The GFR is an estimated value using the creatinine, sex, age, and race of the patient. THE Estimated Kidney Disease GFR is validated for AGES 18-70 YEARS STAGE ?mL/Min ?DESCRIPTION ??1 ?90 mL/min or more ?Normal or elevated GFR ??2 ? 60-89 mL/min ?Mildly decreased GFR ??3 ? 30-59 mL/min ?Moderately decreased GFR ??4 ? 15-29 mL/min ?Severely decreased GFR ??5 ? <15 mL/min ? Kidney failure or on dialysis @ Est GFR (Cockcroft-G) 90 ml/MIN 07/11/2017 8:10 PM T [facility] HISTORICAL RESULTS Comment: Estimated GFR(Cockroft-Gault)is used to calculate patient medication dosage Calcium 10.2(H) 8.6 - 10.0 mg/dL 07/11/2017 8:10 PM T [facility] HISTORICAL RESULTS Total Protein 7.9 6.4 - 8.3 g/dL 07/11/2017 8:10 PM T [facility] HISTORICAL RESULTS Albumin 4.3 3.5 - 5.2 g/dL 07/11/2017 8:10 PM T [facility] HISTORICAL RESULTS Globulin 3.6(H) 2.3 - 3.5 gm/dL 07/11/2017 8:10 PM T [facility] HISTORICAL RESULTS Albumin/Globulin Ratio 1.2 1.1 - 1.8 07/11/2017 8:10 PM T [facility] HISTORICAL RESULTS Total Bilirubin 0.5 0.0 - 1.2 mg/dL 07/11/2017 8:10 PM T [facility] HISTORICAL RESULTS AST 23 0 - 40 U/L 07/11/2017 8:10 PM T [facility] HISTORICAL RESULTS ALT 27 0 - 41 U/L Alkaline Phosphatase 68 40 - 129 U/L 07/11/2017 6:59 PM CDT 07/11/2017 7:10 PM CDT us Kerry Avila FLORIST'S DECORATOR LAB BLOOD ORDERABLES Final Resu lt [facility] HISTORICAL RESULTS * (ABNORMAL) CBC with auto differential (07/11/2017 6:59 PM CDT) WBC 8.8 4.6 - 10.2 x10 3/ul Comment:Results Reviewed RBC 5.80(H) 4.11 - 5.71 x10 6/ul 07/11/2017 7:39 PM CDT [facility] Hemoglobin 17.4(H) 13.0 - 17.0 g/dl 07/11/2017 7:39 PM CDT [facility] H[facility] RESULTS Hct 50.2(H) 38.2 - 48.5 % MCV 86.6 80.0 - 97.0 fl MCH 30.0 27.0 - 31.2 pg MCHC 34.7 31.8 - 35.4 g/dl RDW 12.9 11.6 - 14.8 % Plt Count 192 124 - 400 x10 3/ul MPV 10.0 7.4 - 10.4 fl 07/11/2017 7:39 PM CDT [facility] HISTORICAL RESULTS Neut % 75.4 37.0 - 85.0 % 07/11/2017 7:39 PM CDT [facility] HISTORICAL RESULTS Immature Gran % 0.3 0.0 - 3.0 % Lymph % 15.7 5.0 - 45.0 % [place] % 7.2 3.0 - 15.0 % Eos % 1.1 0.0 - 7.0 % Baso % 0.3 0.0 - 2.0 % Absolute Neuts (auto) 6.6 1.7 - 8.7 x10 3/ul 07/11/2017 7:39 PM T [facility] HISTORICAL RESULTS Immature Gran # 0.0 0.0 - 0.3 x10 3/ul Absolute Lymphs (auto) 1.4 0.2 - 4.6 x10 3/ul Absolute Monos (auto) 0.6 0.1 - 1.5 x10 3/ul Absolute Eos (auto) 0.1 0.0 - 0.7 x10 3/ul Absolute Basos (auto) 0.0 0.0 - 0.2 x10 3/ul Nucleat RBC Rel Count 0.0 0 - 3 #/100WBC Absolute Nucleated RBC 0.00 x10 3/ul Absolute Neutrophils 6600 200 - 8000 /ul 07/11/2017 6:59 PM CDT 07/11/2017 7:10 PM CDT us Kerry Avila FLORIST'S DECORATOR LAB BLOOD ORDERABLES Final Resu lt [facility] HISTORICAL RESULTS * XR Toe 2nd Digit Right Minimum 2 Views (07/11/2017 12:00 AM CDT) Anatomical Region Laterality Modality Lower Extremities, Foot, Toes Right Ra diographic Imaging 07/11/2017 Narrative 07/11/2017 7:33 PM CDT Right second toe HISTORY: ??Pain and swelling since last night FINDINGS: ??3 views were obtained. ??No comparison. There is no fracture or malalignment. ??No osseous lytic or sclerotic lesion to suggest osteomyelitis. ??There is swelling of the distal second digit along with gas seen within the soft tissues suggesting infection with gas-forming organism. Impression: ??There is no radiographic evidence of osteomyelitis. ??Cellulitis of the distal second digit. THIS IS AN ELECTRONICALLY VERIFIED REPORT 07/11/2017 7:30 PM: ??Arik Santos M.D. ?? Arik Santos M.D. DS:estuardo 07:30 PM T: :30 PM MON [EOD] Procedure Note Provider, MD Nasra - 02/12/2021 Right second toe HISTORY: Pain and swelling since last night FINDINGS: 3 views were obtained. No comparison. There is no fracture or malalignment. No osseous lytic or scleroticlesion to suggest osteomyelitis. There is swelling of the distal second digit along with gas seen within the soft tissues suggesting infection withgas-forming organism. Impression: There is no radiographic evidence of osteomyelitis.Cellulitis of the distal second digit. THIS IS AN ELECTRONICALLY VERIFIED REPORT 07/11/2017 7:30 PM: Arik Santos M.D. Arik Santos M.D. 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
--- OUTSIDE RECORDS SUMMARY | 2024-09-29 02:58 | XMS_ITS | Encounter Summary ---
Author Organization [facility] Healthcare Address [facility] [place] [address] Care Team Providers Care Loom Changeover Operator Name Role Phone No, Physician Primary Care Provider [phone] Encounter Details Date Type Department Care Team (Late st Contact Info) Description 08/12/[address] [address] Kerry Myrick, RN Social History Tobacco Use Types Packs/Day Years Used Date Smoking Tobacco: Never Assessed Sex and Gender Information Value Date Recorded Sex Assigned at Not on file Legal Sex Male 1:55 AM SHUTTLE SPOTTER Gender Identity Not on file Sexual Orientation Not on file documented as of this encounter ED Notes * Kerry Myrick RN - 08/12/2021 11:08 AM CST Poke with pt and informed him of + RSV instructed to follow up with PCP Kerry Myrick, RN 08/12/21 1110 TLE SPOTTER documented in this encounter Miscellaneous Notes * Telephone Encounter - Kerry Myrick RN - 08/12/2021 11:08 AM CST ----- Message from GILBERTO De Leon sent at 08/04/2021 4:39 PM SHUTTLE SPOTTER ----- Patient is positive for RSV, please contact patient for well check and advise of positive test results TLE SPOTTER documented in this encounter Plan of Treatment Not on file documented as of this encounter Visit Diagnoses Not on filedocumented in this encounter Care Teams Loom Changeover Operator Relationship Specialty Start Date End Date No, Physician PCP - General 08/02/21 documented as of this encounter
--- OUTSIDE RECORDS SUMMARY | 2024-09-29 02:58 | XMS_ITS | Encounter Summary ---
Author Organization [facility] Facility Care Team Providers Care Hot Dog Vendor Name Role Phone No, Physician Primary Care Provider [phone] Encounter Details Date Type Department Care Team (Latest Contact Info) Description 07/14/2017 Orders Only [facility] CLINCONV Provider, MD Nasra [address] [place], [place] [id number] Social History Tobacco Use Types Packs/Day Years Used Date Smoking Tobacco: Never Assessed Sex and Gender Information Value Date Recorded Sex Assigned at Not on file Legal Sex Male 1:55 AM TECHNICAL SPECIALIST CYTOLOGY Gender Identity Not on file Sexual Orientation Not on file documented as of this encounter Plan of Treatment Not on file documented as of this encounter Procedures Procedure Name Priority Date/Time Associated Diagnosis Comments SCAN - PATHOLOGY 07/16/2017 12:0 0 AM CDT documented in this encounter Results * SCAN - PATHOLOGY (07/16/2017 12:00 AM CDT) Narrative 07/16/2017 12:00 AM CDT Ordered by an unspecified provider. Historical Provider Final Res ult documented in this encounter Visit Diagnoses Not on filedocumented in this encounter Additional Health Concerns Infection Onset Date Last Indicated Resolved Time COVID: Suspected 08/02/2021 08/02/2021 08/02/2021 8:46 PM CDT RSV, droplet 08/02/2021 08/02/2021 08/09/2021 3:05 AM TECHNICAL SPECIALIST CYTOLOGY documented as of this encounter Care Teams Hot Dog Vendor Relationship Specialty Start Date End Date No, Physician PCP - General 08/02/21 documented as of this encounter
--- OUTSIDE RECORDS SUMMARY | 2024-09-29 02:58 | XMS_ITS | Referral Summary ---
Author Organization [facility] Address [address] [place] [address] Care Team Providers Care Template Layout Worker Name Role Phone No, Physician Primary Care Provider [phone] Allergies No known active allergies Medications fluticasone propionate (FLONASE) 50 mcg/actuation nasal spray Administer 1 spray into each nostril daily 16 g 1 Active benzonatate (TESSALON) 100 mg capsuleIndicati ons:Cough Take 1 capsule (100 mg total) by mouth every 8 (eight) hours 21 capsule 1 Active Social History Tobacco Use Types Packs/Day Years Used Date Smoking Tobacco: Never Assessed Personal Safety Answer Date Recorded Getting School Help Needed Not on file 12/12 Sex and Gender Information Value Date Recorded Sex Assigned at Not on file Legal Sex Male 1:55 AM COORDINATOR VOLUNTEER SERVICES Gender Identity Not on file Sexual Orientation [...] Mass Index 29.42 08/02/2021 7:36 PM CDT Plan of Treatment Not on file Insurance [facility] Care Teams Template Layout Worker Relationship Specialty Start Date End Date No, Physician PCP - General 08/02/21
--- OUTSIDE RECORDS SUMMARY | 2024-09-29 02:58 | XMS_ITS | Encounter Summary ---
Author Organization [facility] Address [address] [place] [address] Care Team Providers Care Slab Polisher Name Role Phone Unavailable Primary Care Provider Unavailabl e Encounter Details Date Type Department Care Team (Late st Contact Info) Description 07/09/2017 7:30 PM CDT - 07/09/2017 11:15 PM CDT Hospital Encounter [facility] Antonio Guzmán MD [address] [place] [address] Dizziness and giddiness; Type 2 diabetes mellitus without complications (CMS/HCC); care home current use of oral hypoglycemic drug; Other prison (current) drug therapy Social History Tobacco Use Types Packs/Day Years Used Date Smoking Tobacco: Never Assessed Sex and Gender Information Value Date Recorded Sex Assigned at Not on file 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 Gender Identity Not on file Sexual Orientation Not on file documented as of this encounter Last Filed Vital Signs Vital Sign Reading Time Taken Comments Blood Pressure 151/91 07/09/2017 7:45 PM CDT Pulse 85 07/09/2017 7:45 PM CDT Temperature 36.7 ??C (98 ??F) 07/09/2017 7:45 PM CDT Respiratory Rate - - Oxygen Saturation 95% 07/09/2017 7:45 PM CDT Inhaled Oxygen Concentration - - Weight 100.8 kg (222 lb 3.6 oz) 07/09/2017 7:45 PM CDT Height 182.9 cm (6') 07/09/2017 7:45 PM CDT Body Mass Index 30.14 07/09/2017 7:45 PM CDT documented in this encounter Plan of Treatment Not on file documented as of this encounter Procedures Procedure Name Priority Date/Time Associated Diagnosis Comments URINALYSIS AND REFLEX TO MICROSCOPIC AND CULTURE Routine 07/09/2017 8:02 PM CDT HEMOGRAM WITH MANUAL DIFFERENTIAL Routine 07/09/2017 7:54 PM CDT TROPONIN I Routine 07/09/2017 7:54 PM CDT APTT Routine 07/09/2017 7:54 PM CDT PROTIME-INR Routine 07/09/2017 7:54 PM CDT MAGNESIUM Routine 07/09/2017 7:54 PM CDT CREATINE KINASE (CK), TOTAL Routine 07/09/2017 7:54 PM CDT COMPREHENSIVE METABOLIC PANEL Routine 07/09/2017 7:54 PM CDT XR CHEST PA LATERAL 2 VIEWS Routine 07/09/2017 7:[address] HEAD WO CONTRAST Routine 07/09/2017 7 :43 PM CDT documented in this encounter Results * (ABNORMAL) Urinalysis reflex to microscopic and culture (07/09/2017 8:02 PM CDT) Ur Collection Type CLEAN CATCH Ur Culture Indicated? C&S NOT INDICATED Urine Color YELLOW YELLOW Urine Clarity CLEAR CLEAR Urine Glucose (UA) >=500(H) NORMAL mg/dL Urine Bilirubin NEGATIVE NEGATIVE mg/dl 07/09/2017 8:27 PM [facility] Urine Ketones 5(H) NEGATIVE mg/dL Ur Specific [place] 1.029(H) 1.005 - 1.025 Urine Blood 0.2(H) NEGATIVE mg/dl Urine pH 5.0 5.0 - 8.0 Urine Protein 100(H) NEGATIVE mg/dL Urine Urobilinogen NORMAL NORMAL mg/dL Urine Nitrite NEGATIVE NEGATIVE Ur Leukocyte Esterase NEGATIVE NEGATIVE [place]/ul Ur Microscopic Review Indicated or Ordered Urine RBC 2 0 - 2 /HPF Urine WBC 1 0 - 2 /HPF Urine Mucus RARE /LPF 07/09/2017 8:02 PM CDT 07/09/2017 8:19 PM CDT Narrative [facility] HISTORICAL RESULTS - 07/09/2017 8:27 PM CDT Indication(s) for ordering ? Pain-pelv/flank/suprapubc ?? us Marlyn Tapia BUSINESS ANALYSIS PROFESSIONAL LAB MICROBIOLOGY - GENERAL O RDERABLES Final Result [facility] HISTORICAL RESULTS * Magnesium (07/09/2017 7:54 PM CDT) Magnesium 1.6 1.6 - 2.6 mg/dL Comment:Magnesium sulfate th erapy: 3.0-9.1 mg/dL 07/09/2017 7:54 PM CDT 07/09/2017 7:58 PM CDT us Marlyn Tapia BUSINESS ANALYSIS PROFESSIONAL LAB BLOOD ORDERABLES Final R esult [facility] HISTORICAL RESULTS * (ABNORMAL) Hemogram with manual differential (07/09/2017 7:54 PM CDT) WBC 20.3(H) 4.6 - 10.2 x10 3/ul 07/09/2017 8:02 PM CDT [facility] [employer] HISTORICAL RESULTS RBC 5.33 4.11 - 5.71 x10 6/ul 07/09/2017 8:02 PM CDT [facility] [employer] HISTORICAL RESULTS Hemoglobin 16.3 13.0 - 17.0 g/dl 07/09/2017 8:02 PM CDT [facility] [employer] HISTORICAL RESULTS Hct 45.4 38.2 - 48.5 % 07/09/2017 8:02 PM CDT [facility] [employer] HISTORICAL RESULTS MCV 85.2 80.0 - 97.0 fl 07/09/2017 8:02 PM CDT [facility] [employer] HISTORICAL RESULTS MCH 30.6 27.0 - 31.2 pg 07/09/2017 8:02 PM CDT [facility] [employer] HISTORICAL RESULTS MCHC 35.9(H) 31.8 - 35.4 g/dl 07/09/2017 8:02 PM CDT [facility] [employer] HISTORICAL RESULTS RDW 12.7 11.6 - 14.8 % 07/09/2017 8:02 PM CDT [facility] [employer] HISTORICAL RESULTS Plt Count 200 124 - 400 x10 3/ul 07/09/2017 8:02 PM CDT [facility] [employer] HISTORICAL RESULTS MPV 9.7 7.4 - 10.4 fl 07/09/2017 8:02 PM CDT [facility] [employer] HISTORICAL RESULTS Neut % 89.7(H) 37.0 - 85.0 % 07/09/2017 8:02 PM CDT [facility] [employer] HISTORICAL RESULTS Immature Gran % 0.5 0.0 - 3.0 % 07/09/2017 8:02 PM CDT [facility] [employer] HISTORICAL RESULTS Lymph % 4.5(L) 5.0 - 45.0 % 07/09/2017 8:02 PM CDT [facility] [employer] HISTORICAL RESULTS [place] % 4.5 3.0 - 15.0 % Eos % 0.5 0.0 - 7.0 % Baso % 0.3 0.0 - 2.0 % Absolute Neuts (auto) 18.1(H) 1.7 - 8.7 x10 3/ul Immature Gran # 0.1 0.0 - 0.3 x10 3/ul Absolute Lymphs (auto) 0.9 0.2 - 4.6 x10 3/ul Absolute Monos (auto) 0.9 0.1 - 1.5 x10 3/ul Absolute Eos (auto) 0.1 0.0 - 0.7 x10 3/ul Absolute Basos (auto) 0.1 0.0 - 0.2 x10 3/ul Nucleat RBC Rel Count 0.0 0 - 3 #/100WBC Absolute Nucleated RBC 0.00 x10 3/ul Platelet Evaluation AGREE AGREE Comment:Slide review of plat elets correlates with instrument count. RBC Morphology NORMAL NORMAL Absolute Neutrophils 50438(H) 200 - 8000 /ul 07/09/2017 7:54 PM CDT 07/09/2017 7:58 PM T us Marlyn Tapia BUSINESS ANALYSIS PROFESSIONAL LAB BLOOD ORDERABLES Final R [facility] Performing Organization Address [facility] Co de Phone Number [facility] HISTORICAL RESULTS * Creatine kinase (CK), total (07/09/2017 7:54 PM CDT) [facility] Creatine Kinase 117 20 - 200 U/L 07/09/2017 7:54 PM CDT 07/09/2017 7:58 PM CDT Marlyn Tapia BUSINESS ANALYSIS PROFESSIONAL LAB BLOOD ORDERABLES Final R [facility] Performing Organization Address [facility] de Phone Number [facility] HISTORICAL RESULTS * Troponin I (07/09/2017 7:54 PM CDT) [facility] Troponin I < 0.300 0.000 - 0.300 ng/mL Comment: Reference using LIGIA Chemiluminescence ? Negative: Repeat in 4-6 hours as indicated. 07/09/2017 7:54 PM CDT 07/09/2017 7:58 PM CDT Marlyn Tapia BUSINESS ANALYSIS PROFESSIONAL LAB BLOOD ORDERABLES Final R [facility] Performing Organization Address [facility] de Phone Number [facility] HISTORICAL RESULTS * Protime-INR (07/09/2017 7:54 PM CDT) [facility] PT 12.1 11.8 - 14.5 SECONDS INR 0.90 0.01 - 5.99 Comment: Recommended Therapeutic range for Oral Anticoagulant Therapy No anti-coagulation therapy ? Normal Range: ?0.8-1.4 Anti-coagulation therapy ? Low intensity therapy ?2.0-3.0 ? High intensity therapy ?? 2.5-3.5 Critical Value ? Greater than or equal to 6.0 Patients should be monitored for serious bleeding. ?? 07/09/2017 7:54 PM CDT 07/09/2017 7:58 PM CDT Marlyn Tapia BUSINESS ANALYSIS PROFESSIONAL LAB BLOOD ORDERABLES Final R [facility] Performing Organization Address [facility] de Phone Number [facility] HISTORICAL RESULTS * aPTT (07/09/2017 7:54 PM CDT) APTT 27 26 - 33 SECONDS 07/09/2017 7:54 PM CDT 07/09/2017 7:58 PM CDT Marlyn Tapia BUSINESS ANALYSIS PROFESSIONAL LAB BLOOD ORDERABLES Final R [facility] Performing Organization Address [facility] de Phone Number [facility] HISTORICAL RESULTS * (ABNORMAL) Comprehensive metabolic panel (07/09/2017 7:54 PM CDT) Sodium 132(L) 135 - 145 mmol/L Potassium 4.3 3.3 - 5.1 mmol/L Chloride 95(L) 96 - 108 mmol/L Carbon Dioxide 24 22 - 32 mmol/L Anion Gap 13 7 - 16 Glucose 117(H) 70 - 100 mg/dL BUN 20 6 - 20 mg/dL Creatinine 0.9 0.5 - 1.3 mg/dL Comment: NOTE: Estimated GFR (Cockroft-Gault) will NOT be calculated unless patient Height and Weight were entered. Also, Kidney Disease Stage (GFR) and Estimated GFR (Cockroft-Gault) will NOT be calculated if Creatinine result is <0.2. Kidney Disease Stage > 90 mL/MIN Comment: NOTE; ??The GFR is an [...] or on dialysis @ Est GFR (Cockcroft-G) 113 ml/MIN Comment: Estimated GFR(Cockroft-Gault)is used to calculate patient medication dosage Calcium 9.8 8.6 - 10.0 mg/dL Total Protein 6.9 6.4 - 8.3 g/dL Albumin 4.3 3.5 - 5.2 g/dL Globulin 2.6 2.3 - 3.5 gm/dL Albumin/Globulin Ratio 1.7 1.1 - 1.8 Total Bilirubin 0.4 0.0 - 1.2 mg/dL AST 26 0 - 40 U/L ALT 29 0 - 41 U/L Alkaline Phosphatase 66 40 - 129 U/L 07/09/2017 7:54 PM CDT 07/09/2017 7:58 PM CDT us Marlyn Tapia BUSINESS ANALYSIS PROFESSIONAL LAB BLOOD ORDERABLES Final R esult [facility] HISTORICAL RESULTS * XR Chest Pa Lateral 2 Views (07/09/2017 7:44 PM CDT) Anatomical Region Laterality Modality Body, Chest N/A Radiographic Teresa ging 07/09/2017 7:44 PM CDT Impressions 07/09/2017 8:23 PM CDT No acute cardiopulmonary process identified. THIS IS AN ELECTRONICALLY VERIFIED REPORT 07/09/2017 8:20 PM: ??Antoni Fernandez M.D. ?? Antoni Fernandez M.D. JA:jamin 08:20 PM 08:20 PM BM [EOD] Narrative 07/09/2017 8:23 PM CDT RADIOLOGIC EXAMINATION(S): CR CHEST 2V CLINICAL HISTORY: ??Dizziness at work today COMPARISON: ??None available FINDINGS: PA and lateral view of the chest are reviewed. The cardiac silhouette is within normal limits. The lung reyes are clear. Soft tissues and osseous structures demonstrate no acute abnormality. Procedure Note Provider, MD Nasra - 02/12/2021 RADIOLOGIC EXAMINATION(S): CR CHEST 2V CLINICAL HISTORY: Dizziness at work today COMPARISON: None available FINDINGS: PA and lateral view of the chest are reviewed. The cardiac silhouette is within normal limits. The lung reyes are clear. Softtissues and osseous structures demonstrate no acute abnormality. IMPRESSION: No acute cardiopulmonary process identified. THIS IS AN ELECTRONICALLY VERIFIED REPORT 07/09/2017 8:20 PM: Antoni Fernandez M.D. Abraham Otero:jamin 08:20 PM 08:20 PM [facility] [EOD] us Marlyn Tapia BUSINESS ANALYSIS PROFESSIONAL IMG XR PROCEDURES Final Resu lt * CT Head WO Contrast (07/09/2017 7:43 PM CDT) Anatomical Region Laterality Modality Head and Neck N/A Computed Tomogra phy 07/09/2017 7:43 PM CDT Impressions 07/09/2017 8:50 PM CDT No acute intracranial abnormality. 1.3 x 0.5 cm calcified meningioma adjacent to the right parietal lobe. Automated exposure control was used as a dose optimization technique for this examination. THIS IS AN ELECTRONICALLY VERIFIED REPORT 07/09/2017 8:47 PM: ??Antoni Fernandez M.D. ?? Abraham Otero:jamin 08:47 PM 08:47 PM [facility] [EOD] Narrative 07/09/2017 8:50 PM CDT PROCEDURE: CT HEAD WITHOUT CONTRAST. HISTORY: Dizziness today. COMPARISON: None available TECHNIQUE: Multiple contiguous axial 5mm sections were obtained from the skull base to the vertex without intravenous contrast. FINDINGS: ?? The cortical-sulcal pattern is unremarkable. ??The ventricles, subarachnoid spaces, and basal cisterns are normal in size and appearance. ??There is no area of acute infarction or hemorrhage identified. ??No abnormal intra- or extra-axial fluid collection is appreciated, and there is no midline shift. A densely ??calcified likely extra-axial lesion is noted adjacent to the right parietal lobe likely representing a meningioma. ??This measures approximately 1.3 x 0.5 cm ??The posterior fossa is unremarkable. No significant osseous abnormalities. ??Old fracture deformity of the nasal bones is noted. ??Persistent metopic suture. ??The orbits, para-nasal sinuses and ??mastoid air cells are normal. Procedure Note Provider, MD Nasra - 02/12/2021 PROCEDURE: CT HEAD WITHOUT CONTRAST. HISTORY: Dizziness today. COMPARISON: None available TECHNIQUE: Multiple contiguous axial 5mm sections were obtained from theskull base to the vertex without intravenous contrast. FINDINGS: The cortical-sulcal pattern is unremarkable. The ventricles, subarachnoid spaces, and basal cisterns are normal in size and appearance. There is no area of acute infarction or hemorrhage identified. No abnormal intra- or extra-axial fluid collection is appreciated, and there is no midlineshift. A densely calcified likely extra-axial lesion is noted adjacent to theright parietal lobe likely representing a meningioma. This measuresapproximately 1.3 x 0.5 cm The posterior fossa is unremarkable. No significant osseous abnormalities. Old fracture deformity of the nasal bones is noted. Persistent metopic suture. The orbits, para-nasalsinuses and mastoid air cells are normal. IMPRESSION: No acute intracranial abnormality. 1.3 x 0.5 cm calcified meningioma adjacent to the right parietal lobe. Automated exposure control was used as a dose optimization technique forthis examination. THIS IS AN ELECTRONICALLY VERIFIED REPORT 07/09/2017 8:47 PM: Antoni Fernandez M.D. Antoni Fernandez M.D. JA:jamin 08:47 PM 08:47 PM [facility] [EOD] Marlyn Tapia NP IMG CT PROCEDURES Final Resu lt documented in this encounter Visit Diagnoses Diagnosis Dizziness and giddiness Type 2 diabetes mellitus without complications (CMS/HCC) (HCC) care home current use of oral hypoglycemic drug Other prison (current) drug therapy documented in this encounter
--- OUTSIDE RECORDS SUMMARY | 2024-09-29 02:58 | XMS_ITS | Clinical Summary ---
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
== END 2024-09-22 01:38 | disposition left against medical advice (07) ==
LOC: ANHED 09-22 01:30
PROVIDERS: PCP Registered Nurse
DX: K59.00 Constipation, unspecified (principal)
CPT/HCPCS: 99199

== ENCOUNTER 2025-04-26 14:15 | Outpatient (CLI) | payer BC, SELFPAY ==
--- NOTE | ~2025-04-26 | US_ITS ---
EXAMINATION: US venous doppler [facility] DATE: 04/26/2025 14:57 INDICATION: Pain and erythema with a palpable abnormality TECHNIQUE: Grayscale ultrasound images without and with compression and Doppler ultrasound images of the left lower extremity veins were obtained. COMPARISON: None. FINDINGS: The visualized portions of left common femoral vein, profunda (deep) femoral vein, femoral vein, popl iteal vein, peroneal veins, posterior tibial veins, and greater saphenous vein outflow are patent. Gr eater saphenous vein is patent and compressible along its entirety. Within the area of clinical concern (point of maximal tenderness near the ankle) is a 2 cm focus of t hrombus within the small saphenous vein, consistent with superficial thrombophlebitis. IMPRESSION: No deep venous thrombosis. Superficial thrombophlebitis within the small saphenous vein, in the area of clinical concern, within the lower calf. 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 IMPRESSION: No deep venous thrombosis. Superficial thrombophlebitis within the small saphenous vein, in the area of cl inical concern, within the lower calf.
--- OUTSIDE RECORDS SUMMARY | 2025-04-26 14:31 | XMS_ITS | Referral Summary ---
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 Gender Identity Not on file Sexual Orientation Not on file Last Filed Vital Signs Vital Sign Reading Time Taken Comments Blood Pressure 155/84 08/02/2021 7:36 PM CDT Pulse 87 08/02/2021 7:36 PM CDT Temperature 36.8 C (98.2 F) 08/02/2021 7:36 PM CDT Respiratory Rate 18 08/02/2021 7:36 PM CDT Oxygen Saturation 94% 08/02/2021 7:36 PM CDT Inhaled Oxygen Concentration - - Weight 98.4 kg (216 lb 14.9 oz) 08/02/2021 7:36 PM CDT Height 182.9 cm (6') 08/02/2021 7:36 PM CDT Body Mass Index 29.42 08/02/2021 7:36 PM CDT Plan of Treatment Not on file Insurance [facility] Care Teams Asset Protection Detective Relationship Specialty Start Date End Date No, Physician PCP - General 08/02/21
--- OUTSIDE RECORDS SUMMARY | 2025-04-26 14:31 | XMS_ITS | Encounter Summary ---
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
--- OUTSIDE RECORDS SUMMARY | 2025-04-26 14:31 | XMS_ITS | Clinical Summary ---
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
--- OUTSIDE RECORDS SUMMARY | 2025-04-26 14:31 | XMS_ITS | Continuity of Care Document ---
Author Organization [facility] Address [address] [place] [address] Phone Care Team Providers Care Program Support Assistant Name Role Phone Marsha BARTLETT MD, Chucky Unavailable Unavaila ble Procedures Procedure Date Work/medical disability examination JAIRO X-ray exam of shoulder, complete 2009 X-ray exam of elbow, complete 0 Prolonged serv, w/o contact, 1st hr Advance Directives Directive Yes / No Effective Date File Name No Information Encounters Encounter Description Practice Location Reason(s) For Visit Diagnoses Date Provider Providers Copied on Encounter Work/medical disability examination [facility], [address], [id number], [place] tel:[phone] [facility] No Information 0 Marsha Locke. [address] [address], [place], [place], [id number] , [place]. tel:[phone] Family History Family Member Type Diagnosis Age At Onset No Information Payers Payer name Insurance type Covered libertarian ID Authoriza tilamin(s) Marely [id number] Social History Type Description Quantity Date Captured [...]
--- OUTSIDE RECORDS SUMMARY | 2025-04-26 14:31 | XMS_ITS | Encounter Summary ---
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 Alcohol Use Standard Drinks/Week Comments Yes 0 (1 standard drink = 0.6 oz pur e alcohol) once every 3 months OASIS D0700: Social Isolation Answer Da te Recorded Frequency of experiencing loneliness or isolatio n Never 04/06/2025 OASIS A1250: Transportation Answer Date Recorded Lack of Transportation (Medical) No 04/06/2025 Lack of Transportation (Non-Medical) No 04/06/2025 Patient Unable or Declines to Respond No 04/06/2025 OASIS B1300: Health Literacy Answer [place]if[place] e Recorded Frequency of needing help to read materials from doctor or pharmacy Never 04/06/2025 B1300 Health Literacy Answer Date Recor ded How often do you need to hav e someone help you when you read instructions, pamphlets, or other written material from your doctor or pharmacy? Never 03/18/2025 [facility] Utilities Answer Date Recorded In the past 12 months has th e electric, gas, oil, or water company threatened to shut off services in your home? No 03/18/2025 Humiliation, Afraid, Rape, and Kick questionnair e Answer Date Recorded Within the last year, have y ou been afraid of your partner or ex-partner? No 03/18/2025 Within the last year, have y ou been humiliated or emotionally abused in other ways by your partner or ex-partner? No Within the last year, have y ou been kicked, hit, slapped, or otherwise physically hurt by your partner or ex-partner? No 03/18/2025 Within the last year, have y ou been raped or forced to have any kind of sexual activity by your partner or ex-partner? No 03/18/2025 Social Connection and Isolat ion Panel [NHANES] Answer Date Recorded In a typical week, how many times do you talk on the phone with family, friends, or neighbors? More than three times a week 03/18/2025 How often do you get togethe r with friends or relatives? More than three times a week 03/18/2025 How often do you attend [facility] or sabianism services? Patient unable to answer 03/18/2025 Do you belong to any clubs o r organizations such as evangelical groups, unions, fraternal or athletic groups, or school groups? Patient declined 03/18/2025 How often do you attend meet ings of the clubs or organizations you belong to? Patient declined 03/18/2025 Are you , , di vorced, , never , or living with a partner? Patient declined 03/18/2025 AUDIT-C Answer Date Recorded Q1: How often do you have a drink containing alc ohol? Patient declined 03/18/2025 Q2: How many drinks containi ng alcohol do you have on a typical day when you are drinking? Patient declined 03/18/2025 Q3: How often do you have si x or more drinks on one occasion? Patient declined 03/18/2025 Overall Financial Resource Strain (CARDIA) Answe r Date Recorded How hard is it for you to pa y for the very basics like food, housing, medical care, and heating? Not hard at all 03/18/2025 PHQ-2 Answer Date Recorded Patient Health Questionnaire-2 Score 0 04/05/2025 [facility] - Occupational Stress Questionnaire Answer Date Recorded Do you feel stress - tense, restless, nervous, or anxious, or unable to sleep at night because your mind is troubled all the time - these days? Not at all 03/18/2025 Exercise Vital Sign Answer Date Recorde d On average, how many days pe r week do you engage in moderate to strenuous exercise (like a brisk walk)? 5 days 03/18/2025 On average, how many minutes do you engage in exercise at this level? 30 min 03/18/2025 Hunger Vital Sign Answer Date Recorded Within the past 12 months, y ou worried that your food would run out before you got the money to buy more. Never true 03/18/20 25 Within the past 12 months, t he food you bought just didn't last and you didn't have money to get more. Never true 03/18/2025 PRAPARE - Transportation Answer Date Re corded In the past 12 months, has l ack of transportation kept you from medical appointments or from getting medications? No 02/27 In the past 12 months, has l ack of transportation kept you from meetings, work, or from getting things needed for daily living? No 03/18/2025 Housing Stability Vital Sign Answer [place]if[place] e Recorded In the last 12 months, was t here a time when you were not able to pay the mortgage or rent on time? No 03/18/2025 In the past 12 months, how m any times have you moved where you were living? 0 03/18/2025 At any time in the past [address] [facility], were you homeless or living in a nursing home (including now)? No 03/18/2025 Sex and Gender Information Value Date Recorded Sex Assigned at Male 12/07/2024 9:53 AM CDT Legal Sex Male 1:04 PM CDT Gender Identity Male 03/17/2025 7:43 PM CDT Sexual Orientation Straight 03/17/2025 7: 43 PM CDT documented as of this encounter Functional Status * Are you deaf or do you have serious difficulty hearing Answer Date of Assessment Author Status No 03/18/2025 11:06 PM CDT Dilma Evans RN Active * Are you blind or do you have serious difficulty seeing, even when wearing glasses? Answer Date of Assessment Author Status No 03/18/2025 11:06 PM CDT Dilma Evans RN Active * Do you have serious difficulty walking or climbing stairs? Answer Date of Assessment Author Status No 03/18/2025 11:06 PM Dilma Prakash RN Active * Do you have difficulty dressing or bathing? Answer Date of Assessment Author Status No 03/18/2025 11:06 PM Dilma Prakash RN Active * Because of a physical, mental, or emotional condition, do you have difficulty doing errands alone such as visiting a doctor's office or shopping? Answer Date of Assessment Author Status No 03/18/2025 11:06 PM Dilma Prakash RN Active documented as of this encounter Mental Status * Because of a physical, mental, or emotional condition, do you have serious difficulty concentrating, remembering, or making decisions? 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
--- OUTSIDE RECORDS SUMMARY | 2025-04-26 14:31 | XMS_ITS | Encounter Summary ---
Author Organization [facility] Address [address] [place] [address] Care Team Providers Care Marriage And Family Counselor Name Role Phone Ruth Child Primary Care Provider [phone] Reason for Referral * Imaging (Emergency) - Authorized Specialty Diagnoses / Procedures Referred By Contac t Referred To Contact RADIOLOGY Diagnoses Pain of left lower extremity Procedures US ROLANDO DUPLEX LOW EXT LT Ruth Child APNP [address] [place] [address] Phone: tel: fax: [place] [address] Phone: tel: fax: Referral ID Status Reason Start Date Expiration Date V isits Requested Visits Authorized [id number] Authorized 04/26/2025 05/27/2026 1 1 Reason for Visit * Reason Comments Cellulitis F/u after TCM. Pt pl ans to return to work on 05/01/25; needing clearance. Encounter Details Date Type Department Care Team (Late st Contact Info) Description 04/26/2025 11:20 AM CDT Office Visit [facility] - [place] [address] [place] [address] Ruth Child APNP [address] [place] [address] Cellulitis (F/u after TCM. 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 Never 03/18/2025 [facility] Utilities Answer Date Recorded In the past 12 months has [facility] [employer], gas, oil, or water [employer] threatened to shut off services in your [...] week 03/18/2025 How often do you attend chur or jew services? Patient unable to answer 03/18/2025 Do you belong to any clubs o r organizations such as congregational groups, unions, fraternal or athletic groups, or [...] Recorded Patient Health Questionnaire-2 Score 0 04/05/2025 [facility] - Occupational Stress Questionnaire Answer Date Recorded [...] any time in the past 12 m [facility], were you homeless or living in a [facility] (including now)? No 03/18/2025 Sex and Gender Information Value Date Recorded Sex Assigned at Male 12/07/2024 9:53 AM CDT Legal Sex Male 1:04 PM CDT Gender Identity Male 03/17/2025 7:43 PM CDT Sexual Orientation Straight 03/17/2025 7: 43 PM CDT documented as of this encounter Last Filed Vital Signs Vital Sign Reading Time Taken Comments Blood Pressure 138/80 04/26/2025 11:29 AM CDT Pulse 80 04/26/2025 11:29 AM CDT Temperature 36.6 C (97.8 F) 04/26/2025 11:29 AM CDT Respiratory Rate 16 04/26/2025 11:29 AM CDT Oxygen Saturation 95% 04/26/2025 11:29 AM CDT Inhaled Oxygen Concentration - - Weight 94.4 kg (208 lb 1.6 oz) 04/26/2025 11:29 AM CDT Height 182.9 cm (6') 04/26/2025 11:29 AM CDT Body Mass Index 28.22 04/26/2025 11:29 AM CDT documented in this encounter Functional Status * Are you deaf or do you have serious difficulty hearing Answer Date of Assessment Author Status No 03/18/2025 11:06 PM CDT Dilma Evans RN Active * Are you blind or do you have serious difficulty seeing, even when wearing glasses? Answer Date of Assessment Author Status No 03/18/2025 11:06 PM CDDilma Olea RN Active * Do you have serious [...] Prakash RN Active documented in this encounter Progress Notes * JOSE Gross - 04/26/2025 11:20 AM CDT Images from the original note were not included. [facility] OFFICE VISIT Reason for Visit: Cellulitis (F/u after TCM. Pt plans to return to work on 05/01/25; needing clearance.) History of Present Illness: 64 yo male here today to follow up on his LLE cellulitis. He has been dc/d from [employer]. He hasnot been on abx for 2 weeks. He would like to RTW on 05/01/2025. He states as of the past 2 days he has been more active on his leg, working around his leg and camper. He does elevate leg still with sitting. He states the last 2 days he has noticed more redness and pain of his left posterior leg--he notices this more after he has been standing on his leg for an extended time. 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 He is adamant he is ready to return to work. Denies any fever or chills. He states he scrubbed his leg hard cleaning off the , peeling skin and does not know if this caused the redness or not. ROS: Review of Systems Constitutional: Negative for chills and fever. Respiratory: Negative for cough and shortness of breath. Cardiovascular: Positive for leg swelling. Negative for chest pain and palpitations. Gastrointestinal: Negative for abdominal pain and vomiting. Genitourinary: Negative for dysuria and urgency. Neurological: Negative for dizziness and headaches. Medications: Current Outpatient Medications: glipiZIDE (GLUCOTROL) 5 MG tablet, Take 1 tablet (5 mg total) by mouth 2 (two) times daily before meals. Take 2 tablets twice daily, Disp: 180 tablet, Rfl: 0 HYDROcodone-acetaminophen (NORCO) 5-325 MG tablet, Take 1 tablet by mouth every 6 (six) hours as needed for Pain. Indications: Acute Pain < 7 Day Supply, Disp: 25 tablet, Rfl: 0 JARDIANCE 25 MG tablet, TAKE 1 TABLET(25 MG) BY MOUTH DAILY, Disp: 30 tablet, Rfl: 0 levothyroxine (SYNTHROID) 25 MCG tablet, TAKE 1 TABLET(25 MCG) BY MOUTH EVERY MORNING, Disp: 30 tablet, Rfl: 2 lisinopril (PRINIVIL) 10 MG tablet, TAKE 1 TABLET(10 MG) BY MOUTH DAILY, Disp: 90 tablet, Rfl: 1 meloxicam (MOBIC) 15 MG tablet, TAKE 1 TABLET BY MOUTH DAILY, Disp: 90 tablet, Rfl: 1 metFORMIN (GLUCOPHAGE) 1000 MG tablet, Take 1 tablet (1,000 mg total) by mouth 2 (two) times daily with meals., Disp: 180 tablet, Rfl: 1 rosuvastatin (CRESTOR) 20 MG tablet, TAKE 2 TABLETS(40 MG) BY MOUTH EVERY NIGHT AT BEDTIME, Disp: 180 tablet, Rfl: 1 Allergies: Review of patient's allergies indicates: No Known Allergies Medical History: Past Medical History[1] Surgical History: Past Surgical History[2] Social History: Social History[3] Family History: Family History[4] PE: Physical Exam Vitals and nursing note [...] warm and dry. Findings: No erythema. Comments: See photo Neurological: Mental Status: He is alert and oriented to person, place, and time. Gait: Gait is intact. Psychiatric: Mood and Affect: Mood and affect normal. Filed Vitals: 04/26/25 1129 BP: 138/80 Pulse: 80 Resp: 16 Temp: 97.8 ??F (36.6 ??C) TempSrc: Skin SpO2: 95% Weight: 94.4 kg (208 lb 1.6 oz) Height: 1.829 m (6') Labs: Labs Reviewed Diagnoses/Impression: 1. Pain of left lower extremity US ROLANDO DUPLEX LOW EXT LT 2. Cellulitis of left lower extremity Recommendations and Plan: 1. Pain of left lower extremity - US ROLANDO DUPLEX LOW EXT LT; Future Plans to recheck ultrasound Doppler More plan after results 2. Cellulitis of left lower extremity Mentions some worsening redness that he noticed last night however does not know if this was causedfrom his excessive scrubbing and increased activity or not. No fever chills no warmth of the area. In regards to patient returning to work. I did take a picture of his left lower extremity. We plan to reconnect in the morning regarding the redness. If redness is worse we will consider holding off on patient's released to work if redness has improved we will continue with release to work on May 01, 2025. Orders Placed This Encounter US ROLANDO DUPLEX LOW EXT LT Cannot display discharge medications since this is not an admission. PCP: JOSE Gross 04/26/2025 [1] Past Medical History: Diagnosis Date BMI 29.0-29.9,adult 08/19/2022 Cigarette nicotine dependence without complication 08/19/2022 Diabetes mellitus ([facility]) High cholesterol Hypertension Primary hypertension 08/19/2022 Type 2 diabetes mellitus with hyperglycemia, without long-term current use of insulin ([facility]) 08/19/2022 [2] Past Surgical History: Procedure Laterality Date ACNE CYST REMOVAL [3] Social History Socioeconomic History Marital status: Tobacco Use Smoking status: Every Day Current packs/day: 1.00 Average packs/day: 1 pack/day for 47.1 years (47.1 ttl pk-yrs) Types: Cigarettes Start date: 03/30/1978 Smokeless tobacco: Never 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 Vaping Use Vaping status: Never Used Substance and Sexual Activity Alcohol use: Yes Comment: once every 3 months Drug use: Never Sexual activity: Not Currently Partners: Female control/protection: Surgical Social Drivers of Health Financial Resource Strain: Low Risk (03/18/2025) Overall Financial Resource Strain (CARDIA) Difficulty of Paying Living Expenses: Not hard at all Food Insecurity: No Food Insecurity (03/18/2025) Hunger Vital Sign Worried About Running Out of Food in the Last Year: Never true Ran Out of Food in the Last Year: Never true Transportation Needs: No Transportation Needs (04/06/2025) OASIS A1250: Transportation Lack of Transportation (Medical): No Lack of Transportation (Non-Medical): No Patient Unable or Declines to Respond: No Physical Activity: Sufficiently Active (03/18/2025) Exercise Vital Sign Days of Exercise per Week: 5 days Minutes of Exercise per Session: 30 min Stress: No Stress Concern Present (03/18/2025) [employer] [place] [facility] - Occupational Stress Questionnaire Feeling of Stress : Not at all Social Connections: Feeling Socially Integrated (04/06/2025) OASIS D0700: Social Isolation Frequency of experiencing loneliness or isolation: Never Intimate Partner Violence: Not At Risk (03/18/2025) Humiliation, Afraid, Rape, and Kick questionnaire Fear of Current or Ex-Partner: No Emotionally Abused: No Physically Abused: No Sexually Abused: No Housing Stability: Low Risk (03/18/2025) Housing Stability Vital Sign Unable to Pay for Housing in the Last Year: No Number of Times Moved in the Last Year: 0 Homeless in the Last Year: No [4] Family History Problem Relation Name Age of Onset Hypertension Mother Cancer Father kidney cancer No Known Problems Daughter No Known Problems Daughter Diabetes Maternal Grandmother documented in this encounter Plan of Treatment Scheduled Orders Name Type Priority Associated Diagnoses Orde r Schedule US ROLANDO DUPLEX LOW EXT LT Ultrasound STAT Pain of left lower extremity Expected: 04/26/2025, Expires: 04/26/2026 documented as of this encounter Visit Diagnoses Diagnosis Pain of left lower extremity- Primary Cellulitis of left lower extremity Cellulitis and abscess of leg, except foot documented in this encounter Additional Health Concerns Assessment Noted Time PHQ-9 Depression Total Score: 0 11/13/19 23 11:12 AM AUTHOR documented as of this encounter Care Teams Marriage And Family Counselor Relationship Specialty Start Date End Date Ruth Child APNP [address] [place] [id number] PCP - General NURSE PRACTITIONER 08/19/22 documented as of this encounter
--- OUTSIDE RECORDS SUMMARY | 2025-04-26 14:31 | XMS_ITS | Clinical Summary ---
Author Organization [facility] Address [address] [place] [address] Care Team Providers Care Extrusion Press Operator Name Role Phone Jigar De La O Primary Care Provider [phone] Allergies No known active allergies Medications meloxicam (MOBIC) 15 MG tabletIndication s:Pain TAKE 1 TABLET BY MOUTH DAILY 90 tablet 1 024 Active rosuvastatin (CRESTOR) 20 MG tabletIndication s:Blood Cholesterol Abnormal TAKE 2 TABLETS(40 MG) BY MOUTH EVERY NIGHT AT BEDTIME 180 tablet 1 025 Active lisinopril (PRINIVIL) 10 MG tabletIndication s:Hypertension TAKE 1 TABLET(10 MG) BY MOUTH DAILY 90 tablet 1 025 Active metFORMIN (GLUCOPHAGE) 1000 MG tabletIndication s:Diabetes Mellitus Take 1 tablet (1,000 mg total) by mouth 2 (two) times daily with meals. 180 tablet 1 025 Active glipiZIDE (GLUCOTROL) 5 MG tabletIndication s:Uncontrolled type 2 diabetes mellitus with hyperglycemia ([facility] HHS/HCC),Type 2 diabetes mellitus with hyperglycemia, without long-term current use of insulin ([facility] H[facility]/HCC) Take 1 tablet (5 mg total) by mouth 2 (two) times daily before meals. Take 2 tablets twice daily 180 tablet 025 Active levothyroxine (SYNTHROID) 25 MCG tabletIndication s:Thyroid Dysfunction TAKE 1 TABLET(25 MCG) BY MOUTH EVERY MORNING 30 tablet 2 025 Active HYDROcodone-acet aminophen (NORCO) 5-325 MG tabletIndication s:Acute Pain < 7 Day Supply Take 1 tablet by mouth every 6 (six) hours as needed for Pain. Indications: Acute Pain < 7 Day Supply 25 tablet 025 Active JARDIANCE 25 MG tabletIndication s:Diabetes Mellitus TAKE 1 TABLET(25 MG) BY MOUTH DAILY 30 tablet 025 Active JARDIANCE 25 MG tabletIndication s:Diabetes Mellitus TAKE 1 TABLET(25 MG) BY MOUTH DAILY 30 tablet 2 025 2024 Discontinued sterile water SOLN 20 mL with cefTRIAXone 2 g SOLR 2 gIndications:Kathya teremia Inject 2 g into the vein daily for 5 days. Indications: Bacteria in the Blood 5 Dose 025 2024 Discontinued HYDROcodone-acet aminophen (NORCO) 5-325 MG tabletIndication s:Acute Pain < 7 Day Supply Take 1 tablet by mouth every 6 (six) hours as needed for Pain. Indications: Acute Pain < 7 Day Supply 25 tablet 025 2024 Discontinued(R eorder) amoxicillin (AMOXIL) 500 MG capsuleIndicatio ns:Cellulitis Take 1 capsule (500 mg total) by mouth every 12 (twelve) hours for 10 days. Indications: Infection Under the Skin 20 capsule 025 2024 Additional Information Patient not taking.Reported on 04/05/2025 sodium chloride, PF, 0.9 % injectionIndicat ions:Antibiotic Therapy Inject 10 mLs into the vein daily. Indications: Infection Treatment 025 2024 Discontinued Heparin Sod, Pork, Lock Flush (HEPARIN LOCK FLUSH IV)Indications:A ntibiotic Therapy Inject 5 mLs into the vein daily. Indications: Infection Treatment 025 2024 Discontinued linezolid (ZYVOX) 600 MG tabletIndication s:Cellulitis Take 1 tablet (600 mg total) by mouth 2 (two) times daily for 10 days. Indications: Infection Under the Skin 20 tablet 025 2024 Discontinued linezolid (ZYVOX) 600 MG tabletIndication s:Cellulitis Take 1 tablet (600 mg total) by mouth 2 (two) times daily. Indications: Infection Under the Skin 025 2024 Active Problems Problem Noted Date Diagnosed Date Bacteremia 03/18/2025 Microalbuminuria 12/12/2022 Type 2 diabetes mellitus wit h hyperglycemia, without long-term current use of insulin ([facility]) 08/19/2022 Mixed hyperlipidemia 08/19/2022 Primary hypertension 08/19/2022 Acquired hypothyroidism 08/19/2022 Cigarette nicotine dependence without complicati on 08/19/2022 BMI 29.0-29.9,adult 08/19/2022 Encounters Date Type Department Care Team Description 04/26/2025 11:20 AM CDT Office Visit [facility] [address] [phone] Jigar De La O APNP Cellulitis (F/u after TCM. Pt plans to return to work on 05/01/25; needing clearance.) 04/26/2025 Travel 04/06/2025 10:30 AM CDT Home Care Visit [address] [place] [address] Janki Contreras RN SN OASIS DISCHARGE/ASSESSME NT 04/05/2025 1:00 PM CDT [facility] [address] [phone] Sumeet Landis MD Bacteremia; Cellulitis (Left lower leg) 04/04/[address] [facility] [address] [phone] Jigar De La O APNP Forms 03/30/2025 1:00 PM CDT Telemedicine [facility] Internal [address] [phone] Jigar De La O APNP TCM 03/30/2025 11:00 AM CDT Home Care Visit [address] [place] [address] [place] [address] America Miles RN SN HOME VISIT 03/30/2025 Orders Only [address] [phone] Sumeet Landis MD 03/30/2025 Travel 03/27/2025 10:30 AM CDT Home Care Visit [address] [address] America Miles RN SN HOME VISIT 03/24/[address] [facility] [address] [phone] Jigar De La O APNP Information 03/24/[address] [phone] Jigar De La O APNP TCM 03/23/2025 12:40 PM CDT Telemedicine [address] [phone] Sumeet Landis MD [facility] 03/23/2025 12:00 PM CDT Home Care Visit [address] [address] Manda Sutton RN SN OASIS START OF CARE 03/23/2025 Plan of Care Documentation [address] [address] 03/21/[address] [address] Jigar De La O APNP Advise 03/18/2025 9:16 PM CDT - 03/22/2025 1:57 PM CDT Hospital Encounter [facility] Med/Surg [address] [place] [address] Agnieszka Waldrop MD Lamonica, Kandace C, MD Dodt, Darah R, JORDI Payne, Brina, MD Teresa, Chucky, MD Abnormal Lab Results (Positive blood cultures) Discharge Disposition: Home or Self Care (Routine Discharge) 03/18/2025 Travel 03/17/2025 7:34 PM CDT - 03/18/2025 1:[address] 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 Never 03/18/2025 C Utilities Answer Date Recorded In the past 12 months has [facility] electric, gas, oil, or water company threatened [...] week 03/18/2025 How often do you attend formerly [facility] or restorationism services? Patient unable to answer 03/18/2025 Do [...] Recorded Patient Health Questionnaire-2 Score 0 04/05/2025 [facility] - Occupational Stress [...] any time in the past 12 m [facility], were you homeless or living in a usp (including now)? No 03/18/2025 Sex and Gender Information Value Date Recorded Sex Assigned at Male 12/07/2024 9:53 AM CDT Legal Sex Male 1:04 PM CDT Gender Identity Male 03/17/2025 7:43 PM CDT Sexual Orientation Straight 03/17/2025 7: 43 PM CDT Last Filed Vital Signs Vital Sign Reading [...] Mass Index 28.22 04/26/2025 11:29 AM CDT Plan of Treatment Health Maintenance Due Date Last Done Comments Kidney Health Evaluation 1961 Annual Physical 1964 Diabetes: Retinopathy Eye Exam 1979 Pneumococcal Vaccine: 50+ Years (1 of 2 - PCV) 1980 Lung Cancer Screening 10/01/2023 10/01/2022 Lipid Panel 11/13/2024 11/13/2023, 11/27, 08/19/2022 Hemoglobin A1C 09/18/2025 03/19/2025, 11/26, 01/20/2024, Additional history exists COVID-19 Vaccine ( - season) 2025 03/28/2021, 03/07/2021 Postponed from 05/29/2024 (Patient Refused) Colorectal Cancer Screening Colonoscopy (10 Years) 12/07/2025 Postponed from 1961 (Patient Refused) Zoster Vaccines (1 of 2) 12/07/2025 Pos tponed from 2011 (Awaiting Documentation) DTaP, Tdap and Td Vaccines (2 - Td or Tdap) 01/08/2034 01/09/2024 RSV Immunization or 60+ Years (1 - 1-dose 75+ series) 2036 Hepatitis C Completed 03/21/2025, 12/22/2022 PHQ-2 (Physician [place]) Completed 04/05/2025 Meningococcal B Vaccine Aged Out No l onger eligible based on patient's age to complete this topic Meningococcal Vaccine Aged Out No nolvia bret eligible based on patient's age to complete this topic RSV Immunizations Under 20 Months Aged Out No longer eligible based on patient's age to complete this topic Procedures Procedure Name Priority Date/Time Associated Diagnosis Comments POCT GLUCOSE - DOCKED DEVICE Routine 03/22/2025 11:09 AM CDT US ABD LIMITED Today 03/22/2025 8:13 AM CDT POCT GLUCOSE - DOCKED DEVICE Routine 03/22/2025 7:04 AM CDT BASIC METABOLIC PANEL Routine 03/22/2025 6:18 AM CDT CBC W/DIFF AUTOMATED Routine 03/22/2025 6:18 AM CDT POCT GLUCOSE - DOCKED DEVICE Routine 03/21/2025 8:11 PM CDT HCV RNA,PCR QUANT. Routine 03/21/2025 4: 40 PM CDT HEPATITIS C ANTIBODY Routine 03/21/2025 4:40 PM CDT POCT GLUCOSE - DOCKED DEVICE Routine 03/21/2025 3:52 PM CDT POCT GLUCOSE - DOCKED DEVICE Routine 03/21/2025 11:23 AM CDT POCT GLUCOSE - DOCKED DEVICE Routine 03/21/2025 7:59 AM CDT BASIC METABOLIC PANEL Routine 03/21/2025 6:11 AM CDT CBC W/DIFF AUTOMATED Routine 03/21/2025 6:11 AM CDT VANCOMYCIN TIMED 03/21/2025 6:11 AM CDT C-REACTIVE PROTEIN Routine 03/21/2025 6: 11 AM CDT POCT GLUCOSE - DOCKED DEVICE Routine 03/20/2025 8:05 PM CDT POCT GLUCOSE - DOCKED DEVICE Routine 03/20/2025 4:49 PM CDT POCT GLUCOSE - DOCKED DEVICE Routine 03/20/2025 11:28 AM CDT USV ROLANDO DUPLEX LOW EXT LT Today 03/20/2025 8:56 AM CDT POCT GLUCOSE - DOCKED DEVICE Routine 03/20/2025 7:32 AM CDT MAGNESIUM Routine 03/20/2025 6:42 AM CDT BASIC METABOLIC PANEL Routine 03/20/2025 6:42 AM CDT C-REACTIVE PROTEIN Routine 03/20/2025 6: 42 AM CDT CBC W/DIFF AUTOMATED Routine 03/20/2025 6:42 AM CDT POCT GLUCOSE - DOCKED DEVICE Routine 03/19/2025 8:10 PM CDT POCT GLUCOSE - DOCKED DEVICE Routine 03/19/2025 4:11 PM CDT MAGNESIUM Routine 03/19/2025 7:15 AM CDT HEMOGLOBIN, GLYCOSYLATED Routine 03/19/2025 7:15 AM CDT BASIC METABOLIC PANEL Routine 03/19/2025 7:15 AM CDT C-REACTIVE PROTEIN Routine 03/19/2025 7: 15 AM CDT CBC W/DIFF AUTOMATED Routine 03/19/2025 7:15 AM CDT CULTURE, BACTERIA, BLOOD STAT 03/18/2025 10:29 PM CDT CULTURE, BACTERIA, BLOOD STAT 03/18/2025 9:54 PM CDT SED RATE, ERYTHROCYTE (ESR) STAT 03/18/2025 9:54 PM CDT C-REACTIVE PROTEIN STAT 03/18/2025 9: 54 PM CDT MAGNESIUM STAT 03/18/2025 9:54 PM CDT LACTIC ACID W REFLEX (SEPSIS) STAT 03/18/2025 9:54 PM CDT COMPREHENSIVE METABOLIC PANEL STAT 03/18/2025 9:54 PM CDT CBC W/DIFF AUTOMATED STAT 03/18/2025 9:54 PM CDT CTA CHEST PE PROTOCOL STAT 03/18/2025 12:16 AM CDT CRITICAL CARE Routine 03/17/2025 11:38 PM CDT XR TIBIA+FIBULA LT 2V STAT 03/17/2025 10:09 PM CDT URINALYSIS, AUTO, COMPLETE STAT 03/17/2025 9:48 PM CDT CULTURE, BACTERIA, BLOOD Routine 03/17/2025 9:34 PM CDT CULTURE, BACTERIA, BLOOD STAT 03/17/2025 9:19 PM CDT XR CHEST PORTABLE STAT 03/17/2025 8:3 8 PM CDT D-DIMER, QUANTITATIVE STAT 03/17/2025 8:25 PM CDT ECG 12-LEAD Routine 03/17/2025 8:24 PM CDT LACTIC ACID W REFLEX (SEPSIS) STAT 03/17/2025 8:14 PM CDT COMPREHENSIVE METABOLIC PANEL STAT 03/17/2025 8:14 PM CDT CBC W/DIFF AUTOMATED STAT 03/17/2025 8:14 PM CDT RESP SYNCYTIAL VIRUS STAT 03/17/2025 7:45 PM CDT INFLUENZA A & B STAT 03/17/2025 7:45 PM CDT CORONAVIRUS (COVID 19) STAT 03/17/2025 7:45 PM CDT LIPID PANEL Routine 11/13/2023 1:43 PM TOWER HELPER Mixed hyperlipidemia CT LUNG SCREENING Routine 10/01/2022 8:3 5 AM TOWER HELPER Cigarette nicotine dependence without complication from Last 3 Months or Most Recently Relevant to Health Maintenance Results * (ABNORMAL) POCT glucose (03/22/2025 11:09 AM CDT) Only the most recent of12 resultswithin the time period is included. GLUCOSE POC 259(H) 70 - 110 mg/dL 03/22/2025 4:23 PM CDT [facility] 03/22/2025 11:0 9 AM CDT us Chucky Teresa MD POCT ORDERABLES - DEVICE Final Result [facility] [address] [place] [address], [place] [phone] * US ABD LIMITED (03/22/2025 8:13 AM CDT) Anatomical Region Laterality Modality Abdomen Ultrasound 03/22/2025 11:2 3 AM CDT Addenda Addendum by Dony Adorno MD on 03/22/2025 3:47 PM CDT [facility] [id number] [place] [address]. [place] [address] Addendum: Findings are suggestive of a possible duplicated collecting system in the right kidney. If confirmation is needed CT examination of the abdomen with delayed contrast-enhanced images recommended. Ordered By: BRINA PAYNE Interpreted By: Dony Adorno MD, 03/22/2025 3:42 PM Impressions 03/22/2025 11:28 AM CDT IMPRESSION: 1. Hepatomegaly. 2. No cholelithiasis or cholecystitis. 3. Slight irregularity of the gallbladder wall is present. This is suspected to relate to small polyps. Ordered By: BRINA PAYNE Interpreted By: Dony Adorno MD, 03/22/2025 11:23 AM Narrative 03/22/2025 11:28 AM CDT [facility] [address] [facility] [place] [address] Procedure(s): US ABD LIMITED Date of service: 03/22/2025 7:08 AM Provided clinical information: 64 years, Male, elevated LFTs Procedure and materials: Grayscale and color Doppler images of the right upper quadrant are obtained. Comparison studies: None. Findings: Pancreas is obscured by bowel gas. There is relatively homogeneous in echotexture. No intrahepatic biliary ductal dilatation. Liver is enlarged at 19.8 cm. No focal hepatic lesions are present. Hepatic veins are patent. Portal venous flow is hepatopedal. Gallbladder is present without evidence of cholelithiasis or cholecystitis. Gallbladder wall is 2 mm. This is not thickened. There is slight irregularity of the gallbladder wall that is present. This is suspected to relate to small polyps. Right kidney measures 14.5 x 4.8 x 4.9 cm. No right hydronephrosis. No focal renal lesion. Cortex is not thinned at 1.6 cm. Common bile duct is 4 mm. This is not dilated. Procedure Note Dony Adorno MD - 03/22/2025 [facility] [address] [place] [address] Procedure(s): US ABD LIMITED Date of service: 03/22/2025 7:08 AM Provided clinical information: 64 years, Male, elevated LFTs Procedure and materials: Grayscale and color Doppler images of the rightupper quadrant are obtained. Comparison studies: None. Findings: Pancreas is obscured by bowel gas. There is relatively homogeneous inechotexture. No intrahepatic biliary ductal dilatation. Liver is enlargedat 19.8 cm. No focal hepatic lesions are present. Hepatic veins are patent. Portal venous flow is hepatopedal. Gallbladder is present without evidence of cholelithiasis orcholecystitis. Gallbladder wall is 2 mm. This is not thickened. There isslight irregularity of the gallbladder wall that is present. This issuspected to relate to small polyps. Right kidney measures 14.5 x 4.8 x 4.9 cm. No right hydronephrosis. Nofocal renal lesion. Cortex is not thinned at 1.6 cm. Common bile duct is 4 mm. This is not dilated. IMPRESSION: 1. Hepatomegaly. 2. No cholelithiasis or cholecystitis. 3. Slight irregularity of the gallbladder wall is present. This issuspected to relate to small polyps. Ordered By: BRINA PAYNE Interpreted By: Dony Adorno MD, 03/22/2025 11:23 AM us Brina Payne MD ULTRASOUND Edited Result - Final * (ABNORMAL) BASIC METABOLIC PANEL (03/22/2025 6:18 AM CDT) Only the most recent of4 resultswithin the time period is included. GLUCOSE 201(H) 70 - 99 MG/DL 03/22/2025 6:49 AM CDT [facility] BUN 15 7 - 18 MG/DL 03/22/2025 6:49 AM CDT [facility] CREATININE S/P/B 1.57(H) 0.7 - 1.3 MG/DL 03/22/2025 6:49 AM CDT [facility] SODIUM S/P/B 134(L) 136 - 145 MMOL/L 03/22/2025 6:49 AM CDT [facility] POTASSIUM S/P/B 3.8 3.5 - 5.1 MMOL/L 03/22/2025 6:49 AM CDT [facility] CHLORIDE S/P/B 98(L) 100 - 108 MMOL/L 03/22/2025 6:49 AM CDT [facility] CO2 27.1 21 - 32 MMOL/L 03/22/2025 6:49 AM CDT [facility] CALCIUM S/P/B 9.0 8.5 - 10.1 MG/DL 03/22/2025 6:49 AM CDT [facility] ANION GAP 8.9 5 - 15 MMOL/L 03/22/2025 6:49 AM CDT [facility] BUN CREATININE RATIO 9.6 6 - 26 03/22/2025 6:49 AM CDT [facility] GFR ESTIMATE 49(L) >90 ML/MIN/1.7 3 M2 03/22/2025 6:49 AM CDT [facility] Comment: NOTE: eGFR is not calculated for patients <18 years of age. This is an estimated GFR calculation using the new CKD EPI creatinine equation without race and so does not require a correction factor for race. This estimated GFR should not be used for calculating drug doses. 03/22/2025 6:18 AM CDT Brina Payne MD LABORATORY Final Result [facility] [address] [place] [address], * (ABNORMAL) CBC W/DIFF AUTOMATED (03/22/2025 6:18 AM CDT) Only the most recent of6 resultswithin the time period is included. WBC 8.55 4.4 - 11.0 x10'3/uL 03/22/2025 6:39 AM CDT [facility] RBC 5.13 4.50 - 5.90 x10'6/uL 03/22/2025 6:39 AM CDT [facility] HGB 15.4 14.0 - 17.5 G/DL 03/22/2025 6:39 AM CDT [facility] HCT 44.5 41.5 - 50.4 % 03/22/2025 6:39 AM CDT [facility] MCV 86.7 80.0 - 96.0 FL 03/22/2025 6:39 AM CDT [facility] MCH 30.0 26.5 - 31.4 PG 03/22/2025 6:39 AM CDT [facility] MCHC 34.6 31.9 - 34.8 G/DL 03/22/2025 6:39 AM CDT [facility] RDW 13.1 12.3 - 14.3 % 03/22/2025 6:39 AM T [facility] PLT 205 151 - 353 x10'3/uL 03/22/2025 6:39 AM T [facility] MPV 9.9 9.7 - 11.9 FL 03/22/2025 6:39 AM T [facility] RBC MORPHOLOGY NORMAL 03/22/2025 6:39 AM T [facility] PLT MORPH. NORMAL 03/22/2025 6:39 AM T [facility] WBC MORPHOLOGY NORMAL 03/22/2025 6:39 AM T [facility] LYMPHOCYTES % 10.6(L) 15.8 - 45.0 % 03/22/2025 6:39 AM CDT [facility] NEUTROPHILS % 77.9(H) 42.1 - 71.9 % 03/22/2025 6:39 AM CDT [facility] MONOCYTES % 7.7 5.7 - 12.5 % 03/22/2025 6:39 AM CDT [facility] EOSINOPHILS 2.9 0.0 - 5.6 % 03/22/2025 6:39 AM CDT [facility] BASOPHILS 0.5 0.0 - 1.3 % 03/22/2025 6:39 AM CDT [facility] ABS. NEUTROPHILS 6.66(H) 1.40 - 6.00 x10'3/uL 03/22/2025 6:39 AM CDT [facility] IMMATURE GRANS % 0.4 0.0 - 0.5 % 03/22/2025 6:39 AM CDT [facility] ABS. LYMPHOCYTES 0.91 0.80 - 4.70 x10'3/uL 03/22/2025 6:39 AM CDT [facility] 03/22/2025 6:18 AM CDT Brina Payne MD LABORATORY Final Result [facility] [address] [place] [address], * HCV RNA,PCR QUANT. (03/21/2025 4:40 PM CDT) HEPATITIS C RNA PCR QNT <15 IU/mL 03/25/2025 1:48 PM CDT [facility] Comment: HCV RNA Not Detected HEP C RNA PCR QNT LOG <1.18 log IU/mL 03/25/2025 1:48 PM CDT [facility] Comment: HCV RNA Not Detected Reference Range: Not Detected IU/mL Not Detected Log IU/mL For additional information please refer to http://education.Deem/faq/BJN99o6 (This link is being provided for informational/ educational purposes only.) Test Performed by Sage Guerra, [facility], [address] [place] [address] Lavon Hernandez M.D., Ph.D., Director of Laboratories , [facility] [id number] 03/21/2025 4:40 PM CDT Brina Payne MD LABORATORY Final Result [facility] [address] [place], [place] , [place] [phone] * HEPATITIS C ANTIBODY W/REFLEX (03/21/2025 4:40 PM CDT) Pathologist [facility] HEPATITIS C AB NON-REACTI VE NON-REACTI VE 03/21/2025 8:38 PM CDT [facility] 03/21/2025 4:40 PM CDT Santiago Donaldson MD LABORATORY Final Result [facility] [address] [place] [address], [place] [phone] * (ABNORMAL) C-REACTIVE PROTEIN (03/21/2025 6:11 AM CDT) Only the most recent of4 resultswithin the time period is included. Pathologist [facility] C-REACTIVE PROTEIN 7.09(H) <0.29 mg/dL 03/22/2025 11:26 AM CDT [facility] 03/21/2025 6:11 AM CDT Eleanor Smith MD LABORATORY Final Resu lt [facility] [address] [place] [address], [place] [phone] * Vancomycin Random Level (03/21/2025 6:11 AM CDT) VANCOMYCIN RANDOM 9.0 MCG/ML 03/21/2025 7:06 AM CDT [facility] Comment:NO THERAPEUTIC RANGE AVAILABLE 03/21/2025 6:11 AM CDT [facility] Final Result [facility] [address] [facility] [place] [address], * USV ROLANDO DUPLEX LOW EXT LT (03/20/2025 8:56 AM CDT) Anatomical Region Laterality Modality Ultrasound 03/20/2025 9:58 AM CDT Impressions 03/20/2025 10:01 AM CDT IMPRESSION: No evidence for deep venous thrombosis in the left lower extremity. Prominent lymph node is present in the left inguinal region. This measures 3.6 x 4.1 x 1.2 cm. This may be reactive. Clinical correlation recommended. Ordered By: ELEANOR SMITH Interpreted By: Dony Adorno MD, 03/20/2025 9:58 AM Narrative 03/20/2025 10:01 AM CDT [facility] [address] [facility]. [place] [id number] Procedure(s): USV ROLANDO DUPLEX LOW EXT LT Date of service: 03/20/2025 8:20 AM Provided clinical information: 64 years, Male, cellulitis. Left lower extremity edema, redness and pain. Procedure and materials: Standard protocol. Comparison studies: None. Observations: Standard grayscale and Doppler evaluation of the left lower extremity is performed. Deep veins of the left lower extremity demonstrate normal patency with no intraluminal filling defect and normal compressibility. There is normal directional color Doppler flow and venous waveforms. There is positive response to augmentation. In the left inguinal region there is a lymph node that is present. This measures approximately 3.6 x 4.1 x 1.2 cm. This has a fatty and normal morphology. The cortex is not thickened at approximately 2 mm. This may be reactive. Procedure Note Dony Adorno MD - 03/20/2025 [facility] [address] [place] [address] Procedure(s): USV ROLANDO DUPLEX LOW EXT LT Date of service: 03/20/2025 8:20 AM Provided clinical information: 64 years, Male, cellulitis. Left lowerextremity edema, redness and pain. Procedure and materials: Standard protocol. Comparison studies: None. Observations: Standard grayscale and Doppler evaluation of the left lower extremity isperformed. Deep veins of the left lower extremity demonstrate normalpatency with no intraluminal filling defect and normal compressibility.There is normal directional color Doppler flow and venous waveforms. Thereis positive response to augmentation. In the left inguinal region there mari lymph node that is present. This measures approximately 3.6 x 4.1 x 1.2cm. This has a fatty and normal morphology. The cortex is not thickened atapproximately 2 mm. This may be reactive. IMPRESSION: No evidence for deep venous thrombosis in the left lower extremity. Prominent lymph node is present in the left inguinal region. This measures3.6 x 4.1 x 1.2 cm. This may be reactive. Clinical correlationrecommended. Ordered By: ELEANOR SMITH Interpreted By: Dony Adorno MD, 03/20/2025 9:58 AM Eleanor Smith MD VASC Final Resu lt * MAGNESIUM (03/20/2025 6:42 AM CDT) Only the most recent of3 resultswithin the time period is included. MAGNESIUM 2.2 1.8 - 2.4 MG/DL 03/20/2025 7:25 AM CDT [facility] () [facility] 03/20/2025 6:42 AM CDT Dereje Hensley APRN LABORATORY Final Result Performing Organization Address [facility]/ZIP Co de Phone Number [facility] [address] [place] [address], [place] [phone] * (ABNORMAL) HEMOGLOBIN, GLYCATED (03/19/2025 7:15 AM CDT) HGB A1C 8.7(H) <5.7 % 03/19/2025 8:34 AM CDT [facility] Comment: INCREASED RISK OF DIABETES <5.7% NON-DIABETES 5.7-6.4% INCREASED RISK FOR FUTURE DIABETES > OR = 6.5 CONSISTENT WITH DIABETES STANDARDS OF MEDICAL CARE IN DIABETES-2009 DIABETES CARE, 33(SUPP 1): S1-S61,2009 ESTIMATED AVG GLUCOSE 203 mg/dL 03/19/2025 8:34 AM CDT [facility] 03/19/2025 7:15 AM CDT Eleanor Smith MD LABORATORY Final Resu lt Performing Organization Address [facility] Co de Phone Number [facility] [address] [place] [address], [place] [phone] * CULTURE, BACTERIA, BLOOD (03/18/2025 10:29 PM CDT) Only the most recent of4 resultswithin the time period is included. SPEC DESCRIPTION BLOOD 03/18/2025 9:45 PM CDT [facility] SPECIAL REQUESTS NO SPECIAL REQUEST 03/18/2025 9:45 PM CDT [facility] CULTURE RESULT NO GROWTH 5 DAYS 03/24/2025 12:01 PM CDT [facility] BLOOD SPECIMEN OBTAINED FOR BLOOD CULTURE / Unknown 03/18/2025 10:29 PM CDT 03/18/2025 10:41 PM CDT us Agnieszka Waldrop MD MICROBIOLOGY - GENERAL ORDERAB LES Final Result Performing Organization Address [facility]/ZIP Co de Phone Number [facility] [address] [place] [address], [place] [phone] [facility] [address] [place] [address], [place] [phone] * LACTIC ACID W REFLEX (SEPSIS) (03/18/2025 9:54 PM CDT) Only the most recent of2 resultswithin the time period is included. LACTIC ACID VENOUS 1.9 0.4 - 2.0 MMOL/L 03/18/2025 10:53 PM CDT [facility] 03/18/2025 9:54 PM CDT us Agnieszka Waldrop MD LABORATORY Final Result Performing Organization Address [facility] Co de Phone Number [facility] [address] [place] [address], [place] [phone] * (ABNORMAL) SED RATE, ERYTHROCYTE (ESR) (03/18/2025 9:54 PM CDT) ESR 43(H) 0 - 20 MM/HR 03/18/2025 10:43 PM CDT [facility] 03/18/2025 9:54 PM CDT us Agnieszka Waldrop MD LABORATORY Final Result Performing Organization Address City/[facility]/ZIP Co de Phone Number [facility] [address] [place] [address], [place] [phone] * (ABNORMAL) COMPREHENSIVE METABOLIC PANEL (03/18/2025 9:54 PM CDT) Only the most recent of2 resultswithin the time period is included. [facility] GLUCOSE 157(H) 70 - 99 MG/DL 03/18/2025 10:49 PM [facility] BUN 33(H) 7 - 18 MG/DL 03/18/2025 10:49 PM [facility] CREATININE S/P/B 1.90(H) 0.7 - 1.3 MG/DL 03/18/2025 10:49 PM [facility] SODIUM S/P/B 131(L) 136 - 145 MMOL/L 03/18/2025 10:49 PM [facility] POTASSIUM S/P/B 4.0 3.5 - 5.1 MMOL/L 03/18/2025 10:49 PM [facility] CHLORIDE S/P/B 100 100 - 108 MMOL/L 03/18/2025 10:49 PM [facility] CO2 20.0(L) 21 - 32 MMOL/L 03/18/2025 10:49 PM [facility] CALCIUM S/P/B 8.5 8.5 - 10.1 MG/DL 03/18/2025 10:49 PM [facility] BILIRUBIN TOTAL S/P/B 0.6 0.2 - 1.2 MG/DL 03/18/2025 10:49 PM [facility] TOTAL PROTEIN S/P/B 6.1(L) 6.4 - 8.2 G/DL 03/18/2025 10:49 PM [facility] ALBUMIN S/P/B 2.6(L) 3.4 - 5.0 G/DL 03/18/2025 10:49 PM [facility] AST 54(H) 15 - 37 U/L 03/18/2025 10:49 PM CDT [facility] ALT 68(H) 16 - 60 U/L 03/18/2025 10:49 PM CDT [facility] ALKALINE PHOSPHATASE S/P/B 67 50 - 136 U/L 03/18/2025 10:49 PM CDT [facility] ANION GAP 11.0 5 - 15 MMOL/L 03/18/2025 10:49 PM T [facility] BUN CREATININE RATIO 17.4 6 - 26 03/18/2025 10:49 PM T [facility] A/G RATIO 0.7(L) 1.0 - 2.0 RATIO 03/18/2025 10:49 PM T [facility] GFR ESTIMATE 39(L) >90 ML/MIN/1.7 3 M2 03/18/2025 10:49 PM T [facility] Comment: NOTE: eGFR is not calculated for patients <18 years of age. This is an estimated GFR calculation using the new CKD EPI creatinine equation without race and so does not require a correction factor for race. This estimated GFR should not be used for calculating drug doses. 03/18/2025 9:54 PM CDT us Agnieszka Waldrop MD LABORATORY Final Result Performing Organization Address City/State/[facility] Co de Phone Number [facility] [address] [place] [address], * CTA CHEST PE PROTOCOL (03/18/2025 12:16 AM CDT) Anatomical Region Laterality Modality Chest Computed Tomogra phy 03/18/2025 12:2 1 AM CDT Impressions 03/18/2025 12:28 AM CDT Impression: 1. No pulmonary embolism identified. 2. No acute chest disease. Referred By: Interpreted By: Vahid Hoffman MD, 03/18/2025 12:21 AM Narrative 03/18/2025 12:28 AM CDT [facility] [address] [place] [address] Examination: CT angiography of the chest with contrast, per pulmonary embolism protocol. Clinical Indication: Headache, fever, chills with elevated d-dimer that began yesterday. Comparison: CT 10/01/2022. Technique: Chest CT angiography with IV contrast. Standard and MIP images were reviewed. IV contrast: 75 mL of Isovue-370. Dose reduction: This CT exam was performed using one or more of the following dose-reduction techniques: Automated exposure control, adjustment of the mA and/or kV according to patient size, and/or use of iterative reconstruction technique. Findings: PULMONARY ARTERIES: Exam quality: Satisfactory. Pulmonary embolism: No acute or chronic pulmonary embolism. Central pulmonary arteries: Normal caliber. HEART: Heart: No right heart strain. Normal size. Aorta: Normal caliber. Coronary arteries: Mild calcifications. Pericardium: Normal. No effusion, thickening, or calcification. MEDIASTINUM: Support tubes and lines: None. Base of neck/thyroid: Normal. Lymph nodes: No supraclavicular, axillary, internal mammary, mediastinal, or hilar adenopathy. Granulomatous calcifications present in the right hilar region. Trachea: Normal. Esophagus: Normal. LUNGS AND PLEURA: Lungs: Dependent atelectasis. Pleura: No effusion, thickening, or calcification. UPPER ABDOMEN: Normal. BONES/SOFT TISSUES: No focal lesion. Procedure Note Vahid Hoffman MD - 03/18/2025 [facility] [address] [place] [address] Examination: CT angiography of the chest with contrast, per pulmonaryembolism protocol. Clinical Indication: Headache, fever, chills with elevated d-dimer thatbegan yesterday. Comparison: CT 10/01/2022. Technique: Chest CT angiography with IV contrast. Standard and MIP images werereviewed. IV contrast: 75 mL of Isovue-370. Dose reduction: This CT exam was performed using one or more of thefollowing dose-reduction techniques: Automated exposure control,adjustment of the mA and/or kV according to patient size, and/or use ofiterative reconstruction technique. Findings: PULMONARY ARTERIES: Exam quality: Satisfactory. Pulmonary embolism: No acute or chronic pulmonary embolism. Central pulmonary arteries: Normal caliber. HEART: Heart: No right heart strain. Normal size. Aorta: Normal caliber. Coronary arteries: Mild calcifications. Pericardium: Normal. No effusion, thickening, or calcification. MEDIASTINUM: Support tubes and lines: None. Base of neck/thyroid: Normal. Lymph nodes: No supraclavicular, axillary, internal mammary, mediastinal,or hilar adenopathy. Granulomatous calcifications present in the righthilar region. Trachea: Normal. Esophagus: Normal. LUNGS AND PLEURA: Lungs: Dependent atelectasis. Pleura: No effusion, thickening, or calcification. UPPER ABDOMEN: Normal. BONES/SOFT TISSUES: No focal lesion. Impression: 1. No pulmonary embolism identified. 2. No acute chest disease. Referred By: Interpreted By: Vahid Hoffman MD, 03/18/2025 12:21 AM Michael Bailey MD CT Final Result * Critical Care (03/17/2025 11:38 PM CDT) Michael Tomlinson MD - 03/17/2025 11:38 PM CDT Michael Bailey MD 03/18/2025 1:37 AM Critical Care Performed by: Michael Bailey MD Authorized by: Michael Bailey MD Critical care provider statement: Critical care time (minutes): 30 Critical care time was exclusive of: Separately billable procedures and treating other patients and teaching time Critical care was necessary to treat or prevent imminent or life-threatening deterioration of the following conditions: Sepsis and dehydration Critical care was time spent personally by me on the following activities: Evaluation of patient's response to treatment, development of treatment plan with patient or surrogate, examination of patient, obtaining history from patient or surrogate, ordering and performing treatments and interventions, ordering and review of laboratory studies, ordering and review of radiographic studies, pulse oximetry, re-evaluation of patient's condition and review of old charts I assumed direction of critical care for this patient from another provider in my specialty: no us Michael Bailey MD PROCEDURE/MINOR SURGICAL ORDERAB LES Final Result * XR TIBIA+FIBULA LT 2V (03/17/2025 10:09 PM CDT) Anatomical Region Laterality Modality TibFib Radiographic Teresa ging 03/17/2025 10:1 5 PM CDT Impressions 03/17/2025 10:17 PM CDT IMPRESSION: 1. No acute osseous abnormality identified. 2. Vascular calcifications. 3. Calcaneal insertional enthesophytes. Referred By: Interpreted By: Vahid Hoffman MD, 03/17/2025 10:15 PM Narrative 03/17/2025 10:17 PM CDT [address] [place] [address] EXAMINATION: XR TIBIA+FIBULA LT 2V HISTORY: left leg hit with log 2 weeks ago left lower leg redness and warm to touch. pt presents to ed w/ fever, headache, chills. hx diabetes COMPARISON: No comparison. TECHNIQUE: 2 views of the left tibia and fibula. FINDINGS: No fracture or dislocation is seen. No destructive bone lesion noted. Knee and ankle joint spaces appear preserved. Calcaneal insertional enthesophytes are present. Vascular calcifications noted. No soft tissue gas is identified. Procedure Note Vahid Hoffman MD - 03/17/2025 [facility] [address] [place] [address] EXAMINATION: XR TIBIA+FIBULA LT 2V HISTORY: left leg hit with log 2 weeks ago left lower leg redness and warmto touch. pt presents to ed w/ fever, headache, chills. hx diabetes COMPARISON: No comparison. TECHNIQUE: 2 views of the left tibia and fibula. FINDINGS: No fracture or dislocation is seen. No destructive bone lesion noted. Kneeand ankle joint spaces appear preserved. Calcaneal insertionalenthesophytes are present. Vascular calcifications noted. No soft tissuegas is identified. IMPRESSION: 1. No acute osseous abnormality identified. 2. Vascular calcifications. 3. Calcaneal insertional enthesophytes. Referred By: Interpreted By: Vahid Hoffman MD, 03/17/2025 10:15 PM Michael Bailey MD GENERAL IMAGING Final Result * (ABNORMAL) URINALYSIS, AUTO, COMPLETE (03/17/2025 9:48 PM CDT) COLOR (U) YELLOW 03/17/2025 10:08 PM CDT [facility] TRANSPARENCY CLEAR 03/17/2025 10:08 PM CDT [facility] SPECIFIC GRAVITY (U) 1.020 1.000 - 1.030 03/17/2025 10:08 PM CDT [facility] U PH 6.0 5.0 - 9.0 03/17/2025 10:08 PM T [facility] LEUKOCYTES (U) NEGATIVE NEGATIVE 03/17/2025 10:08 PM CDT [facility] NITRITES NEGATIVE NEGATIVE 03/17/2025 10:08 PM T [facility] PROTEIN RANDOM (U) 3+(A) NEGATIVE 03/17/2025 10:08 PM T [facility] GLUCOSE (U) 3+(A) NEGATIVE 03/17/2025 10:08 PM T [facility] KETONES MG/DL (U) NEGATIVE NEGATIVE 03/17/2025 10:08 PM T [facility] BILIRUBIN (U) NEGATIVE NEGATIVE 03/17/2025 10:08 PM T [facility] BLOOD (U) 2+(A) NEGATIVE 03/17/2025 10:08 PM T [facility] WBC/HPF 0-5 0 - 5 /HPF 03/17/2025 10:08 PM T [facility] RBC/HPF 0-5 0 - 5 /HPF 03/17/2025 10:08 PM CDT [facility] EPI/HPF RARE /HPF 03/17/2025 10:08 PM CDT [facility] URINE SPECIMEN OBTAINED BY CLEAN CATCH PROCEDURE / Unknown 03/17/2025 9:48 PM CDT us Michael Bailey MD URINE ORDERABLES Final Result [facility] [address] [place] [address], [place] [phone] * XR CHEST PORTABLE (03/17/2025 8:38 PM CDT) Anatomical Region Laterality Modality Chest Radiographic Teresa ging 03/17/2025 8:43 PM CDT Impressions 03/17/2025 8:43 PM CDT IMPRESSION: 1) No radiographic evidence of active disease the chest. Ordered By: MICHAEL BAILEY Interpreted By: Junior Simpson MD, 03/17/2025 8:43 PM Narrative 03/17/2025 8:43 PM CDT [address] [place] [address] Examination: XR CHEST PORTABLE Exam time: 03/17/2025 8:29 PM Clinical history: Fever Comparison: None Technique: AP chest Findings: Heart size within normal limits. Pulmonary vasculature unremarkable. No significant new focal pulmonary parenchymal opacity. No pleural effusion. No hyperinflation. Procedure Note Junior Simpson MD - 03/17/2025 [facility] [id number] [place] [address]. [place] [address] Examination: XR CHEST PORTABLE Exam time: 03/17/2025 8:29 PM Clinical history: Fever Comparison: None Technique: AP chest Findings: Heart size within normal limits. Pulmonary vasculatureunremarkable. No significant new focal pulmonary parenchymal opacity. Nopleural effusion. No hyperinflation. IMPRESSION: 1) No radiographic evidence of active disease the chest. Ordered By: MICHAEL BAILEY Interpreted By: Junior Simpson MD, 03/17/2025 8:43 PM Michael Bailey MD GENERAL IMAGING Final Result * (ABNORMAL) D-DIMER, QUANTITATIVE (03/17/2025 8:25 PM CDT) D-DIMER 1,531(H) 0 - 500 ng{FEU}/mL 03/17/2025 11:49 PM CDT [facility] Comment: D-Dimer values less than or equal to 500 ng/mL FEU have a negative predictive value of >95% for exclusion of deep vein thrombosis and pulmonary embolism. In patients over 50 (who tend to have higher normal baseline D-Dimer values), recent studies suggest age-adjusted D-Dimer cutoff values (calculated as: age [years] x 10 ng/mL) result in equivalent outcomes and no additional false negative findings. 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: : 1960 Requested By: MICHAEL BAILEY Order Number: [id number] Reading MD: Kadi Owen Measurements Intervals [place] Rate: 108 P: 49 MI: 182 QRS: 42 QRSD: 106 T: 34 QT: 306 QTc: 411 Interpretive Statements SINUS TACHYCARDIA POSSIBLE LEFT ATRIAL ENLARGEMENT [-0.1mV P-WAVE IN V1/V2] ABNORMAL RHYTHM ECG No previous ECG available for comparison Procedure Note Kadi Owen MD - 03/20/2025 [facility] Test Date: 2025-03-17 Pat Name: CHANTELL AMBROSIO Department: 85 Room: [facility] 202 Gender: Male Financial 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 Manager: : 1960 Requested By: MICHAEL BAILEY Order Number: [id number] Reading MD: Kadi Owen Measurements Intervals [place] Rate: 108 P: 49 MI: 182 QRS: 42 QRSD: 106 T: 34 QT: 306 QTc: 411 Interpretive Statements SINUS TACHYCARDIA POSSIBLE LEFT ATRIAL ENLARGEMENT [-0.1mV P-WAVE IN V1/V2] ABNORMAL RHYTHM ECG No previous ECG available for comparison us Michael Bailey MD ECG ORDERABLES Final Result [facility] ([facility] RAD * CORONAVIRUS (COVID-19) MOLECULAR (03/17/2025 7:45 PM CDT) CORONAVIRUS SARS COV 2 RNA NEGATIVE NEGATIVE 03/17/2025 8:09 PM CDT [facility] Comment: NEGATIVE RESULTS DO NOT RULE OUT COVID 19 AND SHOULD NOT BE USED THE SOLE BASIS FOR TREATMENT OR PATIENT MANAGEMENT DECISIONS, INCLUDING INFECTION CONTROL DECISIONS. NEGATIVE RESULTS SHOULD BE CONSIDERED IN THE CONTEXT OF A PATIENT'S RECENT EXPOSURES, HISTORY AND THE PRESENCE OF CLINICAL SIGNS AND SYMPTOMS CONSISTENT WITH COVID 19. THE ID NOW COVID-19 2.0 TEST HAS BEEN AUTHORIZED BY THE FDA UNDER EAU FOR USE BY AUTHORIZED LABORATORIES. PERFORMED BY NUCLEIC ACID AMPLIFICATION FOR MOLECULAR QUALITATIVE DETECTION OF SARS-COV-2. SPECIMEN TYPE NASAL 03/17/2025 7:44 PM CDT [facility] NASOPHARYNGEAL SWAB / Unknown 03/17/2025 7:45 PM CDT us Michael Bailey MD MICROBIOLOGY - GENERAL ORDERABLE S Final Result Performing Organization Address City/[facility]/ZIP Co de Phone Number [facility] [address] [place] [address], [place] [phone] * INFLUENZA A & B (03/17/2025 7:45 PM CDT) SPECIMEN TYPE NASOPHARYNX 03/17/2025 8:10 PM CDT [facility] INFLUENZA A NEGATIVE NEGATIVE 03/17/2025 8:10 PM CDT [facility] INFLUENZA B NEGATIVE NEGATIVE 03/17/2025 8:10 PM CDT [facility] NASOPHARYNGEAL SWAB / Unknown 03/17/2025 7:45 PM CDT us Michael Bailey MD MICROBIOLOGY - GENERAL ORDERABLE S Final Result Performing Organization Address City/[facility]/ZIP Co de Phone Number [facility] [address] [place] [address], [place] [phone] * RESP SYNCYTIAL VIRUS (03/17/2025 7:45 PM CDT) SPECIMEN TYPE NASOPHARYNGEAL SWAB 03/17/2025 7:44 PM CDT [facility] RAPID RSV NEGATIVE NEGATIVE 03/17/2025 8:10 PM CDT [facility] NASOPHARYNGEAL SWAB / Unknown 03/17/2025 7:45 PM CDT us Michael Bailey MD MICROBIOLOGY - GENERAL ORDERABLE S Final Result [facility] () [facility] [address] [place] [address], [place] [phone] * (ABNORMAL) LIPID PANEL (11/13/2023 1:43 PM TOWER HELPER) CHOLESTEROL 216(H) <200 MG/DL 11/13/2023 8:00 PM TOWER HELPER [facility] TRIGLYCERIDES 340(H) <150 MG/DL 11/13/2023 8:00 PM TOWER HELPER [facility] HDL 44 >40 MG/DL 11/13/2023 8:00 PM TOWER HELPER [facility] LDL-C 104(H) <100 MG/DL 11/13/2023 8:00 PM TOWER HELPER [facility] VLDL CALCULATION 68(H) 5 - 28 MG/DL 11/13/2023 8:00 PM TOWER HELPER [facility] CHOL/HDL RATIO 4.9(H) 0.0 - 4.0 11/13/2023 8:00 PM TOWER HELPER [facility] LDL/HDL 2.4(H) 0.41 - 2.13 11/13/2023 8:00 PM TOWER HELPER [facility] NON HDL CHOLESTEROL 172(H) <140 MG/DL 11/13/2023 8:00 PM TOWER HELPER [facility] 11/13/2023 1:43 PM TOWER HELPER us Jigar GARCIA LABORATORY Final Resul t [facility] [address] [place] [address], [place] [phone] * CT LUNG SCREENING (10/01/2022 8:35 AM TOWER HELPER) Anatomical Region Laterality Modality Chest Computed Tomogra phy 10/02/2022 3:36 PM TOWER HELPER Impressions 10/02/2022 3:41 PM TOWER HELPER IMPRESSION: 1. Lung-RADS Category 2: Benign appearance or behavior. Nodules with a very low likelihood of becoming a clinically active cancer due to size or lack of growth. 2. LUNG-RADS category S: Negative, no new/unknown potentially significant incidental findings requiring urgent additional evaluation. 3. Other incidental findings as above. RECOMMENDATIONS: Follow-up LDCT Chest in 12 months (on or around 10/01/2023). Thank you for choosing the [facility] Lung Screening Program. Referred By: JIGAR DE LA O Interpreted By: Raymond Richards MD, 10/02/2022 3:36 PM Narrative 10/02/2022 3:41 PM TOWER HELPER EXAM: LUNG SCREENING LOW-DOSE CT THORAX WITHOUT [...] Calcified granulomas. Other Incidentals: Atherosclerosis. Gynecomastia. Atherosclerosis. Procedure Note Raymond Richards MD - 10/02/2022 [...] or around10/01/2023). Thank you for choosing the [facility]ening[facility]. 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
--- OUTSIDE RECORDS SUMMARY | 2025-04-26 14:31 | XMS_ITS | Continuity of Care Document ---
Author Organization [facility] Address [address] [place] [address] [address] [place] [address] Phone Care Team Providers Care Vacuum System Tester Name Role Phone Shiraz Young Unavailable Unavailable Procedures Procedure Date Visual Field Examination(s) Eye Exam, New Patient Advance Directives Directive Yes / No Effective Date File Name No Information Encounters Encounter Description Practice Location Reason(s) For Visit Diagnoses Date Provider Providers Copied on Encounter [facility], [address] [place] [address] [address], [place], [place], [id number], tel:[phone] [place] [address] No Information 9 Krishnasjil Shiraz. [address] [place] [address], [facility], [place]. tel:[phone] Referring Provider: Shiraz Young, [address] [place] [address], [facility]. tel:[phone] 2208 [facility], [address] [place] [address] [address], [place], [place], [id number], tel:[phone] [facility] No Information 200 9 Krishnasamy Shiraz. [address] [place] [address], [facility], [place]. tel:[phone] Referring Provider: Isidoro Rivera MD F, [address] [place], [address]. tel:[phone] Family History Family Member Type Diagnosis Age At Onset No Information Payers Payer name Insurance type Covered green party ID Authoriza tion(s) [employer] [place] [id number] Social History Type Description Quantity Date Captured [...]
== END 2025-04-26 14:16 | disposition home or self-care (01) ==
PROVIDERS: PCP Registered Nurse; Visit Provider Registered Nurse
DX: I80.02 Phlebitis and thrombophlebitis of superficial vessels of left lower extremity (principal)
CPT/HCPCS: 93971